=== PATIENT | male | born 1980 | race Two or more races ===

== ENCOUNTER → 2020-10-18 11:00 | Outpatient (BNVA) | payer MEDICAID, SELFPAY | PROVIDERS: PCP Emergency Medicine; Referring Provider Emergency Medicine; Visit Provider Internal Medicine Pulmonary Disease | DX: J44.9 Chronic obstructive pulmonary disease, unspecified (principal); J45.901 Unspecified asthma with (acute) exacerbation | CPT/HCPCS: 99212 ==

== ENCOUNTER → 2020-12-26 13:32 | Outpatient (BNVA) | payer MEDICAID, SELFPAY | PROVIDERS: PCP Emergency Medicine; Visit Provider Nurse Practitioner Gerontology | DX: E11.65 Type 2 diabetes mellitus with hyperglycemia (principal); E78.5 Hyperlipidemia, unspecified; E66.01 Morbid (severe) obesity due to excess calories; Z68.35 Body mass index [BMI] 35.0-35.9, adult | CPT/HCPCS: 82947; 99212 ==

== ENCOUNTER → 2021-01-17 11:32 | Outpatient (BNVA) | payer MEDICAID, SELFPAY | PROVIDERS: Visit Provider Internal Medicine Pulmonary Disease | DX: J44.9 Chronic obstructive pulmonary disease, unspecified (principal) | CPT/HCPCS: 99212 ==

== ENCOUNTER → 2021-02-10 10:28 | Outpatient (BNVA) | payer MEDICAID, SELFPAY | PROVIDERS: PCP Emergency Medicine; Visit Provider Nurse Practitioner Gerontology | DX: E11.65 Type 2 diabetes mellitus with hyperglycemia (principal); E78.5 Hyperlipidemia, unspecified; E66.01 Morbid (severe) obesity due to excess calories; Z68.35 Body mass index [BMI] 35.0-35.9, adult | CPT/HCPCS: 82947; 99212 ==

== ENCOUNTER → 2021-02-22 08:55 | Outpatient (BNVA) | payer MEDICAID, SELFPAY | PROVIDERS: Visit Provider Nurse Practitioner Gerontology ==

== ENCOUNTER → 2021-04-07 09:30 | Outpatient (BNVA) | payer MEDICAID, SELFPAY | PROVIDERS: PCP General Practice; Visit Provider Nurse Practitioner Gerontology | DX: E11.65 Type 2 diabetes mellitus with hyperglycemia (principal); E78.5 Hyperlipidemia, unspecified; E66.01 Morbid (severe) obesity due to excess calories; Z68.35 Body mass index [BMI] 35.0-35.9, adult | CPT/HCPCS: 82947; 99212 ==

== ENCOUNTER 2021-04-14 09:12 | Outpatient (REF) | payer MEDICAID, SELFPAY ==
[2021-04-14 10:35] LABS: Alanine Aminotransferase 28 U/L (0-40); Albumin Level 4.7 g/dL (3.5-5.0); Alkaline Phosphatase 42 U/L (39-117); Anion Gap 14 (12-20); Aspartate Amino Transferase 15 U/L (5-37); Bilirubin Total 0.4 mg/dL (0.0-1.0); Blood Urea Nitrogen 17 mg/dL (9-16); Calcium 9.9 mg/dL (8.4-10.2); Carbon Dioxide 26 mmol/L (22-29); Chloride 105 mmol/L (96-108); Cholesterol 178 mg/dL; Estimated Glomerular Filt Rate > 60; Glucose Fasting 207 mg/dL (60-99); HDL Cholesterol 38 mg/dL; Potassium 4.4 mmol/L (3.3-5.1); Sodium 141 mmol/L (135-145); Total Protein 7.2 g/dL (6.5-8.0); Triglycerides 479 mg/dL
[2021-04-14 10:42] LABS: Microalbum/Creatinine Ratio Ur 41.4 ug/mg cr
[2021-04-15 06:12] LABS: LDL Cholesterol Direct 80 mg/dL (<100)
== END 2021-04-14 09:13 | disposition home or self-care (01) ==
LOC: HO.LAB 09:12
PROVIDERS: PCP General Practice; Visit Provider Nurse Practitioner Gerontology
DX: E11.65 Type 2 diabetes mellitus with hyperglycemia (principal)
CPT/HCPCS: 36415; 80053; 80061; 82043; 83721

== ENCOUNTER → 2021-05-19 09:21 | Outpatient (BNVA) | payer MEDICAID, SELFPAY | PROVIDERS: PCP General Practice; Visit Provider Nurse Practitioner Gerontology | DX: E11.65 Type 2 diabetes mellitus with hyperglycemia (principal); E78.5 Hyperlipidemia, unspecified; E66.01 Morbid (severe) obesity due to excess calories; Z68.35 Body mass index [BMI] 35.0-35.9, adult | CPT/HCPCS: 82947; 99212 ==

== ENCOUNTER → 2021-05-25 11:37 | Outpatient (BNVA) | payer MEDICAID, SELFPAY | PROVIDERS: PCP General Practice; Visit Provider Internal Medicine Pulmonary Disease | DX: J44.9 Chronic obstructive pulmonary disease, unspecified (principal) | CPT/HCPCS: 99212 ==

== ENCOUNTER 2021-06-22 09:50 | Outpatient (REF) | payer MEDICAID, SELFPAY ==
--- NOTE | ~2021-06-22 | XR_ITS ---
EXAMINATION: XR CHEST CLINICAL INFORMATION: SOB COMPARISON: None TECHNIQUE: 2 views of the chest were obtained. FINDINGS: No significant abnormality is noted involving the heart, lungs, mediastinum, bony thorax or soft tissues. XR/XR chest 2V IMPRESSION: Unremarkable chest exam
== END 2021-06-22 09:51 | disposition home or self-care (01) ==
LOC: HO.XRAY 09:50
PROVIDERS: PCP General Practice; Visit Provider General Practice
DX: R06.02 Shortness of breath (principal)
CPT/HCPCS: 71046

== ENCOUNTER → 2021-07-28 07:52 | Outpatient (BNVA) | payer MEDICAID, SELFPAY | PROVIDERS: PCP General Practice; Visit Provider Nurse Practitioner Gerontology | DX: E11.65 Type 2 diabetes mellitus with hyperglycemia (principal); E78.5 Hyperlipidemia, unspecified; E66.01 Morbid (severe) obesity due to excess calories; Z68.35 Body mass index [BMI] 35.0-35.9, adult | CPT/HCPCS: 82947; 83036; 99212 ==

== ENCOUNTER 2021-11-07 09:12 | Outpatient (REF) | payer MEDICAID, SELFPAY ==
--- NOTE | ~2021-11-07 | US_ITS ---
EXAMINATION: US ABDOMEN COMPLETE CLINICAL INFORMATION: Epigastric pain. COMPARISON: CT abdomen and pelvis 02/28/2020. Ultrasound abdomen 02/27/2020. TECHNIQUE: Real-time imaging of the abdominal viscera. FINDINGS: PANCREAS: Pancreas is not optimally visualized. The visualized head and body the pancreas appear hypoechoic. No fluid collection is seen. ABDOMINAL AORTA: Not well visualized due to bowel gas. INFERIOR VENA CAVA: Visualized portions are normal. LIVER: Liver echotexture is increased. The liver is enlarged. No focal hepatic lesion. There is no intrahepatic biliary duct dilatation seen. GALLBLADDER: Normal. The gallbladder is physiologically distended without evidence of stones, sludge, polyps, wall thickening or pericholecystic fluid. COMMON BILE DUCT: Normal in caliber measuring 0.4 cm in diameter. RIGHT KIDNEY: Normal. No hydronephrosis. No renal calculi or focal parenchymal lesions. The kidney measures 11.2 cm in maximum dimension. LEFT KIDNEY: There is a 1.8 x 2.6 x 1.6 cm cyst in the midpole of the left kidney with single thin septation. This is increased in size from 1.5 x 1.4 x 1.2 cm on previous ultrasound February 2020. No hydronephrosis or renal calculi. The kidney measures 11.2 cm in maximum dimension. SPLEEN: Normal. The spleen measures 10.6 cm in maximum dimension. FREE FLUID: None US/US abdomen complete IMPRESSION: Enlarged echogenic liver probably representing fatty infiltration. Limited visualization of the pancreas. Visualized pancreas appears hypoechoic. If there is clinical suspicion of pancreatitis, CT scan should be considered. Left renal cyst. Limited visualization of the pancreas and aorta.
== END 2021-11-07 09:13 | disposition home or self-care (01) ==
LOC: HO.US 09:12
PROVIDERS: PCP General Practice; Visit Provider General Practice
DX: R10.13 Epigastric pain (principal)
CPT/HCPCS: 76700

== ENCOUNTER → 2021-11-21 07:49 | Outpatient (BNVA) | payer MEDICAID, SELFPAY | PROVIDERS: PCP General Practice; Visit Provider Nurse Practitioner Gerontology | DX: E11.65 Type 2 diabetes mellitus with hyperglycemia (principal); E78.5 Hyperlipidemia, unspecified; E66.01 Morbid (severe) obesity due to excess calories; Z68.35 Body mass index [BMI] 35.0-35.9, adult | CPT/HCPCS: 82947; 83036; 99212 ==

== ENCOUNTER → 2021-11-28 11:42 | Outpatient (BNVA) | payer MEDICAID, SELFPAY | PROVIDERS: PCP General Practice; Visit Provider Internal Medicine Pulmonary Disease | DX: J44.9 Chronic obstructive pulmonary disease, unspecified (principal) | CPT/HCPCS: 99212 ==

== ENCOUNTER → 2021-11-29 07:51 | Outpatient (BNVA) | payer MEDICAID, SELFPAY | PROVIDERS: PCP General Practice; Visit Provider Registered Nurse Diabetes Educator | DX: E11.65 Type 2 diabetes mellitus with hyperglycemia (principal) | CPT/HCPCS: 99211 ==

== ENCOUNTER → 2021-12-27 07:49 | Outpatient (BNVA) | payer MEDICAID, SELFPAY | PROVIDERS: PCP General Practice; Visit Provider Registered Nurse Diabetes Educator | DX: E11.65 Type 2 diabetes mellitus with hyperglycemia (principal) | CPT/HCPCS: 99211 ==

== ENCOUNTER → 2022-02-20 07:52 | Outpatient (BNVA) | payer MEDICAID, SELFPAY | PROVIDERS: PCP General Practice; Visit Provider Nurse Practitioner Gerontology | DX: E11.65 Type 2 diabetes mellitus with hyperglycemia (principal); E78.5 Hyperlipidemia, unspecified; E66.01 Morbid (severe) obesity due to excess calories; Z68.34 Body mass index [BMI] 34.0-34.9, adult; Z79.4 Long term (current) use of insulin; Z79.84 Long term (current) use of oral hypoglycemic drugs | CPT/HCPCS: 82947; 83036; 99212 ==

== ENCOUNTER 2022-03-01 07:45 | Outpatient (REF) | payer MEDICAID, SELFPAY ==
[2022-03-01 08:30] LABS: Alanine Aminotransferase 27 U/L (0-40); Albumin Level 4.4 g/dL (3.5-5.0); Alkaline Phosphatase 34 U/L (39-117); Anion Gap 17 (12-20); Aspartate Amino Transferase 15 U/L (5-37); Bilirubin Total 0.3 mg/dL (0.0-1.0); Blood Urea Nitrogen 20 mg/dL (9-16); Calcium 10.3 mg/dL (8.4-10.2); Carbon Dioxide 22 mmol/L (22-29); Chloride 106 mmol/L (96-108); Cholesterol 193 mg/dL; Estimated Glomerular Filt Rate > 60; Glucose Fasting 220 mg/dL (60-99); HDL Cholesterol 38 mg/dL; LDL Cholesterol Calculated 98 mg/dl; Potassium 4.9 mmol/L (3.3-5.1); Sodium 140 mmol/L (135-145); Total Protein 7.1 g/dL (6.5-8.0); Triglycerides 289 mg/dL
[2022-03-01 11:17] LABS: Creatinine Urine 82.97 mg/dL; Microalbum/Creatinine Ratio Ur 13.2 ug/mg cr
[2022-03-03 19:56] LABS: LDL Cholesterol Direct 121 mg/dL (<100)
== END 2022-03-01 07:46 | disposition home or self-care (01) ==
LOC: HO.LAB 07:45
PROVIDERS: PCP General Practice; Visit Provider Nurse Practitioner Gerontology
DX: E11.65 Type 2 diabetes mellitus with hyperglycemia (principal)
CPT/HCPCS: 36415; 80053; 80061; 82043; 83721

== ENCOUNTER → 2022-03-14 12:47 | Outpatient (BNVA) | payer MEDICAID, SELFPAY | PROVIDERS: PCP General Practice; Referring Provider General Practice; Visit Provider Internal Medicine | DX: E11.65 Type 2 diabetes mellitus with hyperglycemia (principal); E78.5 Hyperlipidemia, unspecified; R07.2 Precordial pain | CPT/HCPCS: 93005; 99202 ==

== ENCOUNTER 2022-03-16 07:51 | Outpatient (REF) | payer MEDICAID, SELFPAY ==
--- NOTE | ~2022-03-16 | CT_ITS ---
EXAMINATION: CT ABDOMEN AND PELVIS WITHOUT CONTRAST CLINICAL INFORMATION: Epigastric pain. Necrotizing pancreatitis/sepsis. COMPARISON: 02/28/2020 TECHNIQUE: Multidetector volumetric imaging was performed from the superior aspect of the liver through the pubic symphysis. Sagittal and coronal reformatted images were obtained on the technologist's workstation. This CT examination was performed using dose optimization techniques as appropriate, variously including the following: *Automated exposure control *Adjustment of mA and/or kV according to patient size (this includes techniques or standardized protocols for targeted exams where dose is matched to indication/reason for exam; i.e. extremities or head) *Use of iterative reconstruction technique DLP: 689 mGy-cm FINDINGS: LUNG BASES: The visualized lung bases are unremarkable. LIVER, GALLBLADDER, AND BILIARY TREE: The liver is normal in size, shape, and attenuation. No focal hepatic lesion or biliary ductal dilatation is present. The gallbladder is unremarkable with no evidence of radiopaque gallstones, gallbladder wall thickening, or obvious pericholecystic inflammatory changes. PANCREAS: Pancreatic parenchyma is normal. No ductal dilatation. No inflammatory changes. No fluid collection. SPLEEN: Unremarkable. ADRENAL GLANDS: Unremarkable. KIDNEYS AND URETERS: The kidneys are normal in size, shape, and attenuation. No hydronephrosis, hydroureter, or calculi seen. No perinephric stranding. Simple cyst at the midpole of the left kidney. No follow-up imaging recommended. A few vascular calcifications are present. BLADDER: Unremarkable. GASTROINTESTINAL TRACT: The stomach is unremarkable. Normal caliber small bowel. No obstruction. No colonic wall thickening or inflammatory change. Normal appendix. ABDOMINAL WALL: No significant hernia is appreciated. LYMPH NODES: Normal. VASCULAR: Normal caliber aorta with mild atherosclerotic calcification. PELVIC VISCERA: The prostate and seminal vesicles are unremarkable. OSSEOUS STRUCTURES: No suspicious osseous abnormality. Mild degenerative changes of the spine. CT/CT abdomen pelvis wo con IMPRESSION: No acute finding of the abdomen or pelvis. Normal appearance of the pancreas. No inflammatory changes. Fleischner guidelines were followed.
== END 2022-03-16 07:52 | disposition home or self-care (01) ==
LOC: HO.CT 07:51
PROVIDERS: PCP General Practice; Visit Provider General Practice
DX: R10.13 Epigastric pain (principal); Z87.19 Personal history of other diseases of the digestive system
CPT/HCPCS: 74176

== ENCOUNTER → 2022-03-28 07:48 | Outpatient (BNVA) | payer MEDICAID, SELFPAY | PROVIDERS: PCP General Practice; Visit Provider Registered Nurse Diabetes Educator | DX: E11.65 Type 2 diabetes mellitus with hyperglycemia (principal) | CPT/HCPCS: 99211 ==

== ENCOUNTER → 2022-05-07 07:27 | Outpatient (REF) | payer MEDICAID, SELFPAY ==
--- NOTE | ~2022-05-07 | NM_ITS ---
Myocardial perfusion study Indication: Precordial chest pain to evaluate for myocardial ischemia Technique: The patient was brought in for a Lexiscan perfusion study on 05/07/2022. Patient performed low-level exercise and was injected 0.4 mg of Lexiscan intravenously. Within a minute of injection, 35 mCi of sestamibi was given intravenously. Images were obtained using the SPECT gamma camera interlaced with the gating device. Images were obtained in supine position. Resting perfusion study was performed on 05/08/2022. Patient was administered 35 mCi of sestamibi intravenously at rest. Images were then obtained in supine position. Images obtained with and without CT attenuation. Total DLP 112 mGy-cm. Images were processed with the software and compared side to side in short axis, horizontal long axis and vertical long axis views. Findings: The stress perfusion study showed non attenuated images show mildly to moderately reduced uptake in the basal and mid inferior wall of the LV myocardium. Remainder of the LV myocardium normally perfused. Attenuation corrected images show normal uptake of radiotracer in all segments of LV myocardium. The gated study shows normal LV systolic function with visually estimated LVEF of greater than 60%. LV cavity is normal in size. The gated study shows normal systolic wall thickening and contraction of segments. Resting study shows no change in perfusion pattern compared to stress perfusion study. Gating at rest reveals normal systolic wall motion with ejection fraction at 60%. The findings are consistent with normal myocardial perfusion. NM/NM cardiolite stress test Impression: 1. Myocardial perfusion imaging study shows normal myocardial perfusion 2. Gated LVEF is 60% 3. Transient ischemic dilatation not present EKG is nondiagnostic for ischemia
--- NOTE | 2022-05-07 07:29 | CA_ITS ---
Transthoracic Echocardiogram Patient (Last, First, Middle): Levi Hale R Gender: Male Date of : 1980 Age: 42 Procedure Date: 05/07/2022 Procedure Type: Transthoracic Echocardiogram Location: OP Height: 167.64 cm Weight: 103.87 kg BSA: 2.12 m2 Heart Rate: bpm BP: 130 / 84 mmHg Solar Technician: BRIAN Referring MD: Antonio Moore MD Hand Heel Seat Fitter: Mukesh Pickard MD Symptoms: R07.2 - Precordial pain Study Quality: Adequate ECG Rhythm: Sinus Conclusions: - Essentially normal study Findings Left Ventricle Normal left ventricular size, thickness, and systolic function. The visually estimated ejection fraction is between 55-60%. Diastolic function is normal for age. Right Ventricle Normal right ventricular cavity size and systolic function. Atria Both atria are normal in size. There is lipomatous hypertrophy of the interatrial septum. There is no evidence of interatrial shunt. Aortic Valve The aortic valve structure and function is likely normal. There is no aortic valve stenosis. There is no aortic valve regurgitation. Mitral Valve Normal mitral valve structure and function. There is trace mitral valve regurgitation. There is no mitral valve stenosis. Pulmonic Valve The pulmonic valve was not well visualized. Tricuspid Valve Likely normal tricuspid valve structure and function. There is trace tricuspid valve regurgitation. The right ventricular systolic pressure is normal. The right ventricular systolic pressure is 21 mmHg. Normal right atrial pressure. There is no evidence of pulmonary hypertension. Great Vessels All visible segments of the aorta are normal in size. The pulmonary artery was not well visualized. Venous The inferior vena cava is normal in size and collapses greater than 50% with inspiration. Pericardium/Pleural There is no evidence of pericardial effusion. Prior Study Comparison No prior study available for comparison. Measurements 2D Linear Measurements IVSd: 1.07 0.6-0.9/0.6-1.0 cm LVIDd: 5.06 3.9-5.3/4.2-5.9 cm LVIDd Index: 2.39 2.4-3.2/2.2-3.1 cm/m2 LVIDs: 3.44 2.0-3.6 cm LVPWd: 1.06 0.7-1.1 cm LA Diam: 3.50 2.7-3.8/3.0-4.0 cm LAIDs Index: 1.65 1.5-2.3 cm/m2 LV Mass: 251.83 67-162/88-224 g LV Mass Index: 118.79 43-95/49-115 g/m2 LVOT Diam: 2.30 3.0+(-)1.3 cm 2D Systolic Function EF 4C: 56.90 >55% EF 2C: 57.70 >55% EF BiP: 58.20 >55% Mitral Valve MV Pk E: 0.88 MV PK A: 0.60 MV Decel Time: 215.00 E/A: 1.50 E'Lateral: 14.60 E'Medial: 8.38 E/E' Med: 10.50 E/E' Lat: 6.00 PHT: 63.00 MVA PHT: 3.49 Decel Cascade: 4.11 Aortic Valve AoV Pk Bashir: 1.45 AoV Mn Bashir: 1.07 AoV VTI: 0.31 AoV Pk Grad: 8.00 Aov Mn Grad: 5.00 VENITA Cont.VTI: 2.36 LVOT LVOT Pk Bashir: 0.92 LVOT Mn Bashir: 0.61 LVOT VTI: 0.17 LVOT Pk Grad: 3.00 LVOT Mn Grad: 2.00 LVOT Diam: 2.30 LVOT Area: 4.15 Diastolic Function MV Pk E: 0.88 MV Pk A: 0.60 E/A: 1.50 E'Medial: 8.38 E/E' Med: 10.50 E' Laterial: 14.60 E/E' Lat: 6.00 Right Ventricle TAPSE (mm): 20.80 TVS' Bashir: 11.20 Tricuspid Valve TR Pk Bashir: 2.12 TR Pk Grad: 18.00 RA Press: 3.00 RVSP: 21.00 Great Vessels Aorta Sinus of Valsalva: 3.11 2.0-3.[address] Ridge: 2.71 1.7-3.4 cm Ao Asc: 3.40 2.1-3.4 cm Ao Arch: 3.10 Updated in Other Vendor System with Status of Final Mukesh Pickard MD electronically signed on 05/08/2022 2:36:35 PM with status of Final
--- NOTE | 2022-05-07 07:29 | CA_ITS ---
Acquisition Time: 2022-05-07 08:47:30 Total Exercise Time: 00:06:04 Test Indications: precordial pain Medications: see med sheet Protocol: TAMMIE Max HR: 131 BPM 74% of Pred: 176 BPM Max BP: 164/084 mmHG Max Work Load: 7.0 METS Exercise stress test with exercise 6 min 4 sec of Tammie protocol, achieving 74% MPHR and request to stop due to fatigue, foot pains. Treadmill placed in recovery and slowed to 1 MPH. Testing changed to a pharmacological stress test with Lexiscan injection, without anginal symptoms, without arrythmia, with normotensive response to iniection, with nondiagnostic EKG for ischemia. Nuclear images pending. Test reviewed with Dr Pickard. Referred By: Antonio Moore Overread By: LUIS ZAPATA
== END ==
LOC: HO.CARD 07:27
PROVIDERS: Visit Provider Internal Medicine
DX: R07.2 Precordial pain (principal)
CPT/HCPCS: 78452; 93017; 93306; A9500; J0280; J2785

== ENCOUNTER → 2022-05-16 13:26 | Outpatient (BNVA) | payer MEDICAID, SELFPAY | PROVIDERS: PCP General Practice; Referring Provider General Practice; Visit Provider Internal Medicine | DX: R07.2 Precordial pain (principal); E11.65 Type 2 diabetes mellitus with hyperglycemia; E78.5 Hyperlipidemia, unspecified | CPT/HCPCS: 99212 ==

== ENCOUNTER → 2022-05-18 08:54 | Outpatient (BNVA) | payer MEDICAID, SELFPAY | PROVIDERS: PCP General Practice; Referring Provider General Practice; Visit Provider Nurse Practitioner | DX: R10.13 Epigastric pain (principal); K58.9 Irritable bowel syndrome, unspecified | CPT/HCPCS: 99202 ==

== ENCOUNTER 2022-05-22 07:45 | Outpatient (REF) | payer MEDICAID, SELFPAY ==
[2022-05-22 09:32] LABS: Alanine Aminotransferase 22 U/L (0-40); Albumin Level 4.3 g/dL (3.5-5.0); Alkaline Phosphatase 39 U/L (39-117); Amylase 44 U/L (28-100); Anion Gap 12 (12-20); Aspartate Amino Transferase 18 U/L (5-37); Bilirubin Total 0.4 mg/dL (0.0-1.0); Blood Urea Nitrogen 16 mg/dL (9-16); Calcium 9.1 mg/dL (8.4-10.2); Carbon Dioxide 24 mmol/L (22-29); Chloride 110 mmol/L (96-108); Estimated Glomerular Filt Rate > 60; Glucose Random 165 mg/dL (60-115); Lipase 46 U/L (8-78); Potassium 4.4 mmol/L (3.3-5.1); Sodium 142 mmol/L (135-145); Total Protein 6.6 g/dL (6.5-8.0)
== END 2022-05-22 07:46 | disposition home or self-care (01) ==
LOC: HO.LAB 07:45
PROVIDERS: PCP Internal Medicine; Visit Provider Nurse Practitioner
DX: R10.9 Unspecified abdominal pain (principal)
CPT/HCPCS: 36415; 80053; 82150; 83690

== ENCOUNTER 2022-06-15 13:45 | Emergency (ER) | payer MEDICAID, SELFPAY ==
--- NOTE | ~2022-06-15 | CT_ITS ---
EXAMINATION: CT ABDOMEN AND PELVIS WITHOUT CONTRAST CLINICAL INFORMATION: Abdominal pain COMPARISON: 03/16/2022 TECHNIQUE: Multidetector volumetric imaging was performed from the superior aspect of the liver through the pubic symphysis. Sagittal and coronal reformatted images were obtained on the technologist's workstation. This CT examination was performed using dose optimization techniques as appropriate, variously including the following: *Automated exposure control *Adjustment of mA and/or kV according to patient size (this includes techniques or standardized protocols for targeted exams where dose is matched to indication/reason for exam; i.e. extremities or head) *Use of iterative reconstruction technique DLP: 694 mGy-cm FINDINGS: LUNG BASES: The visualized lung bases are unremarkable. LIVER, GALLBLADDER, AND BILIARY TREE: The liver is normal in size, shape, and attenuation. No focal hepatic lesion or biliary ductal dilatation is present. The gallbladder is unremarkable with no evidence of radiopaque gallstones, gallbladder wall thickening, or obvious pericholecystic inflammatory changes. PANCREAS: Unremarkable. SPLEEN: Unremarkable. ADRENAL GLANDS: Unremarkable. KIDNEYS AND URETERS: The kidneys are normal in size, shape, and attenuation. No hydronephrosis, hydroureter, or calculi seen. No perinephric stranding. Calcifications at the right kidney are likely vascular. Left midpole simple renal cyst. No follow-up imaging recommended. BLADDER: Unremarkable. GASTROINTESTINAL TRACT: The stomach is unremarkable. Normal caliber small bowel. No obstruction. Normal appendix. No colonic wall thickening or inflammation. No free air or free fluid. ABDOMINAL WALL: No significant hernia is appreciated. LYMPH NODES: Normal. VASCULAR: Normal caliber aorta with mild atherosclerotic calcification. PELVIC VISCERA: The prostate and seminal vesicles are unremarkable. OSSEOUS STRUCTURES: No acute or suspicious osseous abnormality. Mild degenerative changes throughout the spine. Vacuum disc phenomenon at the lower lumbar spine. CT/CT abdomen pelvis wo con IMPRESSION: No acute finding of the abdomen or pelvis. No inflammatory changes. Fleischner guidelines were followed.
[2022-06-15 14:09] VITALS: BP 143/80; PULSE 86; RESP 18; TEMP 36.8; O2SAT 97; BMI 37.1
[2022-06-15 14:13] LABS: MANUAL DIFF FLAG NO
[2022-06-15 14:17] LABS: Basophils Absolute Auto 0.1 X10*3/uL (0.0-0.2); Basophils Percent Auto 0.6 % (0-2); Eosinophils Absolute Auto 0.1 X10*3/uL (0.0-0.4); Eosinophils Percent Auto 1.1 % (0-4); Hematocrit 46.7 % (42.0-52.0); Hemoglobin 15.9 g/dl (14.0-18.0); Imm Gran Abs Auto 0.33 X10*3/uL (0.00-0.03); Lymphocytes Absolute Auto 2.2 X10*3/uL (1.2-4.9); Lymphocytes Percent Auto 20.1 % (20-40); Mean Corpuscular Hemoglobin 29.8 pg (27.0-33.0); Mean Corpuscular Volume 87.6 fL (80.0-98.0); Mean Platelet Volume 11.1 fL (9.4-12.4); Monocytes Absolute Auto 0.7 X10*3/uL (0.1-1.2); Monocytes Percent Auto 6.7 % (2-11); Neutrophils Absolute Auto 7.6 x10*3/uL (2.0-8.3); Neutrophils Percent Auto 68.5 % (45-73); Platelet Count 275 X10*3/uL (160-400); Red Blood Count 5.33 X10*6/uL (4.60-5.80); Red Cell Distribution Width 12.2 % (11.0-16.0); White Blood Count 11.1 X10*3/uL (4.8-10.8)
[2022-06-15 14:18] LABS: Appearance Urine CLEAR; Color Urine YELLOW; Glucose Urine UA >=1000 MG/DL (NEG); Leukocyte Esterase Urine NEG (NEG); Nitrite Urine NEG (NEG); Specific Gravity - Urine 1.015 (1.005-1.025); Urine Blood NEG (NEG); Urine Ketones NEG (NEG); Urine Protein NEG (NEG-TRACE)
[2022-06-15 14:28] LABS: RBC Urine 0 /HPF (0); Squamous Epithelial Cell Urine 1+ /LPF; WBC Urine 0-2 /HPF (0-4)
[2022-06-15 14:31] LABS: Alanine Aminotransferase 33 U/L (0-40); Albumin Level 4.8 g/dL (3.5-5.0); Alkaline Phosphatase 38 U/L (39-117); Anion Gap 16 (12-20); Aspartate Amino Transferase 17 U/L (5-37); Bilirubin Total 0.3 mg/dL (0.0-1.0); Blood Urea Nitrogen 14 mg/dL (9-16); Calcium 10.1 mg/dL (8.4-10.2); Carbon Dioxide 28 mmol/L (22-29); Chloride 106 mmol/L (96-108); Creatinine Clr Calc Pharmacy 98.7; Estimated Glomerular Filt Rate > 60; Glucose Random 115 mg/dL (60-115); Lipase 47 U/L (8-78); Potassium 4.6 mmol/L (3.3-5.1); Sodium 145 mmol/L (135-145); Total Protein 7.6 g/dL (6.5-8.0)
[2022-06-15 14:32] LABS: COVID-19 Test Negative (Negative)
--- NOTE | 2022-06-15 19:45 | ED.GENADULT ---
HPI - General Adult General Chief complaint: Abdominal Pain Stated complaint: pancreas pain Time Seen by Provider: 06/15/22 13:55 Source: patient Mode of arrival: ambulatory Limitations: no limitations History of Present Illness HPI narrative: Patient comes to the emergency room complaining of mid bilateral back pain radiating up to the scapulas and around the ribs to the epigastric area. Patient was sent by his primary care physician to be evaluated for pancreatitis which patient has had in the past. Patient states that he has had pain in the left shoulder area at that moves around the upper back on the left side of the neck and radiates downwards and around the ribs. Patient denies chest pain, shortness of breath, mild epigastric abdominal pain. Patient has been having similar complaints for approximately 1 month Related Data Home Medications Medication Instructions Recorded Confirmed ergocalciferol (vitamin D2) 50 mcg 50 mcg PO DAILY 10/18/20 05/16/22 (2,000 unit) capsule fenofibrate nanocrystallized 145 145 mg PO DAILY 10/18/20 05/16/22 mg tablet folic acid 1 mg tablet 1 mg PO DAILY 10/18/20 05/16/22 terbinafine HCl 1 % topical cream 1 appl topical BID 10/18/20 05/16/22 thiamine mononitrate (vit B1) 100 100 mg PO DAILY 10/18/20 05/16/22 mg tablet atorvastatin 40 mg tablet 40 mg PO DAILY 03/06/22 05/16/22 lisinopril 5 mg tablet 5 mg PO DAILY 05/16/22 05/16/22 omega-3 acid ethyl esters 1 gram 1 cap PO BID 05/16/22 05/16/22 capsule metformin 500 mg tablet,extended 1,000 mg PO DAILY 05/18/22 release 24 hr omeprazole 20 mg capsule,delayed 20 mg PO DAILY 05/18/22 release Previous Rx's Medication Instructions Recorded blood sugar diagnostic (OneTouch #150 ea 12/26/20 Ultra Blue Test Strip) blood-glucose meter (FreeStyle #1 ea 01/04/21 [place] Lite kit) alcohol swabs (Alcohol Pads) 1 pad topical QID 30 days #200 ea 01/18/21 lancets 33 gauge (TRUEplus Lancets) #100 ea 02/22/21 flash glucose scanning reader #1 ea 04/07/21 (FreeStyle Bernice 2 Applegate) albuterol sulfate 90 mcg/actuation 1 inh inhalation QID PRN shortness 11/28/21 aerosol inhaler of breath or wheezing 30 days #1 ea fluticasone 250 mcg-salmeterol 50 1 inh inhalation BID 30 days #1 ea 11/28/21 mcg/dose blistr powdr for inhalation (Wixela Inhub) blood sugar diagnostic (FreeStyle #150 ea 01/24/22 Lite Strips) empagliflozin 10 mg tablet 10 mg PO QAM #30 tabs 02/01/22 (Jardiance) insulin lispro 100 unit/mL 20 - 26 unit (0.2 - 0.26 mL) 03/28/22 subcutaneous pen subcut TID #30 mL flash glucose sensor (FreeStyle #2 ea 05/14/22 Bernice 2 Sensor kit) pen needle, diabetic 32 gauge x #150 ea 05/14/22 (BD Ultra-Fine Jennifer Pen Needle) ievofs-ldhyefey-fwoyrmg 1 cap PO .TIDAC 30 days #90 caps 05/18/22 24,000-76,000-120,000 unit capsule,delayed rel (Creon) insulin glargine 100 unit/mL (3 52 unit (0.52 mL) subcut QPM #15 mL 06/14/22 mL) subcutaneous pen (Lantus Solostar U-100 Insulin) baclofen 5 mg tablet 5 mg PO TID PRN pain #10 tabs 06/15/22 Allergies Allergy/AdvReac Type Severity Reaction Status Date / Time No Known Allergies Allergy Verified 05/18/22 09:00 [No Known Allergies*] Review of Systems Review of Systems: Constitutional : No Weight loss, No Fever, No Chills, No Night Sweats, No Fatigue, No Malaise ENT/Mouth : No Hearing loss, No Ear Pain, No Nasal Congestion, No Sinus Pain, No Hoarseness, No sore throat, No Rhinorrhea, No Swallowing Difficulty Eyes: No Eye Pain, No Swelling, No Redness, No Foreign Body, No Discharge, No Vision Changes Cardiovascular : No Chest Pain, No SOB, No Dyspnea on Exertion, No Orthopnea, No Edema, No Palpitations Respiratory : No Cough, No Sputum, No Wheezing, No Smoke Exposure, No Dyspnea Gastrointestinal : No Nausea, No Vomiting, No Diarrhea, No Constipation, complaining of mild epigastric area, mild left flank pain, No Hematochezia, No Melena Genitourinary : no irregular bleeding, No Dysuria, No Urinary Frequency, No Hematuria, No Urinary Incontinence, No Urgency, No Flank Pain, No Urinary Flow Changes, No Hesitancy Musculoskeletal : Complaining of upper and middle back pain, complaining the back pain radiating towards the epigastric area Skin : No Skin Lesions, No rash Neuro : No Weakness, No Numbness, No Paresthesias, No Loss of Consciousness, No Dizziness, No Headache Psych : No Anxiety/Panic, No Depression, No SI/HI/AH/VH, No Social Issues, Heme/Lymph: No Bruising, No Bleeding,No Lymphadenopathy Endocrine : No Polyuria, No Polydipsia, No Temperature Intolerance [facility] Past Medical History Medical History Diabetes mellitus with hyperglycemia Dyslipidemia History of alcohol abuse History of pancreatitis Iron deficiency anemia Necrotizing pancreatitis Obesity due to excess calories Polyarthralgia Surgical History No history of previous surgery Family History Family History Father Diabetes Mother Diabetes Brother Diabetes Social History Social History Household Members: Other Household Members Other:: mother Alcohol intake: current Patient Tobacco Use Status: Current someday Tobacco user Advance Directives: No Advance Directives Information Provided: No Physical Exam ED Vital Signs: Vital Signs - 24 hr 06/15/22 14:09 Temperature 98.2 F Pulse Rate 86 Respiratory Rate 18 Blood Pressure 143/80 H Pulse Oximetry 97 Oxygen Delivery Method Room Air BMI result Body Mass Index 37.1 Const Other: Appearance: Alert. Oriented X3. No acute distress. Well appearing Eyes: Pupils equal, round and reactive to light. ENT: Pharynx normal. Neck: Normal inspection. Neck supple. No lymph nodes noted. No crepitus CVS: Normal heart rate and rhythm. Pulses normal. Normal S1 and S2 Respiratory: No respiratory distress. Breath sounds normal. No Wheezing. No rales Abdomen: Soft and nontender. No rigidity. No distention. Back: Pain to palpation over the suprascapular muscles and upper back, pain to palpation on the left flank Skin: Skin warm and dry. Normal skin color. Normal skin turgor. Extremities: No lower extremity edema. No Lacerations. No Rash Neuro: Oriented X 3. No motor deficit. No sensory deficit. Moving all extremities. No slurred speech. CN 2 through 12 grossly intact Psych: calm, cooperative, normal affect Course Course Course Narrative: I discussed the labs and imaging with the patient, no acute findings. Based on physical exam, looks like the patient has mostly musculoskeletal pain. Also, patient has been evaluated by Gastroenterology and Cardiology for similar complaints. He states he is compliant with his medications for pancreatitis. Takes omeprazole as well CT scan does not show any acute abnormality. Urinalysis clean Patient may eventually be a good candidate for an upper endoscopy if he continues having epigastric pain. Medical Decision Making Lab Data Result diagrams: 06/15/22 14:07 06/15/22 14:07 Labs: Lab Results 06/15/22 06/15/22 06/15/22 Range/Units 14:07 14:07 14:07 WBC 11.1 H (4.8-10.8) X10*3/uL RBC 5.33 (4.60-5.80) X10*6/uL Hgb 15.9 (14.0-18.0) g/dl Hct 46.7 (42.0-52.0) % MCV 87.6 (80.0-98.0) fL MCH 29.8 (27.0-33.0) pg MCHC 34.0 (31.0-36.0) g/dl RDW 12.2 (11.0-16.0) % Plt Count 275 (160-400) X10*3/uL MPV 11.1 (9.4-12.4) fL Immature Gran % (Auto) 3.0 H (0.0-0.4) % Neut % (Auto) 68.5 (45-73) % Lymph % (Auto) 20.1 (20-40) % Blaine % (Auto) 6.7 (2-11) % Eos % (Auto) 1.1 (0-4) % Baso % (Auto) 0.6 (0-2) % Lymph # (Auto) 2.2 (1.2-4.9) X10*3/uL Blaine # (Auto) 0.7 (0.1-1.2) X10*3/uL Eos # (Auto) 0.1 (0.0-0.4) X10*3/uL Baso # (Auto) 0.1 (0.0-0.2) X10*3/uL Abs Immat Gran (auto) 0.33 H (0.00-0.03) X10*3/uL Absolute Neuts (auto) 7.6 (2.0-8.3) x10*3/uL Absolute Nucleated RBC 0.000 (0.0-0.012) X10*3/uL Nucleated RBC % (auto) 0.0 (0.0-0.2) /100WBC Sodium 145 (135-145) mmol/L Potassium 4.6 (3.3-5.1) mmol/L Chloride 106 (96-108) mmol/L Carbon Dioxide 28 (22-29) mmol/L Anion Gap 16 (12-20) BUN 14 (9-16) mg/dL Creatinine 1.08 (0.5-1.4) mg/dL Estim Creat Clear Calc 98.7 Estimated GFR > 60 Random Glucose 115 (60-115) mg/dL Calcium 10.1 D (8.4-10.2) mg/dL Magnesium 2.0 (1.6-2.6) mg/dL Total Bilirubin 0.3 (0.0-1.0) mg/dL AST 17 (5-37) U/L ALT 33 (0-40) U/L Alkaline Phosphatase 38 L (39-117) U/L Total Protein 7.6 (6.5-8.0) g/dL Albumin 4.8 (3.5-5.0) g/dL Lipase 47 (8-78) U/L Urine Color Urine Appearance Urine pH (5.0-8.0) Ur Specific [place] (1.005-1.025) Urine Protein (NEG-TRACE) MG/DL Urine Glucose (UA) (NEG) MG/DL Urine Ketones (NEG) MG/DL Urine Blood (NEG) Urine Nitrite (NEG) Ur Leukocyte Esterase (NEG) Urine RBC (0) /HPF Urine WBC (0-4) /HPF Ur Squamous Epith Cells /LPF Urine Bacteria /LPF COVID-19 (HALEY) Negative (Negative) COVID-19 Clin Com See Note 06/15/22 Range/Units 14:08 WBC (4.8-10.8) X10*3/uL RBC (4.60-5.80) X10*6/uL Hgb (14.0-18.0) g/dl Hct (42.0-52.0) % MCV (80.0-98.0) fL MCH (27.0-33.0) pg MCHC (31.0-36.0) g/dl RDW (11.0-16.0) % Plt Count (160-400) X10*3/uL MPV (9.4-12.4) fL Immature Gran % (Auto) (0.0-0.4) % Neut % (Auto) (45-73) % Lymph % (Auto) (20-40) % [place] % (Auto) (2-11) % Eos % (Auto) (0-4) % Baso % (Auto) (0-2) % Lymph # (Auto) (1.2-4.9) X10*3/uL [place] # (Auto) (0.1-1.2) X10*3/uL Eos # (Auto) (0.0-0.4) X10*3/uL Baso # (Auto) (0.0-0.2) X10*3/uL Abs Immat Gran (auto) (0.00-0.03) X10*3/uL Absolute Neuts (auto) (2.0-8.3) x10*3/uL Absolute Nucleated RBC (0.0-0.012) X10*3/uL Nucleated RBC % (auto) (0.0-0.2) /100WBC Sodium (135-145) mmol/L Potassium (3.3-5.1) mmol/L Chloride (96-108) mmol/L Carbon Dioxide (22-29) mmol/L Anion Gap (12-20) BUN (9-16) mg/dL Creatinine (0.5-1.4) mg/dL Estim Creat Clear Calc Estimated GFR Random Glucose (60-115) mg/dL Calcium (8.4-10.2) mg/dL Magnesium (1.6-2.6) mg/dL Total Bilirubin (0.0-1.0) mg/dL AST (5-37) U/L ALT (0-40) U/L Alkaline Phosphatase (39-117) U/L Total Protein (6.5-8.0) g/dL Albumin (3.5-5.0) g/dL Lipase (8-78) U/L Urine Color YELLOW Urine Appearance CLEAR Urine pH 7.0 (5.0-8.0) Ur Specific [place] 1.015 (1.005-1.025) Urine Protein NEG (NEG-TRACE) MG/DL Urine Glucose (UA) >=1000 H (NEG) MG/DL Urine Ketones NEG (NEG) MG/DL Urine Blood NEG (NEG) Urine Nitrite NEG (NEG) Ur Leukocyte Esterase NEG (NEG) Urine RBC 0 (0) /HPF Urine WBC 0-2 (0-4) /HPF Ur Squamous Epith Cells 1+ /LPF Urine Bacteria NONE /LPF COVID-19 (HALEY) (Negative) COVID-19 Clin Com Imaging Data CT scan - abdomen: Radiologist's impression: INDINGS: LUNG BASES: The visualized lung bases are unremarkable.? LIVER, GALLBLADDER, AND BILIARY TREE: The liver is normal in size, shape, and attenuation. No focal hepatic lesion or biliary ductal dilatation is present. The gallbladder is unremarkable with no evidence of radiopaque gallstones, gallbladder wall thickening, or obvious pericholecystic inflammatory changes.? PANCREAS: Unremarkable.? SPLEEN: Unremarkable.? ADRENAL GLANDS: Unremarkable.? KIDNEYS AND URETERS: The kidneys are normal in size, shape, and attenuation. No hydronephrosis, hydroureter, or calculi seen. No perinephric stranding. Calcifications at the right kidney are likely vascular. Left midpole simple renal cyst. No follow-up imaging recommended.? BLADDER: Unremarkable.? GASTROINTESTINAL TRACT: The stomach is unremarkable. Normal caliber small bowel. No obstruction. Normal appendix. No colonic wall thickening or inflammation. No free air or free fluid.? ABDOMINAL WALL: No significant hernia is appreciated.? LYMPH NODES: Normal. VASCULAR: Normal caliber aorta with mild atherosclerotic calcification. PELVIC VISCERA: The prostate and seminal vesicles are unremarkable.? OSSEOUS STRUCTURES: No acute or suspicious osseous abnormality. Mild degenerative changes throughout the spine. Vacuum disc phenomenon at the lower lumbar spine.? CT/CT abdomen pelvis wo con IMPRESSION: No acute finding of the abdomen or pelvis. No inflammatory changes.? ? Fleischner guidelines were followed. Discharge Plan Discharge Clinical Impression: Abdominal pain, Musculoskeletal pain Patient Disposition: Home, Self-Care Instructions: Abdominal Pain (ED), Musculoskeletal Pain (ED) Additional Instructions: Please follow-up with your primary care physician tomorrow. If you have any worsening or new symptoms, please return to the emergency room or call 911 Prescriptions: New baclofen 5 mg tablet 5 mg PO TID PRN (Reason: pain) Qty: 10 0RF No Action (DME) blood-glucose meter [FreeStyle [place] Lite] Kit See Rx Instructions .ROUTE .MEDSUPPLY Qty: 1 0RF Rx Instructions: As directed 4 times a day alcohol swabs [Alcohol Pads] Pads, Medicated 1 pad topical QID 30 Days Qty: 200 3RF (DME) FreeStyle Lite Strips Strip See Rx Instructions .ROUTE .MEDSUPPLY Qty: 150 11RF Rx Instructions: As directed four times a day Jardiance 10 mg tablet 10 mg PO QAM Qty: 30 4RF atorvastatin 40 mg tablet 40 mg PO DAILY insulin lispro 100 unit/mL insulin pen 20 - 26 unit subcut TID Qty: 30 6RF (DME) FreeStyle Bernice 2 Sensor Kit See Rx Instructions .ROUTE .MEDSUPPLY Qty: 2 11RF Rx Instructions: As directed every 2 weeks (DME) pen needle, diabetic [BD Ultra-Fine Jennifer Pen Needle] 32 gauge x 5/32 needle See Rx Instructions .ROUTE .MEDSUPPLY Qty: 150 6RF Rx Instructions: Five times a day Lantus Solostar U-100 Insulin 100 unit/mL (3 mL) insulin pen 52 unit subcut QPM Qty: 15 4RF terbinafine HCl 1 % cream 1 appl topical BID thiamine mononitrate (vit B1) 100 mg tablet 100 mg PO DAILY ergocalciferol (vitamin D2) 50 mcg (2,000 unit) capsule 50 mcg PO DAILY folic acid 1 mg tablet 1 mg PO DAILY fenofibrate nanocrystallized 145 mg tablet 145 mg PO DAILY (DME) OneTouch Ultra Blue Test Strip Strip See Rx Instructions .ROUTE .MEDSUPPLY Qty: 150 3RF Rx Instructions: As directed 4 times a day (DME) FreeStyle Bernice 2 [place] Misc See Rx Instructions .ROUTE .MEDSUPPLY Qty: 1 0RF Rx Instructions: As directed (DME) lancets [TRUEplus Lancets] 33 gauge misc See Rx Instructions .ROUTE .MEDSUPPLY Qty: 100 11RF Rx Instructions: As directed 4 times a day albuterol sulfate 90 mcg/actuation HFA aerosol inhaler 1 inh inhalation QID PRN (Reason: shortness of breath or wheezing) 30 Days Qty: 1 6RF fluticasone propion-salmeterol [Wixela Inhub] 250-50 mcg/dose blister with device 1 inh inhalation BID 30 Days Qty: 1 6RF omega-3 acid ethyl esters 1 gram capsule 1 cap PO BID lisinopril 5 mg tablet 5 mg PO DAILY metformin 500 mg tablet extended release 24 hr 1,000 mg PO DAILY omeprazole 20 mg capsule,delayed release(DR/EC) 20 mg PO DAILY Creon 24,000-76,000 -120,000 unit capsule,delayed release(DR/EC) 1 cap PO .TIDAC 30 Days Qty: 90 3RF Rx Instructions: administer with meals and/or snacks
[2022-06-15] MEDS: traMADoL HCL 50 MG TABLET PO (20:04)
== END 2022-06-15 20:12 | disposition home or self-care (01) ==
PROVIDERS: Physician Assistant Medical; Emergency Provider Emergency Medicine
DX: R10.13 Epigastric pain (principal); M79.18 Myalgia, other site; Z20.822 Contact with and (suspected) exposure to COVID-19; E11.9 Type 2 diabetes mellitus without complications; E78.5 Hyperlipidemia, unspecified; F10.11 Alcohol abuse, in remission; D50.9 Iron deficiency anemia, unspecified; E66.9 Obesity, unspecified; Z68.37 Body mass index [BMI] 37.0-37.9, adult; F17.200 Nicotine dependence, unspecified, uncomplicated; Z79.4 Long term (current) use of insulin
CPT/HCPCS: 74176; 80053; 81001; 83690; 83735; 85025; 87635; 99283; 99284

== ENCOUNTER → 2022-06-28 07:51 | Outpatient (BNVA) | payer MEDICAID, SELFPAY | PROVIDERS: PCP General Practice; Visit Provider Registered Nurse Diabetes Educator | DX: E11.65 Type 2 diabetes mellitus with hyperglycemia (principal) | CPT/HCPCS: 99211 ==

== ENCOUNTER → 2022-06-29 08:55 | Outpatient (BNVA) | payer MEDICAID, SELFPAY | PROVIDERS: PCP General Practice; Referring Provider General Practice; Visit Provider Nurse Practitioner | DX: K86.1 Other chronic pancreatitis (principal); K58.9 Irritable bowel syndrome, unspecified; K21.9 Gastro-esophageal reflux disease without esophagitis; K70.0 Alcoholic fatty liver; N18.30 Chronic kidney disease, stage 3 unspecified; F19.10 Other psychoactive substance abuse, uncomplicated | CPT/HCPCS: 99212 ==

== ENCOUNTER → 2022-09-28 07:47 | Outpatient (BNVA) | payer MEDICAID, SELFPAY | PROVIDERS: PCP General Practice; Visit Provider Registered Nurse Diabetes Educator | DX: E11.65 Type 2 diabetes mellitus with hyperglycemia (principal) | CPT/HCPCS: 99211 ==

== ENCOUNTER 2022-12-05 08:14 | Outpatient (REF) | payer MEDICAID, SELFPAY ==
[2022-12-05 08:28] LABS: MANUAL DIFF FLAG NO
[2022-12-05 08:56] LABS: Basophils Absolute Auto 0.1 X10*3/uL (0.0-0.2); Basophils Percent Auto 0.9 % (0-2); Eosinophils Absolute Auto 0.1 X10*3/uL (0.0-0.4); Eosinophils Percent Auto 1.6 % (0-4); Hematocrit 45.3 % (42.0-52.0); Hemoglobin 15.7 g/dl (14.0-18.0); Imm Gran Abs Auto 0.21 X10*3/uL (0.00-0.03); Imm Gran Pct Auto 2.6 % (0.0-0.4); Lymphocytes Absolute Auto 1.8 X10*3/uL (1.2-4.9); Lymphocytes Percent Auto 22.1 % (20-40); Mean Corpuscular HGB Conc 34.7 g/dl (31.0-36.0); Mean Corpuscular Hemoglobin 30.8 pg (27.0-33.0); Mean Platelet Volume 11.3 fL (9.4-12.4); Monocytes Absolute Auto 0.5 X10*3/uL (0.1-1.2); Monocytes Percent Auto 6.5 % (2-11); Neutrophils Absolute Auto 5.3 x10*3/uL (2.0-8.3); Neutrophils Percent Auto 66.3 % (45-73); Platelet Count 247 X10*3/uL (160-400); Red Blood Count 5.09 X10*6/uL (4.60-5.80); Red Cell Distribution Width 12.1 % (11.0-16.0)
[2022-12-05 09:03] LABS: Estimated Average Glucose 192 mg/dL; Hemoglobin A1c % 8.3 %
[2022-12-05 09:20] LABS: Appearance Urine Clear; Color Urine Yellow; Glucose Urine UA >=1000 mg/dL (Negative); Leukocyte Esterase Urine Negative (Negative); Nitrite Urine Negative (Negative); Specific Gravity - Urine >= 1.030 (1.005-1.025); UMIC TRIGGER UA YES; Urine Blood Negative (Negative); Urine Ketones Negative (Negative); Urine Protein Negative (Neg-Trace)
[2022-12-05 09:22] LABS: Bacteria Urine None Seen (None Seen); Hyaline Casts Urine 0-2 /LPF (0-2); RBC Urine 0-2 /HPF (0-2); Squamous Epithelial Cell Urine 0-2 /HPF (0-2); WBC Urine 0-5 /HPF (0-5)
[2022-12-05 09:28] LABS: Anion Gap 12 (12-20); Blood Urea Nitrogen 21 mg/dL (9-16); Calcium 9.8 mg/dL (8.4-10.2); Carbon Dioxide 26 mmol/L (22-29); Chloride 103 mmol/L (96-108); Estimated Glomerular Filt Rate > 60; Potassium 4.4 mmol/L (3.3-5.1); Sodium 137 mmol/L (135-145); Uric Acid 6.3 mg/dL (3.4-7.0)
[2022-12-05 09:47] LABS: Vitamin D 25-OH Total 19.1 ng/mL (>30)
[2022-12-05 09:51] LABS: Creatinine Urine 41.62 mg/dL; Total Protein Urine Random < 7 mg/dL (<12)
[2022-12-06 13:48] LABS: Calcium (PTHI) 9.9 mg/dL (8.6-10.3); PTHI 26 pg/mL (16-77)
== END 2022-12-05 08:15 | disposition home or self-care (01) ==
LOC: HO.LAB 08:14
PROVIDERS: PCP General Practice; Visit Provider Physician Assistant
DX: N18.32 Chronic kidney disease, stage 3b (principal); E55.9 Vitamin D deficiency, unspecified
CPT/HCPCS: 36415; 80051; 81001; 82306; 82310; 82565; 83036; 83970; 84156; 84520; 84550; 85025

== ENCOUNTER 2023-07-04 08:06 | Outpatient (REF) | payer MEDICAID, SELFPAY ==
[2023-07-04 11:53] LABS: Appearance Urine Clear; Color Urine Yellow; Glucose Urine UA >=1000 mg/dL (Negative); Leukocyte Esterase Urine Negative (Negative); Nitrite Urine Negative (Negative); PH 5.5 (5.0-9.0); Specific Gravity - Urine >= 1.030 (1.005-1.025); UMIC TRIGGER UACC YES; Urine Blood Negative (Negative); Urine Ketones Negative (Negative); Urine Protein Negative (Neg-Trace)
[2023-07-04 11:58] LABS: Alanine Aminotransferase 34 U/L (0-40); Albumin Level 4.4 g/dL (3.5-5.0); Alkaline Phosphatase 50 U/L (39-117); Anion Gap 14 (12-20); Aspartate Amino Transferase 16 U/L (5-37); Bilirubin Total 0.4 mg/dL (0.0-1.0); Blood Urea Nitrogen 15 mg/dL (9-16); Carbon Dioxide 25 mmol/L (22-29); Chloride 105 mmol/L (96-108); Cholesterol 189 mg/dL; Estimated Glomerular Filt Rate > 60; Glucose Random 196 mg/dL (60-115); HDL Cholesterol 40 mg/dL; Lipase 65 U/L (8-78); Potassium 4.1 mmol/L (3.3-5.1); Sodium 140 mmol/L (135-145); Total Protein 7.4 g/dL (6.5-8.0); Triglycerides 509 mg/dL
[2023-07-04 12:40] LABS: Bacteria Urine None Seen (None Seen); Hyaline Casts Urine 0-2 /LPF (0-2); RBC Urine 0-2 /HPF (0-2); Squamous Epithelial Cell Urine 0-2 /HPF (0-2); WBC Urine 0-5 /HPF (0-5)
[2023-07-04 13:16] LABS: Creatinine Urine 50.69 mg/dL; Microalbum/Creatinine Ratio Ur 13.8 ug/mg cr
== END 2023-07-04 08:07 | disposition home or self-care (01) ==
LOC: HO.HHCL 08:06
PROVIDERS: Visit Provider General Practice
DX: R35.0 Frequency of micturition (principal); E11.65 Type 2 diabetes mellitus with hyperglycemia; Z94.4 Liver transplant status; Z87.19 Personal history of other diseases of the digestive system
CPT/HCPCS: 36415; 80053; 80061; 81001; 82043; 83690

== ENCOUNTER 2023-08-15 08:57 | Outpatient (AMB) | payer MEDICAID, SELFPAY ==
--- NOTE | 2023-08-15 09:02 | A.OFFVIS_ITS ---
Intake Vital Signs 08/15/23 09:03 Height 5 ft 6 in Weight 231 lb 7.766 oz BMI 37.4 BP 127/77 Blood Pressure Location Lt brachial Position Sitting Pulse 98 Pulse Source Doppler Pulse Oximetry (%) 97 Oxygen Delivery Method Room Air Intake Visit Reasons: Asthma Allergies No Known Allergies [No Known Allergies*] Allergy (Verified 08/15/23 09:04) HPI Asthma HPI Details 43-year-old gentleman, recent 20+ pack-y ear smoker, followed for asthma COPD overlap syndrome. He has been using Wixela 250 and albuterol MDI with good control of his underlying symptoms until he has ran out of it. He denies any recent acute exacerbations. [facility] Medical History Diabetes mellitus with hyperglycemia Dyslipidemia History of alcohol abuse History of pancreatitis Iron deficiency anemia Necrotizing pancreatitis Obesity due to excess calories Polyarthralgia Surgical History No history of previous surgery Family History Father Diabetes Mother Diabetes Brother Diabetes Social History Household Members: Other Household Members Other:: mother Alcohol intake: current Patient Tobacco Use Status: Current someday Tobacco user Review of Systems Const Denies daytime sleepiness, Denies excessive sweating, Denies fatigue, Denies fever(s), Denies lethargy, Denies malaise, Denies night sweats, Denies snoring and Denies weight loss Eyes Denies blurry vision and Denies itchy eyes ENT Denies nasal congestion, Denies post nasal drip, Denies sinus pain, Denies sinus pressure and Denies other ( Thrush) Card Denies chest pain, Denies pedal edema, Denies dyspnea, Denies orthopnea and Denies paroxysmal nocturnal dyspnea Resp Denies cough, Denies hemoptysis, Denies excessive phlegm production, Denies dyspnea, Denies snoring and Denies wheezing GI Denies abdominal pain and Denies heartburn Musc Denies myalgias, Denies arthralgias and Denies joint swelling Skin/Breast Denies rash Neuro Denies memory loss and Denies seizure-like activity Psych Denies abnormal sleep pattern, Denies anxiety and Denies memory loss Endo Denies excessive sweating, Denies fatigue and Denies heat intolerance Richar/Lymph Denies easy bruising Aller/Immun Denies itchy eyes, Denies seasonal rhinorrhea and Denies wheezing Physical Exam Vital Signs: Last Vital Signs Pulse 98 08/15/23 09:03 BP 127/77 08/15/23 09:03 Pulse Ox 97 08/15/23 09:03 Oxygen Delivery Method Room Air 08/15/23 09:03 BMI result Body Mass Index 37.4 Const General: no acute distress and alert Nutritional Appearance: not obese Orientation/consciousness: Other orientation findings ( oriented) HEENT Head: Yes atraumatic Eyes General: appearance normal, both eyes and all related structures Sclerae: sclerae normal EOM: EOMs intact bilaterally Neck Neck: Yes supple Lymphatic: no lymphadenopathy noted Resp Effort & Inspection: normal respiratory effort and no use of accessory muscles Auscultation: clear to auscultation bilaterally Cardio Rate: regular rate Rhythm: regular rhythm Heart sounds: no gallops, no murmurs and no rubs Skin General skin exam: other ( warm) Extrem General: No clubbing, No cyanosis and No edema Assessment & Plan Assessment & Plan (1) Asthma-COPD overlap syndrome: Code(s): J44.9 - Chronic obstructive pulmonary disease, unspecified Plan: Not well controlled as patient has ran out of his Wixela. Restart Wixela. Continue albuterol MDI. Medications: Refilled fluticasone propion-salmeterol 250-50 mcg/dose (Wixela Inhub) 1 inh inhalation BID 30 days 1 ea 6RF albuterol sulfate 90 mcg/actuation 1 inh inhalation QID 30 days PRN 1 ea 6RF shortness of breath or wheezing Coding Level of Care Code Est Pt Level 3 (26913) Diagnoses Asthma-COPD overlap syndrome J44.9
[2023-08-15 09:03] VITALS: BP 127/77; PULSE 98; O2SAT 97; BMI 37.4
== END 2023-08-15 09:36 | disposition home or self-care (01) ==
PROVIDERS: PCP General Practice; Visit Provider Internal Medicine Pulmonary Disease
DX: J44.9 Chronic obstructive pulmonary disease, unspecified (principal)
CPT/HCPCS: 99213

== ENCOUNTER → 2023-08-15 08:57 | Outpatient (BNVA) | payer MEDICAID, SELFPAY | PROVIDERS: PCP General Practice; Visit Provider Internal Medicine Pulmonary Disease | DX: J44.9 Chronic obstructive pulmonary disease, unspecified (principal) | CPT/HCPCS: 99212 ==

== ENCOUNTER 2023-12-19 09:30 | Outpatient (REF) | payer MEDICAID, SELFPAY ==
[2023-12-19 10:48] LABS: Estimated Average Glucose 180 mg/dL; Hemoglobin A1c % 7.9 % (<6.0)
[2023-12-19 11:13] LABS: Parathyroid Hormone Intact 33.9 pg/mL (8.7-77.1)
[2023-12-19 11:16] LABS: Anion Gap 14 (12-20); Blood Urea Nitrogen 22 mg/dL (9-16); Calcium 9.4 mg/dL (8.4-10.2); Carbon Dioxide 28 mmol/L (22-29); Chloride 104 mmol/L (96-108); Estimated Glomerular Filt Rate > 60; Potassium 4.6 mmol/L (3.3-5.1); Sodium 141 mmol/L (135-145); Uric Acid 4.6 mg/dL (3.4-7.0)
[2023-12-19 11:33] LABS: Vitamin D 25-OH Total 25.8 ng/mL (>30)
[2023-12-19 12:10] LABS: Appearance Urine Clear; Color Urine Yellow; Glucose Urine UA >=1000 mg/dL (Negative); Leukocyte Esterase Urine Negative (Negative); Nitrite Urine Negative (Negative); PH 7.5 (5.0-9.0); Specific Gravity - Urine >= 1.030 (1.005-1.025); UMIC TRIGGER UA YES; Urine Blood Negative (Negative); Urine Ketones Negative (Negative); Urine Protein Negative (Neg-Trace)
[2023-12-19 12:30] LABS: Bacteria Urine None Seen (None Seen); Hyaline Casts Urine 0-2 /LPF (0-2); RBC Urine 0-2 /HPF (0-2); Squamous Epithelial Cell Urine 0-2 /HPF (0-2); WBC Urine 0-5 /HPF (0-5)
[2023-12-19 12:42] LABS: Creatinine Urine 50.18 mg/dL; Total Protein Urine Random < 7 mg/dL (<12)
== END 2023-12-19 09:31 | disposition home or self-care (01) ==
LOC: HO.LAB 09:30
PROVIDERS: PCP General Practice; Visit Provider Internal Medicine Nephrology
DX: N18.32 Chronic kidney disease, stage 3b (principal); E11.9 Type 2 diabetes mellitus without complications; E55.9 Vitamin D deficiency, unspecified
CPT/HCPCS: 36415; 80051; 81001; 81003; 82306; 82310; 82565; 82570; 83036; 83970; 84156; 84520; 84550

== ENCOUNTER 2024-07-27 08:04 | Outpatient (REF) | payer MEDICAID, SELFPAY ==
[2024-07-27 12:17] LABS: ~HepC Num1 0.14 S/CO (0.00-0.79); ~Hepatitis C Antibody Nonreactive (Nonreactive)
[2024-07-27 12:30] LABS: Cholesterol 250 mg/dL (<200); HDL Cholesterol 38 mg/dL (>40); Triglycerides 595 mg/dL (<150)
== END 2024-07-27 08:05 | disposition home or self-care (01) ==
LOC: HO.HHCL 08:04
PROVIDERS: Visit Provider General Practice
DX: E78.1 Pure hyperglyceridemia (principal); E11.65 Type 2 diabetes mellitus with hyperglycemia; Z79.4 Long term (current) use of insulin
CPT/HCPCS: 36415; 80061; 86803

== ENCOUNTER 2024-09-17 09:42 | Outpatient (REF) | payer MEDICAID, SELFPAY ==
[2024-09-17 11:02] LABS: MANUAL DIFF FLAG NO
[2024-09-17 11:08] LABS: Appearance Urine Clear; Color Urine Yellow; Glucose Urine UA >=1000 mg/dL (Negative); Leukocyte Esterase Urine Negative (Negative); Nitrite Urine Negative (Negative); PH 6.5 (5.0-9.0); Specific Gravity - Urine >= 1.030 (1.005-1.025); UMIC TRIGGER UA YES; Urine Blood Negative (Negative); Urine Ketones Negative (Negative); Urine Protein Negative (Neg-Trace)
[2024-09-17 11:11] LABS: Bacteria Urine None Seen (None Seen); Hyaline Casts Urine 0-2 /LPF (0-2); RBC Urine 0-2 /HPF (0-2); Squamous Epithelial Cell Urine 0-2 /HPF (0-2); WBC Urine 0-5 /HPF (0-5)
[2024-09-17 11:19] LABS: Basophils Absolute Auto 0.1 X10*3/uL (0.0-0.2); Basophils Percent Auto 0.9 % (0-2); Eosinophils Absolute Auto 0.1 X10*3/uL (0.0-0.4); Eosinophils Percent Auto 1.6 % (0-4); Hematocrit 47.1 % (42.0-52.0); Hemoglobin 16.4 g/dl (14.0-18.0); Imm Gran Abs Auto 0.27 X10*3/uL (0.00-0.03); Imm Gran Pct Auto 3.1 % (0.0-0.4); Lymphocytes Absolute Auto 1.8 X10*3/uL (1.2-4.9); Lymphocytes Percent Auto 20.2 % (20-40); Mean Corpuscular HGB Conc 34.8 g/dl (31.0-36.0); Mean Corpuscular Hemoglobin 30.7 pg (27.0-33.0); Mean Corpuscular Volume 88.2 fL (80.0-98.0); Mean Platelet Volume 11.3 fL (9.4-12.4); Monocytes Absolute Auto 0.6 X10*3/uL (0.1-1.2); Monocytes Percent Auto 7.2 % (2-11); Neutrophils Absolute Auto 5.8 x10*3/uL (2.0-8.3); Platelet Count 269 X10*3/uL (160-400); Red Blood Count 5.34 X10*6/uL (4.60-5.80); Red Cell Distribution Width 11.9 % (11.0-16.0); White Blood Count 8.7 X10*3/uL (4.8-10.8)
[2024-09-17 11:24] LABS: Estimated Average Glucose 186 mg/dL; Hemoglobin A1C 265.5244 umol/L; Hemoglobin A1c % 8.1 % (<6.0); Total Hemoglobin (HGBA1C) 4094.5341 umol/L
[2024-09-17 11:37] LABS: Anion Gap 14 (12-20); Blood Urea Nitrogen 16 mg/dL (9-16); Calcium 10.1 mg/dL (8.4-10.2); Carbon Dioxide 23 mmol/L (22-29); Chloride 107 mmol/L (96-108); Cholesterol 250 mg/dL (<200); Estimated Glomerular Filt Rate > 60; HDL Cholesterol 37 mg/dL (>40); Iron 140 mcg/dL (45-160); Magnesium 2.1 mg/dL (1.6-2.6); Percent Iron Saturation 34 % (15-50); Potassium 4.3 mmol/L (3.3-5.1); Sodium 140 mmol/L (135-145); Total Iron Binding Capacity 408 mcg/dL (228-428); Triglycerides 613 mg/dL (<150); Unsaturated Iron Binding 268 ug/dL; Uric Acid 4.3 mg/dL (3.4-7.0)
[2024-09-17 11:58] LABS: Vitamin D 25-OH Total 35.5 ng/mL (>30)
[2024-09-17 11:59] LABS: Creatinine Urine 64.16 mg/dL; Protein/Creatinine Ratio, Ur 0.14 (<0.2); Total Protein Urine Random 9 mg/dL (<12)
[2024-09-17 12:06] LABS: Parathyroid Hormone Intact 30.2 pg/mL (8.7-77.1)
== END 2024-09-17 09:43 | disposition home or self-care (01) ==
LOC: HO.HHCL 09:42
PROVIDERS: Visit Provider Physician Assistant
DX: N18.2 Chronic kidney disease, stage 2 (mild) (principal)
CPT/HCPCS: 36415; 80051; 80061; 81001; 82306; 82310; 82565; 82570; 83036; 83540; 83735; 83970; 84156; 84520; 84550; 85025

== ENCOUNTER 2024-10-22 08:57 | Outpatient (REF) | payer MEDICAID, SELFPAY ==
[2024-10-22 12:03] LABS: Alanine Aminotransferase 36 U/L (0-40); Albumin Level 4.3 g/dL (3.5-5.0); Alkaline Phosphatase 45 U/L (39-117); Anion Gap 14 (12-20); Aspartate Amino Transferase 23 U/L (5-37); Bilirubin Total 0.3 mg/dL (0.0-1.0); Blood Urea Nitrogen 16 mg/dL (9-16); Calcium 9.2 mg/dL (8.4-10.2); Carbon Dioxide 23 mmol/L (22-29); Chloride 105 mmol/L (96-108); Cholesterol 232 mg/dL (<200); Estimated Glomerular Filt Rate > 60; Glucose Random 310 mg/dL (60-115); HDL Cholesterol 36 mg/dL (>40); Potassium 3.6 mmol/L (3.3-5.1); Sodium 138 mmol/L (135-145); Total Protein 7.2 g/dL (6.5-8.0); Triglycerides 626 mg/dL (<150)
[2024-10-22 12:29] LABS: Creatinine Urine 51.44 mg/dL; Microalbum/Creatinine Ratio Ur 29.1 ug/mg cr (<30)
== END 2024-10-22 08:58 | disposition home or self-care (01) ==
LOC: HO.HHCL 08:57
PROVIDERS: Visit Provider General Practice
DX: E11.65 Type 2 diabetes mellitus with hyperglycemia (principal); E78.1 Pure hyperglyceridemia; Z79.4 Long term (current) use of insulin
CPT/HCPCS: 36415; 80053; 80061; 82043; 82570

== ENCOUNTER 2024-11-26 10:51 | Outpatient (AMB) | payer MEDICAID, SELFPAY ==
--- NOTE | 2024-11-26 10:54 | A.OFFVIS_ITS ---
Intake Visit Reasons: nocturia Intake Note: New Patient presents for initial visit for nocturia Urology Medications: none Blood Thinner: none PVR:47ml's Skiver Box Toe Required: Yes Skiver Box Toe Services: Skiver Box Toe Present Skiver Box Toe Name: Faheem [id number] Allergies No Known Allergies [No Known Allergies*] Allergy (Verified 11/26/24 11:16) Medication List - Last Reconciled 11/26/24 by RANJITH Quintana albuterol sulfate 90 mcg/actuation (Ventolin HFA) 1 puff PO QID PRN alcohol swabs (Alcohol Pads) 1 pad topical QID 30 days atorvastatin 40 mg PO DAILY baclofen 5 mg PO TID PRN blood sugar diagnostic (FreeStyle Lite Strips) As directed four times a day blood-glucose meter (FreeStyle [place] Lite kit) As directed 4 times a day empagliflozin (Jardiance) 10 mg PO QAM ergocalciferol (vitamin D2) 50 mcg PO DAILY fenofibrate nanocrystallized 145 mg PO DAILY flash glucose scanning reader (FreeStyle Bernice 2 [place]) As directed flash glucose sensor (FreeStyle Bernice 2 Sensor kit) As directed every 2 weeks fluticasone propion-salmeterol 250-50 mcg/dose (Wixela Inhub) 1 inh inhalation BID 30 days folic acid 1 mg PO DAILY insulin glargine (Lantus Solostar U-100 Insulin) 52 units (0.52 mL) subcut QPM insulin lispro 20 - 26 units (0.2 - 0.26 mL) subcut TID lancets (TRUEplus Lancets) As directed 4 times a day ipagxe-ebolplll-gptvjce 24,000-76,000 -120,000 unit (Creon) 1 cap PO TID lisinopril 5 mg PO DAILY metformin ER 1,000 mg PO DAILY omega-3 acid ethyl esters 1 cap PO BID omeprazole 20 mg PO DAILY pen needle, diabetic (BD Ultra-Fine Jennifer Pen Needle) Five times a day terbinafine HCl 1% 1 appl topical BID HPI Comments Details: Levi is a 44-year-old Greek-speaking male patient of . He has a past medical history of dyslipidemia, iron deficiency anemia, polyarthralgia, alcohol abuse, and diabetes mellitus. He presents to the office today as a new patient for nocturia. He reports having followed up with his insecticide maker Yan Hernandez in discussing his ongoing issues with nocturia at which time recommendations were made for urology referral for further assessment evaluation. He reports episodes of nocturia up to 10 times per night. When asked he does report snoring and fatigue upon wakening. We discussed obtaining sleep study for further assessment evaluation. He otherwise denies any bothersome urinary issues throughout the day. He denies urinary urgency, urinary frequency, incontinence, hematuria, dysuria, foul smelling urine, changes to urinary stream, flank pain, fever, and or chills. We discussed at length potential causes of nocturia. In review of patient's chart it appears A1c 09/10 8.1. We discussed at length importance of managing diabetes for improvement in lower urinary tract symptoms as well as overall health and well- being. We discussed obtaining retroperitoneal ultrasound for further assessment evaluation however patient reports having had renal ultrasound with Nephrology therefore will attempt to obtain these records. Will obtain bladder ultrasound for further assessment evaluation. We discussed possible near future in office cystoscopy and or urodynamics for further assessment evaluation. GAGE offered however deferred. In office urinalysis results reviewed with the patient today. PVR 47 mL. He otherwise offers no other issues or concerns at this time. [facility] Medical History Necrotizing pancreatitis Obesity due to excess calories Dyslipidemia Iron deficiency anemia Polyarthralgia History of pancreatitis History of alcohol abuse Diabetes mellitus with hyperglycemia Surgical History No history of previous surgery Family History Father Diabetes Mother Diabetes Brother Diabetes Social History Household Members: Other Household Members Other:: mother Alcohol intake: current Patient Tobacco Use Status: Current someday Tobacco user Review of Systems Const All systems reviewed & are unremarkable except as noted in HPI and below Physical Exam Const General: cooperative, healthy appearing, comfortable, no acute distress, well developed, alert and awake Nutritional Appearance: overweight Orientation/consciousness: patient oriented x3 Limitations: no limitations HEENT Head: Yes normal to inspection, Yes normocephalic and Yes atraumatic Ears: hearing grossly normal bilaterally Eyes General: appearance normal, both eyes and all related structures Neck Neck: Yes normal visual inspection and Yes trachea midline Chest Chest palpation & inspection: normal inspection of the chest Resp Effort & Inspection: normal respiratory effort and able to speak in complete sentences Cardio Rate: regular rate GI Inspection: Yes normal to inspection General: Yes no CVA tenderness Back/Spine/Pelvis Back: no CVA tenderness Skin General skin exam: no rashes or lesions noted Neuro General: patient oriented x3 Extrem General: Yes normal to inspection Psych Appearance: grossly normal and well kempt Mental Status: mental status grossly normal Speech and movement: Normal speech and movement present and Clear speech present Affect: normal affect Attitude: cooperative Thought process: Normal thought process present Thought content: Normal thought content present Insight: Fair insight present (Psych) Judgement: Fair judgement present (Psych) Office Procedures Post Void Residual Post Residual Void Post Void Residual (PVR): 47 [id number] Void Residual by ultrasound Results AMB Urinalysis, Automated UA Leukoctes 0 Rylee/uL Last Edit by AmauriMedial[employer] Azalia on 11/26/24 11:21 UA Nitrite Last Edit by COINTERRA on 11/26/24 11:21 UA Urobilinogen 0.2 mg/dL Last Edit by [employer]urgical [employer] on 11/26/24 11:21 UA Protein 0 mg/dL Last Edit by COINTERRA on 11/26/24 11:21 UA pH 7.0 Last Edit by COINTERRA on 11/26/24 11:21 UA Blood 0 Zbigniew/uL Last Edit by COINTERRA on 11/26/24 11:21 UA Specific [place] 1.010 Last Edit by neoSurgical Azalia on 11/26/24 11:21 UA Ketone Last Edit by COINTERRA on 11/26/24 11:21 UA Bilirubin 0 mg/dL Last Edit by neoSurgical Azalia on 11/26/24 11:21 UA Glucose 60 mg/dL Last Edit by Skip Vieyra on 11/26/24 11:21 Results Reviewed Results Reviewed: Laboratory Last Values Urine pH (Auto) 7.0 11/26/24 11:20 Specific [place] (Auto) 1.010 11/26/24 11:20 Urine Protein (Auto) 0 mg/dL 11/26/24 11:20 Glucose (UA)(Auto) 60 mg/dL 11/26/24 11:20 Urine Blood (Auto) 0 Zbigniew/uL 11/26/24 11:20 Urine Bilirubin (Auto) 0 mg/dL 11/26/24 11:20 Urine Urobilinogen (Auto) 0.2 mg/dL 11/26/24 11:20 Leukocyte Esterase (Auto) 0 Rylee/uL 11/26/24 11:20 Assessment & Plan Assessment & Plan (1) Nocturia: Code(s): R35.1 - Nocturia Category: Medical Plan In office urinalysis results reviewed with the patient today; as noted above. PVR 47 mL. We discussed at length potential causes of nocturia. Will obtain home sleep study for further assessment evaluation. Will obtain bladder ultrasound for further assessment evaluation. We discussed importance of managing diabetes for improvement lower urinary tract symptoms as well as overall health and well-being. We discussed importance of limiting fluids 2-3 hours prior to bed to decrease ep isodes of nocturia. Discussed possible near future in office cystoscopy and or urodynamics for further assessment evaluation. Follow-up in 1-3 months with imaging or sooner with any issues, concerns, and or questions. Orders: Orders AMB Post Void Residual by ultrasound Today Z13.9 - Encounter for screening, unspecified RT home sleep study Today R06.83 - Snoring, R35.1 - Nocturia US bladder Today R35.1 - Nocturia AMB Urinalysis Automated Today Z13.9 - Encounter for screening, unspecified Patient Instructions: The patient had an opportunity to ask questions regarding the treatment plan. All questions were answered. Physical exam, labs, and imaging were discussed and reviewed in detail. As well as risks, benefits, and discussion of treatment choices. No major barriers to understanding were identified. The patient expressed understanding and agreement with the above treatment plan. The patient was made aware they should contact our office by phone for worsening of their current condition, the appearance of new symptoms, or with any questions or concerns. Compliance is encouraged with any medications and follow up testing that is ordered. It is a privilege to be allowed the opportunity to participate in? your urological care.? Again, if you have any questions or concerns If you have any questions or concerns please do not hesitate to contact me. The office is [phone]. This note is constructed using voice recognition software. While every effort has been made to ensure accuracy family and consumer science professor errors may have been included. Yours sincerely, RANJITH Quintana Coding Level of Care Code New Pt Level 3 (29651) Diagnoses Nocturia R35.1 CPT Codes Post Residual Void - PVR CPT Code: 83896-[id number] Void Residual by ultrasound ([id number])
== END 2024-11-26 11:43 | disposition home or self-care (01) ==
PROVIDERS: PCP General Practice; Visit Provider Nurse Practitioner Family
DX: Z13.9 Encounter for screening, unspecified (principal); R35.1 Nocturia
CPT/HCPCS: 99203

== ENCOUNTER → 2024-11-26 10:51 | Outpatient (BNVA) | payer MEDICAID, SELFPAY | PROVIDERS: PCP General Practice; Visit Provider Nurse Practitioner Family | DX: R35.1 Nocturia (principal) | CPT/HCPCS: 51798; 81003; 99212 ==

== ENCOUNTER 2025-01-18 12:08 | Outpatient (REF) | payer MEDICAID, SELFPAY ==
--- NOTE | ~2025-01-18 | US_ITS ---
CLINICAL HISTORY: R35.1 - Nocturia US Urinary Bladder Comparison: None Findings: The urinary bladder is unremarkable. Prevoid volume: 189 mLPostvoid volume: 6 mL Ureteral jets are visualized bilaterally. Poorly visualized prostate. Volume 15.9 mL although most likely underestimated. IMPRESSION: Normal urinary bladder This document has been electronically signed by: Polo Duckworth MD on 01/19/2025 11:27:44
--- OUTSIDE RECORDS SUMMARY | 2025-01-18 14:15 | XMS_ITS | Encounter Summary ---
Author Organization [employer] Address [address] [facility] [address] [place] [address] Care Team Providers Care Rn Quality Name Role Phone Roxi Forbes MD Primary Care Provider [phone] Reason for Referral * Consultation (Routine) - Closed Specialty Diagnoses / Procedures Referred By Brit t Referred To Contact Cardiology Diagnoses History of pancreatitis Hypertriglyceridemia Roxi Forbes MD [address] [place] [address] Phone: tel: fax: [facility] Referral ID Status Reason Start Date Expiration Date V isits Requested Visits Authorized [id number] Closed Specialty Services Required 09/24/2024 09/24/2025 6 6 Encounter Details Date Type Department Care Team (Late st Contact Info) Description 09/17/2024 Orders Only [facility] [address] [place] [address] Roxi Forbes MD [address] [place] [address] History of pancreatitis (Primary Dx); Hypertriglyceridemia Social History Tobacco Use Types Packs/Day Years Used Date Smoking Tobacco: Some Days Cigarettes Smokeless Tobacco: Never Alcohol Use Standard Drinks/Week Comments Not Currently 0 (1 standard drink = 0.6 oz pur e alcohol) Depression Answer Date Recorded Patient Health Questionnaire-9 Score 0 06/22/2024 Patient Health Questionnaire-9 Score 0 06/22/2024 Last PHQ-9: Questionnaire Data Not on file 0 06/22/2024 Housing Stability Answer Date Recorded What is your housing situation today? I have dorian giron 01/20/[address] you li ve. Do you have problems with any of the following? None of the above 01/20/2024 Food Insecurity Answer Date Recorded Within the past 12 months, y ou worried that your food would run out before you got money to buy more: Never True 01/20/2024 Within the past 12 months,th e food you bought just didn't last and you didn't have enough money to get more: Never True 02/2024 Transportation Answer Date Recorded In the past 12 months, has l ack of transportation kept you from medical appts, meetings, work or from getting things needed for daily living? No 01/20/2024 Utilities Answer Date Recorded In the past 12 months, has t he electric, gas, oil or water company threatened to shut off services in your home? No 01/20/2024 Depression Answer Date Recorded Patient Health Questionnaire-2 Score 0 06/22/2024 Sex and Gender Information Value Date Recorded Sex Assigned at Male 09/17/2022 10:23 AM EDT Legal Sex Male 10:23 AM EDT Gender Identity Male 09/17/2022 10:23 AM EDT Sexual Orientation Straight 09/17/2022 10 :23 AM EDT documented as of this encounter Plan of Treatment Scheduled Referrals Name Type Priority Associated Diagnoses Order Schedule Referral to Cardiology Outpatient Referral Routine History of pancreatitis Hypertriglyceridemi a Expected: 09/17/2024 (Approximate), Expires: 09/17/2025 documented as of this encounter Visit Diagnoses Diagnosis History of pancreatitis- Primary Personal history of other diseases of digestive disease Hypertriglyceridemia Pure hyperglyceridemia documented in this encounter Additional Health Concerns Assessment Noted Time PHQ-9 Depression Total Score: 0 06/22/20 24 2:43 PM EDT documented as of this encounter Care Teams Rn Quality Relationship Specialty Start Date End Date Roxi Forbes MD [address] [place] [address] PCP - General Family Medicine 01/03/21 documented as of this encounter
--- OUTSIDE RECORDS SUMMARY | 2025-01-18 14:15 | XMS_ITS | Encounter Summary ---
Author Organization [facility] Address [address] [place] [address] Phone Care Team Providers Care Shelver Name Role Phone Roxi Forbes MD Primary Care Provider [phone] Encounter Details Date Type Department Care Team (Late st Contact Info) Description 12/23/2023 Documentation Only [facility] [address] [place] [phone] Kalina Borden [address] [place] [phone] Social History Tobacco Use Types Packs/Day Years Used Date Smoking Tobacco: Unknown Sex and Gender Information Value Date Recorded Sex Assigned at Not on file Legal Sex Male 9:16 AM EDT Gender Identity Not on file Sexual Orientation Not on file documented as of this encounter Plan of Treatment Upcoming Encounters Date Type Department Care Team (Late st Contact Info) Description 03/10/2025 3:30 PM EDT Office Visit [facility] [address] [place] [address] Italo Shirley MD [address] [facility] [place] [phone] documented as of this encounter Visit Diagnoses Not on filedocumented in this encounter Care Teams Shelver Relationship Specialty Start Date End Date Roxi Forbes MD [address] [place] [address] PCP - General 12/27/20 documented as of this encounter
--- OUTSIDE RECORDS SUMMARY | 2025-01-18 14:15 | XMS_ITS | Encounter Summary ---
Author Organization [employer] Address [address] [facility] [address] [place] [address] Care Team Providers Care Poultry Offal Worker Name Role Phone Roxi Forbes MD Primary Care Provider [phone] Reason for Visit * Reason Onset Date Comments Nurse Triage 07/09/2023 Encounter Details Date Type Department Care Team (Late st Contact Info) Description 07/09/2023 Telephone [facility] [address] [place] [address] Roxi Forbes MD [address] [place] [address] Nurse Triage Social History Tobacco Use Types Packs/Day Years Used Date Smoking Tobacco: Some Days Cigarettes Smokeless Tobacco: Never Alcohol Use Standard Drinks/Week Comments Not Currently 0 (1 standard drink = 0.6 oz pur e alcohol) Depression Answer Date Recorded Patient Health Questionnaire-2 Score 0 11/14/2022 Sex and Gender Information Value Date Recorded Sex Assigned at Male 09/17/2022 10:23 AM EDT Legal Sex Male 10:23 AM EDT Gender Identity Male 09/17/2022 10:23 AM EDT Sexual Orientation Straight 09/17/2022 10 :23 AM EDT documented as of this encounter Miscellaneous Notes * Telephone Encounter - Sofía Chaves RN - 07/09/2023 3:55 PM EDT Triage call with [place] Racking Technician ID [id number] Pt reports right knee pain for past several days. Pt reports this pain comes and goes and has been happening for several months. Pt reports able to walk but, movement aggravates the pain. Pt denies injury. Pt reports slight swelling on inner aspect of knee and denies redness. Pt is not using pain medication but, has tried arthritis cream which helps a little. Pt is advised to come to [facility] today ortomorrow, Hours given open 830p - 800pm today and tomorrow. Pt is advised to try tylenol or ibuprofen for pain relief, heat or ice and Pt agrees. Protocol Used: Knee Pain (Adult) Protocol-Based Disposition: See in Office or Video Visit within 3 Days Video visit not offered Positive Triage Questions: * Moderate pain (e.g., symptoms interfere with work or school, limping) and present > 3 days * Swollen knee joint (no fever or redness) * All higher-acuity triage questions were negative Care Advice Discussed: * Reassurance and Education - Knee Pain * Pain Medicines * Pain Medicines - Extra Notes and Warnings * Reasons To Call Back - Moderate pain (e.g., limping) lasts more than 3 days - Mild pain lasts more than 7 days - Signs of infection occur (e.g., spreading redness, warmth, fever) - You become worse * Use a Cold Pack for Pain * Use Heat on Area After 48 Hours * Local Heat (Bathtub Option) * Rest * Telephone Encounter - Campos Dash - 07/09/2023 3:34 PM EDT Symptom: Knee Pain - Not From Injury Outcome: Schedule an urgent appointment (within 1 hour) or talk to a nurse or provider soon Reason: Severe pain now The caller accepted this outcome Please contact pt at [phone] documented in this encounter Plan of Treatment Not on file documented as of this encounter Visit Diagnoses Not on filedocumented in this encounter Care Teams Poultry Offal Worker Relationship Specialty Start Date End Date Roxi Forbes MD [address] [place] [address] PCP - General Family Medicine 01/03/21 documented as of this encounter
--- OUTSIDE RECORDS SUMMARY | 2025-01-18 14:15 | XMS_ITS | Encounter Summary ---
Author Organization [facility] Address [address] [place] [address] Phone Care Team Providers Care Sales And Marketing Manager Name Role Phone Roxi Forbes MD Primary Care Provider Encounter Details Date Type Department Care Team (Late st Contact Info) Description 08/07/2022 Documentation Only [facility] [address] [place] [phone] Mary Heredia PA Social History Tobacco Use Types Packs/Day Years Used Date Smoking Tobacco: Never Assessed Sex and Gender Information Value Date Recorded Sex Assigned at Not on file Legal Sex Male 9:16 AM EDT Gender Identity Not on file Sexual Orientation Not on file documented as of this encounter Plan of Treatment Upcoming Encounters Date Type Department Care Team (Late st Contact Info) Description 03/10/2025 3:30 PM EDT Office Visit [facility] [address] [place] [phone] Italo Shirley MD [address] [place] [address] [place] [phone] documented as of this encounter Visit Diagnoses Not on filedocumented in this encounter Care Teams Sales And Marketing Manager Relationship Specialty Start Date End Date Roxi Forbes MD [address] [place] [address] PCP - General 12/27/20 documented as of this encounter
--- OUTSIDE RECORDS SUMMARY | 2025-01-18 14:15 | XMS_ITS | Encounter Summary ---
Author Organization [facility] Address [address] [place] [address] Phone Care Team Providers Care Electrical Mechanic Name Role Phone Roxi Forbes MD Primary Care Provider [phone] Encounter Details Date Type Department Care Team (Late st Contact Info) Description 09/14/2024 Telephone [facility] [place], [address] [place] [address] Aleida Brady [address] [place] [address] Social History Tobacco Use Types Packs/Day Years Used Date Smoking Tobacco: Unknown Sex and Gender Information Value Date Recorded Sex Assigned at Not on file Legal Sex Male 9:16 AM EDT Gender Identity Not on file Sexual Orientation Not on file documented as of this encounter Miscellaneous Notes * Telephone Encounter - Mary Heredia PA - 09/14/2024 11:07 AM EDT Orders placed. Thanks! * Telephone Encounter - Aleida Brady - 09/14/2024 9:36 AM EDT luca Church from [facility] stating he was told at last visit with you that he was to do lab work as soon as possible but there aren't any orders in system and note states labs will be reviewed at next visit- please advise. Thanks! documented in this encounter Plan of Treatment Upcoming Encounters Date Type Department Care Team (Late st Contact Info) Description 03/10/2025 3:30 PM EDT Office Visit [facility] [place], [address] [facility] [place] [phone] Italo Shirley MD [address] [facility] [place] [phone] documented as of this encounter Visit Diagnoses Not on filedocumented in this encounter Care Teams Electrical Mechanic Relationship Specialty Start Date End Date Roxi Forbes MD [address] [place] [address] PCP - General 12/27/20 documented as of this encounter
--- OUTSIDE RECORDS SUMMARY | 2025-01-18 14:15 | XMS_ITS | Encounter Summary ---
Author Organization [facility] [place], Address [address] [place] [address] Phone Care Team Providers Care Gas Pumping Station Supervisor Name Role Phone Roix Forbes MD Primary Care Provider [phone] Reason for Visit * Reason Comments Med Change Request Encounter Details Date Type Department Care Team (Late st Contact Info) Description 01/23/2023 Refill [facility] [address] [place] [phone] Abe Rivera MD [address] [place] [address] [place] [phone] Social History Tobacco Use Types Packs/Day Years [...] Visit [facility] [address] [facility] [place] [phone] Italo Shirley MD [address] [place] [address] [place] [phone] documented as of this encounter Visit Diagnoses Not on filedocumented in this encounter Care Teams Gas Pumping Station Supervisor Relationship Specialty Start Date End Date Roxi Forbes MD [address] [place] [address] PCP - General 12/27/20 documented as of this encounter
--- OUTSIDE RECORDS SUMMARY | 2025-01-18 14:15 | XMS_ITS | Encounter Summary ---
Author Organization [facility] Address [address] [place] [address] Phone Care Team Providers Care Desk Reporter Name Role Phone Roxi Forbes MD Primary Care Provider [phone] Encounter Details Date Type Department Care Team (Late st Contact Info) Description 12/23/2023 Documentation Only [facility] [address] [place] [phone] Kalina Borden [address] [place] [phone] Social History Tobacco Use Types Packs/Day Years [...] Visit [facility] [address] [place] [address] Italo Shirley MD [address] [facility] [place] [phone] documented as of this encounter Visit Diagnoses Not on filedocumented in this encounter Care Teams Desk Reporter Relationship Specialty Start Date End Date Roxi Forbes MD [address] [place] [address] PCP - General 12/27/20 documented as of this encounter
--- OUTSIDE RECORDS SUMMARY | 2025-01-18 14:15 | XMS_ITS | Encounter Summary ---
Author Organization [facility] Address [address] [place] [address] Phone Care Team Providers Care Wood Gluer Name Role Phone Roxi Forbes MD Primary Care Provider [phone] Encounter Details Date Type Department Care Team (Late st Contact Info) Description 10/01/2024 Documentation Only [facility] [address] [place] [phone] Berna Castellano [place] [address] [place] [phone] Social History Tobacco Use Types Packs/Day Years [...] Visit [facility] [address] [place] [phone] Italo Shirley MD [address] [place] [address] [place] [phone] documented as of this encounter Visit Diagnoses Not on filedocumented in this encounter Care Teams Wood Gluer Relationship Specialty Start Date End Date Roxi Forbes MD [address] [place] [address] PCP - General 12/27/20 documented as of this encounter
--- OUTSIDE RECORDS SUMMARY | 2025-01-18 14:15 | XMS_ITS | Encounter Summary ---
Author Organization [facility] Address [address] [place] [address] Phone Care Team Providers Care Bar Steward Name Role Phone Roxi Forbes MD Primary Care Provider Encounter Details Date Type Department Care Team (Late st Contact Info) Description 12/07/2022 Documentation Only [facility] [address] [place] [phone] Mary Heredia PA Social History Tobacco Use [...] Visit [facility] [address] [place] [phone] Italo Shirley MD [address] [place] [address] [place] [phone] documented as of this encounter Visit Diagnoses Not on filedocumented in this encounter Care Teams Bar Steward Relationship Specialty Start Date End Date Roxi Forbes MD [address] [place] [address] PCP - General 12/27/20 documented as of this encounter
--- OUTSIDE RECORDS SUMMARY | 2025-01-18 14:15 | XMS_ITS | Encounter Summary ---
Author Organization [facility] [place], Address [address] [place] [address] Phone Care Team Providers Care Ultrasound Supervisor Name Role Phone Roxi Forbes MD Primary Care Provider [phone] Reason for Visit * Reason Comments Med Refill Encounter Details Date Type Department Care Team (Late st Contact Info) Description 12/10/2024 Refill [facility] [address] [place] [phone] Mary Heredia PA Social History Tobacco Use [...] Office Visit [facility] [address] [place] [phone] Italo Shirley MD [address] [place] [address] [place] [phone] documented as of this encounter Visit Diagnoses Not on filedocumented in this encounter Care Teams Ultrasound Supervisor Relationship Specialty Start Date End Date Roxi Forbes MD [address] [place] [address] PCP - General 12/27/20 documented as of this encounter
--- OUTSIDE RECORDS SUMMARY | 2025-01-18 14:15 | XMS_ITS | Clinical Summary ---
Author Organization [employer] Address [address] [place] [address] Care Team Providers Care Hydramatic Specialist Name Role Phone Roxi Forbes MD Primary Care Provider [phone] Allergies No known active allergies Medications thiamine (Vitamin B-1) 100 MG tablet Take 100 mg by mouth. 0 Active Multiple Vitamin (Daily-Iban) tablet 0 Active hydrocortisone 2.5 % cream apply by topical route 2 times every day to the affected area(s) 1 Active Alcohol Swabs ([facility] Prep) 70 % pads USE SEG N LO INDICADO CUATRO VECES AL D A 2 Active ProAir HFA 108 (90 Base) MCG/ACT inhaler INHALE 1 PUFF POR V A ORAL CUATRO VECES AL D A 30 DAYS NEEDED FOR SHORTNESS OF BREATH OR WHEEZING 2 Active Mapap Arthritis Pain 650 MG ER tablet TOME DOS TABLETAS POR V A ORAL CADA OCHO HORAS CUANDO SEA NECESARIO 2 Active Continuous Blood Gluc Roll Examiner (FreeStyle Bernice 2 Bryce) deviceIndication s:Type 2 diabetes mellitus with hyperglycemia, with long-term current use of insulin ([facility]) USE DAILY TO CHECK BLOOD SUGAR 1 each 3 Active lisinopril 10 MG tablet Take 10 mg by mouth. 4 Active guaiFENesin (Mucinex) 600 MG 12 hr tablet Take 2 tablets (1,200 mg) by mouth 2 times daily. Do not crush, chew, or split. 120 tablet 4 01/27/20 25 Active ergocalciferol (Vitamin D2) 1.25 MG (30400 UT) capsule Take 50,000 Units by mouth 1 (one) time per week. 4 Active Lantus SoloStar 100 UNIT/ML pen Inject 60 Units under the skin at bedtime. 15 mL 11 4 Active insulin lispro (HumaLOG) 100 UNIT/ML injection Inject 12 Units under the skin with breakfast, with lunch, and with evening meal. 15 mL 11 4 Active omeprazole (PriLOSEC) [address] capsule TOME STEPHIE CAPSULA [place] 90 capsule 3 4 Active fenofibrate (Tricor) 145 MG tablet TAKE 1 TABLET BY MOUTH EVERY DAY 90 tablet 3 4 Active Continuous Glucose Sensor (FreeStyle Bernice 2 Sensor) miscIndications: Type 2 diabetes mellitus with hyperglycemia, unspecified whether half-way insulin use (CMS/HCC) USE DIRECTED, CHANGE EVERY 2 WEEKS 2 each 11 4 Active empagliflozin (Jardiance) 25 MG Take 1 tablet (25 mg) by mouth Once per day. 30 tablet 11 4 Active pravastatin (Pravachol) 40 MG tabletIndication s:Hypertriglycer idemia Take 1 tablet (40 mg) by mouth Once per day. 90 tablet 3 4 08/18/20 25 Active FREESTYLE LITE test strip Use to check BS 4 times a day 100 each 11 4 Active folic acid (Folvite) 1 MG tablet TAKE 1 TABLET BY MOUTH EVERY MORNING 90 tablet 3 4 Active glipiZIDE (Glucotrol) 5 MG tabletIndication s:Type 2 diabetes mellitus with hyperglycemia, with long-term current use of insulin (CMS/HCC) Take 1 tablet (5 mg) by mouth before breakfast and before evening meal. Use while working when insulin is not on hand. Do not use medication when taking insulin. 60 tablet 11 4 10/19/20 25 Active insulin pen needle (BD Pen Needle Jennifer 2nd Gen) 32G x 4 mm misc Use 4 times a day as instructed 100 each 11 4 Active metFORMIN XR (Glucophage-XR) 500 MG 24 hr tabletIndication s:Type 2 diabetes mellitus with hyperglycemia, without long-term current use of insulin (CMS/HCC) TAKE 2 TABLETS BY MOUTH EVERY DAY 180 tablet 3 5 Active Active Problems Problem Noted Date Diagnosed Date Hypertriglyceridemia 06/26/2024 Assessment & Plan (10/19/2024 9:57 AM EST): Pt will continue taking pravastatin daily Pt will call [facility] cardiology to schedule appt as referral already authorized Plan to discuss alternative lipid lowering therapies with cardiology Assessment & Plan (08/18/2024 11:38 AM EDT): HLD with significant hypertriglyceridemia: Could not tolerate Atorvastatin due to muscle aches can't take fish oil due to vomiting Could take Zetia due to muscle aches/body aches On fenofibrate, can tolerate it Last TG 595, 07/27/24 will trial Pravastatin 40mg, if he does not tolerate it will refer to corporation officer for assistance with other lipid lowering agents Assessment & Plan (06/26/2024 8:07 AM EDT): TG> 400 Cannot tolerate statins or fish oil, will add Zetia to Fenofibrate and recheck in three months Pancreatic insufficiency 10/02/2023 Assessment & Plan (10/02/2023 10:09 AM EST): Continue Adia Speak about colonoscopy at next GI appoitnemnt Major depressive disorder wi th single episode, in partial remission 02/18/2023 Assessment & Plan (07/05/2023 8:11 AM EDT): Feeling better with travel and work Assessment & Plan (02/18/2023 6:21 AM EDT): Feeling better with travel and work Vitamin D deficiency 12/10/2022 Asthma 11/14/2022 Assessment & Plan (02/18/2023 6:19 AM EDT): Continue Advair and FRANCO prn Cocaine use 11/14/2022 Type 2 diabetes mellitus 11/14/2022 Assessment & Plan (10/19/2024 10:01 AM EST): A1c 8.3 today which is above goal of >7.0 Pt will continue on Metformin XR 500mg BID, Jardiance 25mg, Lantus 60 units at night and Lispro 36 units with meals while at home. Will start Glipizide 5 mg with meals while working d/t inability to have insulin on hand at work Educated patient that they are to not take Lispro and Glipizide at the same time. Pt will continue to check Bgs daily via bernice sensor Pt will f/u with nephrology 10/27 Pt will obtain routine retinopathy screening next year. Assessment & Plan (06/26/2024 8:05 AM EDT): Current A1c: 8.8, needs to roll picker Lantus and Novolog, has not had them for many months. [facility] can [facility]. Continue Metformin and Jardiance BMP: Lab Results Component Value Date K 4.1 07/04/2023 CREATININE 0.99 07/04/2023 CREATININE 1.08 06/15/2022 MICROALBUR 7.0 07/04/2023 Foot Exam: normal 02/2023 Eye Exam: POOJA done Lipid panel: Lab Results Component Value Date LDLCHOL 11/14/2022 Comment: LDL cholesterol not calculated. Triglyceride levels greater than 400 mg/dL invalidate calculated LDL results. Reference range: <100 Desirable range <100 mg/dL for primary prevention; <70 mg/dL for patients with CHD or diabetic patients with > or = 2 CHD risk factors. LDL-C is now calculated using the Sadia calculation, which is a validated novel method providing better accuracy than the Friedewald equation in the estimation of LDL-C. Tevin FAUST et al. ELINA. 2013;310(19): 4499-4043 (http://education.Vestor.com/faq/KSQ913) ASCVD: Calculate pending updated labs Statin: NO, cannot tolerated. On Fenofibrate and starting Zetia today ASA: No MARCO A/ARB: Yes Encouraged regular aerobic exercise for improved glycemic control Encouraged daily foot checks Encouraged lean protein snacks and to avoid foods high in sugar and simple carbohydrates Treatment Goals: A1c goal: <7% FBG goal: <130 2 hour post prandial goal: <180 Assessment & Plan (01/27/2024 3:07 PM EDT): Current A1c: 8.8 INCREASE Novolog to 26-30 with meals based on elevated post prandias BMP: Lab Results Component Value Date K 4.1 07/04/2023 CREATININE 0.99 07/04/2023 CREATININE 1.08 06/15/2022 MICROALBUR 7.0 07/04/2023 Foot Exam: normal 02/2023 Eye Exam: POOJA done Lipid panel: Lab Results Component Value Date LDLCHOL 11/14/2022 Comment: LDL cholesterol not calculated. Triglyceride levels greater than 400 mg/dL invalidate calculated LDL results. Reference range: <100 Desirable range <100 mg/dL for primary prevention; <70 mg/dL for patients with CHD or diabetic patients with > or = 2 CHD risk factors. LDL-C is now calculated using the Sadia calculation, which is a validated novel method providing better accuracy than the Friedewald equation in the estimation of LDL-C. Tevin FAUST et al. ELINA. 2013;310(34): 9604-1126 (http://education.Walmoo/faq/PNC035) ASCVD: Calculate pending updated labs Statin: Yes ASA: No MARCO A/ARB: Yes Encouraged regular aerobic exercise for improved glycemic control Encouraged daily foot checks Encouraged lean protein snacks and to avoid foods high in sugar and simple carbohydrates Treatment Goals: A1c goal: <7% FBG goal: <130 2 hour post prandial goal: <180 Assessment & Plan (10/02/2023 10:11 AM EST): Current A1c: 8.3 INCREASE Novolog to 26-30 with meals based on elevated post prandias BMP: Lab Results Component Value Date K 4.1 07/04/2023 CREATININE 0.99 07/04/2023 CREATININE 1.08 06/15/2022 MICROALBUR 7.0 07/04/2023 Foot Exam: normal 02/2023 Eye Exam: POOJA done Lipid panel: Lab Results Component Value Date LDLCHOL 11/14/2022 Comment: LDL cholesterol not calculated. Triglyceride levels greater than 400 mg/dL invalidate calculated LDL results. Reference range: <100 Desirable range <100 mg/dL for primary prevention; <70 mg/dL for patients with CHD or diabetic patients with > or = 2 CHD risk factors. LDL-C is now calculated using the Sadia calculation, which is a validated novel method providing better accuracy than the Friedewald equation in the estimation of LDL-C. Tevin FAUST et al. ELINA. 2013;310(19): 0891-7917 (http://education.Walmoo/faq/VPR315) ASCVD: Calculate pending updated labs Statin: Yes ASA: No MARCO A/ARB: Yes Encouraged regular aerobic exercise for improved glycemic control Encouraged daily foot checks Encouraged lean protein snacks and to avoid foods high in sugar and simple carbohydrates Treatment Goals: A1c goal: <7% FBG goal: <130 2 hour post prandial goal: <180 Assessment & Plan (07/05/2023 8:12 AM EDT): Current A1c: 8.5 INCREASE Jardiance to 25mg and Lantus to 60 units BMP: today Microalbumin: today Foot Exam: normal 02/2023 Eye Exam: POOJA done Lipid panel: today ASCVD: Calculate pending updated labs Statin: Yes ASA: No MARCO A/ARB: Yes Encouraged regular aerobic exercise for improved glycemic control Encouraged daily foot checks Encouraged lean protein snacks and to avoid foods high in sugar and simple carbohydrates Treatment Goals: A1c goal: <7% FBG goal: <130 2 hour post prandial goal: <180 Assessment & Plan (02/18/2023 6:19 AM EDT): Current A1c: 8.2 BMP: normal Microalbumin: Foot Exam: normal today Eye Exam: POOJA ordered Lipid panel: ASCVD: Calculate pending updated labs Statin: Yes ASA: No MARCO A/ARB: Yes Encouraged regular aerobic exercise for improved glycemic control Encouraged daily foot checks Encouraged lean protein snacks and to avoid foods high in sugar and simple carbohydrates Treatment Goals: A1c goal: <7% FBG goal: <130 2 hour post prandial goal: <180 Assessment & Plan (11/14/2022 4:47 PM EST): Continue insulin per endo Continue Metformin Continue Jardiance Needs increased exercise and weight loss History of alcohol abuse 11/14/2022 History of substance abuse 11/14/2022 Mild intermittent asthma 11/14/2022 Assessment & Plan (01/27/2024 3:07 PM EDT): Prednisone x 5 days, 20mg only Increase Albuterol to 4 puffs as needed Mucinex to help with clearance of mucous Multiple joint pain 11/14/2022 History of pancreatitis 11/14/2022 Assessment & Plan (07/05/2023 8:10 AM EDT): Lipase stable in low 60s for past two years On Creon Assessment & Plan (02/18/2023 6:20 AM EDT): 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 Abdomen soft and NT on exam today Chronic epigastric abd pain is improved since starting Creon Assessment & Plan (11/14/2022 4:48 PM EST): Necrotizing in 02/2020 Abdomen soft and NT on exam today Will recheck lipase and call with results Renal cyst 11/08/2021 Steatosis of liver 11/08/2021 Chronic kidney disease 08/08/2021 Assessment & Plan (01/27/2024 3:08 PM EDT): Following with nephrology in [facility] Has pending renal US, helped to schedule ER precautions Iron deficiency anemia 06/22/2020 Encounters Date Type Department Care Team Description 11/22/2024 Refill [facility] [address] [place] [address] Roxi Forbes MD Type 2 diabetes mellitus with hyperglycemia, without long-term current use of insulin ([facility]) 10/23/2024 Telephone [facility] [address] [place] [phone] Roxi Forbes MD Results; Referral 10/22/2024 Refill [facility] [address] [place] [address] Jennifer Dutton MD 10/22/2024 Refill [facility] [address] [place] [address] Nola Ybarra RN 10/20/2024 Telephone [facility] [address] [place] [address] Yarelis Forrest MA Lab Orders from Last 3 Months Immunizations Name Administration Dates Next Due Influenza injectable quadriv alent IIV4 with preservative 12/07/2019 Moderna Covid-19 Vaccine 12+ 02/10/2021 Pfizer Covid-19 Vaccine 12+ 02/25/2021 Pfizer Covid-19 Vaccine 12+ Bivalent 11/14/2022 Pneumococcal Conjugate PCV 13 03/21/2020 Pneumococcal Conjugate PCV 20 05/10/2023 Social History Tobacco Use Types Packs/Day Years Used Date Smoking Tobacco: Some Days Cigarettes Smokeless Tobacco: Never Tobacco Cessation:Ready to Q uit: Not Asked; Counseling Given: Not Answered Alcohol Use Standard Drinks/Week Comments Not Currently [...] Orientation Straight 09/17/2022 10 :23 AM EDT Last Filed Vital Signs Vital Sign Reading Time Taken Comments Blood Pressure 144/80 10/19/2024 9:11 AM EST Pulse 101 10/19/2024 9:11 AM EST Temperature 36.3 ??C (97.3 ??F) 10/19/2024 9:11 AM ES T Respiratory Rate 18 10/19/2024 9:11 AM EST Oxygen Saturation 97% 10/19/2024 9:11 AM EST Inhaled Oxygen Concentration - - Weight 108 kg (238 lb) 10/19/2024 9:11 AM EST Height 167.6 cm (5' 6 ) 10/19/2024 9:11 AM EST Body Mass Index 38.41 10/19/2024 9:11 AM EST Plan of Treatment Health Maintenance Due Date Last Done Comments CT Colonography 1978 Colonoscopy 1978 FIT DNA/Cologuard 1978 FIT 1978 FOBT 1978 Sigmoidoscopy 1978 Eye Exam 02/04/1988 Alcohol/Substance Use Screening 1990 Family Planning (PISQ) 1993 Hepatitis B Vaccines (1 of 3 - 19+ 3-dose series) 1997 Diabetes: Hemoglobin A1C 01/17/2025 024, 06/22/2024, 01/27/2024, Additional history exists SDOH Screening 01/19/2025 01/20/2024 Influenza Vaccine (#1) 2025 12/07/2019 Postp oned from 07/19/2024 (Patient Refused) Depression Screening 06/22/2025 06/22/2024, 06/22/20 24 Colorectal Cancer Screening 10/19/2025 Postponed from 1978 (Patient Refused) DTaP/Tdap/Td Vaccines (1 - Tdap) 10/19/2025 Postponed from 1997 (Patient Refused) Diabetes: Foot Exam 10/19/2025 10/19/2024, 4 Hepatitis A Vaccines (1 of 2 - Risk 2-dose series) 10/19/2025 Postponed from 1997 (Patient Refused) Tobacco Screening 10/19/2025 10/19/2024 Diabetes: Urine Protein Screening 10/22/2025 10/22/2024, 07/04/2023, 12/05/2022, Additional history exists Lipid Panel 10/22/2025 10/22/2024, 07/2024, 07/04/2023, Additional history exists Zoster Vaccines (1 of 2) 02/04/2028 RSV Patients and Patients Aged 60 years or older (1 - 1-dose 75+ series) 2053 HIV Screening Completed 05/26/2020 Pneumococcal Vaccine: Pediatrics (0 to 5 Years) and At-Risk Patients (6 to 49) Years) Completed 05/10/2023, 03/21/2020 Hepatitis C Screening Completed 07/27/2024 COVID-19 Vaccine Completed 08/08/2024, , 11/21/2021, Additional history exists HIB Vaccines Aged Out No longer eligi ble based on patient's age to complete this topic HPV Vaccines Aged Out No longer eligi ble based on patient's age to complete this topic IPV Vaccines Aged Out No longer eligi ble based on patient's age to complete this topic Meningococcal Vaccine Aged Out No tyrese j luis eligible based on patient's age to complete this topic RSV under 20 months Aged Out No longe r eligible based on patient's age to complete this topic Rotavirus Vaccines Aged Out No longer eligible based on patient's age to complete this topic Procedures Procedure Name Priority Date/Time Associated Diagnosis Comments LIPID PANEL, STANDARD Routine 10/22/2024 9:00 AM EST Hypertriglyceridem ia ALBUMIN, RANDOM URINE W/CREATININE Routine 10/22/2024 9:00 AM EST Type 2 diabetes mellitus with hyperglycemia, with long-term current use of insulin ([facility]) COMPREHENSIVE METABOLIC PANEL Routine 10/22/2024 9:00 AM EST Type 2 diabetes mellitus with hyperglycemia, with long-term current use of insulin ([facility]) POCT GLYCATED HEMOGLOBIN, TOTAL Routine 10/19/2024 9:20 AM EST Type 2 diabetes mellitus with hyperglycemia, with long-term current use of insulin ([facility]) HEPATITIS C AB W/REFL TO HCV RNA, QN, PCR Routine 07/27/2024 8:05 AM EDT Hypertriglyceridem ia HIV 1/2 ANTIGEN/ANTIBODY, FOURTH GENERATION W/RFL Routine 05/26/2020 4:27 PM EDT from Last 3 Months or Most Recently Relevant to Health Maintenance Results * (ABNORMAL) Albumin, Random Urine W/Creatinine (10/22/2024 9:00 AM EST) Creatinine, Urine 51.44 mg/dL [facility] Microalbumin Urine 15.0 mg/L H [facility] Microalbum Creatinine Ratio Ur 29.1(H) <30 ug/mg cr [facility] Comment:Albumin/Creatinine R atio Reference Ranges: Normal: < 30 ug/mg creatinine Microalbuminuria: 30 - 300 ug/mg creatinineClinical Albuminuria: > 300 ug/mg creatinine Urine (Urine, Random) 10/22/2024 9:00 AM EST 10/22/2024 11:13 AM EST us Roxi Forbes MD LAB URINE ORDERABLES Final Res ult [facility] [address] [place] [phone] * (ABNORMAL) Lipid Panel, Standard (10/22/2024 9:00 AM EST) Triglycerides 626(H) <150 mg/dL [facility] Comment:Desirable Triglyceri de: less than 150 mg/dLBorderline High Triglyceride 150-199 mg/dLHigh Triglyceride: 200-499 mg/dLVery High Triglyceride: greater than or equal to 5OO mg/dL Cholesterol 232(H) <200 mg/dL [facility] Comment:Desirable Cholestero l: less than 200 mg/dLBorderline High Cholesterol: 200-239 mg/dLHigh Cholesterol: greater than 239 mg/dL LDL Cholesterol Calculated TNP <100 mg/dL [facility] Comment:Unable to calculate the LDL. The formula of Friedwald,Pelaez, and Karlie is only valid if the triglycerides areless than 400 mg/dl. HDL Cholesterol 36(L) >40 mg/dL [facility] Comment:Desirable HDL: great er than 40 mg/dL Note: This HDL assay may give artificially low results in patients with liver disease. Blood Venous blood specimen / Unknown 10/22/2024 9:00 AM EST 10/22/2024 11:25 AM EST us Roxi Forbes MD LAB BLOOD ORDERABLES Final Res ult [facility] [address], [place] [phone] * (ABNORMAL) Comprehensive Metabolic Panel (10/22/2024 9:00 AM EST) Sodium 138 135 - 145 mmol/L [facility] Potassium 3.6 3.3 - 5.1 mmol/L [facility] Chloride 105 96 - 108 mmol/L [facility] Carbon Dioxide 23 22 - 29 mmol/L [facility] Anion Gap 14 12 - 20 [facility] Urea Nitrogen (BUN) 16 9 - 16 mg/dL [facility] Creatinine, Serum 1.14 0.5 - 1.4 mg/dL [facility] Estimated Glomerular Filt Rate >60 [facility] Comment:Chronic Kidney Disea se: Estimated GFR < 60 mL/min/[id number] Kidney Disease: Estimated GFR < 15 mL/min/1.73m2 Glucose 310(H) 60 - 115 mg/dL [facility] Calcium 9.2 8.4 - 10.2 mg/dL [facility] Bilirubin, Total 0.3 0.0 - 1.0 mg/dL [facility] Aspartate Amino Transferase 23 5 - 37 U/L [facility] Alanine Aminotransferase 36 0 - 40 U/L [facility] Total Protein 7.2 6.5 - 8.0 g/dL [facility] Albumin Level 4.3 3.5 - 5.0 g/dL [facility] Alkaline Phosphatase 45 39 - 117 U/L [facility] Blood Venous blood specimen / Unknown 10/22/2024 9:00 AM EST 10/22/2024 11:25 AM EST Roxi Forbes MD LAB BLOOD ORDERABLES Final Res ult Performing Organization Address [facility] Co de Phone Number [facility] [address] [place] [address] [phone] * (ABNORMAL) POCT HGB A1C (10/19/2024 9:20 AM EST) Hemoglobin A1C 8.3(A) 4.0 - 6.0 % QC Media Lot # [id number] Lot# Expiration Date Blood 10/19/2024 9:20 AM EST Roxi Forbes MD POINT OF CARE TEST ENTER/EDIT ORDERABLES Final Result * Hepatitis C Antibody with Reflex to HCV, RNA, Quantitative, Real-Time PCR (07/27/2024 8:05 AM EDT) Hepatitis C Antibody Nonreactive Nonreactive [facility] Comment:Antibodies to HCV no t detected; does not exclude early acuteHCV infection. Blood Venous blood specimen / Unknown 07/27/2024 8:05 AM EDT 07/27/2024 11:32 AM EDT Roxi Forbes MD LAB BLOOD ORDERABLES Final Res ult Performing Organization Address [facility]/ZIP Co de Phone Number [facility] [address] [place] [address] [phone] * HIV 1/2 ANTIGEN/ANTIBODY,FOURTH GENERATION W/RFL (05/26/2020 4:27 PM EDT) HIV-1/2 ANTIGEN AND ANTIBODIES, 4TH GENERATION W/ REFLEX NON-REACT EVARISTO NON-REACT EVARISTO [facility] Comment: HIV-1 antigen and HIV-1/HIV-2 antibodies were not detected. There is no laboratory evidence of HIV infection. ?? PLEASE NOTE: This information has been disclosed to you from records whose confidentiality may be protected by state law. ??If your state requires such protection, then the state law prohibits you from making any further disclosure of the information without the specific written consent of the person to whom it pertains, or as otherwise permitted by law. A general authorization for the release of medical or other information is NOT sufficient for this purpose. ? For additional information please refer to http://PowerPractical.Clear Image Technology/faq/GAC947 (This link is being provided for informational/ educational purposes only.) ? The performance of this assay has not been clinically validated in patients less than 2 years old. ?? HIV-1/2 ANTIGEN AND ANTIBODIES, 4TH GENERATION W/ REFLEX NON-REACT EVARISTO NON-REACT EVARISTO [facility] Comment: HIV-1 antigen and HIV-1/HIV-2 antibodies were not detected. There is no laboratory evidence of HIV infection. ?? PLEASE NOTE: This information has been disclosed to you from records whose confidentiality may be protected by state law. ??If your state requires such protection, then the state law prohibits you from making any further disclosure of the information without the specific written consent of the person to whom it pertains, or as otherwise permitted by law. A general authorization for the release of medical or other information is NOT sufficient for this purpose. ? For additional information please refer to http://PowerPractical.[employer] Image Technology/faq/UAB195 (This link is being provided for informational/ educational purposes only.) ? The performance of this assay has not been clinically validated in patients less than 2 years old. ?? HIV-1/2 ANTIGEN AND ANTIBODIES, 4TH GENERATION W/ REFLEX NON-REACT EVARISTO NON-REACT EVARISTO [facility] Comment: HIV-1 antigen and HIV-1/HIV-2 antibodies were not detected. There is no laboratory evidence of HIV infection. ?? PLEASE NOTE: This information has been disclosed to you from records whose confidentiality may be protected by state law. ??If your state requires such protection, then the state law prohibits you from making any further disclosure of the information without the specific written consent of the person to whom it pertains, or as otherwise permitted by law. A general authorization for the release of medical or other information is NOT sufficient for this purpose. ? For additional information please refer to http://PowerPractical.[employer]/faq/GZY611 (This link is being provided for informational/ educational purposes only.) ? The performance of this assay has not been clinically validated in patients less than 2 years old. ?? HIV-1/2 ANTIGEN AND ANTIBODIES, 4TH GENERATION W/ REFLEX NON-REACT EVARISTO NON-REACT [facility] Comment: HIV-1 antigen and HIV-1/HIV-2 antibodies were not detected. There is no laboratory evidence of HIV infection. ?? PLEASE NOTE: This information has been disclosed to you from records whose confidentiality may be protected by state law. ??If your state requires such protection, then the state law prohibits you from making any further disclosure of the information without the specific written consent of the person to whom it pertains, or as otherwise permitted by law. A general authorization for the release of medical or other information is NOT sufficient for this purpose. ? For additional information please refer to http://EnCoate/faq/ZJB312 (This link is being provided for informational/ educational purposes only.) ? The performance of this assay has not been clinically validated in patients less than 2 years old. ?? HIV-1/2 ANTIGEN AND ANTIBODIES, 4TH GENERATION W/ REFLEX NON-[facility]ACT [facility] Comment: HIV-1 antigen and HIV-1/HIV-2 antibodies were not detected. There is no laboratory evidence of HIV infection. ?? PLEASE NOTE: This information has been disclosed to you from records whose confidentiality may be protected by state law. ??If your state requires such protection, then the state law prohibits you from making any further disclosure of the information without the specific written consent of the person to whom it pertains, or as otherwise permitted by law. A general authorization for the release of medical or other information is NOT sufficient for this purpose. ? For additional information please refer to http://EnCoate/faq/HES513 (This link is being provided for informational/ educational purposes only.) ? The performance of this assay has not been clinically validated in patients less than 2 years old. ?? HIV-1/2 ANTIGEN AND ANTIBODIES, 4TH GENERATION W/ REFLEX NON-REACT [facility] Comment: HIV-1 antigen and HIV-1/HIV-2 antibodies were not detected. There is no laboratory evidence of HIV infection. ?? PLEASE NOTE: This information has been disclosed to you from records whose confidentiality may be protected by state law. ??If your state requires such protection, then the state law prohibits you from making any further disclosure of the information without the specific written consent of the person to whom it pertains, or as otherwise permitted by law. A general authorization for the release of medical or other information is NOT sufficient for this purpose. ? For additional information please refer to http://PowerPractical.Clear Image Technology/faq/OKG291 (This link is being provided for informational/ educational purposes only.) ? The performance of this assay has not been clinically validated in patients less than 2 years old. ?? HIV-1/2 ANTIGEN AND ANTIBODIES, 4TH GENERATION W/ REFLEX NON-REACT [facility] Comment: HIV-1 antigen and HIV-1/HIV-2 antibodies were not detected. There is no laboratory evidence of HIV infection. ?? PLEASE NOTE: This information has been disclosed to you from records whose confidentiality may be protected by state law. ??If your state requires such protection, then the state law prohibits you from making any further disclosure of the information without the specific written consent of the person to whom it pertains, or as otherwise permitted by law. A general authorization for the release of medical or other information is NOT sufficient for this purpose. ? For additional information please refer to http://PowerPractical.Clear Image Technology/faq/VHD440 (This link is being provided for informational/ educational purposes only.) ? The performance of this assay has not been clinically validated in patients less than 2 years old. ?? HIV-1/2 ANTIGEN AND ANTIBODIES, 4TH GENERATION W/ REFLEX NON-REACT [facility] Comment: HIV-1 antigen and HIV-1/HIV-2 antibodies were not detected. There is no laboratory evidence of HIV infection. ?? PLEASE NOTE: This information has been disclosed to you from records whose confidentiality may be protected by state law. ??If your state requires such protection, then the state law prohibits you from making any further disclosure of the information without the specific written consent of the person to whom it pertains, or as otherwise permitted by law. A general authorization for the release of medical or other information is NOT sufficient for this purpose. ? For additional information please refer to http://EnCoate/faq/OUK604 (This link is being provided for informational/ educational purposes only.) ? The performance of this assay has not been clinically validated in patients less than 2 years old. ?? HIV-1/2 ANTIGEN AND ANTIBODIES, 4TH GENERATION W/ REFLEX NON-REACT [facility] NON-[facility]ACT [facility] Comment: HIV-1 antigen and HIV-1/HIV-2 antibodies were not detected. There is no laboratory evidence of HIV infection. ?? PLEASE NOTE: This information has been disclosed to you from records whose confidentiality may be protected by state law. ??If your state requires such protection, then the state law prohibits you from making any further disclosure of the information without the specific written consent of the person to whom it pertains, or as otherwise permitted by law. A general authorization for the release of medical or other information is NOT sufficient for this purpose. ? For additional information please refer to http://PowerPractical.Clear Image Technology/faq/QBH992 (This link is being provided for informational/ educational purposes only.) ? The performance of this assay has not been clinically validated in patients less than 2 years old. ?? 05/26/2020 4:27 PM EDT us Juliette Hawkins STORAGE RECEIPT POSTER LAB BLOOD ORDERABLES Final Res ult [facility] [address] from Last 3 Months or Most Recently Relevant to Health Maintenance [facility] C[facility] HSN PARTIAL Care Teams Hydramatic Specialist Relationship Specialty Start Date End Date Roxi Forbes MD [address] [place] [address] PCP - General Family Medicine 01/03/21
--- OUTSIDE RECORDS SUMMARY | 2025-01-18 14:15 | XMS_ITS | Clinical Summary ---
Author Organization [facility], Address [address] [place] [address] [place] [address] Phone Care Team Providers Care Retort Loader Name Role Phone Roxi Forbes MD Primary Care Provider Allergies No known active allergies Medications folic acid (FOLVITE) 1 MG tablet Take 1 mg by mouth 1 (one) time each day 0 Active Multiple Vitamin (DAILY-ERNST) tablet 0 Active thiamine (VITAMIN B-1) 100 MG tablet Take 100 mg by mouth 1 (one) time each day 0 Active NovoLOG FLEXPEN 100 UNIT/ML injection Inject 6 Units under the skin 3 (three) times a day before meals 0 Active metFORMIN XR (GLUCOPHAGE-XR) 500 MG 24 hr tablet Take 1,000 mg by mouth daily 0 Active acetaminophen (TYLENOL 8 HOUR) 650 MG 8 hr tablet Take 650 mg by mouth every 8 (eight) hours if needed for mild pain Do not crush, chew, or split. Active fenofibrate (TRICOR) 145 MG tablet Take 145 mg by mouth 1 (one) time each day Active omeprazole (PriLOSEC) [address] capsule Take 20 mg by mouth 1 (one) time each day Do not crush or chew. Active Jardiance 10 MG tablet TOME STEPHIE TABLETA POR V A ORAL CADA TASHA DALEY 2 Active Insulin Lispro, 1 Unit Dial, 100 UNIT/ML solution pen-injector INJECT BY SUBCUTANEOUS ROUTE 20-26 UNITS WITH EACH MEAL 3 Active omega-3 acid ethyl esters (LOVAZA) 1 g capsule TOME STEPHIE C PSULA DOS VECES AL D A 2 Active Creon 18579-97166 units capsule TOME 1 C PSULA POR V A ORAL SOFIA VECES AL D A CUANDO SEA NECESARIO CON ALIMENTO 2 Active atorvastatin (LIPITOR) 80 MG tablet TOME STEPHIE TABLETA (80 MG) POR V A ORAL EN LA MA EDI 3 Active Lantus SoloStar 100 UNIT/ML injection Inject 54 Units under the skin every night 3 mL 3 Active cyclobenzaprine (FLEXERIL) 5 MG tablet Take 1 tablet (5 mg total) by mouth 3 (three) times a day if needed for muscle spasms for up to 10 days 30 tablet 3 Active lisinopril 10 MG tablet Take 1 tablet (10 mg total) by mouth 1 (one) time each day 90 tablet 3 4 Active ergocalciferol 1.25 MG (14820 UT) capsule Take 1 capsule (50,000 Units total) by mouth 1 (one) time per week 12 capsule 3 5 11/23/19 26 Active Active Problems Problem Noted Date Diagnosed Date Genuine stress incontinence 09/08/2024 Chronic kidney disease 12/10/2022 Vitamin D deficiency 12/10/2022 Chronic kidney disease, stage 2 (mild) 1 Stage 3b chronic kidney disease 06/16/2020 Type 2 diabetes mellitus Resolved Problems Problem Noted Date Diagnosed Date Resolved Date Chronic kidney disease, stage 2 (mild) 12/26/2020 08/06/2021 Type 2 diabetes mellitus wit h diabetic chronic kidney disease 12/26/2020 08/06/2021 Acute pancreatitis 06/15/2020 1 Acute tubular necrosis 06/15/202008/06 Acute nontraumatic kidney injury 04/12/2020 08/06/2021 Acute kidney injury due to trauma 04/11/2020 04/12/2020 Iron deficiency anemia 08/06 Encounters Date Type Department Care Team Description 12/10/2024 Refill [facility], [address] [place] [address] Mary Heredia PA 11/22/2024 Refill [facility] [address] [place] [address] Mary Heredia PA 10/27/2024 3:45 PM EST Imaging Encounter [facility] [address] [place] [address] Olaf Cadet MD Stage 3b chronic kidney disease (HCC) (Primary Dx); Type 2 diabetes mellitus with diabetic chronic kidney disease (HCC); Genuine stress incontinence from Last 3 Months Immunizations Name Administration Dates Next Due Pneumococcal Conjugate 13-Valent 03/21/2020 Social History Tobacco Use Types Packs/Day Years Used Date Smoking Tobacco: Unknown Sex and Gender Information Value Date Recorded Sex Assigned at Not on file Legal Sex Male 9:16 AM EDT Gender Identity Not on file Sexual Orientation Not on file Last Filed Vital Signs Vital Sign Reading Time Taken Comments Blood Pressure 124/76 09/09/2024 2:50 PM EDT Pulse 94 03/25/2020 10:01 AM EDT Temperature 37.3 ??C (99.2 ??F) 03/25/2020 10:01 AM E DT Respiratory Rate - - Oxygen Saturation 100% 03/25/2020 10:01 AM EDT Inhaled Oxygen Concentration - - Weight 107 kg (236 lb 3.2 oz) 09/09/2024 2:50 PM EDT Height 167.6 cm (5' 6 ) 09/09/2024 2:50 PM EDT Body Mass Index 38.12 09/09/2024 2:50 PM EDT Plan of Treatment Upcoming Encounters Date Type Department Care Team (Late st Contact Info) Description 03/10/2025 3:30 PM EDT Office Visit [facility] [address] [facility] [address] Italo Shirley MD [address] [place] [address] [place] [phone] Health Maintenance Due Date Last Done Comments Hepatitis B Vaccine (1 of 3 - 19+ 3-dose series) 1997 Diabetes: Ophthalmology Exam 12/26/2020 Diabetes: Pedal Pulse Checked 12/26/2020 Diabetes: Sensory Foot Exam 12/26/2020 Diabetes: Visual Foot Exam 12/26/2020 Influenza Vaccine (#1) 2024 12/07/2019 Diabetes: Hemoglobin A1C 01/17/2025 024, 06/22/2024, 01/27/2024, Additional history exists Pneumococcal Vaccine: Pediat rics (0 to 5 Years) and At-Risk Patients (6 to 64 Years) Completed 05/10/2023, 03/21/2020 Insurance MEDICAID [place] Care Teams Retort Loader Relationship Specialty Start Date End Date Roxi Forbes MD [address] [place] [address] PCP - General 12/27/20
--- OUTSIDE RECORDS SUMMARY | 2025-01-18 14:15 | XMS_ITS | Encounter Summary ---
Author Organization [facility] Address [address] [place] [address] Phone Care Team Providers Care Level Vial Grinder Name Role Phone Roxi Forbes MD Primary Care Provider [phone] Encounter Details Date Type Department Care Team (Late st Contact Info) Description 12/19/2023 Documentation Only [facility] [address] [place] [phone] Kalina Borden [address] [place] [phone] Social History Tobacco Use Types Packs/Day Years [...] Visit [facility] [address] [place] [address] Italo Shirley MD [address] [facility] [place] [phone] documented as of this encounter Visit Diagnoses Not on filedocumented in this encounter Care Teams Level Vial Grinder Relationship Specialty Start Date End Date Roxi Forbes MD [address] [place] [address] PCP - General 12/27/20 documented as of this encounter
--- OUTSIDE RECORDS SUMMARY | 2025-01-18 14:15 | XMS_ITS | Encounter Summary ---
Author Organization [employer] [facility] Address [address] [facility] 7t [place] [address] Care Team Providers Care Laborer Landscape Name Role Phone Roxi Forbes MD Primary Care Provider [phone] Reason for Visit * Reason Comments Med Refill Encounter Details Date Type Department Care Team (Late st Contact Info) Description 03/26/[address] [facility] [address] [place], [place] [phone] Roxi Forbes MD [address] [place] [address] Social History Tobacco Use Types Packs/Day Years [...] as of this encounter Plan of Treatment Not on file documented as of this encounter Visit Diagnoses Not on filedocumented in this encounter Care Teams Laborer Landscape Relationship Specialty Start Date End Date Roxi Forbes MD [address] [place], [place] [phone] PCP - General Family Medicine 01/03/21 documented as of this encounter
--- OUTSIDE RECORDS SUMMARY | 2025-01-18 14:15 | XMS_ITS | Encounter Summary ---
Author Organization [employer] [facility] Address [address] [facility] 7t [place] [address] Care Team Providers Care Bullet Casting Operator Name Role Phone Roxi Forbes MD Primary Care Provider [phone] Reason for Visit * Reason Comments Med Refill Encounter Details Date Type Department Care Team ([facility] st Contact Info) Description 02/25/2023 Refill [facility] [address] [place] [address] Roxi Forbes MD [address] [place] [address] Social History Tobacco Use Types Packs/Day Years [...] Orientation Straight 09/17/2022 10 :23 AM EDT COVID-19 Exposure Response Date Recorded In the last 10 days, have yo u been in contact with someone who was confirmed or suspected to have Coronavirus/COVID-19? No / Unsure 02/15/2023 1:32 PM EDT documented as of this encounter Plan of Treatment Not on file documented as of this encounter Visit Diagnoses Not on filedocumented in this encounter Care Teams Bullet Casting Operator Relationship Specialty Start Date End Date Roxi Forbes MD [address] [place] [address] PCP - General Family Medicine 01/03/21 documented as of this encounter
--- OUTSIDE RECORDS SUMMARY | 2025-01-18 14:15 | XMS_ITS | Encounter Summary ---
Author Organization [employer] Address [address] 7t [place] [address] Care Team Providers Care Asphalt Patcher Name Role Phone Roxi Forbes MD Primary Care Provider [phone] Reason for Visit * Reason Comments Med Refill Encounter Details Date Type Department Care Team ([facility] st Contact Info) Description 09/04/2023 Refill [facility] [address] [place] [address] Dariela Cruz MD [address] [place] [address] Social History Tobacco Use Types Packs/Day Years Used Date Smoking Tobacco: Some Days Cigarettes Smokeless Tobacco: Never Alcohol Use Standard Drinks/Week Comments Not Currently 0 (1 standard drink = 0.6 oz pur e alcohol) Housing Stability Answer Date Recorded What is your housing situation today? I have dorianlawanda giron 09/04/[address] you li ve. Do you have problems with any of the following? None of the above 09/04/2023 Food Insecurity Answer Date Recorded Within the past 12 months, y ou worried that your food would run out before you got money to buy more: Never True 09/04/2023 Within the past 12 months,th e food you bought just didn't last and you didn't have enough money to get more: Never True Transportation Answer Date Recorded In the past 12 months, has l ack of transportation kept you from medical appts, meetings, work or from getting things needed for daily living? Yes, it has kept me from medical appointments or getting medications. 08/27/2023 Utilities Answer Date Recorded In the past 12 months, has t he [employer], [employer], oil or water [employer] threatened to shut off services in your home? No 09/04/2023 Depression Answer Date Recorded Patient Health Questionnaire-2 [...] on filedocumented in this encounter Care Teams Asphalt Patcher Relationship Specialty Start Date End Date Roxi Forbes MD [address] [place] [address] PCP - General Family Medicine 01/03/21 documented as of this encounter
--- OUTSIDE RECORDS SUMMARY | 2025-01-18 14:15 | XMS_ITS | Encounter Summary ---
Author Organization [employer] Address [address] [facility] 7t [place] [address] Care Team Providers Care Culinary Artist Name Role Phone Roxi Forbes MD Primary Care Provider [phone] Reason for Visit * Reason Onset Date Comments Med Refill 08/09/2023 Encounter Details Date Type Department Care Team ([facility] st Contact Info) Description 08/09/2023 Telephone [facility] MED[facility] [address] [place] [address] Roxi Forbes MD [address] [place] [address] Med Refill Social History Tobacco Use Types Packs/Day Years [...] encounter Miscellaneous Notes * Telephone Encounter - Campos Louisrero - 08/09/2023 12:50 PM EDT Tc from pt requesting a new Script for Albuterol inhaler. Pt states that provider who prescribes medication at [address] [place] [address] Linwood Piña, stop medication due to pt missingfollow up appt with provider. Pt is requesting if provider could prescribed, pt states he uses medication every night. No symptoms Please contact pt at [phone] Haitian Speaker documented in this encounter Plan of Treatment Not on file documented as of this encounter Visit Diagnoses Not on filedocumented in this encounter Care Teams Culinary Artist Relationship Specialty Start Date End Date Roxi Forbes MD [address] [place] [address] PCP - General Family Medicine 01/03/21 documented as of this encounter
--- OUTSIDE RECORDS SUMMARY | 2025-01-18 14:15 | XMS_ITS | Encounter Summary ---
Author Organization [employer] Address [address] 7t [place] [address] Care Team Providers Care Figurine Maker Name Role Phone Roxi Forebs MD Primary Care Provider Reason for Visit * Reason Comments Med Refill Encounter Details Date Type Department Care Team ([facility] st Contact Info) Description 09/10/2023 Refill [facility] MEDICINE [address] [place] [address] Roxi Forbes MD [address] [place] [address] Social History Tobacco Use Types Packs/Day Years [...] on filedocumented in this encounter Care Teams Figurine Maker Relationship Specialty Start Date End Date Roxi Forbes MD [address] [place] [address] PCP - General Family Medicine 01/03/21 documented as of this encounter
--- OUTSIDE RECORDS SUMMARY | 2025-01-18 14:15 | XMS_ITS | Encounter Summary ---
Author Organization [facility] Address [address] [place] [address] Phone Care Team Providers Care Laborer Airport Maintenance Name Role Phone Roxi Forbes MD Primary Care Provider [phone] Encounter Details Date Type Department Care Team (Late st Contact Info) Description 09/22/2024 Documentation Only [facility] [address] [place] [phone] Kalina Borden [address] [place] [phone] Social History Tobacco Use Types Packs/Day Years [...] Visit [facility] [address] [place] [address] Italo Shirley MD [address] [facility] [place] [phone] documented as of this encounter Visit Diagnoses Not on filedocumented in this encounter Care Teams Laborer Airport Maintenance Relationship Specialty Start Date End Date Roxi Forbes MD [address] [place] [address] PCP - General 12/27/20 documented as of this encounter
--- OUTSIDE RECORDS SUMMARY | 2025-01-18 14:15 | XMS_ITS | Encounter Summary ---
Author Organization [employer] Address [address] 7[address] [place] [address] Care Team Providers Care Industrial Engineering Technician Name Role Phone Roxi Forbes MD Primary Care Provider [phone] Encounter Details Date Type Department Care Team (Late st Contact Info) Description 07/21/2024 Orders Only [facility] MEDICINE [address] [place], [place] [phone] Roxi Forbes MD [address] [place] [address] Social History Tobacco Use Types Packs/Day Years [...] Diagnoses Not on filedocumented in this encounter Additional Health Concerns Assessment Noted Time PHQ-9 Depression Total Score: 0 06/22/20 24 2:43 PM EDT documented as of this encounter Care Teams Industrial Engineering Technician Relationship Specialty Start Date End Date Roxi Forbes MD [address] [place] [address] PCP - General Family Medicine 01/03/21 documented as of this encounter
--- OUTSIDE RECORDS SUMMARY | 2025-01-18 14:15 | XMS_ITS | Encounter Summary ---
Author Organization [employer] Address [address] [facility] 7t [place] [address] Care Team Providers Care Supervisor Dock Name Role Phone Roxi Forbes MD Primary Care Provider [phone] Reason for Visit * Reason Onset Date Comments Appointment Request 04/19/2023 Encounter Details Date Type Department Care Team ([facility] st Contact Info) Description 04/19/2023 Telephone [facility] MEDICINE [address] [place] [address] Roxi Forbes MD [address] [place] [address] Appointment Request Social History Tobacco Use Types Packs/Day Years [...] Miscellaneous Notes * Telephone Encounter - Campos Dash - 04/19/2023 10:48 AM EDT Tc from pt requesting to r/s appt for 05/03/2023 for DM2 Please contact pt at [phone] Telugu Speaker documented in this encounter Plan of Treatment Not on file documented as of this encounter Visit Diagnoses Not on filedocumented in this encounter Care Teams Supervisor Dock Relationship Specialty Start Date End Date Roxi Forbes MD [address] [place] [address] PCP - General Family Medicine 01/03/21 documented as of this encounter
== END 2025-01-18 12:09 | disposition home or self-care (01) ==
LOC: HO.US 12:08
PROVIDERS: PCP General Practice; Visit Provider Nurse Practitioner Family
DX: R35.1 Nocturia (principal)
CPT/HCPCS: 76857

== ENCOUNTER → 2025-01-18 12:10 | Outpatient (BNV) | payer MEDICAID, SELFPAY | PROVIDERS: PCP General Practice; Visit Provider Radiology Diagnostic Radiology | DX: R35.1 Nocturia (principal) | CPT/HCPCS: 76857 ==

== ENCOUNTER 2025-01-27 11:46 | Outpatient (AMB) | payer MEDICAID, SELFPAY ==
--- NOTE | 2025-01-27 11:49 | A.OFFVIS_ITS ---
Intake Visit Reasons: 2m/US(set) Intake Note: Patient presents to office today for 2 month/US/Nocturia Imagin01/19/25 Urology Medications: none Blood Thinner: none Antibiotic Allergy:none PVR:45ml Car Rental Manager Required: Yes Car Rental Manager Services: Car Rental Manager Present Car Rental Manager Name: Talha [id number] Allergies No Known Allergies [No Known Allergies*] Allergy (Verified 01/27/25 12:24) Medication List - Last Reconciled 01/27/25 by RANJITH Quintana albuterol sulfate 90 mcg/actuation (Ventolin HFA) 1 puff PO QID PRN alcohol swabs (Alcohol Pads) 1 pad topical QID 30 days atorvastatin 40 mg PO DAILY baclofen 5 mg PO TID PRN blood sugar diagnostic (FreeStyle Lite Strips) As directed four times a day blood-glucose meter (FreeStyle Langdon Lite kit) As directed 4 times a day empagliflozin (Jardiance) 10 mg PO QAM ergocalciferol (vitamin D2) 50 mcg PO DAILY fenofibrate nanocrystallized 145 mg PO DAILY flash glucose scanning reader (FreeStyle Bernice 2 Latham) As directed flash glucose sensor (FreeStyle Bernice 2 Sensor kit) As directed every 2 weeks fluticasone propion-salmeterol 250-50 mcg/dose (Wixela Inhub) 1 inh inhalation BID 30 days folic acid 1 mg PO DAILY insulin glargine (Lantus Solostar U-100 Insulin) 52 units (0.52 mL) subcut QPM insulin lispro 20 - 26 units (0.2 - 0.26 mL) subcut TID lancets (TRUEplus Lancets) As directed 4 times a day jrahvn-pkemduvw-pibaibt 24,000-76,000 -120,000 unit (Creon) 1 cap PO TID lisinopril 5 mg PO DAILY metformin ER 1,000 mg PO DAILY omega-3 acid ethyl esters 1 cap PO BID omeprazole 20 mg PO DAILY pen needle, diabetic (BD Ultra-Fine Jennifer Pen Needle) Five times a day tamsulosin 0.4 mg PO BEDTIME 90 days terbinafine HCl 1% 1 appl topical BID HPI Comments Details: Levi is a 44-year-old Thai-speaking male patient of Dr. Forbes. He has a past medical history of dyslipidemia, iron deficiency anemia, polyarthralgia, alcohol abuse, and diabetes mellitus. He presents to the office today for follow-up of his nocturia. Of note, patient was seen approximately 2 months ago as a new patient for nocturia at which time recommendations were made for sleep study and bladder ultrasound for further assessment evaluation. In discussion with the patient today he reports despite limiting fluids 2-3 hours prior to bed he continues with episodes of nocturia up to 5 times per night. He unfortunately missed his sleep study and is looking to reschedule. Recent bladder ultrasound results reviewed with the patient today. 02/09 the urinary bladder is unremarkable. Pre void bladder volume is approximately 200 mL. Postvoid bladder volume is approximately 5 ml. Poorly visualized prostate. Prostate volume of 16 mL, normal urinary bladder we discussed potential causes of nocturia in the importance of obtaining sleep study for further assessment evaluation. He otherwise denies any bothersome urinary issues throughout the day. He denies urinary urgency, urinary frequency, incontinence, hematuria, dysuria, foul smelling urine, changes to urinary stream, flank pain, fever, and or chills. In review of patient's chart it appears A1c 09/10 8.1. We discussed at length importance of managing diabetes for improvement in lower urinary tract symptoms as well as overall health and well-being. We discussed possible near future in office cystoscopy and or urodynamics for further assessment evaluation. GAGE offered however deferred. In office urinalysis results reviewed with the patient today. PVR 45 mL. He discusses upcoming trip to [place] for his birthday. He otherwise offers no other issues or concerns at this time. [facility] Medical History Necrotizing pancreatitis Obesity due to excess calories Dyslipidemia Iron deficiency anemia Polyarthralgia History of pancreatitis History of alcohol abuse Diabetes mellitus with hyperglycemia Surgical History No history of previous surgery Family History Father Diabetes Mother Diabetes Brother Diabetes Social History Household Members: Other Household Members Other:: mother Alcohol intake: current Patient Tobacco Use Status: Current someday Tobacco user Review of Systems Const All systems reviewed & are unremarkable except as noted in HPI and below Physical Exam Const General: cooperative, healthy appearing, comfortable, no acute distress, well developed, alert and awake Nutritional Appearance: overweight Orientation/consciousness: patient oriented x3 Limitations: no limitations HEENT Head: Yes normal to inspection, Yes normocephalic and Yes atraumatic Ears: hearing grossly normal bilaterally Eyes General: appearance normal, both eyes and all related structures Neck Neck: Yes normal visual inspection and Yes trachea midline Chest Chest palpation & inspection: normal inspection of the chest Resp Effort & Inspection: normal respiratory effort and able to speak in complete sentences Cardio Rate: regular rate GI Inspection: Yes normal to inspection General: Yes no CVA tenderness Back/Spine/Pelvis Back: no CVA tenderness Skin General skin exam: no rashes or lesions noted Neuro General: patient oriented x3 Extrem General: Yes normal to inspection Psych Appearance: grossly normal and well kempt Mental Status: mental status grossly normal Speech and movement: Normal speech and movement present and Clear speech present Affect: normal affect Attitude: cooperative Thought process: Normal thought process present Thought content: Normal thought content present Insight: Fair insight present (Psych) Judgement: Fair judgement present (Psych) Results AMB Urinalysis, Automated UA Leukoctes 0 Rylee/uL Last Edit by Alycia Wong on 01/27/25 12:04 UA Nitrite Negative Last Edit by Alycia Wong on 01/27/25 12:04 UA Urobilinogen 3.5 mg/dL Last Edit by Alycia Wong on 01/27/25 12:04 UA Protein 1 mg/dL Last Edit by Alycia Wong on 01/27/25 12:04 UA pH 6.0 Last Edit by Alycia Wong on 01/27/25 12:04 UA Blood 0 Zbigniew/uL Last Edit by Alycia Wong on 01/27/25 12:04 UA Specific [place] 1.010 Last Edit by Alycia Wong on 01/27/25 12:04 UA Ketone Negative Last Edit by Alycia Wong on 01/27/25 12:04 UA Bilirubin 0 mg/dL Last Edit by Alycia Wong on 01/27/25 12:04 UA Glucose 60 mg/dL Last Edit by Alycia Wong on 01/27/25 12:04 Results Reviewed Results Reviewed: Laboratory Last Values Urine pH (Auto) 6.0 01/27/25 11:15 Specific [place] (Auto) 1.010 01/27/25 11:15 Urine Protein (Auto) 1 mg/dL 01/27/25 11:15 Glucose (UA)(Auto) 60 mg/dL 01/27/25 11:15 Urine Ketones (Auto) Negative 01/27/25 11:15 Urine Blood (Auto) 0 Zbigniew/uL 01/27/25 11:15 Urine Nitrite (Auto) Negative 01/27/25 11:15 Urine Bilirubin (Auto) 0 mg/dL 01/27/25 11:15 Urine Urobilinogen (Auto) 3.5 mg/dL 01/27/25 11:15 Leukocyte Esterase (Auto) 0 Rylee/uL 01/27/25 11:15 Date of Service: 01/18/25 US Urinary Bladder Comparison: None Findings: The urinary bladder is unremarkable. Prevoid volume: 189 mLPostvoid volume: 6 mL Ureteral jets are visualized bilaterally. Poorly visualized prostate. Volume 15.9 mL although most likely underestimated. Normal urinary bladder Assessment & Plan Assessment & Plan (1) Nocturia: Code(s): R35.1 - Nocturia Category: Medical Plan In office urinalysis results reviewed with the patient today; as noted above. PVR 45 mL. Continue limiting fluids prior to bed to decrease episodes of nocturia. Discussed importance of obtaining sleep study as planned. Start tamsulosin as discussed and prescribed. Recent bladder ultrasound results reviewed with the patient today; as noted above. We discussed potential causes of nocturia as well as further interventions in risks and benefits of these interventions. Discussed bladder triggers/irritants. We discussed importance of managing diabetes for improvement in her urinary issues as well as overall health and well-being. We discussed importance of weight loss. Follow-up in 1-3 months with sleep study and PVR to be completed prior; or soone r with any issues, concerns, and or questions. Orders: Orders AMB Urinalysis Automated Today Z13.9 - Encounter for screening, unspecified AMB Post Void Residual by ultrasound Today R35.1 - Nocturia Medications: New tamsulosin 0.4 mg PO BEDTIME 90 caps 0RF 90 days N40.1 - Benign prostatic hyperplasia with lower urinary tract symptoms, R35.1 - Nocturia Patient Instructions: The patient had an opportunity to ask questions regarding the treatment plan. All questions were answered. Physical exam, labs, and imaging were discussed and reviewed in detail. As well as risks, benefits, and discussion of treatment choices. No major barriers to understanding were identified. The patient expressed understanding and agreement with the above treatment plan. The patient was made aware they should contact our office by phone for worsening of their current condition, the appearance of new symptoms, or with any questions or concerns. Compliance is encouraged with any medications and follow up testing that is ordered. It is a privilege to be allowed the opportunity to participate in? your urological care.? Again, if you have any questions or concerns If you have any questions or concerns please do not hesitate to contact me. The office is [phone]. This note is constructed using voice recognition software. While every effort has been made to ensure accuracy soft work wrapper layer and examiner errors may have been included. Yours sincerely, RANJITH Quintana Coding Level of Care Code Est Pt Level 4 (05773) Diagnoses Nocturia R35.1
--- OUTSIDE RECORDS SUMMARY | 2025-01-27 13:51 | XMS_ITS | Encounter Summary ---
Author Organization [facility] Address [address] [place] [address] Phone Care Team Providers Care Drapery Sewer Hand Name Role Phone Roxi Forbes MD Primary Care Provider [phone] Encounter Details Date Type Department Care Team (Late st Contact Info) Description 08/07/2022 Documentation Only [facility] [address] [place] [phone] Mary Heredia PA Social History Tobacco Use [...] Visit [facility] [address] [place] [phone] Italo Shirley MD [address] [place] [address] [place] [phone] documented as of this encounter Visit Diagnoses Not on filedocumented in this encounter Care Teams Drapery Sewer Hand Relationship Specialty Start Date End Date Roxi Forbes MD [address] [place] [address] PCP - General 12/27/20 documented as of this encounter
--- OUTSIDE RECORDS SUMMARY | 2025-01-27 13:51 | XMS_ITS | Encounter Summary ---
Author Organization [employer] Address [address] [facility] [address] 7t [place] [address] Care Team Providers Care Beauty Advisor Name Role Phone Roxi Forbes MD Primary Care Provider [phone] Encounter Details Date Type Department Care Team (Late st Contact Info) Description 07/21/2024 Orders Only [facility] [address] [place] [address] Roxi Forbes MD [address] [place] [address] Social History Tobacco Use Types Packs/Day Years [...] documented as of this encounter Care Teams Beauty Advisor Relationship Specialty Start Date End Date Roxi Forbes MD [address] [place] [address] PCP - General Family Medicine 01/03/21 documented as of this encounter
--- OUTSIDE RECORDS SUMMARY | 2025-01-27 13:51 | XMS_ITS | Encounter Summary ---
Author Organization [facility] Address [address] [place] [address] Phone Care Team Providers Care Hearing Officer Name Role Phone Roxi Forbes MD Primary Care Provider Encounter Details Date Type Department Care Team (Late st Contact Info) Description 12/07/2022 Documentation Only [facility] [address] [place] [phone] Mary Heredia PA Social History Tobacco Use [...] Visit [facility] [address] [place] [phone] Italo Shirley MD [address] [place] [address] [place] [phone] documented as of this encounter Visit Diagnoses Not on filedocumented in this encounter Care Teams Hearing Officer Relationship Specialty Start Date End Date Roxi Forbes MD [address] [place] [address] PCP - General 12/27/20 documented as of this encounter
--- OUTSIDE RECORDS SUMMARY | 2025-01-27 13:51 | XMS_ITS | Encounter Summary ---
Author Organization [employer] Address [address] [facility] 7t [place] [address] Care Team Providers Care Undercutter Operator Name Role Phone Roxi Forbes MD Primary Care Provider [phone] Encounter Details Date Type Department Care Team ([facility] st Contact Info) Description 01/18/2025 Orders Only [facility] External Provider, [facility] Social History Tobacco Use Types Packs/Day Years [...] on file documented as of this encounter Procedures Procedure Name Priority Date/Time Associated Diagnosis Comments US BLADDER Routine 01/19/2025 11:27 AM EST documented in this encounter Results * US BLADDER (01/19/2025 11:27 AM EST) Anatomical Region Laterality Modality Abdomen Ultrasound 01/19/2025 11:2 7 AM EST Narrative 01/19/2025 11:29 AM EST ? [facility] ?[address] ?[place] [address] ? Ultrasound Report ? Signed ? Patient: Levi Hale ?MR#: [id number] ?? [id number] ? : 1980 ?Acct:[id number] ? Age/Sex: 44 / M ?ADM Date: 01/18/25 ? Loc: HO.US ? Attending Dr: Purnima KASPER ? Ordering Physician: Purnima Godoy ?? Date of Service: 01/18/25 ?? Procedure(s): US bladder ?? Accession Number(s): [id number] ? cc: Roxi Forbes; Purnima Godoy ? CLINICAL HISTORY: R35.1 - Nocturia ? US Urinary Bladder ? Comparison: None ? Findings: ?? The urinary bladder is unremarkable. ?? Prevoid volume: 189 mLPostvoid volume: 6 mL ? Ureteral jets are visualized bilaterally. ?? Poorly visualized prostate. Volume 15.9 mL although most likely ?? underestimated. ? IMPRESSION: ?? Normal urinary bladder ? This document has been electronically signed by: Polo Duckworth MD on ?? 01/19/2025 11:27:44 ? Dictated By: ?Polo Duckworth MD ? Signed By: ?<Electronically signed by Polo Duckworth MD in OV> ? 01/19/25 1128 ? DD/ 1127 ? TD/TT: 01/19/25 1127 ? Minister Of Religion: ? Procedure Note Donotuseinterpreter, Image - 01/19/[address] [address] Ultrasound Report Signed Patient: Levi Hale RMR#: [id number] : 1980Acct:[id number] Age/Sex: 44 / MADM Date: 01/18/25 Loc: .US Attending Dr: Purnima PRINCE Ordering Physician: Purnima Godoy Date of Service: 01/18/25 Procedure(s): US bladder Accession Number(s): [id number] cc: Roxi Forbes; Purnima Godoy CLINICAL HISTORY: R35.1 - Nocturia US Urinary Bladder Comparison: None Findings: The urinary bladder is unremarkable. Prevoid volume: 189 mLPostvoid volume: 6 mL Ureteral jets are visualized bilaterally. Poorly visualized prostate. Volume 15.9 mL although most likely underestimated. IMPRESSION: Normal urinary bladder This document has been electronically signed by: Polo Duckworth MD on 01/19/2025 11:27:44 Dictated By: Polo Duckworth MD Signed By: <Electronically signed by Polo Duckworth MD in OV> 01/19/25 1128 DD/ 1127 TD/TT: 01/19/25 1127 Minister Of Religion: [facility] External Provider IMG US PROCEDURES Final Result documented in this encounter Visit Diagnoses Not on filedocumented in this encounter Additional Health Concerns Assessment Noted Time PHQ-9 Depression Total Score: 0 06/22/20 24 2:43 PM EDT documented as of this encounter Care Teams Undercutter Operator Relationship Specialty Start Date End Date Roxi Forbes MD [address] [place] [address] PCP - General Family Medicine 01/03/21 documented as of this encounter
--- OUTSIDE RECORDS SUMMARY | 2025-01-27 13:51 | XMS_ITS | Encounter Summary ---
Author Organization [employer] Address [address] [facility] 7t [place] [address] Care Team Providers Care Corporate Counselor Name Role Phone Roxi Forbes MD Primary Care Provider [phone] Reason for Referral * Consultation (Routine) - Closed Specialty Diagnoses / Procedures Referred By Brit t Referred To Contact Cardiology Diagnoses History of pancreatitis Hypertriglyceridemia Roxi Forbes MD [address] [place] [address] Phone: tel: fax: [facility] Referral ID Status Reason Start Date Expiration Date V isits Requested Visits Authorized [id number] Closed Specialty Services Required 09/24/2024 09/24/2025 6 6 Encounter Details Date Type Department Care Team (Late st Contact Info) Description 09/17/2024 Orders Only [facility] [address] [place] [address] Roxi Forbes MD [address] [place] [address] History of pancreatitis (Primary Dx); Hypertriglyceridemia Social [...] documented as of this encounter Care Teams Corporate Counselor Relationship Specialty Start Date End Date Roxi Forbes MD [address] [place] [address] PCP - General Family Medicine 01/03/21 documented as of this encounter
--- OUTSIDE RECORDS SUMMARY | 2025-01-27 13:51 | XMS_ITS | Encounter Summary ---
Author Organization [facility] Address [address] [facility] 7t [place] [address] Care Team Providers Care Hand Marker Name Role Phone Roxi Forbes MD Primary Care Provider [phone] Reason for Visit * Reason Comments Med Refill Encounter Details Date Type Department Care Team ([facility] st Contact Info) Description 02/25/2023 Refill [facility] [address] [place], [place] [phone] Roxi Forbes MD [address] [place] [address] Social History Tobacco Use Types Packs/Day Years [...] on filedocumented in this encounter Care Teams Hand Marker Relationship Specialty Start Date End Date Roxi Forbes MD [address] [place] [address] PCP - General Family Medicine 01/03/21 documented as of this encounter
--- OUTSIDE RECORDS SUMMARY | 2025-01-27 13:51 | XMS_ITS | Clinical Summary ---
Author Organization [facility], Address [address] [place] [address] [place] [address] Phone Care Team Providers Care Transfer Agent Name Role Phone Roxi Forbes MD Primary [...] VECES AL D A 2 Active Creon 98999-84595 units capsule TOME 1 C PSULA POR [...] tablet 3 4 Active ergocalciferol 1.25 MG (68947 UT) capsule Take 1 capsule (50,000 Units [...] Refill [facility], [address] [place] [address] Mary Heredia PA 11/22/2024 Refill [facility] [address] [place] [address] Mary Heredia PA from Last 3 Months Immunizations Name Administration [...] Office Visit [facility] [address] [place] [phone] Italo Shirley MD [address] [place] [address] [place] [phone] Health Maintenance Due Date Last Done Comments [...] 64 Years) Completed 05/10/2023, 03/21/2020 Insurance [place]ICAID [place] Care Teams Transfer Agent Relationship Specialty Start Date End Date Roxi Forbes MD [address] [place] [address] PCP - General 12/27/20
--- OUTSIDE RECORDS SUMMARY | 2025-01-27 13:51 | XMS_ITS | Encounter Summary ---
Author Organization [facility] [facility] Address [address] [facility] 7t [place] [address] Care Team Providers Care Food Service Cashier Name Role Phone Roxi Forbes MD Primary Care Provider [phone] Reason for Visit * Reason Comments Med Refill Encounter Details Date Type Department Care Team ([facility] st Contact Info) Description 03/26/2023 Refill [facility] [address] [place], [place] [phone] Roxi Forbes MD [address] [place] [address] Social History Tobacco Use Types Packs/Day Years [...] on filedocumented in this encounter Care Teams Food Service Cashier Relationship Specialty Start Date End Date Roxi Forbes MD [address] [place], [place] [phone] PCP - General Family Medicine 01/03/21 documented as of this encounter
--- OUTSIDE RECORDS SUMMARY | 2025-01-27 13:51 | XMS_ITS | Encounter Summary ---
Author Organization [facility] [place], Address [address] [place] [address] Phone Care Team Providers Care Summer Associate Name Role Phone Roxi Forbes MD Primary Care Provider [phone] Reason for Visit * Reason Comments Med Change Request Encounter Details Date Type Department Care Team (Late st Contact Info) Description 01/23/2023 Refill [facility] [address] [place] [phone] Abe Rivera MD [address] [place] [address] [place] [phone] Social History Tobacco Use Types Packs/Day Years [...] Visit [facility] [address] [facility] [place] [phone] Italo Shirley MD [address] [place] [address] [place] [phone] documented as of this encounter Visit Diagnoses Not on filedocumented in this encounter Care Teams Summer Associate Relationship Specialty Start Date End Date Roxi Forbes MD [address] [place] [address] PCP - General 12/27/20 documented as of this encounter
--- OUTSIDE RECORDS SUMMARY | 2025-01-27 13:51 | XMS_ITS | Encounter Summary ---
Author Organization [facility] Address [address] [place] [address] Phone Care Team Providers Care Environmental Specialist Name Role Phone Roxi Forbes MD Primary Care Provider [phone] Encounter Details Date Type Department Care Team (Late st Contact Info) Description 12/23/2023 Documentation Only [facility] [address] [place] [phone] Kalina Borden [address] [place] [phone] Social History Tobacco Use Types Packs/Day Years [...] Visit [facility] [address] [place] [address] Italo Shirley MD [address] [facility] [place] [phone] documented as of this encounter Visit Diagnoses Not on filedocumented in this encounter Care Teams Environmental Specialist Relationship Specialty Start Date End Date Roxi Forbes MD [address] [place] [address] PCP - General 12/27/20 documented as of this encounter
--- OUTSIDE RECORDS SUMMARY | 2025-01-27 13:51 | XMS_ITS | Encounter Summary ---
Author Organization [facility] Address [address] [place] [address] Phone Care Team Providers Care Detail Drafter Name Role Phone Roxi Forbes MD Primary Care Provider [phone] Encounter Details Date Type Department Care Team (Late st Contact Info) Description 12/23/2023 Documentation Only [facility] [address] [place] [phone] Kalina Borden [address] [place] [phone] Social History Tobacco Use Types Packs/Day Years [...] Visit [facility] [address] [place] [address] Italo Shirley MD [address] [facility] [place] [phone] documented as of this encounter Visit Diagnoses Not on filedocumented in this encounter Care Teams Detail Drafter Relationship Specialty Start Date End Date Roxi Forbes MD [address] [place] [address] PCP - General 12/27/20 documented as of this encounter
--- OUTSIDE RECORDS SUMMARY | 2025-01-27 13:51 | XMS_ITS | Encounter Summary ---
Author Organization [facility] Address [address] [place] [address] Phone Care Team Providers Care Clinical Social Work Aide Name Role Phone Roxi Forbes MD Primary Care Provider [phone] Encounter Details Date Type Department Care Team (Late st Contact Info) Description 12/19/2023 Documentation Only [facility] [address] [place] [phone] Kalina Borden [address] [place] [phone] Social History Tobacco Use Types Packs/Day Years [...] Visit [facility] [address] [place] [address] Italo Shirley MD [address] [facility] [place] [place] [phone] documented as of this encounter Visit Diagnoses Not on filedocumented in this encounter Care Teams Clinical Social Work Aide Relationship Specialty Start Date End Date Roxi Forbes MD [address] [place] [address] PCP - General 12/27/20 documented as of this encounter
--- OUTSIDE RECORDS SUMMARY | 2025-01-27 13:51 | XMS_ITS | Encounter Summary ---
Author Organization [employer] Address [address] [facility] 7t [place] [address] Care Team Providers Care Wood Web Weaving Machine Operator Name Role Phone Roxi Forbes MD Primary Care Provider [phone] Reason for Visit * Reason Onset Date Comments Med Refill 08/09/2023 Encounter Details Date Type Department Care Team ([facility] st Contact Info) Description 08/09/2023 Telephone [facility] MEDICINE [address] [place] [address] Roxi Forbes MD [address] [place] [address] Med Refill Social History Tobacco Use Types [...] states that provider who prescribes medication at [address] [place] [address] Linwood Piña, stop medication due to pt missingfollow up appt with provider. Pt is requesting if provider could prescribed, pt states he uses medication every night. No symptoms Please contact pt at [phone] Pashto Speaker documented in this encounter Plan of Treatment Not on file documented as of this encounter Visit Diagnoses Not on filedocumented in this encounter Care Teams Wood Web Weaving Machine Operator Relationship Specialty Start Date End Date Roxi Forbes MD [address] [place] [address] PCP - General Family Medicine 01/03/21 documented as of this encounter
--- OUTSIDE RECORDS SUMMARY | 2025-01-27 13:51 | XMS_ITS | Encounter Summary ---
Author Organization [employer] Address [address] [facility] [address] 7t [place] [address] Care Team Providers Care Multiple Knife Edge Trimmer Operator Name Role Phone Roxi Forbes MD Primary Care Provider [phone] Reason for Visit * Reason Comments Med Refill Encounter Details Date Type Department Care Team ([facility] st Contact Info) Description 09/04/2023 Refill [facility] MEDICINE 230 [place] [address] Dariela Cruz MD 230 [place] [address] Social History Tobacco Use Types Packs/Day Years [...] the past 12 months, has t he [employer], [employer], oil or water [employer] threatened to shut off services in your [...] on filedocumented in this encounter Care Teams Multiple Knife Edge Trimmer Operator Relationship Specialty Start Date End Date Roxi Forbes MD [address] [place] [address] PCP - General Family Medicine 01/03/21 documented as of this encounter
--- OUTSIDE RECORDS SUMMARY | 2025-01-27 13:51 | XMS_ITS | Encounter Summary ---
Author Organization [facility] Address [address] [place] [address] Phone Care Team Providers Care Metal Furniture Assembler Name Role Phone Roxi Forbes MD Primary Care Provider [phone] Encounter Details Date Type Department Care Team (Late st Contact Info) Description 10/01/2024 Documentation Only [facility] [address] [place] [phone] Berna Castellano MD [address] [place] [phone] Social History Tobacco Use Types Packs/Day Years [...] Visit [facility] [address] [place] [phone] Italo Shirley MD [address] [place] [address] [place] [phone] documented as of this encounter Visit Diagnoses Not on filedocumented in this encounter Care Teams Metal Furniture Assembler Relationship Specialty Start Date End Date Roxi Forbes MD [address] [place] [address] PCP - General 12/27/20 documented as of this encounter
--- OUTSIDE RECORDS SUMMARY | 2025-01-27 13:51 | XMS_ITS | Encounter Summary ---
Author Organization [employer] Address [address] [facility] 7t [place] [address] Care Team Providers Care Twister Hand Name Role Phone Roxi Forbes MD Primary Care Provider [phone] Reason for Visit * Reason Onset Date Comments Appointment Request 04/19/2023 Encounter Details Date Type Department Care Team ([facility] st Contact Info) Description 04/19/2023 Telephone [facility] MEDICINE 230 [place] [address] Roxi Forbes MD [address] [place] [address] Appointment Request Social History Tobacco Use Types [...] 05/03/2023 for DM2 Please contact pt at [phone] Zimbabwean Speaker documented in this encounter Plan of Treatment Not on file documented as of this encounter Visit Diagnoses Not on filedocumented in this encounter Care Teams Twister Hand Relationship Specialty Start Date End Date Roxi Forbes MD 230 [place] [address] PCP - General Family Medicine 01/03/21 documented as of this encounter
--- OUTSIDE RECORDS SUMMARY | 2025-01-27 13:51 | XMS_ITS | Encounter Summary ---
Author Organization [facility] [place], Address [address] [place] [address] Phone Care Team Providers Care Diesel Engine Mechanic Name Role Phone Roxi Forbes MD Primary Care Provider [phone] Reason for Visit * Reason Comments Med Refill Encounter Details Date Type Department Care Team (Late st Contact Info) Description 12/10/2024 Refill [facility] [address] [phone] Mary Heredia PA Social History Tobacco Use [...] Visit [facility] [address] [place] [phone] Italo Shirley MD [address] [place] [address] [place] [phone] documented as of this encounter Visit Diagnoses Not on filedocumented in this encounter Care Teams Diesel Engine Mechanic Relationship Specialty Start Date End Date Roxi Forbes MD [address] [place] [address] PCP - General 12/27/20 documented as of this encounter
--- OUTSIDE RECORDS SUMMARY | 2025-01-27 13:51 | XMS_ITS | Encounter Summary ---
Author Organization [employer] Address [address] [facility] 7t [place] [address] Care Team Providers Care Electricians Top Helper Name Role Phone Roxi Forbes MD Primary Care Provider [phone] Reason for Visit * Reason Onset Date Comments Nurse Triage 07/09/2023 Encounter Details Date Type Department Care Team ([facility] st Contact Info) Description 07/09/2023 Telephone [facility] MEDICINE 230 [place] [address] Roxi Forbes MD 230 [place] [address] Nurse Triage Social History Tobacco Use Types [...] 07/09/2023 3:55 PM EDT Triage call with [place] Pattern Grader Supervisor ID [id number] Pt reports right knee pain for past [...] little. Pt is advised to come to [facility] today ortomorrow, Hours given open 830p - [...] accepted this outcome Please contact pt at [phone] documented in this encounter Plan of Treatment Not on file documented as of this encounter Visit Diagnoses Not on filedocumented in this encounter Care Teams Electricians Top Helper Relationship Specialty Start Date End Date Roxi Forbes MD [address] [place] [address] PCP - General Family Medicine 01/03/21 documented as of this encounter
--- OUTSIDE RECORDS SUMMARY | 2025-01-27 13:51 | XMS_ITS | Encounter Summary ---
Author Organization [facility] Address [address] [place] [address] Phone Care Team Providers Care Munitions Factory Worker Name Role Phone Roxi Forbes MD Primary Care Provider [phone] Encounter Details Date Type Department Care Team (Late st Contact Info) Description 09/14/2024 Telephone [facility] [place], [address] [place] [address] Aleida Brady [address] [place] [address] Social History Tobacco Use Types [...] Visit [facility] [place], [address] [place] [phone] Italo Shirley MD [address] [facility] [place] [phone] documented as of this encounter Visit Diagnoses Not on filedocumented in this encounter Care Teams Munitions Factory Worker Relationship Specialty Start Date End Date Roxi Forbes MD [address] [place] [address] PCP - General 12/27/20 documented as of this encounter
--- OUTSIDE RECORDS SUMMARY | 2025-01-27 13:51 | XMS_ITS | Encounter Summary ---
Author Organization [facility] Address [address] [place] [address] Phone Care Team Providers Care Wrapper And Preserver Name Role Phone Roxi Forbes MD Primary Care Provider [phone] Encounter Details Date Type Department Care Team (Late st Contact Info) Description 09/22/2024 Documentation Only [facility] [address] [place] [phone] Kalina Borden [address] [place] [phone] Social History Tobacco Use Types Packs/Day Years [...] Visit [facility] [address] [place] [address] Italo Shirley MD [address] [facility] [place] [phone] documented as of this encounter Visit Diagnoses Not on filedocumented in this encounter Care Teams Wrapper And Preserver Relationship Specialty Start Date End Date Roxi Forbes MD [address] [place] [address] PCP - General 12/27/20 documented as of this encounter
--- OUTSIDE RECORDS SUMMARY | 2025-01-27 13:51 | XMS_ITS | Encounter Summary ---
Author Organization [employer] Address [address] [facility] [address] 7[address] [place] [address] Care Team Providers Care Elevator Operator Service Name Role Phone Roxi Forbes MD Primary Care Provider [phone] Reason for Visit * Reason Comments Med Refill Encounter Details Date Type Department Care Team ([facility] st Contact Info) Description 09/10/2023 Refill [facility] MEDICINE [address] [place] [address] Roxi Forbes MD 230 [place] [address] Social History Tobacco Use Types Packs/Day Years [...] on filedocumented in this encounter Care Teams Elevator Operator Service Relationship Specialty Start Date End Date Roxi Forbes MD [address] [place] [address] PCP - General Family Medicine 01/03/21 documented as of this encounter
--- OUTSIDE RECORDS SUMMARY | 2025-01-27 13:52 | XMS_ITS | Clinical Summary ---
Author Organization [employer] Address [address] [facility] 7t [place] [address] Care Team Providers Care Burr Bench Operator Name Role Phone Roxi Forbes MD Primary Care Provider [phone] Allergies No known active allergies Medications thiamine [...] SEA NECESARIO 2 Active Continuous Blood Gluc [employer] Spanish Teacher (FreeStyle Bernice 2 Currie) deviceIndication s:Type 2 diabetes mellitus with hyperglycemia, with long-term current use of insulin ([facility]) USE DAILY TO CHECK BLOOD SUGAR 1 each 3 Active lisinopril 10 MG tablet Take 10 mg by mouth. 4 Active ergocalciferol (Vitamin D2) 1.25 MG (48039 UT) capsule Take 50,000 Units by mouth 1 (one) time per week. 4 Active Lantus SoloStar 100 UNIT/ML pen Inject 60 Units under the skin at bedtime. 15 mL 11 202 4 Active insulin lispro (HumaLOG) 100 UNIT/ML injection Inject 12 Units under the skin with breakfast, with lunch, and with evening meal. 15 mL 4 Active omeprazole (PriLOSEC) [address] capsule TOME STEPHIE CAPSULA [place]OS [place] 90 capsule 3 4 Active fenofibrate (Tricor) 145 MG tablet TAKE 1 TABLET BY MOUTH EVERY DAY 90 tablet 3 4 Active Continuous Glucose Sensor (FreeStyle Bernice 2 Sensor) miscIndications: Type 2 diabetes mellitus with hyperglycemia, unspecified whether continuous churn buttermaker insulin use (CMS/HCC) USE DIRECTED, CHANGE EVERY 2 WEEKS 2 each 4 Active empagliflozin (Jardiance) 25 MG Take [...] EVERY DAY 180 tablet 3 5 Active guaiFENesin (Mucinex) 600 MG 12 hr tablet Take 2 tablets (1,200 mg) by mouth 2 times daily. Do not crush, chew, or split. 120 tablet 4 01/27/20 25 Active Problems Problem Noted Date Diagnosed Date Hypertriglyceridemia 06/26/2024 Assessment & Plan (10/19/2024 9:57 AM EST): Pt will continue taking pravastatin daily Pt will call [facility] cardiology to schedule appt as referral already [...] does not tolerate it will refer to weaving supervisor for assistance with other lipid lowering agents [...] AM EDT): Current A1c: 8.8, needs to sheepskin pickler Lantus and Novolog, has not had them for many months. Called [facility] to ensure he can sheepskin pickler today. Continue Metformin and Jardiance BMP: Lab [...] LDL-C. Tevin FAUST et al. ELINA. 2013;310(19): 1826-6542 (http://education.GenoSpace.com/faq/YJF923) ASCVD: Calculate pending updated labs Statin: NO, [...] of LDL-C. Tevin FAUST et al. ELINA. 2013;31019): 9970-2236 (http://education.GenoSpace.Audio Network/faq/OFP385) ASCVD: Calculate pending updated labs Statin: Yes [...] of LDL-C. Tevin FAUST et al. ELINA. 2013;310(54): 9130-8724 (http://education.Emu Messenger/faq/PZV996) ASCVD: Calculate pending updated labs Statin: Yes [...] 3:08 PM EDT): Following with nephrology in [place] Has pending renal US, helped to schedule ER precautions Iron deficiency anemia 06/22/2020 Encounters Date Type Department Care Team Description 01/18/2025 Orders Only [facility] External Provider, [facility] 11/22/2024 Refill [facility] MEDICINE [address] [place] [address] Roxi Forbes MD Type 2 diabetes mellitus with hyperglycemia, without long-term current use of insulin ([facility]) from Last 3 Months Immunizations Name Administration [...] Additional history exists SDOH Screening 01/19/2025 01/20/2024 Depression Screening 06/22/2025 06/22/2024, 06/22/20 24 Colorectal [...] Additional history exists Lipid Panel 10/22/2025 10/22/2024, 09/0 07/2024, 07/04/2023, Additional history exists Zoster Vaccines (1 of 2) 02/04/2028 RSV Patients and Patients Aged 60 years or older (1 - 1-dose 75+ series) 2053 HIV Screening Completed 05/26/2020 Pneumococcal Vaccine: Pediatrics (0 to 5 Years) and At-Risk Patients (6 to 49) Years) Completed 05/10/2023, 03/21/2020 Hepatitis C Screening Completed 07/27/2024 COVID-19 Vaccine Completed 01/18/2025, , 11/21/2021, Additional history exists Influenza Vaccine Completed 01/18/2025, 12/07/2019 HIB Vaccines Aged Out No longer eligi [...] US BLADDER Routine 01/19/2025 11:27 AM EST ALBUMIN, RANDOM URINE W/CREATININE Routine 10/22/2024 9:00 AM EST Type 2 diabetes mellitus with hyperglycemia, with long-term current use of insulin ([facility]) LIPID PANEL, STANDARD Routine 10/22/2024 9:00 AM EST Hypertriglyceridemi a POCT GLYCATED HEMOGLOBIN, TOTAL Routine 10/19/2024 9:20 AM EST Type 2 diabetes mellitus with hyperglycemia, with long-term current use of insulin ([facility]) HEPATITIS C AB W/REFL TO HCV RNA, QN, PCR Routine 07/27/2024 8:05 AM EDT Hypertriglyceridemi a HIV 1/2 ANTIGEN/ANTIBODY, FOURTH GENERATION W/RFL Routine 05/26/2020 4:27 PM EDT from Last 3 Months or Most Recently Relevant to Health Maintenance Results * US BLADDER (01/19/2025 11:27 AM EST) Anatomical Region Laterality Modality Abdomen Ultrasound 01/19/2025 11:2 7 AM EST Narrative 01/19/2025 11:29 AM EST ? [facility] ?[address] ?[place] [address] ? Ultrasound Report ? Signed ? Patient: Geoffrey,Ashkan ?MR#: [id number] ?? [id number] ? : 1980 ?Acct:[id number] ? Age/Sex: 44 / M ?ADM Date: 01/18/25 ? Loc: HO.US ? Attending Dr: Purnima CABELLO-BC ? Ordering Physician: Purnima Godoy ?? Date of Service: 01/18/25 ?? Procedure(s): US bladder ?? Accession Number(s): [id number] ? cc: Roxi Forbes; Purnima Godoy ? [...] in OV> ? 01/19/25 1128 ? DD/ 26 ? TD/TT: 01/19/251126 ? Solar Pool Heating Installer: ? Procedure Note Raphael Yi - 01/19/2025 [place] [address] Ultrasound Report Signed Patient: Levi Hale R#: [id number] : 1980Acct:[id number] Age/Sex: 44 / MADM Date: 01/18/25 Loc: HO.US Attending Dr: Purnima KASPER Ordering Physician: Purnima Godoy Date of Service: 01/18/25 Procedure(s): US bladder Accession Number(s): [id number] cc: Roxi Forbes; Purnima Godoy CLINICAL HISTORY: [...] Duckworth MD in OV> 01/19/25 1128 DD/ TD/TT: 01/19/251126 Solar Pool Heating Installer: [facility] External Provider IMG US PROCEDURES Final Result * (ABNORMAL) Albumin, Random Urine W/Creatinine (10/22/2024 9:00 AM EST) Creatinine, Urine 51.44 mg/dL [facility] Microalbumin Urine 15.0 mg/L [facility] Microalbum Creatinine Ratio Ur 29.1(H) <30 ug/mg cr [facility] Comment:Albumin/Creatinine R atio Reference Ranges: Normal: < 30 ug/mg creatinine Microalbuminuria: 30 - 300 ug/mg creatinineClinical Albuminuria: > 300 ug/mg creatinine Urine (Urine, Random) 10/22/2024 9:00 AM EST 10/22/2024 11:13 AM EST Result [facility] Roxi Forbes MD LAB URINE ORDERABLES Final Res ult [facility] [address] [place] [address] [phone] * (ABNORMAL) Lipid Panel, Standard (10/22/2024 9:00 AM EST) Triglycerides 626(H) <150 mg/dL [facility] Comment:Desirable Triglyceri de: less than 150 mg/dLBorderline High Triglyceride 150-199 mg/dLHigh Triglyceride: 200-499 mg/dLVery High Triglyceride: greater than or equal to 5OO mg/dL Cholesterol 232(H) <200 mg/dL [facility] Comment:Desirable Cholestero l: less than 200 mg/dLBorderline High Cholesterol: 200-239 mg/dLHigh Cholesterol: greater than 239 mg/dL LDL Cholesterol Calculated TNP <100 mg/dL [facility] Comment:Unable to calculate the LDL. The formula of Friedwald,Pelaez, and Karlie is only valid if the triglycerides areless than 400 mg/dl. HDL Cholesterol 36(L) >40 mg/dL [facility] Comment:Desirable HDL: great er than 40 mg/dL Note: This HDL assay may give artificially low results in patients with liver disease. Blood Venous blood specimen / Unknown 10/22/2024 9:00 AM EST 10/22/2024 11:25 AM EST Roxi Forbes MD LAB BLOOD ORDERABLES Final Res ult Performing Organization Address [facility] Co de Phone Number [facility] [address] [place] [phone] * (ABNORMAL) POCT HGB A1C (10/19/2024 9:20 AM EST) Pathologist [facility] Hemoglobin A1C 8.3(A) 4.0 - 6.0 % QC Media Lot # [id number] Lot# Expiration Date Blood 10/19/2024 9:20 AM EST Result [facility] Roxi Forbes MD POINT OF CARE TEST ENTER/EDIT ORDERABLES Final Result * Hepatitis C Antibody with Reflex to HCV, RNA, Quantitative, Real-Time PCR (07/27/2024 8:05 AM EDT) Pathologist [facility] Hepatitis C Antibody Nonreactive Nonreactive [facility] Comment:Antibodies to HCV no t detected; does not exclude early acuteHCV infection. Blood Venous blood specimen / Unknown 07/27/2024 8:05 AM EDT 07/27/2024 11:32 AM EDT Roxi Forbes MD LAB BLOOD ORDERABLES Final Res ult Performing Organization Address [facility]/ZIP Co de Phone Number [facility] [address] [place] [phone] * HIV 1/2 ANTIGEN/ANTIBODY,FOURTH GENERATION W/RFL (05/26/2020 4:27 PM EDT) [facility] HIV-1/2 ANTIGEN AND ANTIBODIES, 4TH GENERATION W/ [...] ? For additional information please refer to http://LaserGen.GrandCentral/faq/YCM621 (This link is being provided for informational/ [...] ? For additional information please refer to http://LaserGen.GrandCentral/faq/TJI346 (This link is being provided for informational/ [...] ? For additional information please refer to http://LaserGen.GrandCentral/faq/VEQ000 (This link is being provided for informational/ educational purposes only.) ? The performance of this assay has not been clinically validated in patients less than 2 years old. ?? HIV-1/2 ANTIGEN AND ANTIBODIES, 4TH GENERATION W/ REFLEX NON-REACT EVARISTO NON-REACT EVARISTO [facility] Comment: HIV-1 antigen and HIV-1/HIV-2 [...] ? For additional information please refer to http://LaserGen.GrandCentral/faq/EGD802 (This link is being provided for informational/ [...] ? For additional information please refer to http://LaserGen.GrandCentral/faq/RTU497 (This link is being provided for informational/ [...] ? For additional information please refer to http://Web Performance/faq/UEG481 (This link is being provided for informational/ [...] ? For additional information please refer to http://LaserGen.GrandCentral/faq/DHY346 (This link is being provided for informational/ educational purposes only.) ? The performance of this assay has not been clinically validated in patients less than 2 years old. ?? HIV-1/2 ANTIGEN AND ANTIBODIES, 4TH GENERATION W/ REFLEX NON-REACT EVARISTO NON-REACT EVARISTO [facility] Comment: HIV-1 antigen and HIV-1/HIV-2 [...] ? For additional information please refer to http://LaserGen.GrandCentral/faq/TYA363 (This link is being provided for informational/ educational purposes only.) ? The performance of this assay has not been clinically validated in patients less than 2 years old. ?? HIV-1/2 ANTIGEN AND ANTIBODIES, 4TH GENERATION W/ REFLEX NON-REACT EVARISTO NON-REACT EVARISTO [facility] Comment: HIV-1 antigen and HIV-1/HIV-2 [...] ? For additional information please refer to http://LaserGen.GrandCentral/faq/MUO051 (This link is being provided for informational/ educational purposes only.) ? The performance of this assay has not been clinically validated in patients less than 2 years old. ?? 05/26/2020 4:27 PM EDT us Juliette Hawkins [facility] LAB BLOOD ORDERABLES Final Res ult [facility] [address] [phone], from Last 3 Months or Most Recently Relevant to Health Maintenance Insurance [facility] [employer] Care Teams Burr Bench Operator Relationship Specialty Start Date End Date Roxi Forbes MD [address] [place], [place] PCP - General Family Medicine 01/03/21
== END 2025-01-27 12:23 | disposition home or self-care (01) ==
LOC: HO.HUSH 11:47
PROVIDERS: PCP General Practice; Visit Provider Nurse Practitioner Family
DX: R35.1 Nocturia (principal); Z13.9 Encounter for screening, unspecified
CPT/HCPCS: 99214

== ENCOUNTER → 2025-01-27 11:46 | Outpatient (BNVA) | payer MEDICAID, SELFPAY | PROVIDERS: PCP General Practice; Visit Provider Nurse Practitioner Family | DX: R35.1 Nocturia (principal) | CPT/HCPCS: 81003; 99212 ==

== ENCOUNTER 2025-03-05 09:45 | Outpatient (AMB) | payer MEDICAID, SELFPAY ==
--- NOTE | 2025-03-05 09:49 | A.OFFVIS_ITS ---
Vital Signs 03/05/25 09:51 Height 5 ft 6 in Weight 236 lb 5.369 oz BMI 38.1 BP 110/84 Blood Pressure Location Rt brachial Position Sitting Pulse 89 Pulse Source Monitor Intake Visit Reasons: Overdue F/U requested by PCP r/s from 02/24 Intake Note: overdue f/up from 02/24 Unmanned Equipment Operator Required: Yes Unmanned Equipment Operator Language: Show Operations Supervisor Name: [email or web address] Accompanied by: Self / Same As Patient Allergies No Known Allergies [No Known Allergies*] Allergy (Verified 01/27/25 12:24) Medication List - Last Reconciled 03/05/25 by IHSAN Davis albuterol sulfate 90 mcg/actuation (Ventolin HFA) 1 puff PO QID PRN alcohol swabs (Alcohol Pads) 1 pad topical QID 30 days atorvastatin 40 mg PO DAILY baclofen 5 mg PO TID PRN blood sugar diagnostic (FreeStyle Lite Strips) As directed four times a day blood-glucose meter (FreeStyle [place] Lite kit) As directed 4 times a day empagliflozin (Jardiance) 10 mg PO QAM ergocalciferol (vitamin D2) 50 mcg PO DAILY fenofibrate nanocrystallized 145 mg PO DAILY flash glucose scanning reader (Redwood SystemsStyle Bernice 2 [place]) As directed flash glucose sensor (FreeStyle Bernice 2 Sensor kit) As directed every 2 weeks fluticasone propion-salmeterol 250-50 mcg/dose (Wixela Inhub) 1 inh inhalation BID 30 days folic acid 1 mg PO DAILY insulin glargine (Lantus Solostar U-100 Insulin) 52 units (0.52 mL) subcut QPM insulin lispro 20 - 26 units (0.2 - 0.26 mL) subcut TID lancets (TRUEplus Lancets) As directed 4 times a day bgmdwb-naluohyk-mrwxvhz 24,000-76,000 -120,000 unit (Creon) 1 cap PO TID lisinopril 5 mg PO DAILY metformin ER 1,000 mg PO DAILY omega-3 acid ethyl esters 1 cap PO BID omeprazole 20 mg PO DAILY pen needle, diabetic (BD Ultra-Fine Jennifer Pen Needle) Five times a day tamsulosin 0.4 mg PO BEDTIME 90 days terbinafine HCl 1% 1 appl topical BID HPI HPI Overdue F/U requested by PCP r/s from 02/24: Details: The patient is a 45-year-old male presenting with dyslipidemia and cardiovascular risk evaluation. He was previously seen, three years ago, for chest pain but had normal stress test and echocardiogram. Now, he occasionally experiences rapid but brief sharp chest pains that occur without pattern. No chest discomfort that is brought on by physical activity. He denies any concerning shortness of breath, heart palpitations or leg edema. He says his diabetes is not well controlled, with blood sugar levels frequently around 300 mg/dL. He has not been able to lose any signficant weight. He does report leg pain during prolonged activities, potentially compounded by adverse reactions to cholesterol medications. He says this has improved some recently with a change in his statin. 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 [facility] Medical History Necrotizing pancreatitis Obesity due to excess calories Dyslipidemia Iron deficiency anemia Polyarthralgia History of pancreatitis History of alcohol abuse Diabetes mellitus with hyperglycemia Surgical History No history of previous surgery Family History Father Diabetes Mother Diabetes Brother Diabetes Social History Household Members: Other Household Members Other:: mother Alcohol intake: current Patient Tobacco Use Status: Current someday Tobacco user Review of Systems Const All systems reviewed & are unremarkable except as noted in HPI and below Denies chills, Denies fatigue, Denies fever(s), Denies frequent falls, Denies weakness, Denies weight gain and Denies weight loss ENT Denies dizziness Card Denies chest pain, Denies leg edema, Denies lightheadedness, Denies palpitations, Denies dyspnea and Denies dyspnea on exertion Resp Denies cough, Denies dyspnea and Denies dyspnea on exertion GI Denies hematochezia Musc Details: Leg discomfort with activity - muscle aching Denies abnormal gait, Denies muscle weakness, Denies numbness, Denies radiating pain into limb and Denies tingling Neuro Denies abnormal gait, Denies dizziness, Denies frequent falls, Denies numbness, Denies tingling and Denies weakness Endo Denies fatigue and Denies palpitations Physical Exam Vital Signs: Last Vital Signs Pulse 89 03/05/25 09:51 BP 110/84 03/05/25 09:51 BMI result Body Mass Index 38.1 Const Other: obesity General: cooperative, healthy appearing, comfortable and no acute distress Orientation/consciousness: patient oriented x3 HEENT Head: Yes normal to inspection Resp Effort & Inspection: normal respiratory effort Auscultation: clear to auscultation bilaterally, no crackles, no rales, no rhonchi and no wheezes Cardio Rate: regular rate Rhythm: regular rhythm Heart sounds: S1 normal heart sound present, S2 normal heart sound present, no gallops, no murmurs and no rubs Neuro General: patient oriented x3 Extrem General: Yes normal to inspection, No no pedal edema and No calf tenderness Psych Appearance: grossly normal Mental Status: mental status grossly normal Speech and movement: Normal speech and movement present Office Procedures EKG Details: Today, read by me, normal sinus rhythm, T-wave abnormality lead 3 and AVF, flattened T-wave in V6, rate 89, QTC 447 millisecond [id number], Complete Assessment & Plan Assessment & Plan (1) Dyslipidemia: Code(s): E78.5 - Hyperlipidemia, unspecified Category: Medical Plan: [place] LDL goal less than 70. He is on fenofibrate and a statin medication. He is currently unsure of which med as he has had recent changes. We will need to check with his pharmacy regarding this and make adjustments if warranted. (2) Hypertriglyceridemia: Code(s): E78.1 - Pure hyperglyceridemia Category: Medical Plan: [place] triglycerides less than 150. Labs from 10/22/2024 showed triglycerides 626. He is unsure of his exact medication regime. Will check with the pharmacy. Informed him it is imperative that his blood sugars be better controlled as this affects triglyceride levels. (3) Diabetes mellitus with hyperglycemia: Code(s): E11.65 - Type 2 diabetes mellitus with hyperglycemia Category: Medical Qualifiers: Diabetes mellitus type: type 2 Plan: Hemoglobin A1c goal less than 7. Labs done 09/17/2024 showed hemoglobin A1c 8.1%. (4) Obesity due to excess calories: Code(s): E66.09 - Other obesity due to excess calories Category: Medical Qualifiers: Obesity classification: adult class 2 (BMI 35 - 39.9) Serious obesity comorbidity presence: with serious comorbidity Body mass index: BMI 35.0-35.9 Qualified Code(s): E66.01 - Morbid (severe) obesity due to excess calories; Z68.35 - Body mass index [BMI] 35.0-35.9, adult Plan: Benefit of weight loss and exercise reviewed Plan I discussed the implications of dyslipidemia and poor diabetes management on the patient's cardiovascular health. We talked about optimizing diabetes control as a primary intervention for dyslipidemia. I informed the patient about potentially switching his cholesterol medication once current treatment is confirmed with the pharmacy. We reviewed lifestyle changes including diet and exercise as integral parts of his treatment plan. The importance of prompt reporting of any new cardiovascular symptoms was emphasized, especially during physical activity. I advised trying CoQ10 if muscle aches arise from his cholesterol medication. A follow-up visit was scheduled for three months to reassess and adjust his treatment regimen if necessary. Patient Instructions: - Follow a low-sugar diet to help control blood sugar levels. - Engage in weight loss efforts to support diabetes management and overall cardiovascular health. - Monitor for any new or worsening chest pain or shortness of breath and report these symptoms immediately. - Consider using Coenzyme Q10 for any muscle aches associated with cholesterol medication. - We will check with your pharmacy to confirm current cholesterol medication. - Schedule and attend the next follow-up appointment in three months. Coding Level of Care Code Est Pt Level 4 (72688) Complex EM visit Add On G2211 Diagnoses Dyslipidemia E78.5 Hypertriglyceridemia E78.1 Diabetes mellitus with hyperglycemia E11.65 Diabetes mellitus type: type 2 Class 2 severe obesity due to excess calories with serious comorbidity and body mass index (BMI) of 35.0 to 35.9 in adult E66.01; Z68.35 Obesity classification: adult class 2 (BMI 35 - 39.9) Serious obesity comorbidity presence: with serious comorbidity Body mass index: BMI 35.0-35.9 CPT Codes EKG - CPT: [id number]-[id number], Complete ([id number]) Time Spent (min) 28
[2025-03-05 09:51] VITALS: BP 110/84; PULSE 89; BMI 38.1
--- OUTSIDE RECORDS SUMMARY | 2025-03-05 10:25 | XMS_ITS | Encounter Summary ---
Author Organization [employer] Address [address] [place] [address] Care Team Providers Care Construction Project Mgr Name Role Phone Roxi Forbes MD Primary Care Provider [phone] Encounter Details Date Type Department Care Team (Late st Contact Info) Description 07/21/2024 Orders Only [facility] MEDICINE [address] [place] [address] Roxi Forbes MD [address] [place] [address] Social History Tobacco Use Types Packs/Day Years [...] documented as of this encounter Care Teams Construction Project Mgr Relationship Specialty Start Date End Date Roxi Forbes MD [address] [place] [address] PCP - General Family Medicine 01/03/21 documented as of this encounter
--- OUTSIDE RECORDS SUMMARY | 2025-03-05 10:25 | XMS_ITS | Encounter Summary ---
Author Organization [facility] Address [address] [place] [address] Phone Care Team Providers Care Ios Software Engineer Name Role Phone Roxi Forbes MD Primary Care Provider [phone] Encounter Details Date Type Department Care Team (Late st Contact Info) Description 12/19/2023 Documentation Only [facility] [address] [place] [phone] Kalina Borden [address] [place] [phone] Social History Tobacco Use Types Packs/Day Years [...] Visit [facility] [address] [place] [address] Italo Shirley MD [address] [place] [phone] documented as of this encounter Visit Diagnoses Not on filedocumented in this encounter Care Teams Ios Software Engineer Relationship Specialty Start Date End Date Roxi Forbes MD [address] [place] [address] PCP - General 12/27/20 documented as of this encounter
--- OUTSIDE RECORDS SUMMARY | 2025-03-05 10:25 | XMS_ITS | Encounter Summary ---
Author Organization [facility] Address [address] [place] [address] Phone Care Team Providers Care Jordan Worker Name Role Phone Roxi Forbes MD Primary Care Provider [phone] Encounter Details Date Type Department Care Team (Late st Contact Info) Description 09/22/2024 Documentation Only [facility] [address] [place] [phone] Kalina Borden [address] [place] [phone] Social History Tobacco Use Types Packs/Day Years [...] [facility] [address] [place] [address] Italo Shirley MD [address] [facility] [place] [phone] documented as of this encounter Visit Diagnoses Not on filedocumented in this encounter Care Teams Jordan Worker Relationship Specialty Start Date End Date Roxi Forbes MD [address] [place] [address] PCP - General 12/27/20 documented as of this encounter
--- OUTSIDE RECORDS SUMMARY | 2025-03-05 10:25 | XMS_ITS | Encounter Summary ---
Author Organization [employer] Address [address] [facility] [facility] [address] [facility] 7t [place] [address] Care Team Providers Care Casino Supervisor Name Role Phone Roxi Forbes MD Primary Care Provider [phone] Reason for Visit * Reason Onset Date Comments Med Refill 08/09/2023 Encounter Details Date Type Department Care Team ([facility] st Contact Info) Description 08/09/2023 Telephone [facility] MEDICINE [address] [place] [address] Roxi Forbes MD [address] [place] [address] Med Refill Social History Tobacco Use Types [...] states that provider who prescribes medication at [address] [place] [address] Linwood Piña, stop medication due to pt missingfollow up appt with provider. Pt is requesting if provider could prescribed, pt states he uses medication every night. No symptoms Please contact pt at [phone] Hebrew Speaker documented in this encounter Plan of Treatment Not on file documented as of this encounter Visit Diagnoses Not on filedocumented in this encounter Care Teams Casino Supervisor Relationship Specialty Start Date End Date Roxi Forbes MD [address] [place] [address] PCP - General Family Medicine 01/03/21 documented as of this encounter
--- OUTSIDE RECORDS SUMMARY | 2025-03-05 10:25 | XMS_ITS | Encounter Summary ---
Author Organization [employer] Address [address] [facility] 7t [place] [address] Care Team Providers Care Fire Alarm Technician Name Role Phone Roxi Forbes MD Primary Care Provider [phone] Reason for Visit * Reason Onset Date Comments Appointment Request 04/19/2023 Encounter Details Date Type Department Care Team ([facility] st Contact Info) Description 04/19/2023 Telephone [facility] MEDICINE [address] [place] [address] Roxi Forbes MD [address] [place] [address] Appointment Request Social History Tobacco Use Types [...] 05/03/2023 for DM2 Please contact pt at [phone] Moroccan Speaker documented in this encounter Plan of Treatment Not on file documented as of this encounter Visit Diagnoses Not on filedocumented in this encounter Care Teams Fire Alarm Technician Relationship Specialty Start Date End Date Roxi Forbes MD [address] [place] [address] PCP - General Family Medicine 01/03/21 documented as of this encounter
--- OUTSIDE RECORDS SUMMARY | 2025-03-05 10:25 | XMS_ITS | Encounter Summary ---
Author Organization [employer] Address [address] [facility] 7t [place] [address] Care Team Providers Care Administrator Health Care Facility Name Role Phone Roxi Forbes MD Primary Care Provider [phone] Reason for Visit * Reason Onset Date Comments Nurse Triage 07/09/2023 Encounter Details Date Type Department Care Team ([facility] st Contact Info) Description 07/09/2023 Telephone [facility] MEDICINE [address] [place] [address] Roxi Forbes MD [address] [place] [address] Nurse Triage Social History Tobacco Use Types [...] 07/09/2023 3:55 PM EDT Triage call with Erick Brood Hatchery Manager ID [id number] Pt reports right knee pain for past [...] little. Pt is advised to come to [facility] today ortomorrow, Hours given open 830p - [...] accepted this outcome Please contact pt at [phone] documented in this encounter Plan of Treatment Not on file documented as of this encounter Visit Diagnoses Not on filedocumented in this encounter Care Teams Administrator Health Care Facility Relationship Specialty Start Date End Date Roxi Forbes MD [address] [place] [address] PCP - General Family Medicine 01/03/21 documented as of this encounter
--- OUTSIDE RECORDS SUMMARY | 2025-03-05 10:25 | XMS_ITS | Encounter Summary ---
Author Organization [facility] Address [address] [place] [address] Phone Care Team Providers Care Telephone Maintenance Mechanic Name Role Phone Roxi Forbes MD Primary Care Provider [phone] Encounter Details Date Type Department Care Team (Late st Contact Info) Description 12/23/2023 Documentation Only [facility] [address] [place] [phone] Kalina Borden [address] [place] [phone] Social History Tobacco Use Types Packs/Day Years [...] Visit [facility] [address] [place] [address] Italo Shirley MD [address] [facility] [place] [phone] documented as of this encounter Visit Diagnoses Not on filedocumented in this encounter Care Teams Telephone Maintenance Mechanic Relationship Specialty Start Date End Date Roxi Forbes MD [address] [place] [address] PCP - General 12/27/20 documented as of this encounter
--- OUTSIDE RECORDS SUMMARY | 2025-03-05 10:25 | XMS_ITS | Encounter Summary ---
Author Organization [facility] Address [address] [place] [address] Phone Care Team Providers Care Senior Engineering Tech Name Role Phone Roxi Forbes MD Primary Care Provider [phone] Encounter Details Date Type Department Care Team (Late st Contact Info) Description 12/23/2023 Documentation Only [facility] [address] [place] [phone] Kalina Borden [address] [place] [phone] Social History Tobacco Use Types Packs/Day Years [...] Visit [facility] [address] [place] [address] Italo Shirley MD [address] [facility] [place] [phone] documented as of this encounter Visit Diagnoses Not on filedocumented in this encounter Care Teams Senior Engineering Tech Relationship Specialty Start Date End Date Roxi Forbes MD [address] [place] [address] PCP - General 12/27/20 documented as of this encounter
--- OUTSIDE RECORDS SUMMARY | 2025-03-05 10:25 | XMS_ITS | Clinical Summary ---
Author Organization [facility] [place], Address [address] [place] [address] [place] [address] Phone Care Team Providers Care Reactor Operator Name Role Phone Roxi Forbes MD [...] VECES AL D A 2 Active Creon 12184-33184 units capsule TOME 1 C PSULA POR [...] tablet 3 4 Active ergocalciferol 1.25 MG (45938 UT) capsule Take 1 capsule (50,000 Units [...] Refill [facility] [place], [address] [place] [address] Mary Heredia PA from Last 3 Months Immunizations Immunization Administration Dates Next Due Pneumococcal Conjugate 13-Valent [...] Visit [facility] [place], [address] [place] [phone] Italo Shirley MD [address] [facility] [place] [phone] Health Maintenance Due Date Last Done Comments Hepatitis B Vaccine (1 of 3 - 19+ 3-dose series) 1997 Diabetes: Ophthalmology Exam 12/26/2020 Diabetes: Pedal Pulse Checked 12/26/2020 Diabetes: Sensory Foot Exam 12/26/2020 Diabetes: Visual Foot Exam 12/26/2020 Diabetes: Hemoglobin A1C 01/17/2025 024, 06/22/2024, 01/27/2024, Additional history exists Influenza Vaccine (Season Ended) 2025 12/07/19 20 Pneumococcal Vaccine: 50+ Years Discontinued 3, 03/21/2020 Pneumococcal Vaccine: Peds ( 0 to 5 Years) and At-Risk Patients (6 to 49 Years) Completed 05/10/2023, 03/21/2020 Insurance Medicaid [place] Care Teams Reactor Operator Relationship Specialty Start Date End Date Roxi Forbes MD [address] [place] [address] PCP - General 12/27/20
--- OUTSIDE RECORDS SUMMARY | 2025-03-05 10:25 | XMS_ITS | Encounter Summary ---
Author Organization [facility] Address [address] [place] [address] Phone Care Team Providers Care Sweat Box Attendant Name Role Phone Roxi Forbes MD Primary Care Provider Encounter Details Date Type Department Care Team (Late st Contact Info) Description 08/07/2022 Documentation Only [facility] [address] [place] [phone] Mary Heredia PA Social History Tobacco Use [...] Visit [facility] [address] [place] [phone] Italo Shirley MD [address] [place] [address] [place] [phone] documented as of this encounter Visit Diagnoses Not on filedocumented in this encounter Care Teams Sweat Box Attendant Relationship Specialty Start Date End Date Roxi Forbes MD [address] [place] [address] PCP - General 12/27/20 documented as of this encounter
--- OUTSIDE RECORDS SUMMARY | 2025-03-05 10:25 | XMS_ITS | Encounter Summary ---
Author Organization [facility] Address [address] [place] [address] Phone Care Team Providers Care Multimedia Producer Name Role Phone Roxi Forbes MD Primary Care Provider [phone] Encounter Details Date Type Department Care Team (Late st Contact Info) Description 10/01/2024 Documentation Only [facility] [address] [place] [phone] Berna Castellano [place] [address] [place] [phone] Social History Tobacco Use Types Packs/Day Years [...] [facility] [address] [place] [phone] Italo Shirley MD [address] [place] [address] [place] [phone] documented as of this encounter Visit Diagnoses Not on filedocumented in this encounter Care Teams Multimedia Producer Relationship Specialty Start Date End Date Roxi Forbes MD [address] [place] [address] PCP - General 12/27/20 documented as of this encounter
--- OUTSIDE RECORDS SUMMARY | 2025-03-05 10:25 | XMS_ITS | Encounter Summary ---
Author Organization [employer] [facility] Address [address] [facility] 7t [place] [address] Care Team Providers Care Dipper Clock And Watch Hands Name Role Phone Roxi Forbes MD Primary Care Provider [phone] Reason for Visit * Reason Comments Med Refill Encounter Details Date Type Department Care Team ([facility] st Contact Info) Description 02/25/2023 Refill [facility] MEDICINE [address] [place] [address] Roxi Forbes MD [address] [place] [address] Social History Tobacco Use Types Packs/Day Years [...] on filedocumented in this encounter Care Teams Dipper Clock And Watch Hands Relationship Specialty Start Date End Date Roxi Forbes MD [address] [place] [address] PCP - General Family Medicine 01/03/21 documented as of this encounter
--- OUTSIDE RECORDS SUMMARY | 2025-03-05 10:25 | XMS_ITS | Encounter Summary ---
Author Organization [facility] Address [address] [place] [address] Phone Care Team Providers Care Banquet Waiter/Waitress Name Role Phone Roxi Forbes MD Primary Care Provider Encounter Details Date Type Department Care Team (Late st Contact Info) Description 12/07/2022 Documentation Only [facility] [address] [place] [phone] Mary Heredia PA Social History Tobacco Use [...] Visit [facility] [address] [place] [phone] Italo Shirley MD [address] [place] [address] [place] [phone] documented as of this encounter Visit Diagnoses Not on filedocumented in this encounter Care Teams Banquet Waiter/Waitress Relationship Specialty Start Date End Date Roxi Forbes MD [address] [place] [address] PCP - General 12/27/20 documented as of this encounter
--- OUTSIDE RECORDS SUMMARY | 2025-03-05 10:25 | XMS_ITS | Encounter Summary ---
Author Organization [employer] Address [address] [facility] [address] 7t [place] [address] Care Team Providers Care Residential Pest Control Technician Name Role Phone Roxi Forbes MD Primary Care Provider [phone] Reason for Visit * Reason Comments Med Refill Encounter Details Date Type Department Care Team ([facility] st Contact Info) Description 09/10/2023 Refill [facility] [address] [place] [address] Roxi Forbes MD 230 [place] [address] Social History Tobacco Use Types Packs/Day Years [...] on filedocumented in this encounter Care Teams Residential Pest Control Technician Relationship Specialty Start Date End Date Roxi Forbes MD [address] [place] [address] PCP - General Family Medicine 01/03/21 documented as of this encounter
--- OUTSIDE RECORDS SUMMARY | 2025-03-05 10:25 | XMS_ITS | Encounter Summary ---
Author Organization [facility] Address [address] [facility] 7t [place] [address] Care Team Providers Care Database Administrator Name Role Phone Roxi Forbes MD Primary Care Provider [phone] Reason for Visit * Reason Comments Med Refill Encounter Details Date Type Department Care Team ([facility] st Contact Info) Description 03/26/2023 Refill [facility]INE [address] [place], [place] [phone] Roxi Forbes MD [address] [place] [address] Social History Tobacco Use Types Packs/Day Years [...] on filedocumented in this encounter Care Teams Database Administrator Relationship Specialty Start Date End Date Roxi Forbes MD 230 [place], [place] [phone] PCP - General Family Medicine 01/03/21 documented as of this encounter
--- OUTSIDE RECORDS SUMMARY | 2025-03-05 10:25 | XMS_ITS | Encounter Summary ---
Author Organization [facility] [place], Address [address] [place] [address] Phone Care Team Providers Care Dental Director Name Role Phone Roxi Forbes MD Primary Care Provider [phone] Reason for Visit * Reason Comments Med Refill Encounter Details Date Type Department Care Team (Late st Contact Info) Description 12/10/2024 Refill [facility] [address] [facility] [place] [phone] Mary Heredia PA Social History Tobacco Use [...] Office Visit [facility] [address] [place] [phone] Italo Shirley MD [address] [place] [address] [place] [phone] documented as of this encounter Visit Diagnoses Not on filedocumented in this encounter Care Teams Dental Director Relationship Specialty Start Date End Date Roxi Forbes MD [address] [place] [address] PCP - General 12/27/20 documented as of this encounter
--- OUTSIDE RECORDS SUMMARY | 2025-03-05 10:25 | XMS_ITS | Encounter Summary ---
Author Organization [facility] [place], Address [address] [place] [address] Phone Care Team Providers Care Textile Conservator Name Role Phone Roxi Forbes MD Primary Care Provider [phone] Reason for Visit * Reason Comments Med Change Request Encounter Details Date Type Department Care Team (Late st Contact Info) Description 01/23/2023 Refill [facility] [address] [place] [phone] Abe Rivera MD [address] [place] [address] [place] [phone] Social History Tobacco Use Types Packs/Day Years [...] Visit [facility] [address] [facility] [place] [phone] Italo Shirley MD [address] [place] [address] [place] [phone] documented as of this encounter Visit Diagnoses Not on filedocumented in this encounter Care Teams Textile Conservator Relationship Specialty Start Date End Date Roxi Forbes MD [address] [place] [address] PCP - General 12/27/20 documented as of this encounter
--- OUTSIDE RECORDS SUMMARY | 2025-03-05 10:25 | XMS_ITS | Encounter Summary ---
Author Organization [employer] Address [address] [facility] [address] 7t [place] [address] Care Team Providers Care Correction Officer Head Name Role Phone Roxi Forbes MD Primary Care Provider [phone] Reason for Visit * Reason Comments Med Refill Encounter Details Date Type Department Care Team ([facility] st Contact Info) Description 09/04/2023 Refill [facility] 230 [place] [address] Dariela Cruz MD [address] [place] [address] Social History Tobacco Use Types Packs/Day Years [...] the past 12 months, has t he [employer], [employer] it, oil or water e(ye)BRAIN threatened to shut off services in your [...] on filedocumented in this encounter Care Teams Correction Officer Head Relationship Specialty Start Date End Date Roxi Forbes MD [address] [place] [phone] PCP - General Family Medicine 01/03/21 documented as of this encounter
--- OUTSIDE RECORDS SUMMARY | 2025-03-05 10:25 | XMS_ITS | Encounter Summary ---
Author Organization [employer] Address 75 [facility] 7t [place] [address] Care Team Providers Care Coat Joiner Lockstitch Name Role Phone Roxi Forbes MD Primary Care Provider [phone] Reason for Referral * Consultation (Routine) - Closed Specialty Diagnoses / Procedures Referred By Brit t Referred To Contact Cardiology Diagnoses History of pancreatitis Hypertriglyceridemia Roxi Forbes MD 230 [place] [address] Phone: tel: fax: [facility] Referral ID Status Reason Start Date Expiration Date V isits Requested Visits Authorized [id number] Closed Specialty Services Required 09/24/2024 09/24/2025 6 6 Encounter Details Date Type Department Care Team (Late st Contact Info) Description 09/17/2024 Orders Only [facility] [address] [place] [address] Roxi Forbes MD [address] [place] [address] History of pancreatitis (Primary Dx); Hypertriglyceridemia Social [...] documented as of this encounter Care Teams Coat Joiner Lockstitch Relationship Specialty Start Date End Date Roxi Forbes MD [address] [place] [address] PCP - General Family Medicine 01/03/21 documented as of this encounter
--- OUTSIDE RECORDS SUMMARY | 2025-03-05 10:26 | XMS_ITS | Clinical Summary ---
Author Organization [employer] Address 75 [facility] 7t [place] [address] Care Team Providers Care Scale Agent Name Role Phone Roxi Forbes MD Primary Care Provider [phone] Allergies No known active allergies Medications thiamine [...] SEA NECESARIO 2 Active Continuous Blood Gluc Nursing Care Attendant (FreeStyle Bernice 2 Colden) deviceIndication s:Type 2 diabetes mellitus with hyperglycemia, with long-term current use of insulin ([facility]) USE DAILY TO CHECK BLOOD SUGAR 1 each 3 Active lisinopril 10 MG tablet Take 10 mg by mouth. 4 Active ergocalciferol (Vitamin D2) 1.25 MG (16668 UT) capsule Take 50,000 Units by mouth [...] 2 diabetes mellitus with hyperglycemia, unspecified whether local company intermodal truck driver insulin use (CMS/HCC) USE DIRECTED, CHANGE EVERY [...] continue taking pravastatin daily Pt will call [facility] cardiology to schedule appt as referral [...] does not tolerate it will refer to rn clinical documentation for assistance with other lipid lowering agents Assessment & Plan (06/26/2024 8:07 AM EDT): TG> 400 Cannot tolerate statins or fish oil, will add Zetia to Fenofibrate and recheck in three months Pancreatic insufficiency 10/02/2023 Assessment & Plan (10/02/2023 10:09 AM EST): Continue Creon Speak about colonoscopy at next GI appoitnemnt [...] AM EDT): Current A1c: 8.8, needs to pickling solution maker Lantus and Novolog, has not had them for many months. Called [facility] to ensure he can pickling solution maker today. Continue Metformin and Jardiance BMP: Lab [...] LDL-C. Tevin FAUST et al. ELINA. 2013;310(19): 2992-6793 (http://education.NP Photonics.com/faq/OVI016) ASCVD: Calculate pending updated labs Statin: NO, [...] factors. LDL-C is now calculated using the Tevin-Dowell calculation, which is a validated novel method providing better accuracy than the Friedewald equation in the estimation of LDL-C. Tevin FAUST et al. ELINA. 2013;310(16): 9395-9072 (http://education.ROCKI/faq/KJG807) ASCVD: Calculate pending updated labs Statin: Yes [...] factors. LDL-C is now calculated using the Tevin-Dowell calculation, which is a validated novel method providing better accuracy than the Friedewald equation in the estimation of LDL-C. Tevin FAUST et al. ELINA. 2013;310(19): 8699-0726 (http://education.[employer] Phot[employer].com/faq/WKG536) ASCVD: Calculate pending updated labs Statin: Yes [...] 3:08 PM EDT): Following with nephrology in [facility] Has pending renal US, helped to schedule ER precautions Iron deficiency anemia 06/22/2020 Encounters Date Type Department Care Team Description 01/29/2025 Population Health Risk Score [facility] (C[facility]) Department [address] [phone] Provider, Population Health Generic 01/18/2025 Orders Only [facility] External Provider, [facility] from Last 3 Months Immunizations Name Administration [...] (Patient Refused) Diabetes: Foot Exam 10/19/2025 10/19/2024, Hepatitis A Vaccines (1 of 2 - [...] with long-term current use of insulin (CMS/HCC) LIPID PANEL, STANDARD Routine 10/22/2024 9:00 AM EST Hypertriglyceridemi a POCT GLYCATED HEMOGLOBIN, TOTAL Routine 10/19/2024 9:20 AM EST Type 2 diabetes mellitus with hyperglycemia, with long-term current use of insulin (CMS/HCC) HEPATITIS C AB W/REFL TO HCV RNA, QN, PCR Routine 07/27/2024 8:05 AM EDT Hypertriglyceridemi a HIV 1/2 ANTIGEN/ANTIBODY, FOURTH GENERATION W/RFL Routine 05/26/2020 4:27 PM EDT from Last 3 Months or Most Recently Relevant to Health Maintenance Results * US BLADDER (01/19/2025 11:27 AM EST) Anatomical Region Laterality Modality Abdomen Ultrasound 01/19/2025 11:2 7 AM EST Narrative 01/19/2025 11:29 AM EST ? [facility] ?[address] ?[place] [address] ? Ultrasound Report ? Signed ? Patient: Geoffrey,Ashkan ?MR#: [id number] ?? [id number] ? : 1980 ?Acct:[id number] ? Age/Sex: 44 / M ?ADM Date: 03/03/25 ? Loc: HO.US ? Attending Dr: Purnima KASPER ? Ordering Physician: Purnima Godoy ?? Date of Service: 01/18/25 ?? Procedure(s): US bladder ?? Accession Number(s): [id number] ? cc: Roxi Forbes; Purnima Godoy-BC ? CLINICAL HISTORY: R35.1 - Nocturia ? [...] 01/19/25 1128 ? DD/ 1127 ? TD/TT: 01/19/251126 ? Airplane Charter Clerk: ? Procedure Note Kd, Raphael - 01/19/2025 [place] [address] Ultrasound Report Signed Patient: Levi Hale RMR#: [id number] : 1980Acct:[id number] Age/Sex: 44 / MADM Date: 01/18/25 Loc: HO.US Attending Dr: Purnima KASPER Ordering Physician: Purnima Godoy Date of Service: 01/18/25 Procedure(s): US bladder Accession Number(s): [id number] cc: Roxi Forbes; Purnima Godoy CLINICAL HISTORY: [...] 01/19/25 1128 DD/ 1127 TD/TT: 01/19/25 1127 Airplane Charter Clerk: [facility] External Provider IMG US PROCEDURES Final Result * (ABNORMAL) Albumin, Random Urine W/Creatinine (10/22/2024 9:00 AM EST) Creatinine, Urine 51.44 mg/dL [facility] Microalbumin Urine 15.0 mg/L H [facility] Microalbum Creatinine Ratio Ur 29.1(H) <30 ug/mg cr [facility] Comment:Albumin/Creatinine R atio Reference Ranges: Normal: < 30 ug/mg creatinine Microalbuminuria: 30 - 300 ug/mg creatinineClinical Albuminuria: > 300 ug/mg creatinine Urine (Urine, Random) 10/22/2024 9:00 AM EST 10/22/2024 11:13 AM EST Roxi Forbes MD LAB URINE ORDERABLES Final Res ult [facility] [address] [place] [phone] * (ABNORMAL) Lipid Panel, Standard (10/22/2024 9:00 AM EST) Triglycerides 626(H) <150 mg/dL [facility] Comment:Desirable Triglyceri de: less than 150 mg/dLBorderline High Triglyceride 150-199 mg/dLHigh Triglyceride: 200-499 mg/dLVery High Triglyceride: greater than or equal to 5OO mg/dL Cholesterol 232(H) <200 mg/dL [facility] Comment:Desirable Cholestero l: less than 200 mg/dLBorderline High Cholesterol: 200-239 mg/dLHigh Cholesterol: greater than 239 mg/dL LDL Cholesterol Calculated TNP <100 mg/dL [facility] Comment:Unable to calculate the LDL. The formula of Friedwald,Pelaez, and Karlie is only valid if the triglycerides areless than 400 mg/dl. HDL Cholesterol 36(L) >40 mg/dL [facility] Comment:Desirable HDL: great er than 40 mg/dL Note: This HDL assay may give artificially low results in patients with liver disease. Blood Venous blood specimen / Unknown 10/22/2024 9:00 AM EST 10/22/2024 11:25 AM EST Roxi Forbes MD LAB BLOOD ORDERABLES Final Res ult Performing Organization Address [facility]/ZIP Co de Phone Number [facility] [address] [place] [phone] * (ABNORMAL) POCT HGB A1C (10/19/2024 9:20 AM EST) Pathologist [facility] Hemoglobin A1C 8.3(A) 4.0 - 6.0 % QC Media Lot # [id number] Lot# Expiration Date Blood 10/19/2024 9:20 AM EST Roxi Forbes MD POINT OF CARE TEST ENTER/EDIT ORDERABLES Final Result * Hepatitis C Antibody with Reflex to HCV, RNA, Quantitative, Real-Time PCR (07/27/2024 8:05 AM EDT) Pathologist [facility] Hepatitis C Antibody Nonreactive Nonreactive [facility] Comment:Antibodies to HCV no t detected; does not exclude early acuteHCV infection. Blood Venous blood specimen / Unknown 07/27/2024 8:05 AM EDT 07/27/2024 11:32 AM EDT Roxi Forbes MD LAB BLOOD ORDERABLES Final Res ult Performing Organization Address [facility]/ZIP Co de Phone Number [facility] [address] [place] [phone] * HIV 1/2 ANTIGEN/ANTIBODY,FOURTH GENERATION W/RFL (05/26/2020 4:27 PM EDT) HIV-1/2 ANTIGEN AND ANTIBODIES, 4TH GENERATION W/ REFLEX NON-REACT EVARISTO NON-REACT EVARISTO [facility] Comment: HIV-1 antigen and HIV-1/HIV-2 [...] ? For additional information please refer to http://[employer]/faq/RXI067 (This link is being provided for informational/ educational purposes only.) ? The performance of this assay has not been clinically validated in patients less than 2 years old. ?? HIV-1/2 ANTIGEN AND ANTIBODIES, 4TH GENERATION W/ REFLEX NON-REACT EVARISTO NON-REACT EVARISTO [facility] Comment: HIV-1 antigen and HIV-1/HIV-2 [...] ? For additional information please refer to http://[employer]/faq/PMD846 (This link is being provided for informational/ [...] ? For additional information please refer to http://[employer]/faq/NLN786 (This link is being provided for informational/ [...] ? For additional information please refer to http://[employer]/faq/MPR809 (This link is being provided for informational/ [...] ? For additional information please refer to http://[employer]/faq/RKC586 (This link is being provided for informational/ [...] ? For additional information please refer to http://[employer]/faq/ABN381 (This link is being provided for informational/ [...] ? For additional information please refer to http://[employer]/faq/RCX261 (This link is being provided for informational/ [...] ? For additional information please refer to http://[employer]/faq/CNE796 (This link is being provided for informational/ educational purposes only.) ? The performance of this assay has not been clinically validated in patients less than 2 years old. ?? HIV-1/2 ANTIGEN AND ANTIBODIES, 4TH GENERATION W/ REFLEX NON-REACT EVARISTO NON-REACT EVARISTO [facility] Comment: HIV-1 antigen and HIV-1/HIV-2 [...] ? For additional information please refer to http://[employer]/faq/UDY300 (This link is being provided for informational/ educational purposes only.) ? The performance of this assay has not been clinically validated in patients less than 2 years old. ?? 05/26/2020 4:27 PM EDT us Juliette Hawkins [facility] LAB BLOOD ORDERABLES Final Res ult [facility] [address] from Last 3 Months or Most Recently Relevant to Health Maintenance Insurance [place] [employer] Care Teams Scale Agent Relationship Specialty Start Date End Date Roxi Forbes MD [address] [place] [phone] PCP - General Family Medicine 01/03/21
== END 2025-03-05 10:28 | disposition home or self-care (01) ==
LOC: HO.HCS 09:46
PROVIDERS: PCP General Practice; Visit Provider Nurse Practitioner Family
DX: E78.5 Hyperlipidemia, unspecified (principal); E78.1 Pure hyperglyceridemia; E11.65 Type 2 diabetes mellitus with hyperglycemia; E66.01 Morbid (severe) obesity due to excess calories; Z68.35 Body mass index [BMI] 35.0-35.9, adult
CPT/HCPCS: 93010; 99214

== ENCOUNTER → 2025-03-05 09:45 | Outpatient (BNVA) | payer MEDICAID, SELFPAY | PROVIDERS: PCP General Practice; Visit Provider Nurse Practitioner Family | DX: E78.5 Hyperlipidemia, unspecified (principal); E78.1 Pure hyperglyceridemia; E11.65 Type 2 diabetes mellitus with hyperglycemia; E66.01 Morbid (severe) obesity due to excess calories; Z68.38 Body mass index [BMI] 38.0-38.9, adult; Z79.4 Long term (current) use of insulin; Z79.899 Other long term (current) drug therapy; Z79.84 Long term (current) use of oral hypoglycemic drugs | CPT/HCPCS: 93005; 99212 ==

== ENCOUNTER 2025-03-17 08:01 | Outpatient (REF) | payer MEDICAID, SELFPAY ==
--- OUTSIDE RECORDS SUMMARY | 2025-03-17 08:06 | XMS_ITS | Encounter Summary ---
Author Organization [facility] Address [address] [place] [address] Phone Care Team Providers Care Conference Services Manager Name Role Phone Roxi Forbes MD Primary Care Provider [phone] Encounter Details Date Type Department Care Team (Late st Contact Info) Description 12/19/2023 Documentation Only [facility] [address] [place] [phone] Kalina Borden [address] [place] [phone] Social History Tobacco Use Types Packs/Day Years Used Date Smoking Tobacco: Unknown Sex and Gender Information Value Date Recorded Sex Assigned at Not on file Legal Sex Male 9:16 AM EDT Gender Identity Not on file Sexual Orientation Not on file documented as of this encounter Plan of Treatment Upcoming Encounters Date Type Department Care Team (Late st Contact Info) Description 04/14/2025 1:00 PM EDT Office Visit [facility] [address] [place] [phone] Italo Shirley MD [address] [facility] [address] [place] [phone] documented as of this encounter Visit Diagnoses Not on filedocumented in this encounter Care Teams Conference Services Manager Relationship Specialty Start Date End Date Roxi Forbes MD [address] [place] [address] PCP - General 12/27/20 documented as of this encounter
--- OUTSIDE RECORDS SUMMARY | 2025-03-17 08:06 | XMS_ITS | Encounter Summary ---
Author Organization [facility] Address [address] [place] [address] Phone Care Team Providers Care Cooking Instructor Name Role Phone Roxi Forbes MD Primary Care Provider [phone] Encounter Details Date Type Department Care Team (Late st Contact Info) Description 12/23/2023 Documentation Only [facility] Of [address] [place] [phone] Kalina Borden [address] [place] [phone] Social History Tobacco Use Types Packs/Day Years [...] Visit [facility] Of [address] [place] [phone] Italo Shirley MD [address] [facility] [place] [phone] documented as of this encounter Visit Diagnoses Not on filedocumented in this encounter Care Teams Cooking Instructor Relationship Specialty Start Date End Date Roxi Forbes MD [address] [place] [address] PCP - General 12/27/20 documented as of this encounter
--- OUTSIDE RECORDS SUMMARY | 2025-03-17 08:06 | XMS_ITS | Encounter Summary ---
Author Organization [facility] Address [address] [place] [address] Phone Care Team Providers Care Supervisor Endless Track Vehicle Name Role Phone Roxi Forbes MD Primary Care Provider [phone] Encounter Details Date Type Department Care Team (Late st Contact Info) Description 03/12/2025 Documentation Only [facility] Of [address] [place] [address] Polina Dias MD [address] [place] [phone] Social History Tobacco Use Types Packs/Day Years [...] Visit [facility] [address] [place] [address] Italo Shirley MD [address] [facility] [place] [phone] documented as of this encounter Visit Diagnoses Not on filedocumented in this encounter Care Teams Supervisor Endless Track Vehicle Relationship Specialty Start Date End Date Roxi Forbes MD [address] [place] [address] PCP - General 12/27/20 documented as of this encounter
--- OUTSIDE RECORDS SUMMARY | 2025-03-17 08:06 | XMS_ITS | Encounter Summary ---
Author Organization [facility] Address [address] [place] [address] Phone Care Team Providers Care Perl Developer Name Role Phone Roxi Forbes MD Primary Care Provider [phone] Encounter Details Date Type Department Care Team (Late st Contact Info) Description 10/01/2024 Documentation Only [facility] [address] [place] [phone] Berna Castellano MS [address] [place] [phone] Social History Tobacco Use Types Packs/Day Years [...] [facility] [address] [place] [phone] Italo Shirley MD [address] [place] [address] [place] [phone] documented as of this encounter Visit Diagnoses Not on filedocumented in this encounter Care Teams Perl Developer Relationship Specialty Start Date End Date Roxi Forbes MD [address] [place] [address] PCP - General 12/27/20 documented as of this encounter
--- OUTSIDE RECORDS SUMMARY | 2025-03-17 08:06 | XMS_ITS | Encounter Summary ---
Author Organization [facility] [place], Address [address] [place] [address] Phone Care Team Providers Care Air Tester Name Role Phone Roxi Forbes MD Primary Care Provider [phone] Reason for Visit * Reason Comments Med Refill Encounter Details Date Type Department Care Team (Late st Contact Info) Description 12/10/2024 Refill [facility] [address] [facility] [place] [phone] Mary Heredia PA Social History Tobacco Use [...] Office Visit [facility] [address] [place] [phone] Italo Shirley MD [address] [place] [address] [place] [phone] documented as of this encounter Visit Diagnoses Not on filedocumented in this encounter Care Teams Air Tester Relationship Specialty Start Date End Date Roxi Forbes MD [address] [place] [address] PCP - General 12/27/20 documented as of this encounter
--- OUTSIDE RECORDS SUMMARY | 2025-03-17 08:06 | XMS_ITS | Encounter Summary ---
Author Organization [facility] Address [address] [place] [address] Phone Care Team Providers Care Currency Exchange Specialist Name Role Phone Roxi Forbes MD Primary Care Provider [phone] Encounter Details Date Type Department Care Team (Late st Contact Info) Description 08/07/2022 Documentation Only [facility] Of [address] [place] [phone] Mary Heredia PA Social History Tobacco Use [...] Visit [facility] Of [address] [place] [phone] Italo Shirley MD [address] [place] [address] [place] [phone] documented as of this encounter Visit Diagnoses Not on filedocumented in this encounter Care Teams Currency Exchange Specialist Relationship Specialty Start Date End Date Roxi Forbes MD [address] [place] [address] PCP - General 12/27/20 documented as of this encounter
--- OUTSIDE RECORDS SUMMARY | 2025-03-17 08:06 | XMS_ITS | Encounter Summary ---
Author Organization [facility] [place], Address [address] [place] [address] Phone Care Team Providers Care Director Auto Name Role Phone Roxi Forbes MD Primary Care Provider [phone] Reason for Visit * Reason Comments Med Change Request Encounter Details Date Type Department Care Team (Late Contact Info) Description 01/23/2023 Refill [facility] [address] [place] [phone] Abe Rivera MD [address] [place] [address] [place] [phone] Social History Tobacco Use Types Packs/Day Years [...] Visit [facility] [address] [place] [phone] Italo Shirley MD [address] [place] [address] [place] [phone] documented as of this encounter Visit Diagnoses Not on filedocumented in this encounter Care Teams Director Auto Relationship Specialty Start Date End Date Roxi Forbes MD [address] [place] [address] PCP - General 12/27/20 documented as of this encounter
--- OUTSIDE RECORDS SUMMARY | 2025-03-17 08:06 | XMS_ITS | Encounter Summary ---
Author Organization [facility] Address [address] [place] [address] Phone Care Team Providers Care Maintenance Representative Name Role Phone Roxi Forbes MD Primary Care Provider [phone] Encounter Details Date Type Department Care Team (Late st Contact Info) Description 09/22/2024 Documentation Only [facility] [address] [place] [phone] Kalina Borden [address] [place] [phone] Social History Tobacco Use Types Packs/Day Years [...] Visit [facility] [address] [place] [phone] Italo Shirley MD [address] [facility] [place] [phone] documented as of this encounter Visit Diagnoses Not on filedocumented in this encounter Care Teams Maintenance Representative Relationship Specialty Start Date End Date Roxi Forbes MD [address] [place] [address] PCP - General 12/27/20 documented as of this encounter
--- OUTSIDE RECORDS SUMMARY | 2025-03-17 08:06 | XMS_ITS | Clinical Summary ---
Author Organization [facility] [place], Address [address] [place] [address] [place] [address] Phone Care Team Providers Care Mass Communications Instructor Name Role Phone Roxi Forbes MD [...] VECES AL D A 2 Active Creon 44256-19474 units capsule TOME 1 C PSULA POR [...] tablet 3 4 Active ergocalciferol 1.25 MG (59607 UT) capsule Take 1 capsule (50,000 Units total) by mouth 1 (one) time per week 12 capsule 3 5 11/23/19 26 Active Semaglutide,0.2 5 or 0.5MG/DOS, (Ozempic, 0.25 or 0.5 MG/DOSE,) 2 MG/1.5ML solution pen-injector Inject 0.25 mg under the skin 1 (one) time per week for 4 doses Starting Dose for 4 Weeks 1.5 mL 5 04/01/20 25 Active Active Problems Problem Noted Date Diagnosed [...] Encounters Date Type Department Care Team Description 03/12/2025 Documentation Only [facility] [place], [address] [address] Polina Dias [place] 03/10/2025 3:30 PM EDT Office Visit [facility] [address] [address] Italo Shirley MD Stage 3b chronic kidney disease (HCC) (Primary Dx) from Last 3 Months Immunizations Immunization Administration [...] Visit [facility] [place], [address] [place] [address] Italo Shirley MD [address] [facility] [place] [phone] Health Maintenance Due Date Last Done Comments Hepatitis B Vaccine (1 of 3 - 19+ 3-dose series) 1997 Diabetes: Ophthalmology Exam 12/26/2020 Diabetes: Pedal Pulse Checked 12/26/2020 Diabetes: Sensory Foot Exam 12/26/2020 Diabetes: Visual Foot Exam 12/26/2020 Diabetes: Hemoglobin A1C 01/17/2025 024, 06/22/2024, 01/27/2024, Additional history exists Influenza Vaccine (Season Ended) 2025 12/07/19 20 Pneumococcal Vaccine: 50+ Years Discontinued , 03/21/2020 Pneumococcal Vaccine: Peds ( 0 to 5 Years) and At-Risk Patients (6 to 49 Years) Completed 05/10/2023, 03/21/2020 Insurance Medicaid [place] Care Teams Mass Communications Instructor Relationship Specialty Start Date End Date Roxi Forbes MD [address] [place] [address] PCP - General 12/27/20
--- OUTSIDE RECORDS SUMMARY | 2025-03-17 08:06 | XMS_ITS | Encounter Summary ---
Author Organization [facility] Address [address] [place] [address] Phone Care Team Providers Care Agent Contract Clerk Name Role Phone Roxi Forbes MD Primary Care Provider [phone] Encounter Details Date Type Department Care Team (Late st Contact Info) Description 12/23/2023 Documentation Only [facility] [address] [place] [phone] Kalina Borden [address] [place] [phone] Social History Tobacco Use Types Packs/Day Years [...] Visit [facility] [address] [place] [phone] Italo Shirley MD [address] [facility] [place] [phone] documented as of this encounter Visit Diagnoses Not on filedocumented in this encounter Care Teams Agent Contract Clerk Relationship Specialty Start Date End Date Roxi Forbes MD [address] [place] [address] PCP - General 12/27/20 documented as of this encounter
--- OUTSIDE RECORDS SUMMARY | 2025-03-17 08:06 | XMS_ITS | Encounter Summary ---
Author Organization [facility] Address [address] [place] [address] Phone Care Team Providers Care Administrative Office Manager Name Role Phone Roxi Forbes MD Primary Care Provider [phone] Encounter Details Date Type Department Care Team (Late st Contact Info) Description 12/07/2022 Documentation Only [facility] [address] [place] [phone] Mary Heredia PA Social History Tobacco Use [...] Visit [facility] [address] [place] [phone] Italo Shirley MD [address] [place] [address] [place] [phone] documented as of this encounter Visit Diagnoses Not on filedocumented in this encounter Care Teams Administrative Office Manager Relationship Specialty Start Date End Date Roxi Forbes MD [address] [place] [address] PCP - General 12/27/20 documented as of this encounter
[2025-03-17 09:26] LABS: Cholesterol 240 mg/dL (<200); HDL Cholesterol 39 mg/dL (>40); Triglycerides 434 mg/dL (<150)
== END 2025-03-17 08:02 | disposition home or self-care (01) ==
LOC: HO.LAB 08:01
PROVIDERS: PCP General Practice; Visit Provider Nurse Practitioner Family
DX: R07.2 Precordial pain (principal)
CPT/HCPCS: 36415; 80061

== ENCOUNTER 2025-03-23 09:30 | Outpatient (AMB) | payer MEDICAID, SELFPAY ==
--- NOTE | 2025-03-23 09:36 | A.OFFVIS_ITS ---
Intake Visit Reasons: 2m follow up Intake Note: Patient presents today for follow up on: Nocturia Urology Medications: Tamsulosin Blood Thinner: none Antibiotic Allergy:none PVR: 9ml's Liver Trimmer Required: No Accompanied by: Self / Same As Patient Allergies No Known Allergies [No Known Allergies*] Allergy (Verified 03/23/25 10:04) Medication List - Last Reconciled 03/23/25 by RANJITH Quintana albuterol sulfate 90 mcg/actuation (Ventolin HFA) 1 puff PO QID PRN alcohol swabs (Alcohol Pads) 1 pad topical QID 30 days baclofen 5 mg PO TID PRN blood sugar diagnostic (FreeStyle Lite Strips) As directed four times a day blood-glucose meter (FreeStyle [place] Lite kit) As directed 4 times a day empagliflozin (Jardiance) 10 mg PO QAM ergocalciferol (vitamin D2) 50 mcg PO DAILY fenofibrate nanocrystallized 145 mg PO DAILY flash glucose scanning reader (FreeStyle Bernice 2 [place]) As directed flash glucose sensor (FreeStyle Bernice 2 Sensor kit) As directed every 2 weeks fluticasone propion-salmeterol 250-50 mcg/dose (Wixela Inhub) 1 inh inhalation BID 30 days folic acid 1 mg PO DAILY insulin glargine (Lantus Solostar U-100 Insulin) 52 units (0.52 mL) subcut QPM insulin lispro 20 - 26 units (0.2 - 0.26 mL) subcut TID lancets (TRUEplus Lancets) As directed 4 times a day jqghtr-grwcleif-sbltofw 24,000-76,000 -120,000 unit (Creon) 1 cap PO TID lisinopril 5 mg PO DAILY metformin ER 1,000 mg PO DAILY omega-3 acid ethyl esters 1 cap PO BID omeprazole 20 mg PO DAILY pen needle, diabetic (BD Ultra-Fine Jennifer Pen Needle) Five times a day pravastatin 40 mg PO BEDTIME terazosin 5 mg PO BEDTIME 30 days terbinafine HCl 1% 1 appl topical BID HPI Comments Details: Levi is a 45-year-old Dutch-speaking male patient of Dr. Forbes. He has a past medical history of dyslipidemia, iron deficiency anemia, polyarthralgia, alcohol abuse, and diabetes mellitus. He presents to the office today for follow-up of his nocturia. In discussion with the patient today he reports feeling Flomax was somewhat helpful in episodes of nocturia. He had been experiencing nocturia up to 5 times per night and feels Flomax has helped reducing it by 1. He reports he is still up 4 times per night urinating. Previous workup has included bladder ultrasound results reviewed with the patient today. 02/09 the urinary bladder is unremarkable. Pre void bladder volume is approximately 200 mL. Postvoid bladder volume is approximately 5 ml. Poorly visualized prostate. Prostate volume of 16 mL, normal urinary bladder we discussed potential causes of nocturia and the importance of obtaining sleep study for further assessment evaluation. In review of patient's chart it appears patient was scheduled for sleep study however no showed. We discussed importance of completing this for further assessment evaluation. In office urinalysis results reviewed with the patient today. PVR 9 mL. He otherwise denies any bothersome urinary issues throughout the day. He denies urinary urgency, urinary frequency, incontinence, hematuria, dysuria, foul smelling urine, changes to urinary stream, flank pain, fever, and or chills. In review of patient's chart it appears A1c 09/10 8.1. We discussed at length importance of managing diabetes for improvement in lower urinary tract symptoms as well as overall health and well-being. We discussed possible near future in office cystoscopy and or urodynamics for further assessment evaluation. GAGE offered however deferred. In office urinalysis results reviewed with the patient today. PVR 9 mL. He otherwise offers no other issues or concerns at this time. [facility] Medical History Necrotizing pancreatitis Obesity due to excess calories Dyslipidemia Iron deficiency anemia Polyarthralgia History of pancreatitis History of alcohol abuse Diabetes mellitus with hyperglycemia Surgical History No history of previous surgery Family History Father Diabetes Mother Diabetes Brother Diabetes Social History Household Members: Other Household Members Other:: mother Alcohol intake: current Patient Tobacco Use Status: Current someday Tobacco user Review of Systems Const All systems reviewed & are unremarkable except as noted in HPI and below Physical Exam Const General: cooperative, healthy appearing, comfortable, no acute distress, well developed, alert and awake Nutritional Appearance: overweight Orientation/consciousness: patient oriented x3 Limitations: no limitations HEENT Head: Yes normal to inspection, Yes normocephalic and Yes atraumatic Ears: hearing grossly normal bilaterally Eyes General: appearance normal, both eyes and all related structures Neck Neck: Yes normal visual inspection and Yes trachea midline Chest Chest palpation & inspection: normal inspection of the chest Resp Effort & Inspection: normal respiratory effort and able to speak in complete sentences Cardio Rate: regular rate GI Inspection: Yes normal to inspection General: Yes no CVA tenderness Back/Spine/Pelvis Back: no CVA tenderness Skin General skin exam: no rashes or lesions noted Neuro General: patient oriented x3 Extrem General: Yes normal to inspection Psych Appearance: grossly normal and well kempt Mental Status: mental status grossly normal Speech and movement: Normal speech and movement present and Clear speech present Affect: normal affect Attitude: cooperative Thought process: Normal thought process present Thought content: Normal thought content present Insight: Fair insight present (Psych) Judgement: Fair judgement present (Psych) Office Procedures Post Void Residual Post Residual Void Post Void Residual (PVR): 9 [id number] Void Residual by ultrasound Results AMB Urinalysis, Automated UA Leukoctes 0 Rylee/uL Last Edit by Skip Vieyra on 03/23/25 09:51 UA Nitrite Last Edit by Skip Vieyra on 03/23/25 09:51 UA Urobilinogen 0.2 mg/dL Last Edit by Skip Vieyra on 03/23/25 09:51 UA Protein 0 mg/dL Last Edit by Skip Vieyra on 03/23/25 09:51 UA pH 6.0 Last Edit by Skip Vieyra on 03/23/25 09:51 UA Blood 0 Zbigniew/uL Last Edit by Skip Vieyra on 03/23/25 09:51 UA Specific [place] 1.015 Last Edit by Skip Vieyra on 03/23/25 09:51 UA Ketone Last Edit by Skip Vieyra on 03/23/25 09:51 UA Bilirubin 0 mg/dL Last Edit by Skip Vieyra on 03/23/25 09:51 UA Glucose 1000 mg/dL Last Edit by Skip Saraviaanam on 03/23/25 09:51 Results Reviewed Results Reviewed: Laboratory Last Values Urine pH (Auto) 6.0 03/23/25 09:43 Specific [place] (Auto) 1.015 03/23/25 09:43 Urine Protein (Auto) 0 mg/dL 03/23/25 09:43 Glucose (UA)(Auto) 1000 mg/dL 03/23/25 09:43 Urine Blood (Auto) 0 Zbigniew/uL 03/23/25 09:43 Urine Bilirubin (Auto) 0 mg/dL 03/23/25 09:43 Urine Urobilinogen (Auto) 0.2 mg/dL 03/23/25 09:43 Leukocyte Esterase (Auto) 0 Rylee/uL 03/23/25 09:43 Date of Service: 01/18/25 Procedure(s): US bladder US Urinary Bladder Comparison: None Findings: The urinary bladder is unremarkable. Prevoid volume: 189 mLPostvoid volume: 6 mL Ureteral jets are visualized bilaterally. Poorly visualized prostate. Volume 15.9 mL although most likely underestimated. IMPRESSION: Normal urinary bladder Assessment & Plan Assessment & Plan (1) Nocturia: Code(s): R35.1 - Nocturia Category: Medical Plan In office urinalysis results with the patient today; as noted above. PVR 9 mL. Stop Flomax. Start terazosin. We discussed importance of rescheduling sleep study for further assessment evaluation. Will obtain PSA and A1c for further assessment evaluation. We discussed potential near future in office urodynamics and or cystoscopy for further assessment evaluation. Continue limiting fluids 2-3 hours prior to bed to decrease episodes of nocturia. We discussed importance of management and diabetes for improvement in urological issue as well as overall health and well-being. Follow-up in 1-3 months with labs and PVR; or sooner with any issues, concerns, and or questions. Orders: Orders AMB Urinalysis Automated Today Z13.9 - Encounter for screening, unspecified AMB Post Void Residual by ultrasound Today R35.1 - Nocturia Hemoglobin A1c Today E11.9 - Type 2 diabetes mellitus without complications Prostate Specific Antigen Today R35.1 - Nocturia Medications: New terazosin 5 mg PO BEDTIME 30 caps 3RF 30 days N40.1 - Benign prostatic hyperplasia with lower urinary tract symptoms, R35.0 - Frequency of micturition Discontinued tamsulosin Discontinued Reason: Doctor's Order 0.4 mg PO BEDTIME 90 days 90 caps 0RF N40.1 - Benign prostatic hyperplasia with lower urinary tract symptoms, R35.1 - Nocturia Patient Instructions: The patient had an opportunity to ask questions regarding the treatment plan. All questions were answered. Physical exam, labs, and imaging were discussed and reviewed in detail. As well as risks, benefits, and discussion of treatment choices. No major barriers to understanding were identified. The patient expressed understanding and agreement with the above treatment plan. The patient was made aware they should contact our office by phone for worsening of their current condition, the appearance of new symptoms, or with any questio ns or concerns. Compliance is encouraged with any medications and follow up testing that is ordered. It is a privilege to be allowed the opportunity to participate in? your urological care.? Again, if you have any questions or concerns If you have any questions or concerns please do not hesitate to contact me. The office is [phone]. This note is constructed using voice recognition software. While every effort has been made to ensure accuracy nut grader errors may have been included. Yours sincerely, RANJITH Quintana Coding Level of Care Code Est Pt Level 4 (37402) Diagnoses Nocturia R35.1 CPT Codes Post Residual Void - PVR CPT Code: 60995-Wbpp Void Residual by ultrasound ([id number])
--- OUTSIDE RECORDS SUMMARY | 2025-03-23 10:28 | XMS_ITS | Encounter Summary ---
Author Organization [facility], Address [address] [place] [address] Phone Care Team Providers Care Exercise Physiologist Name Role Phone Roxi Forbes MD Primary Care Provider [phone] Reason for Visit * Reason Comments Med Refill Encounter Details Date Type Department Care Team (Late st Contact Info) Description 12/10/2024 Refill [facility] [address] [facility] [place] [phone] Mary Heredia PA Social History Tobacco Use [...] Office Visit [facility] [address] [place] [phone] Italo Shirley MD [address] [place] [address] [place] [phone] documented as of this encounter Visit Diagnoses Not on filedocumented in this encounter Care Teams Exercise Physiologist Relationship Specialty Start Date End Date Roxi Forbes MD [address] [place] [address] PCP - General 12/27/20 documented as of this encounter
--- OUTSIDE RECORDS SUMMARY | 2025-03-23 10:28 | XMS_ITS | Encounter Summary ---
Author Organization [employer] Address [address] [facility] [address] [place] [address] Care Team Providers Care Wire Rope Sling Maker Name Role Phone Roxi Forbes MD Primary Care Provider [phone] Reason for Visit * Reason Comments Med Refill Encounter Details Date Type Department Care Team ([facility] st Contact Info) Description 02/25/2023 Refill [facility] [address] [place], [place] [phone] Roxi Forbes MD [address] [place], [place] [phone] Social History Tobacco Use Types Packs/Day Years [...] on filedocumented in this encounter Care Teams Wire Rope Sling Maker Relationship Specialty Start Date End Date Roxi Forbes MD [address] [place] [address] PCP - General Family Medicine 01/03/21 documented as of this encounter
--- OUTSIDE RECORDS SUMMARY | 2025-03-23 10:28 | XMS_ITS | Encounter Summary ---
Author Organization [facility] Address [address] [place] [address] Phone Care Team Providers Care Um Nurse Name Role Phone Roxi Forbes MD Primary Care Provider [phone] Encounter Details Date Type Department Care Team (Late st Contact Info) Description 03/19/2025 Telephone [facility] [address] [place] [address] Aleida Brady [address] [place] [phone] Social History Tobacco Use Types Packs/Day Years Used Date Smoking Tobacco: Unknown Sex and Gender Information Value Date Recorded Sex Assigned at Not on file Legal Sex Male 9:16 AM EDT Gender Identity Not on file Sexual Orientation Not on file documented as of this encounter Miscellaneous Notes * Telephone Encounter - Aleida Brady - 03/19/2025 2:21 PM EDT Keith Thompson pt called to report he's receiving messages from the pharmacy stating he needs a prior auth for Ozempic Rx sent 03/10. He's Mongolian-speaking- I can give him a call with info. Thanks! documented in this encounter Plan of Treatment Upcoming Encounters Date Type Department Care Team (Late st Contact Info) Description 04/14/2025 1:00 PM EDT Office Visit [facility] [address] [place] [address] Italo Shirley MD [address] [facility] [place] [address] documented as of this encounter Visit Diagnoses Not on filedocumented in this encounter Care Teams Um Nurse Relationship Specialty Start Date End Date Roxi Forbes MD [address] [place] [address] PCP - General 12/27/20 documented as of this encounter
--- OUTSIDE RECORDS SUMMARY | 2025-03-23 10:28 | XMS_ITS | Encounter Summary ---
Author Organization [employer] Address [address] [facility] [address] [place] [address] Care Team Providers Care Alcohol Law Enforcement Agent Name Role Phone Roxi Forbes MD Primary Care Provider [phone] Reason for Visit * Reason Onset Date Comments Appointment Request 04/19/2023 Encounter Details Date Type Department Care Team ([facility] st Contact Info) Description 04/19/2023 Telephone [facility] [address] [place] [address] Roxi Forbes MD [address] [place] [address] Appointment Request Social History Tobacco Use Types [...] 05/03/2023 for DM2 Please contact pt at [phone] Slovak Speaker documented in this encounter Plan of Treatment Not on file documented as of this encounter Visit Diagnoses Not on filedocumented in this encounter Care Teams Alcohol Law Enforcement Agent Relationship Specialty Start Date End Date Roxi Forbes MD [address] [place] [address] PCP - General Family Medicine 01/03/21 documented as of this encounter
--- OUTSIDE RECORDS SUMMARY | 2025-03-23 10:28 | XMS_ITS | Encounter Summary ---
Author Organization [employer] [facility] Address [address] [place] [address] [address] [place] [address] Care Team Providers Care Airport Representative Name Role Phone Roxi Forbes MD Primary Care Provider [phone] Reason for Visit * Reason Comments Med Refill Encounter Details Date Type Department Care Team (Late st Contact Info) Description 03/26/2023 Refill [facility] [address] [place], [place] [phone] Roxi Forbes MD [address] [place] [address] Social History Tobacco Use Types Packs/Day Years [...] on filedocumented in this encounter Care Teams Airport Representative Relationship Specialty Start Date End Date Roxi Forbes MD [address] [place], [place] [phone] PCP - General Family Medicine 01/03/21 documented as of this encounter
--- OUTSIDE RECORDS SUMMARY | 2025-03-23 10:29 | XMS_ITS | Encounter Summary ---
Author Organization [employer] Address [address] [facility] 7t [place] [address] Care Team Providers Care Gas Utility Worker Name Role Phone Roxi Forbes MD Primary Care Provider [phone] Reason for Visit * Reason Onset Date Comments Nurse Triage 07/09/2023 Encounter Details Date Type Department Care Team (Late st Contact Info) Description 07/09/2023 Telephone [facility] [address] [place] [address] Roxi Forbes MD [address] [place] [address] Nurse Triage Social History Tobacco Use Types [...] 07/09/2023 3:55 PM EDT [place]riage [place] [id number] Pt reports right knee pain for past [...] little. Pt is advised to come to [facility] today ortomorrow, Hours given open 830p [...] accepted this outcome Please contact pt at [phone] documented in this encounter Plan of Treatment Not on file documented as of this encounter Visit Diagnoses Not on filedocumented in this encounter Care Teams Gas Utility Worker Relationship Specialty Start Date End Date Roxi Forbes MD [address] [place] [address] PCP - General Family Medicine 01/03/21 documented as of this encounter
--- OUTSIDE RECORDS SUMMARY | 2025-03-23 10:29 | XMS_ITS | Encounter Summary ---
Author Organization [employer] Address [address] [facility] [address] [place] [address] Care Team Providers Care Development Mechanic Name Role Phone Roxi Forbes MD Primary Care Provider [phone] Reason for Visit * Reason Onset Date Comments Med Refill 08/09/2023 Encounter Details Date Type Department Care Team (Late st Contact Info) Description 08/09/2023 Telephone [facility]INE [address] [place] [address] Roxi Forbes MD [address] [place] [address] Med Refill Social History Tobacco Use Types [...] * Telephone Encounter - Campos Dash - 08/09/2023 12:50 PM EDT Tc from pt requesting a new Script for Albuterol inhaler. Pt states that provider who prescribes medication at [address] [place] [address] Linwood Piña, stop medication due to pt missingfollow up appt with provider. Pt is requesting if provider could prescribed, pt states he uses medication every night. No symptoms Please contact pt at [phone] Syrian Speaker documented in this encounter Plan of Treatment Not on file documented as of this encounter Visit Diagnoses Not on filedocumented in this encounter Care Teams Development Mechanic Relationship Specialty Start Date End Date Roxi Forbes MD [address] [place] [address] PCP - General Family Medicine 01/03/21 documented as of this encounter
--- OUTSIDE RECORDS SUMMARY | 2025-03-23 10:29 | XMS_ITS | Encounter Summary ---
Author Organization [facility] Address [address] [place] [address] Phone Care Team Providers Care Casing Tester Name Role Phone Roxi Forbes MD Primary Care Provider [phone] Encounter Details Date Type Department Care Team (Late st Contact Info) Description 12/07/2022 Documentation Only [facility] [address] [place] [address] Mary Heredia PA Social History Tobacco Use [...] Visit [facility] [address] [place] [address] Italo Shirley MD [address] [place] [address] [place] [phone] documented as of this encounter Visit Diagnoses Not on filedocumented in this encounter Care Teams Casing Tester Relationship Specialty Start Date End Date Roxi Forbes MD [address] [place] [address] PCP - General 12/27/20 documented as of this encounter
--- OUTSIDE RECORDS SUMMARY | 2025-03-23 10:29 | XMS_ITS | Encounter Summary ---
Author Organization [facility] Address [address] [place] [address] Phone Care Team Providers Care Fashion Marketer Name Role Phone Roxi Forbes MD Primary Care Provider [phone] Encounter Details Date Type Department Care Team (Late st Contact Info) Description 08/07/2022 Documentation Only [facility] [address] [place] [phone] Mary Heredia PA Social History Tobacco Use [...] Visit [facility] [address] [place] [phone] Italo Shirley MD [address] [place] [address] [place] [phone] documented as of this encounter Visit Diagnoses Not on filedocumented in this encounter Care Teams Fashion Marketer Relationship Specialty Start Date End Date Roxi Forbes MD [address] [place] [address] PCP - General 12/27/20 documented as of this encounter
--- OUTSIDE RECORDS SUMMARY | 2025-03-23 10:29 | XMS_ITS | Encounter Summary ---
Author Organization [facility] Address [address] [place] [address] Phone Care Team Providers Care Instructor Adjunct Pharmacy Technician Name Role Phone Roxi Forbes MD Primary Care Provider [phone] Encounter Details Date Type Department Care Team (Late st Contact Info) Description 03/12/2025 Documentation Only [facility] [address] [place] [address] Polina Dias OR [address] [place] [phone] Social History Tobacco Use Types Packs/Day Years [...] Visit [facility] [address] [place] [address] Italo Shirley MD [address] [facility] [place] [address] documented as of this encounter Visit Diagnoses Not on filedocumented in this encounter Care Teams Instructor Adjunct Pharmacy Technician Relationship Specialty Start Date End Date Roxi Forbes MD [address] [place] [address] PCP - General 12/27/20 documented as of this encounter
--- OUTSIDE RECORDS SUMMARY | 2025-03-23 10:29 | XMS_ITS | Clinical Summary ---
Author Organization [facility] [place], Address [address] [place] [address] [place] [address] Phone Care Team Providers Care Laser Cutter Name Role Phone Roxi Forbes MD Primary [...] VECES AL D A 2 Active Creon 85758-21652 units capsule TOME 1 C PSULA POR [...] tablet 3 4 Active ergocalciferol 1.25 MG (70278 UT) capsule Take 1 capsule (50,000 Units [...] Encounters Date Type Department Care Team Description 03/19/2025 Telephone [facility] [address] [place] [address] Aleida Brady 03/12/2025 Documentation Only [facility] [address] [place] [address] Polina Dias [place] 03/10/2025 3:30 PM EDT Office Visit [facility] [address] [place] [address] Italo Shirley MD Stage 3b chronic [...] Visit [facility] [address] [place] [address] Italo Shirley MD [address] [facility] [place] [address] Health Maintenance Due Date Last Done Comments Hepatitis B Vaccine (1 of 3 - 19+ 3-dose series) 1997 Diabetes: Ophthalmology Exam 12/26/2020 Diabetes: Pedal Pulse Checked 12/26/2020 Diabetes: Sensory Foot Exam 12/26/2020 Diabetes: Visual Foot Exam 12/26/2020 Diabetes: Hemoglobin A1C 01/17/2025 024, 06/22/2024, 01/27/2024, Additional history exists Influenza Vaccine (Season Ended) 2025 12/07/19 Pneumococcal Vaccine: 50+ Years Discontinued , 03/21/2020 Pneumococcal Vaccine: Peds ( 0 to 5 Years) and At-Risk Patients (6 to 49 Years) Completed 05/10/2023, 03/21/2020 Insurance Medicaid [place] Care Teams Laser Cutter Relationship Specialty Start Date End Date Roxi Forbes MD [address] [place] [address] PCP - General 12/27/20
--- OUTSIDE RECORDS SUMMARY | 2025-03-23 10:29 | XMS_ITS | Encounter Summary ---
Author Organization [facility] Address [address] [place] [address] Phone Care Team Providers Care Leasing Agent Name Role Phone Roxi Forbes MD Primary Care Provider [phone] Encounter Details Date Type Department Care Team (Late st Contact Info) Description 10/01/2024 Documentation Only [facility] [address] [place] [phone] Berna Castellano [place] [address] [place] [phone] Social History Tobacco Use Types Packs/Day Years [...] Visit [facility] [address] [place] [address] Italo Shirley MD [address] [place] [address] [place] [phone] documented as of this encounter Visit Diagnoses Not on filedocumented in this encounter Care Teams Leasing Agent Relationship Specialty Start Date End Date Roxi Forbes MD [address] [place] [address] PCP - General 12/27/20 documented as of this encounter
--- OUTSIDE RECORDS SUMMARY | 2025-03-23 10:29 | XMS_ITS | Clinical Summary ---
Author Organization [employer] Address [address] [facility] 7t [place] [address] Care Team Providers Care Payer Specialist Name Role Phone Roxi Forbes MD Primary Care Provider [phone] Allergies No known active allergies Medications thiamine [...] SEA NECESARIO 2 Active Continuous Blood Gluc Blender Conveyor Operator (FreeStyle Bernice 2 [place]) deviceIndication s:Type 2 diabetes mellitus with hyperglycemia, with long-term current use of insulin ([facility]) USE DAILY TO CHECK BLOOD SUGAR 1 each 3 Active lisinopril 10 MG tablet Take 10 mg by mouth. 4 Active ergocalciferol (Vitamin D2) 1.25 MG (01834 UT) capsule Take 50,000 Units by mouth [...] omeprazole (PriLOSEC) [address] capsule TOME STEHPIE [place] 90 capsule 3 4 Active fenofibrate (Tricor) 145 MG tablet TAKE 1 TABLET BY MOUTH EVERY DAY 90 tablet 3 4 Active Continuous Glucose Sensor (FreeStyle Bernice 2 Sensor) miscIndications: Type 2 diabetes mellitus with hyperglycemia, unspecified whether long-term insulin use (CMS/HCC) USE DIRECTED, CHANGE EVERY [...] continue taking pravastatin daily Pt will call [facility] cardiology to schedule appt as referral already [...] does not tolerate it will refer to wildlife enforcement major for assistance with other lipid lowering agents [...] AM EDT): Current A1c: 8.8, needs to potato picker Lantus and Novolog, has not had them for many months. Called [facility] to ensure he can potato picker today. Continue Metformin and Jardiance BMP: [...] LDL-C. Tevin FAUST et al. ELINA. 2013;310(19): 2514-0835 (http://education.Sumoing.com/faq/YRL770) ASCVD: Calculate pending updated labs Statin: NO, [...] of LDL-C. Tevin FAUST et al. ELINA. 2013;310(64): 2614-0623 (http://education.Zentric/faq/PDV019) ASCVD: Calculate pending updated labs Statin: Yes [...] LDL-C. Tevin FAUST et al. ELINA. 2013;310(19): 9841-1583 (http://education.Sumoing.Meiyou/faq/QFI833) ASCVD: Calculate pending updated labs Statin: Yes [...] 3:08 PM EDT): Following with nephrology in [facility] Has pending renal US, helped to schedule ER precautions Iron deficiency anemia 06/22/2020 Encounters Date Type Department Care Team Description 03/17/2025 Orders Only GENERIC EXTERNAL DATA DEPARTMENT Provider, Generic External Data 01/29/2025 Population Health Risk Score [facility] Department [address] [phone] Provider, Population Health Generic 01/18/2025 Orders Only [facility] External Provider, [facility] from Last 3 Months Immunizations [...] 07/04/2023, 12/05/2022, Additional history exists Lipid Panel 03/17/2026 03/17/2025, 03/2024, 07/27/2024, Additional history exists Zoster Vaccines (1 of [...] Associated Diagnosis Comments LIPID PANEL, STANDARD Routine 03/17/2025 8:27 AM EDT US BLADDER Routine 01/19/2025 11:27 AM EST ALBUMIN, RANDOM URINE W/CREATININE Routine 10/22/2024 9:00 AM EST Type 2 diabetes mellitus with hyperglycemia, with long-term current use of insulin (CMS/HCC) POCT GLYCATED HEMOGLOBIN, TOTAL Routine 10/19/2024 9:20 AM EST Type 2 diabetes mellitus with hyperglycemia, with long-term current use of insulin (CMS/HCC) HEPATITIS C AB W/REFL TO HCV RNA, QN, PCR Routine 07/27/2024 8:05 AM EDT Hypertriglyceridemi a HIV 1/2 ANTIGEN/ANTIBODY, FOURTH GENERATION W/RFL Routine 05/26/2020 4:27 PM EDT from Last 3 Months or Most Recently Relevant to Health Maintenance Results * (ABNORMAL) Lipid Panel, Standard (03/17/2025 8:27 AM EDT) Triglycerides 434(H) <150 mg/dL [facility] Comment:Desirable Triglyceri de: less than 150 mg/dLBorderline High Triglyceride 150-199 mg/dLHigh Triglyceride: 200-499 mg/dLVery High Triglyceride: greater than or equal to 5OO mg/dL Cholesterol 240(H) <200 mg/dL [facility] Comment:Desirable Cholestero l: less than 200 mg/dLBorderline High Cholesterol: 200-239 mg/dLHigh Cholesterol: greater than 239 mg/dL LDL Cholesterol Calculated TNP <100 mg/dL [facility] Comment:Unable to calculate the LDL. The formula of Friedwald,Pelaez, and Karlie is only valid if the triglycerides areless than 400 mg/dl. HDL Cholesterol 39(L) >40 mg/dL [facility] Comment:Desirable HDL: great er than 40 mg/dL Note: This HDL assay may give artificially low results in patients with liver disease. 03/17/2025 8:27 AM EDT 03/17/2025 8:27 AM EDT us Generic External Data Provider LAB BLOOD ORDERAB LES Final Result [facility] [address] [place] [address] [phone] * US BLADDER (01/19/2025 11:27 AM EST) Anatomical Region Laterality Modality Abdomen Ultrasound 01/19/2025 11:2 7 AM EST Narrative 01/19/2025 11:29 AM EST ? [facility] ?[address] ?[place] [address] ? Ultrasound Report ? Signed ? Patient: Levi Hale ?MR#: [id number] ?? [id number] ? : 1980 ?Acct:[id number] ? Age/Sex: 44 / M ?ADM Date: 01/18/25 ? Loc: HO.US ? Attending Dr: Purnima CABELLO-BC ? Ordering Physician: Purnima Godoy-BC ?? Date of Service: 01/18/25 ?? Procedure(s): US bladder ?? Accession Number(s): [id number] ? cc: Roxi Forbes; Godoy,Purnima ROTARY ROCK DRILLING MACHINE OPERATOR-BC ? CLINICAL HISTORY: R35.1 - Nocturia ? [...] DD/ 1127 ? TD/TT: 01/19/25 1127 ? Sheep And Wheat Farmer: ? Procedure Note Donediliater, Image - 01/19/[address] [address] Ultrasound Report Signed Patient: Levi Hale RMR#: [id number] : 1980Acct:[id number] Age/Sex: 44 / MADM Date: 01/18/25 Loc: .US Attending Dr: Purnima KASPER Ordering Physician: Purnima Godoy Date of Service: 01/18/25 Procedure(s): US bladder Accession Number(s): [id number] cc: Roxi Forbes; Purnima Godoy CLINICAL HISTORY: [...] 01/19/25 1128 DD/ 1127 TD/TT: 01/19/25 1127 Sheep And Wheat Farmer: us [facility] External Provider IMG US PROCEDURES Final Result * (ABNORMAL) Albumin, Random Urine W/Creatinine (10/22/2024 9:00 AM EST) Creatinine, Urine 51.44 mg/dL [facility] Microalbumin Urine 15.0 mg/L H [facility] Microalbum Creatinine Ratio Ur 29.1(H) <30 ug/mg cr [facility] Comment:Albumin/Creatinine R atio Reference Ranges: Normal: < 30 ug/mg creatinine Microalbuminuria: 30 - 300 ug/mg creatinineClinical Albuminuria: > 300 ug/mg creatinine Urine (Urine, Random) 10/22/2024 9:00 AM EST 10/22/2024 11:13 AM EST Roxi Forbes MD LAB URINE ORDERABLES Final Res ult Performing Organization Address City/[facility]/ZIP Co de Phone Number [facility] [address] [place] [phone] * (ABNORMAL) POCT HGB A1C (10/19/2024 9:20 AM EST) Hemoglobin A1C 8.3(A) 4.0 - 6.0 % QC Media Lot # [id number] Lot# Expiration Date Blood 10/19/2024 9:20 AM EST Roxi Forbes MD POINT OF CARE TEST ENTER/EDIT ORDERABLES Final Result * Hepatitis C Antibody with Reflex to HCV, RNA, Quantitative, Real-Time PCR (07/27/2024 8:05 AM EDT) Hepatitis C Antibody Nonreactive Nonreactive [facility] Comment:Antibodies to HCV no t detected; does not exclude early acuteHCV infection. Blood Venous blood specimen / Unknown 07/27/2024 8:05 AM EDT 07/27/2024 11:32 AM EDT Roxi Forbes MD LAB BLOOD ORDERABLES Final Res ult Performing Organization Address [facility]/ZIP Co de Phone Number [facility] [address] [place] [phone] * HIV 1/2 ANTIGEN/ANTIBODY,FOURTH GENERATION W/RFL [...] ? For additional information please refer to http://[employer] Technology.Sitesimon/faq/OUN386 (This link is being provided for informational/ [...] ? For additional information please refer to http://[employer] Technology.Sitesimon/faq/XEQ756 (This link is being provided for informational/ [...] ? For additional information please refer to http://[employer].Sitesimon/faq/EVZ015 (This link is being provided for informational/ [...] ? For additional information please refer to http://Viximo/faq/STE093 (This link is being provided for informational/ educational purposes only.) ? The performance of this assay has not been clinically validated in patients less than 2 years old. ?? HIV-1/2 ANTIGEN AND ANTIBODIES, 4TH GENERATION W/ REFLEX NON-REACT EVARISTO NON-REACT EVARISTO [facility] Comment: HIV-1 antigen and HIV-1/HIV-2 [...] ? For additional information please refer to http://Viximo/faq/ZQW190 (This link is being provided for informational/ [...] ? For additional information please refer to http://Viximo/faq/XGZ989 (This link is being provided for informational/ [...] ? For additional information please refer to http://[employer].Sitesimon/faq/WVQ812 (This link is being provided for informational/ [...] ? For additional information please refer to http://[employer].Sitesimon/faq/KFH003 (This link is being provided for informational/ educational purposes only.) ? The performance of this assay has not been clinically validated in patients less than 2 years old. ?? HIV-1/2 ANTIGEN AND ANTIBODIES, 4TH GENERATION W/ REFLEX NON-REACT EVARISTO NON-REACT EVARISTO [facility] Comment: HIV-1 antigen and HIV-1/HIV-2 [...] ? For additional information please refer to http://Viximo/faq/KLI869 (This link is being provided for informational/ educational purposes only.) ? The performance of this assay has not been clinically validated in patients less than 2 years old. ?? 05/26/2020 4:27 PM EDT Juliette Hawkins [facility] LAB BLOOD ORDERABLES Final Res ult [facility] [address] from Last 3 Months or Most Recently Relevant to Health Maintenance Insurance [place], [place] C[employer] HSN PARTIAL Care Teams Payer Specialist Relationship Specialty Start Date End Date Roxi Forbes MD [address] [place] [address] PCP - General Family Medicine 01/03/21
--- OUTSIDE RECORDS SUMMARY | 2025-03-23 10:29 | XMS_ITS | Encounter Summary ---
Author Organization [facility] Address [address] [place] [address] Phone Care Team Providers Care Privacy Manager Name Role Phone Roxi Forbes MD Primary Care Provider [phone] Encounter Details Date Type Department Care Team (Late st Contact Info) Description 09/22/2024 Documentation Only [facility] [address] [place] [address] Kalina Borden [address] [place] [phone] Social History Tobacco Use Types Packs/Day Years [...] Visit [facility] [address] [place] [address] Italo Shirley MD [address] [facility] [place] [phone] documented as of this encounter Visit Diagnoses Not on filedocumented in this encounter Care Teams Privacy Manager Relationship Specialty Start Date End Date Roxi Forbes MD [address] [place] [address] PCP - General 12/27/20 documented as of this encounter
--- OUTSIDE RECORDS SUMMARY | 2025-03-23 10:29 | XMS_ITS | Encounter Summary ---
Author Organization [employer] Address [address] [facility] 7t [place] [address] Care Team Providers Care Patient Care Name Role Phone Roxi Forbes MD Primary Care Provider Reason for Referral * Consultation (Routine) - Closed Specialty Diagnoses / Procedures Referred By Contestelle t Referred To Contact Cardiology Diagnoses History of pancreatitis Hypertriglyceridemia Roxi Forbes MD [address] [place] [address] Phone: tel: fax: [facility] Referral ID Status Reason Start Date Expiration Date V isits Requested Visits Authorized [id number] Closed Specialty Services Required 09/24/2024 09/24/2025 6 6 Encounter Details Date Type Department Care Team (Late st Contact Info) Description 09/17/2024 Orders Only [facility] MEDICINE [address] [place] [address] Roxi Forbes MD [address] [place] [address] History of pancreatitis (Primary Dx); Hypertriglyceridemia Social [...] documented as of this encounter Care Teams Patient Care Relationship Specialty Start Date End Date Roxi Forbes MD [address] [place] [address] PCP - General Family Medicine 01/03/21 documented as of this encounter
--- OUTSIDE RECORDS SUMMARY | 2025-03-23 10:29 | XMS_ITS | Encounter Summary ---
Author Organization [facility] [place], Address [address] [place] [address] Phone Care Team Providers Care Oncology Transplant Network Manager Name Role Phone Roxi Forbes MD Primary Care Provider [phone] Reason for Visit * Reason Comments Med Change Request Encounter Details Date Type Department Care Team (Late Contact Info) Description 01/23/2023 Refill [facility] [address] [place] [address] Abe Rivera MD [address] [place] [address] [place] [phone] Social History Tobacco Use Types Packs/Day Years [...] Visit [facility] [address] [facility] [place] [address] Italo Shirley MD [address] [place] [address] [place] [phone] documented as of this encounter Visit Diagnoses Not on filedocumented in this encounter Care Teams Oncology Transplant Network Manager Relationship Specialty Start Date End Date Roxi Forbes MD [address] [place] [address] PCP - General 12/27/20 documented as of this encounter
--- OUTSIDE RECORDS SUMMARY | 2025-03-23 10:29 | XMS_ITS | Encounter Summary ---
Author Organization [employer] Address [address] [facility] 7t [place] [address] Care Team Providers Care Cushion Worker Name Role Phone Roxi Forbes MD Primary Care Provider [phone] Reason for Visit * Reason Comments Med Refill Encounter Details Date Type Department Care Team ([facility] st Contact Info) Description 09/04/2023 Refill [facility] [address] [place] [address] Dariela Cruz MD [address] [place] [address] Social History Tobacco Use Types Packs/Day Years [...] on filedocumented in this encounter Care Teams Cushion Worker Relationship Specialty Start Date End Date Roxi Forbes MD [address] [place] [address] PCP - General Family Medicine 01/03/21 documented as of this encounter
--- OUTSIDE RECORDS SUMMARY | 2025-03-23 10:29 | XMS_ITS | Encounter Summary ---
Author Organization [facility] Address [address] [place] [address] Phone Care Team Providers Care Electronics Instructor Name Role Phone Roxi Forbes MD Primary Care Provider [phone] Encounter Details Date Type Department Care Team (Late st Contact Info) Description 12/19/2023 Documentation Only [facility] [address] [place] [address] Kalina Borden [address] [place] [phone] Social History Tobacco Use Types Packs/Day Years [...] Visit [facility] [address] [place] [phone] Italo Shirley MD [address] [facility] [place] [phone] documented as of this encounter Visit Diagnoses Not on filedocumented in this encounter Care Teams Electronics Instructor Relationship Specialty Start Date End Date Roxi Forbes MD [address] [place] [address] PCP - General 12/27/20 documented as of this encounter
--- OUTSIDE RECORDS SUMMARY | 2025-03-23 10:29 | XMS_ITS | Encounter Summary ---
Author Organization [employer] Address [address] [facility] 7t [place] [address] Care Team Providers Care Glass Rolling Machine Operator Name Role Phone Roxi Forbes MD Primary Care Provider [phone] Reason for Visit * Reason Comments Med Refill Encounter Details Date Type Department Care Team ([facility] st Contact Info) Description 09/10/2023 Refill [facility] [address] [place], [place] [phone] Roxi Forbes MD [address] [place], [place] [phone] Social History Tobacco Use Types Packs/Day Years [...] on filedocumented in this encounter Care Teams Glass Rolling Machine Operator Relationship Specialty Start Date End Date Roxi Forbes MD [address] [place] [address] PCP - General Family Medicine 01/03/21 documented as of this encounter
--- OUTSIDE RECORDS SUMMARY | 2025-03-23 10:29 | XMS_ITS | Encounter Summary ---
Author Organization [employer] Address [address] [facility] [address] [place] [address] Care Team Providers Care Quality Management Nurse Name Role Phone Roxi Forbes MD Primary Care Provider [phone] Encounter Details Date Type Department Care Team (Late st Contact Info) Description 07/21/2024 Orders Only [facility] MEDICINE [address] [place] [address] Roxi Forbes MD [address] [place], [place] [phone] Social History Tobacco Use Types Packs/Day Years [...] documented as of this encounter Care Teams Quality Management Nurse Relationship Specialty Start Date End Date Roxi Forbes MD [address] [place] [address] PCP - General Family Medicine 01/03/21 documented as of this encounter
--- OUTSIDE RECORDS SUMMARY | 2025-03-23 10:29 | XMS_ITS | Encounter Summary ---
Author Organization [facility] Address [address] [place] [address] Phone Care Team Providers Care Sales Administration Manager Name Role Phone Roxi Forbes MD Primary Care Provider [phone] Encounter Details Date Type Department Care Team (Late st Contact Info) Description 12/23/2023 Documentation Only [facility] [address] [place] [phone] Kalina Borden [address] [place] [phone] Social History Tobacco Use Types Packs/Day Years [...] Visit [facility] [address] [place] [phone] Italo Shirley MD [address] [facility] [place] [phone] documented as of this encounter Visit Diagnoses Not on filedocumented in this encounter Care Teams Sales Administration Manager Relationship Specialty Start Date End Date Roxi Forbes MD [address] [place] [address] PCP - General 12/27/20 documented as of this encounter
--- OUTSIDE RECORDS SUMMARY | 2025-03-23 10:29 | XMS_ITS | Encounter Summary ---
Author Organization [facility] Address [address] [place] [address] Phone Care Team Providers Care Human Service Technician Name Role Phone Roxi Forbes MD Primary Care Provider [phone] Encounter Details Date Type Department Care Team (Late st Contact Info) Description 12/23/2023 Documentation Only [facility] [address] [place] [phone] Kalina Borden [address] [place] [phone] Social History Tobacco Use Types Packs/Day Years [...] Visit [facility] [address] [place] [phone] Italo Shirley MD [address] [facility] [place] [phone] documented as of this encounter Visit Diagnoses Not on filedocumented in this encounter Care Teams Human Service Technician Relationship Specialty Start Date End Date Roxi Forbes MD [address] [place] [address] PCP - General 12/27/20 documented as of this encounter
== END 2025-03-23 10:00 | disposition home or self-care (01) ==
LOC: HO.HUSH 09:31
PROVIDERS: PCP General Practice; Visit Provider Nurse Practitioner Family
DX: Z13.9 Encounter for screening, unspecified (principal); R35.1 Nocturia
CPT/HCPCS: 99214

== ENCOUNTER → 2025-03-23 09:30 | Outpatient (BNVA) | payer MEDICAID, SELFPAY | PROVIDERS: PCP General Practice; Visit Provider Nurse Practitioner Family | DX: R35.1 Nocturia (principal) | CPT/HCPCS: 51798; 81003; 99212 ==

== ENCOUNTER 2025-06-09 08:05 | Outpatient (REF) | payer MEDICAID, SELFPAY ==
--- OUTSIDE RECORDS SUMMARY | 2025-06-09 08:10 | XMS_ITS | Encounter Summary ---
Author Organization [facility] Address [address] [place] [address] Phone Care Team Providers Care Transport Medic Name Role Phone Roxi Forbes MD Primary Care Provider Encounter Details Date Type Department Care Team (Late st Contact Info) Description 03/19/2025 Telephone [facility] [address] [place] [address] Aleida Brady Social History Tobacco Use Types Packs/Day Years [...] auth for Ozempic Rx sent 03/10. He's [place]ralt[place]-speaking- I can give him a call with info. Thanks! documented in this encounter Plan of Treatment Upcoming Encounters Date Type Department Care Team (Late st Contact Info) Description 07/14/2025 9:10 AM EDT Office Visit [facility] [address] [place] [address] Italo Shirley MD [address] [facility] [place] [address] documented as of this encounter Visit Diagnoses Not on filedocumented in this encounter Care Teams Transport Medic Relationship Specialty Start Date End Date Roxi Forbes MD [address] [place] [address] PCP - General 12/27/20 documented as of this encounter
--- OUTSIDE RECORDS SUMMARY | 2025-06-09 08:10 | XMS_ITS | Encounter Summary ---
Author Organization [employer] Address [address] [place] [address] [address] [place] [address] Care Team Providers Care Hemodialysis Rn Name Role Phone Roxi Forbes MD Primary Care Provider [phone] Reason for Visit * Reason Comments Med Refill Encounter Details Date Type Department Care Team (Late st Contact Info) Description 03/26/2023 Refill [facility] MEDICINE [address] [place] [address] Roxi Forbes MD [address] [place] [address] Social History Tobacco Use Types Packs/Day Years [...] on filedocumented in this encounter Care Teams Hemodialysis Rn Relationship Specialty Start Date End Date Roxi Forbes MD [address] [place], [place] [phone] PCP - General Family Medicine 01/03/21 documented as of this encounter
[2025-06-09 11:40] LABS: Hemoglobin A1C 258.3318 umol/L; Total Hemoglobin (HGBA1C) 4113.2986 umol/L
[2025-06-09 11:51] LABS: Alanine Aminotransferase 28 U/L (0-40); Albumin Level 4.8 g/dL (3.5-5.0); Alkaline Phosphatase 45 U/L (39-117); Aspartate Amino Transferase 35 U/L (5-37); Cholesterol 248 mg/dL (<200); HDL Cholesterol 42 mg/dL (>40); Total Protein 7.7 g/dL (6.5-8.0); Triglycerides 722 mg/dL (<150)
[2025-06-09 12:10] LABS: Prostate Specific Antigen 0.33 ng/mL (<0.05-4.0)
== END 2025-06-09 08:06 | disposition home or self-care (01) ==
LOC: HO.HHCL 08:05
PROVIDERS: Nurse Practitioner Family; PCP General Practice; Visit Provider Nurse Practitioner Family
DX: E11.9 Type 2 diabetes mellitus without complications (principal); E78.1 Pure hyperglyceridemia; R35.1 Nocturia
CPT/HCPCS: 36415; 80061; 80076; 83036; 84153

== ENCOUNTER 2025-06-11 09:54 | Outpatient (AMB) | payer MEDICAID, SELFPAY ==
--- OUTSIDE RECORDS SUMMARY | 2025-06-11 10:09 | XMS_ITS | Encounter Summary ---
Author Organization [facility] Address [address] [place] [address] Phone Care Team Providers Care Delivery Room Supervisor Name Role Phone Roxi Forbes MD Primary Care Provider Encounter Details Date Type Department Care Team (Late st Contact Info) Description 03/19/2025 Telephone [facility] [address] [place] [address] Aleida Brady Social History Tobacco [...] auth for Ozempic Rx sent 03/10. He's [place]cu[place]-speaking- I can give him a call with info. Thanks! documented in this encounter Plan of Treatment Upcoming Encounters Date Type Department Care Team (Late st Contact Info) Description 07/14/2025 9:10 AM EDT Office Visit [facility] [address] [place] [address] Italo Shirley MD [address] [facility] [place] [address] documented as of this encounter Visit Diagnoses Not on filedocumented in this encounter Care Teams Delivery Room Supervisor Relationship Specialty Start Date End Date Roxi Forbes MD [address] [place] [address] PCP - General 12/27/20 documented as of this encounter
--- OUTSIDE RECORDS SUMMARY | 2025-06-11 10:09 | XMS_ITS | Encounter Summary ---
Author Organization [employer] Address [address] [place] [address] [address] [place] [address] Care Team Providers Care Showroom Executive Director Name Role Phone Roxi Forbes MD Primary Care Provider [phone] Reason for Visit * Reason Comments Med Refill Encounter Details Date Type Department Care Team (Late st Contact Info) Description 03/26/2023 Refill [facility] MEDICINE [address] [place] [address] Roxi Forbes MD [address] [place] [address] Social History Tobacco Use Types Packs/Day Years [...] on filedocumented in this encounter Care Teams Showroom Executive Director Relationship Specialty Start Date End Date Roxi Forbes MD [address] [place], [place] [phone] PCP - General Family Medicine 01/03/21 documented as of this encounter
[2025-06-11 10:12] VITALS: BP 124/72; PULSE 95; BMI 37.6
--- NOTE | 2025-06-11 10:12 | MHC.OFFVIS ---
Vital Signs 06/11/25 10:12 Height 5 ft 6 in Weight 232 lb 12.93 oz BMI 37.6 BP 124/72 Blood Pressure Location Rt brachial Position Sitting Pulse 95 Pulse Source Monitor Intake Visit Reasons: 3m follow up Extrusion Die Coordinator Required: No Allergies No Known Allergies (No Known Allergies*) Allergy (Verified 06/11/25 10:17) Medication List - Last Reconciled 06/11/25 by IHSAN Davis albuterol sulfate 90 mcg/actuation (Ventolin HFA) 1 puff PO QID PRN alcohol swabs (Alcohol Pads) 1 pad topical QID 30 days baclofen 5 mg PO TID PRN blood sugar diagnostic (FreeStyle Lite Strips) As directed four times a day blood-glucose meter (FreeStyle Bandy Lite kit) As directed 4 times a day empagliflozin (Jardiance) 10 mg PO QAM ergocalciferol (vitamin D2) 50 mcg PO DAILY ergocalciferol (vitamin D2) 1,250 mcg PO QWEEK flash glucose scanning reader ([employer] Voice CorporationStyle Bernice 2 [place]) As directed flash glucose sensor (FreeStyle Bernice 2 Sensor kit) As directed every 2 weeks fluticasone propion-salmeterol 250-50 mcg/dose (Wixela Inhub) 1 inh inhalation BID 30 days folic acid 1 mg PO DAILY icosapent ethyl (Vascepa) 2 grams (2 x 1 gram) PO BID 30 days insulin glargine (Lantus Solostar U-100 Insulin) 52 units (0.52 mL) subcut QPM insulin lispro 20 - 26 units (0.2 - 0.26 mL) subcut TID lancets (TRUEplus Lancets) As directed 4 times a day vitryf-wdwulibf-nmincub 24,000-76,000 -120,000 unit (Creon) 1 cap PO TID lisinopril 5 mg PO DAILY metformin ER 1,000 mg PO DAILY omeprazole 20 mg PO DAILY pen needle, diabetic (BD Ultra-Fine Jennifer Pen Needle) Five times a day pravastatin 40 mg PO BEDTIME terazosin 5 mg PO BEDTIME 30 days terbinafine HCl 1% 1 appl topical BID HPI HPI 3m follow up: Details: Levi is a 45-year-old male with past medical history of obesity, hyperlipidemia, diabetes, chronic kidney disease, substance abuse, asthma who presents for follow-up. Today he reports he has been having episodes of pressure in his mid chest with rapid heartbeat lasting 2-3 minutes. This is gone on for the last month and occurs every 2-3 days. He notices some shortness of breath when he feels the palpitations and chest pressure. He does not get chest discomfort at other times. His prior report of sharp pains has resolved. No PND, orthopnea or edema. No lightheadedness, presyncope, syncope, falls. He states he did not ever get Vascepa that was ordered on last visit. He says he is not taking fenofibrate any longer. He has been taking pravastatin but does get muscle aches in his legs. [facility] Medical History Necrotizing pancreatitis Obesity due to excess calories Dyslipidemia Iron deficiency anemia Polyarthralgia History of pancreatitis History of alcohol abuse Diabetes mellitus with hyperglycemia Surgical History No history of previous surgery Family History Father Diabetes Mother Diabetes Brother Diabetes Social History Household Members: Other Household Members Other:: mother Alcohol intake: current Patient Tobacco Use Status: Current someday Tobacco user Review of Systems Const All systems reviewed & are unremarkable except as noted in HPI and below ENT Denies dizziness Card Reports chest pain, Reports chest pain at rest, Reports chest pain with activity, Reports rapid heart rate, Denies pedal edema, Denies edema, Denies leg edema, Denies lightheadedness, Reports palpitations, Denies dyspnea, Denies dyspnea on exertion and Denies orthopnea Resp Denies cough, Denies dyspnea and Denies dyspnea on exertion GI Denies hematochezia and Denies change in stool character Musc Denies abnormal gait, Denies limited range of motion, Denies muscle cramps, Denies muscle weakness, Denies numbness, Denies radiating pain into limb, Denies stiffness and Denies tingling Neuro Denies abnormal gait, Denies dizziness, Denies numbness and Denies tingling Endo Reports palpitations Physical Exam Vital Signs: Last Vital Signs Pulse 95 06/11/25 10:12 BP 124/72 06/11/25 10:12 BMI result Body Mass Index 37.6 Const Other: obesity General: cooperative, healthy appearing, comfortable and no acute distress Orientation/consciousness: patient oriented x3 HEENT Head: Yes normal to inspection Resp Effort & Inspection: normal respiratory effort Auscultation: clear to auscultation bilaterally, no crackles, no rales, no rhonchi and no wheezes Cardio Rate: regular rate Rhythm: regular rhythm Heart sounds: S1 normal heart sound present, S2 normal heart sound present, no gallops, no murmurs and no rubs Neuro General: patient oriented x3 Extrem General: Yes normal to inspection, No no pedal edema and No calf tenderness Psych Appearance: grossly normal Mental Status: mental status grossly normal Speech and movement: Normal speech and movement present Office Procedures EKG Details: Today, read by me, normal sinus rhythm no acute ST or T-wave abnormalities, rate 95, QTC 442 millisecond [id number], Complete Assessment & Plan Assessment & Plan (1) Precordial chest pain: Code(s): R07.2 - Precordial pain Category: Medical Plan: Newer mid chest pressure with rapid heart palpitations as described above. EKG done today showing sinus rhythm, rate 95. His episodes sound like possible NSVT or PAF. Will check 5 day Holter monitor to assess for arrhythmia and echocardiogram to assess EF, atrial sizes. Will check exercise nuclear stress test to evaluate for ischemia. Prior nuclear stress test 05/07/2022 was normal however he does have uncontrolled diabetes and cholesterol levels. Emergency care if ever needed for sustained rapid heart palpitations or chest discomfort not relieved by rest. (2) Heart palpitations: Code(s): R00.2 - Palpitations Category: Medical Plan: As above (3) Dyslipidemia: Code(s): E78.5 - Hyperlipidemia, unspecified Category: Medical Plan: [place] LDL goal less than 70. He says he is off fenofibrate and still taking pravastatin. Vascepa ordered last visit and he says he never got it from the pharmacy. Most recent lipid profile uncontrolled, triglycerides 722, LDL not performed. Will resend Vascepa and he was instructed to take. Continue pravastatin. Informed him he can try coenzyme Q10 to help with myalgias. The importance of good cholesterol control and blood sugar control reviewed with him. (4) Hypertriglyceridemia: Code(s): E78.1 - Pure hyperglyceridemia Category: Medical Plan: [place] triglycerides less than 150. Labs from 06/09/2025 shows triglycerides 722. Meds as above. (5) Diabetes mellitus with hyperglycemia: Code(s): E11.65 - Type 2 diabetes mellitus with hyperglycemia Category: Medical Qualifiers: Diabetes mellitus type: type 2 Plan: Hemoglobin A1c goal less than 7. Labs done 09/17/2024 showed hemoglobin A1c 8.1%. (6) Obesity due to excess calories: Code(s): E66.09 - Other obesity due to excess calories Category: Medical Qualifiers: Body mass index: BMI 35.0-35.9 Obesity classification: adult class 2 (BMI 35 - 39.9) Serious obesity comorbidity presence: with serious comorbidity Qualified Code(s): E66.01 - Morbid (severe) obesity due to excess calories; Z68.35 - Body mass index [BMI] 35.0-35.9, adult Plan: Benefit of weight loss and exercise reviewed Plan Time spent on chart review, documentation, interviewed assessment Orders: Orders CA stress test Today R00.2 - Palpitations, R07.2 - Precordial pain ECG 5 day holter monitor Today R00.2 - Palpitations, R07.2 - Precordial pain NM cardiolite stress test Today R00.2 - Palpitations, R07.2 - Precordial pain CA echo transthoracic complete Today R00.2 - Palpitations, R07.2 - Precordial pain Medications: Refilled icosapent ethyl (Vascepa) 2 grams (2 x 1 gram) PO BID 120 caps 5RF 30 days Coding Level of Care Code Est Pt Level 4 (35008) Complex EM visit Add On G2211 Diagnoses Precordial chest pain R07.2 Heart palpitations R00.2 Dyslipidemia E78.5 Hypertriglyceridemia E78.1 Diabetes mellitus with hyperglycemia E11.65 Diabetes mellitus type: type 2 Class 2 severe obesity due to excess calories with serious comorbidity and body mass index (BMI) of 35.0 to 35.9 in adult E66.01; Z68.35 Body mass index: BMI 35.0-35.9 Obesity classification: adult class 2 (BMI 35 - 39.9) Serious obesity comorbidity presence: with serious comorbidity CPT Codes EKG - CPT: [id number], Complete ([id number]) Time Spent (min) 28
== END 2025-06-11 10:49 | disposition home or self-care (01) ==
LOC: HO.HCS 09:54
PROVIDERS: PCP General Practice; Visit Provider Nurse Practitioner Family
DX: R07.2 Precordial pain (principal); R00.2 Palpitations; E78.5 Hyperlipidemia, unspecified; E78.1 Pure hyperglyceridemia; E11.65 Type 2 diabetes mellitus with hyperglycemia; E66.01 Morbid (severe) obesity due to excess calories; Z68.35 Body mass index [BMI] 35.0-35.9, adult
CPT/HCPCS: 93010; 99214

== ENCOUNTER → 2025-06-11 09:54 | Outpatient (BNVA) | payer MEDICAID, SELFPAY | PROVIDERS: PCP General Practice; Visit Provider Nurse Practitioner Family | DX: R07.2 Precordial pain (principal); R00.2 Palpitations; E78.5 Hyperlipidemia, unspecified; E78.1 Pure hyperglyceridemia; E11.65 Type 2 diabetes mellitus with hyperglycemia; E66.01 Morbid (severe) obesity due to excess calories; Z68.37 Body mass index [BMI] 37.0-37.9, adult | CPT/HCPCS: 93005; 99212 ==

== ENCOUNTER 2025-06-22 08:29 | Outpatient (AMB) | payer MEDICAID, SELFPAY ==
--- NOTE | 2025-06-22 08:37 | MHC.OFFVIS ---
Intake Visit Reasons: 3m follow up/ pVR Intake Note: Patient is present for 3M/PVR Urology Medication:TERAZOSIN Antibiotic Allergy:NONE Blood Thinner:NONE Last PVR:9ML'S Todays PVR:43ML'S Palm Gatherer Required: No Allergies No Known Allergies (No Known Allergies*) Allergy (Verified 06/22/25 09:26) Medication List - Last Reconciled 06/22/25 by RANJITH Quintana albuterol sulfate 90 mcg/actuation (Ventolin HFA) 1 puff PO QID PRN alcohol swabs (Alcohol Pads) 1 pad topical QID 30 days baclofen 5 mg PO TID PRN blood sugar diagnostic (FreeStyle Lite Strips) As directed four times a day blood-glucose meter (FreeStyle Kelso Lite kit) As directed 4 times a day empagliflozin (Jardiance) 10 mg PO QAM ergocalciferol (vitamin D2) 50 mcg PO DAILY ergocalciferol (vitamin D2) 1,250 mcg PO QWEEK flash glucose scanning reader (EnvervStyle Bernice 2 [place]) As directed flash glucose sensor (FreeStyle Bernice 2 Sensor kit) As directed every 2 weeks fluticasone propion-salmeterol 250-50 mcg/dose (Wixela Inhub) 1 inh inhalation BID 30 days folic acid 1 mg PO DAILY icosapent ethyl (Vascepa) 2 grams (2 x 1 gram) PO BID 30 days insulin glargine (Lantus Solostar U-100 Insulin) 52 units (0.52 mL) subcut QPM insulin lispro 20 - 26 units (0.2 - 0.26 mL) subcut TID lancets (TRUEplus Lancets) As directed 4 times a day buzlni-plmgaatu-ryxgrgk 24,000-76,000 -120,000 unit (Creon) 1 cap PO TID lisinopril 5 mg PO DAILY metformin ER 1,000 mg PO DAILY omeprazole 20 mg PO DAILY pen needle, diabetic (BD Ultra-Fine Jennifer Pen Needle) Five times a day pravastatin 40 mg PO BEDTIME terazosin 5 mg PO BEDTIME 30 days terbinafine HCl 1% 1 appl topical BID HPI Comments Details: Levi is a 45-year-old Malay-speaking male patient of Dr. Forbes. He has a past medical history of dyslipidemia, iron deficiency anemia, polyarthralgia, alcohol abuse, and diabetes mellitus. He presents to the office today for follow-up of his nocturia. In discussion with the patient today he reports having discontinued terazosin as he felt this was causing him heart palpitations. He reports he is now following up with cardiology. Previously patient had been experiencing episodes of nocturia up to 5 times per night however feels since he has been limiting his fluids 2-3 hours prior to bed episodes of nocturia have decrease to 2 times per night. He would like to continue with surveillance monitoring at this time. Previous workup has included bladder ultrasound results reviewed with the patient today. 02/09 the urinary bladder is unremarkable. Pre void bladder volume is approximately 200 mL. Postvoid bladder volume is approximately 5 ml. Poorly visualized prostate. Prostate volume of 16 mL. We discussed importance of obtaining sleep study as ordered. Recent PSA results were reviewed with the patient today; PSA 06/11 0.3 In office urinalysis results reviewed with the patient today. PVR 43 mL. He otherwise denies any bothersome urinary issues throughout the day. He denies urinary urgency, urinary frequency, incontinence, hematuria, dysuria, foul smelling urine, changes to urinary stream, flank pain, fever, and or chills. In review of patient's chart it appears A1c 09/10 8.1, 06/11 7.9. We discussed at length importance of managing diabetes for improvement in lower urinary tract symptoms as well as overall health and well-being. We discussed possible near future in office cystoscopy and or urodynamics for further assessment evaluation. He otherwise offers no other issues or concerns at this time. [facility] Medical History Necrotizing pancreatitis Obesity due to excess calories Dyslipidemia Iron deficiency anemia Polyarthralgia History of pancreatitis History of alcohol abuse Diabetes mellitus with hyperglycemia Surgical History No history of previous surgery Family History Father Diabetes Mother Diabetes Brother Diabetes Social History Household Members: Other Household Members Other:: mother Alcohol intake: current Patient Tobacco Use Status: Current someday Tobacco user Review of Systems Const All systems reviewed & are unremarkable except as noted in HPI and below Physical Exam Const General: cooperative, healthy appearing, comfortable, no acute distress, well developed, alert and awake Nutritional Appearance: overweight Orientation/consciousness: patient oriented x3 Limitations: no limitations HEENT Head: Yes normal to inspection, Yes normocephalic and Yes atraumatic Ears: hearing grossly normal bilaterally Eyes General: appearance normal, both eyes and all related structures Neck Neck: Yes normal visual inspection and Yes trachea midline Chest Chest palpation & inspection: normal inspection of the chest Resp Effort & Inspection: normal respiratory effort and able to speak in complete sentences Cardio Rate: regular rate GI Inspection: Yes normal to inspection General: Yes no CVA tenderness Back/Spine/Pelvis Back: no CVA tenderness Skin General skin exam: no rashes or lesions noted Neuro General: patient oriented x3 Extrem General: Yes normal to inspection Psych Appearance: grossly normal and well kempt Mental Status: mental status grossly normal Speech and movement: Normal speech and movement present and Clear speech present Affect: normal affect Attitude: cooperative Thought process: Normal thought process present Thought content: Normal thought content present Insight: Fair insight present (Psych) Judgement: Fair judgement present (Psych) Office Procedures Post Void Residual Post Residual Void Post Void Residual (PVR): 43 [id number] Void Residual by ultrasound Results AMB Urinalysis, Automated UA Leukoctes 0 Rylee/uL Last Edit by DEON Beth on 06/22/25 08:49 UA Nitrite Negative Last Edit by DEON Beth on 06/22/25 08:49 UA Urobilinogen 0.2 mg/dL Last Edit by DEON Beth on 06/22/25 08:49 UA Protein 0 mg/dL Last Edit by DEON Beth on 06/22/25 08:49 UA pH 6.0 Last Edit by DEON Beth on 06/22/25 08:49 UA Blood 0 Zbigniew/uL Last Edit by DEON Beth on 06/22/25 08:49 UA Specific [place] 1.015 Last Edit by DEON Beth on 06/22/25 08:49 UA Ketone Negative Last Edit by DEON Beth on 06/22/25 08:49 UA Bilirubin 0 mg/dL Last Edit by DEON Beth on 06/22/25 08:49 UA Glucose 0 mg/dL Last Edit by DEON Beth on 06/22/25 08:49 Results Reviewed Results Reviewed: Laboratory Last Values Urine pH (Auto) 6.0 06/22/25 08:48 Specific [place] (Auto) 1.015 06/22/25 08:48 Urine Protein (Auto) 0 mg/dL 06/22/25 08:48 Glucose (UA)(Auto) 0 mg/dL 06/22/25 08:48 Urine Ketones (Auto) Negative 06/22/25 08:48 Urine Blood (Auto) 0 Zbigniew/uL 06/22/25 08:48 Urine Nitrite (Auto) Negative 06/22/25 08:48 Urine Bilirubin (Auto) 0 mg/dL 06/22/25 08:48 Urine Urobilinogen (Auto) 0.2 mg/dL 06/22/25 08:48 Leukocyte Esterase (Auto) 0 Rylee/uL 06/22/25 08:48 Assessment & Plan Assessment & Plan (1) Nocturia: Code(s): R35.1 - Nocturia Category: Medical Plan In office urinalysis results reviewed with the patient today; as noted above. PVR 43 mL. Stop terazosin. Recent PSA results reviewed with the patient today; as noted above. Continue to follow-up with cardiology as planned. We discussed importance of obtaining sleep study for further assessment evaluation. Will continue with surveillance monitoring. We discussed importance and management of diabetes for improvement in urological health as well as overall health and well-being. All questions were answered. Continue to limit fluids 2-3 hours prior to bed Follow-up in 3 months with sleep study to be completed prior; or sooner with any issues, concerns, and or questions. Orders: Orders AMB Urinalysis Automated Today Z13.9 - Encounter for screening, unspecified Patient Instructions: The patient had an opportunity to ask questions regarding the treatment plan. All questions were answered. Physical exam, labs, and imaging were discussed and reviewed in detail. As well as risks, benefits, and discussion of treatment choices. No major barriers to understanding were identified. The patient expressed understanding and agreement with the above treatment plan. The patient was made aware they should contact our office by phone for worsening of their current condition, the appearance of new symptoms, or with any questions or concerns. Compliance is encouraged with any medications and follow up testing that is ordered. It is a privilege to be allowed the opportunity to participate in? your urological care.? Again, if you have any questions or concerns If you have any questions or concerns please do not hesitate to contact me. The office is [phone]. This note is constructed using voice recognition software. While every effort has been made to ensure accuracy manager investment errors may have been included. Yours sincerely, IRINEO Quintana-JOSIE Coding Level of Care Code Est Pt Level 3 (33372) Diagnoses Nocturia R35.1 CPT Codes Post Residual Void - PVR CPT Code: 93902-[id number] Void Residual by ultrasound ([id number])
--- OUTSIDE RECORDS SUMMARY | 2025-06-22 08:40 | XMS_ITS | Encounter Summary ---
Author Organization [facility] Address [address] [place] [address] Phone Care Team Providers Care Child And Family Therapist Name Role Phone Roxi Forbes MD Primary Care Provider Encounter Details Date Type Department Care Team (Late st Contact Info) Description 03/19/2025 Telephone [facility] [address] [place] [address] Aleida Brady Social History Tobacco [...] auth for Ozempic Rx sent 03/10. He's Belarusian-speaking- I can give him a call with info. Thanks! documented in this encounter Plan of Treatment Upcoming Encounters Date Type Department Care Team (Late st Contact Info) Description 07/14/2025 9:10 AM EDT Office Visit [facility] [address] [place] [address] Italo Shirley MD [address] [facility] [place] [address] documented as of this encounter Visit Diagnoses Not on filedocumented in this encounter Care Teams Child And Family Therapist Relationship Specialty Start Date End Date Roxi Forbes MD [address] [place] [address] PCP - General 12/27/20 documented as of this encounter
--- OUTSIDE RECORDS SUMMARY | 2025-06-22 08:40 | XMS_ITS | Encounter Summary ---
Author Organization [employer] Address [address] [place] [address] [address] [place] [address] Care Team Providers Care Showroom Manager Name Role Phone Roxi Forbes MD Primary Care Provider [phone] Reason for Visit * Reason Comments Med Refill Encounter Details Date Type Department Care Team (Late st Contact Info) Description 03/26/2023 Refill [facility] [address] [place] [address] Roxi Forbes MD [address] [place] [address] Social History Tobacco Use Types Packs/Day Years [...] filedocumented in this encounter Care Teams Showroom Manager Relationship Specialty Start Date End Date Roxi Forbes MD [address] [place], [place] [phone] PCP - General Family Medicine 01/03/21 documented as of this encounter
== END 2025-06-22 09:01 | disposition home or self-care (01) ==
LOC: HO.HUSH 08:30
PROVIDERS: PCP General Practice; Visit Provider Nurse Practitioner Family
DX: Z13.9 Encounter for screening, unspecified (principal); R35.1 Nocturia
CPT/HCPCS: 99213

== ENCOUNTER → 2025-06-22 08:29 | Outpatient (BNVA) | payer MEDICAID, SELFPAY | PROVIDERS: PCP General Practice; Visit Provider Nurse Practitioner Family | DX: R35.1 Nocturia (principal) | CPT/HCPCS: 51798; 81003; 99212 ==

== ENCOUNTER 2025-07-15 08:09 | Outpatient (REF) | payer MEDICAID, SELFPAY ==
--- OUTSIDE RECORDS SUMMARY | 2025-07-14 09:10 | XMS_ITS | Encounter Summary ---
Author Organization [facility] Address [address] [place] [address] Phone Care Team Providers Care Coil Repair Technician Name Role Phone Roxi Forbes MD Primary Care Provider [phone] Encounter Details Date Type Department Care Team (Late st Contact Info) Description 07/14/2025 9:10 AM EDT Office Visit [facility] [address] [place] [address] Italo Shirley MD [address] [facility] [place] [address] Type 2 diabetes mellitus, not otherwise specified (HCC) (Primary Dx); Flank pain Social History Tobacco Use Types Packs/Day Years Used Date Smoking Tobacco: Unknown Sex and Gender Information Value Date Recorded Sex Assigned at Not on file Legal Sex Male 9:16 AM EDT Gender Identity Not on file Sexual Orientation Not on file documented as of this encounter Plan of Treatment Upcoming Encounters Date Type Department Care Team (Late st Contact Info) Description 07/20/2025 8:50 AM EDT Office Visit [facility] [address] [place] [address] Italo Shirley MD [address] [facility] [place] [address] Scheduled Orders Name Type Priority Associated Diagnoses Orde r Schedule Urinalysis, Complete w/reflex to Culture Lab Routine Flank pain Expected: 07/14/2025, Expires: 08/14/2026 Urine Albumin / Creatinine Ratio Lab Routine Flank pain Expected: 07/14/2025, Expires: 08/14/2026 Hemoglobin A1c Lab Routine Type 2 diabetes mellitus, not otherwise specified (HCC) Expected: 07/14/2025, Expires: 08/14/2026 documented as of this encounter Visit Diagnoses Diagnosis Type 2 diabetes mellitus, not otherwise specified (HCC)- Primary Flank pain documented in this encounter Care Teams Coil Repair Technician Relationship Specialty Start Date End Date Roxi Forbes MD [address] [place] [address] PCP - General 12/27/20 documented as of this encounter
--- OUTSIDE RECORDS SUMMARY | 2025-07-15 08:33 | XMS_ITS | Encounter Summary ---
Author Organization [employer] Address [address] [place] [address] [address] [place] [address] Care Team Providers Care Bellows Assembler Name Role Phone Roxi Forbes MD Primary Care Provider [phone] Reason for Visit * Reason Comments Med Refill Encounter Details Date Type Department Care Team (Late st Contact Info) Description 03/26/2023 Refill [facility] [address] [place] [address] Roxi Forbes MD [address] [place] [address] Social History Tobacco Use Types Packs/Day Years [...] on filedocumented in this encounter Care Teams Bellows Assembler Relationship Specialty Start Date End Date Roxi Forbes MD [address] [place], [place] [phone] PCP - General Family Medicine 01/03/21 documented as of this encounter
--- OUTSIDE RECORDS SUMMARY | 2025-07-15 08:33 | XMS_ITS | Encounter Summary ---
Author Organization [facility] Address [address] [place] [address] Phone Care Team Providers Care Canal Driver Name Role Phone Roxi Forbes MD Primary Care Provider Encounter Details Date Type Department Care Team (Late st Contact Info) Description 03/19/2025 Telephone [facility] [address] [place] [address] Aleida Brady Social History Tobacco [...] auth for Ozempic Rx sent 03/10. He's Romansh-speaking- I can give him a call with info. Thanks! documented in this encounter Plan of Treatment Upcoming Encounters Date Type Department Care Team (Late st Contact Info) Description 07/20/2025 8:50 AM EDT Office Visit [facility] [address] [place] [address] Italo Shirley MD [address] [facility] [place] [address] documented as of this encounter Visit Diagnoses Not on filedocumented in this encounter Care Teams Canal Driver Relationship Specialty Start Date End Date Roxi Forbes MD [address] [place] [address] PCP - General 12/27/20 documented as of this encounter
--- OUTSIDE RECORDS SUMMARY | 2025-07-15 08:33 | XMS_ITS | Encounter Summary ---
Author Organization [employer] Address [address] [place] [address] [address] [place] [address] Care Team Providers Care Dry Boss Name Role Phone Roxi Forbes MD Primary Care Provider [phone] Reason for Visit * Reason Comments Med Refill Encounter Details Date Type Department Care Team ([facility] st Contact Info) Description 02/25/2023 Refill [facility] [address] [place] [address] Roxi Forbes MD [address] [place] [address] Social History Tobacco Use Types Packs/Day Years [...] on filedocumented in this encounter Care Teams Dry Boss Relationship Specialty Start Date End Date Roxi Forbes MD [address] [place] [address] PCP - General Family Medicine 01/03/21 documented as of this encounter
--- OUTSIDE RECORDS SUMMARY | 2025-07-15 08:33 | XMS_ITS | Encounter Summary ---
Author Organization [facility] Address [address] [place] [address] Phone Care Team Providers Care Manager Summer Name Role Phone Roxi Forbes MD Primary Care Provider [phone] Encounter Details Date Type Department Care Team (Late Contact Info) Description 03/31/2025 Documentation Only [facility] [address] [place] [phone] Italo Shirley MD [address] [place] [address] [place] [phone] Social History Tobacco Use Types Packs/Day Years Used Date Smoking Tobacco: Unknown Sex and Gender Information Value Date Recorded Sex Assigned at Not on file Legal Sex Male 9:16 AM EDT Gender Identity Not on file Sexual Orientation Not on file documented as of this encounter Plan of Treatment Upcoming Encounters Date Type Department Care Team (Late Contact Info) Description 07/20/2025 8:50 AM EDT Office Visit [facility] [address] [place] [phone] Italo Shirley MD [address] [place] [address] [place] [address] documented as of this encounter Visit Diagnoses Not on filedocumented in this encounter Care Teams Manager Summer Relationship Specialty Start Date End Date Roix Forbes MD [address] [place] [address] PCP - General 12/27/20 documented as of this encounter
--- OUTSIDE RECORDS SUMMARY | 2025-07-15 08:33 | XMS_ITS | Encounter Summary ---
Author Organization [employer] Address [address] [place] [address] [address] [place] [address] Care Team Providers Care Stock Fitter Name Role Phone Roxi Forbes MD Primary Care Provider [phone] Reason for Visit * Reason Onset Date Comments Appointment Request 04/19/2023 Encounter Details Date Type Department Care Team ([facility] st Contact Info) Description 04/19/2023 Telephone [facility] [address] [place] [address] Roxi Forbes MD [address] [place] [address] Appointment Request Social History Tobacco Use Types [...] 05/03/2023 for DM2 Please contact pt at [phone] Slovak Speaker documented in this encounter Plan of Treatment Not on file documented as of this encounter Visit Diagnoses Not on filedocumented in this encounter Care Teams Stock Fitter Relationship Specialty Start Date End Date Roxi Forbes MD [address] [place] [address] PCP - General Family Medicine 01/03/21 documented as of this encounter
--- OUTSIDE RECORDS SUMMARY | 2025-07-15 08:33 | XMS_ITS | Encounter Summary ---
Author Organization [facility] Address [address] [place] [address] Phone Care Team Providers Care Decal Transferrer Name Role Phone Roxi Forbes MD Primary Care Provider [phone] Reason for Visit * Reason Comments Med Refill Encounter Details Date Type Department Care Team (Late Contact Info) Description 12/10/2024 Refill [facility] [address] [place] [place] [address] Mary Heredia PA [address] [place] [address] [place] [phone] Social History Tobacco Use Types Packs/Day Years [...] Visit [facility] [address] [place] [address] Italo Shirley MD [address] [facility] [place] [address] documented as of this encounter Visit Diagnoses Not on filedocumented in this encounter Care Teams Decal Transferrer Relationship Specialty Start Date End Date Roxi Forbes MD [address] [place] [address] PCP - General 12/27/20 documented as of this encounter
--- OUTSIDE RECORDS SUMMARY | 2025-07-15 08:34 | XMS_ITS | Encounter Summary ---
Author Organization [facility] Address [address] [place] [address] Phone Care Team Providers Care Trucking Supervisor Name Role Phone Roxi Forbes MD Primary Care Provider [phone] Encounter Details Date Type Department Care Team (Late Contact Info) Description 12/07/2022 Documentation Only [facility] [address] [place] [address] Mary Heredia PA [address] [place] [address] [place] [address] Social History Tobacco Use Types Packs/Day Years [...] Visit [facility] [address] [place] [address] Italo Shirley MD [address] [place] [address] [place] [phone] documented as of this encounter Visit Diagnoses Not on filedocumented in this encounter Care Teams Trucking Supervisor Relationship Specialty Start Date End Date Roxi Forbes MD [address] [place] [address] PCP - General 12/27/20 documented as of this encounter
--- OUTSIDE RECORDS SUMMARY | 2025-07-15 08:34 | XMS_ITS | Encounter Summary ---
Author Organization [employer] Address [address] [facility] [address] [place] [address] Care Team Providers Care Switchboard Manager Name Role Phone Roxi Forbes MD Primary Care Provider [phone] Reason for Visit * Reason Comments Med Refill Encounter Details Date Type Department Care Team ([facility] st Contact Info) Description 09/10/2023 Refill [facility] [address] [place] [address] Roxi Forbes MD [address] [place] [address] Social History Tobacco Use Types Packs/Day Years [...] the past 12 months, has t he [employer], gas, oil or water [employer] threatened to shut off services in your [...] on filedocumented in this encounter Care Teams Switchboard Manager Relationship Specialty Start Date End Date Roxi Forbes MD [address] [place] [address] PCP - General Family Medicine 01/03/21 documented as of this encounter
--- OUTSIDE RECORDS SUMMARY | 2025-07-15 08:34 | XMS_ITS | Encounter Summary ---
Author Organization [facility] Address [address] [place] [address] Phone Care Team Providers Care Rv Detailer Name Role Phone Roxi Forbes MD Primary Care Provider [phone] Encounter Details Date Type Department Care Team (Late st Contact Info) Description 12/19/2023 Documentation Only [facility] [address] [place] [address] Kalina Borden [address] [place] [phone] Social History Tobacco Use Types Packs/Day Years [...] Visit [facility] [address] [place] [address] Italo Shirley MD [address] [facility] [place] [phone] documented as of this encounter Visit Diagnoses Not on filedocumented in this encounter Care Teams Rv Detailer Relationship Specialty Start Date End Date Roxi Forbes MD [address] [place] [address] PCP - General 12/27/20 documented as of this encounter
--- OUTSIDE RECORDS SUMMARY | 2025-07-15 08:34 | XMS_ITS | Encounter Summary ---
Author Organization [facility] Address [address] [place] [address] Phone Care Team Providers Care Meter Maintenance Person Name Role Phone Roxi Forbes MD Primary Care Provider [phone] Encounter Details Date Type Department Care Team (Late Contact Info) Description 08/07/2022 Documentation Only [facility] [address] [place] [phone] Mary Heredia PA [address] [place] [address] [place] [address] Social History Tobacco Use Types Packs/Day Years [...] [facility] [address] [place] [address] Italo Shirley MD [address] [place] [address] [place] [phone] documented as of this encounter Visit Diagnoses Not on filedocumented in this encounter Care Teams Meter Maintenance Person Relationship Specialty Start Date End Date Roxi Forbes MD [address] [place] [address] PCP - General 12/27/20 documented as of this encounter
--- OUTSIDE RECORDS SUMMARY | 2025-07-15 08:34 | XMS_ITS | Encounter Summary ---
Author Organization [employer] Address [address] [facility] 7t [place] [address] Care Team Providers Care Angiography Nurse Name Role Phone Roxi Forbes MD Primary Care Provider [phone] Encounter Details Date Type Department Care Team (Late st Contact Info) Description 07/21/2024 Orders Only [facility] MED[facility]INE [address] [place] [address] Roxi Forbes MD [address] [place] [address] Social History Tobacco Use Types Packs/Day Years [...] documented as of this encounter Care Teams Angiography Nurse Relationship Specialty Start Date End Date Roxi Forbes MD [address] [place] [address] PCP - General Family Medicine 01/03/21 documented as of this encounter
--- OUTSIDE RECORDS SUMMARY | 2025-07-15 08:34 | XMS_ITS | Clinical Summary ---
Author Organization [facility], Address [address] [place] [address] [place] [address] Phone Care Team Providers Care Automobile Damage Appraiser Name Role Phone Roxi Forbes MD Primary [...] VECES AL D A 2 Active Creon 40771-11109 units capsule TOME 1 C PSULA POR [...] to 10 days 30 tablet 3 Active ergocalciferol 1.25 MG (90736 UT) capsule Take 1 capsule (50,000 Units total) by mouth 1 (one) time per week 12 capsule 3 5 11/23/19 26 Active lisinopril 10 MG tablet Take 1 tablet (10 mg total) by mouth 1 (one) time each day 90 tablet 3 5 04/22/20 26 Active predniSONE (DELTASONE) 20 MG tablet Take 2 tablets (40 mg total) by mouth 1 (one) time each day 8 tablet 5 Active Active Problems Problem Noted Date [...] Encounters Date Type Department Care Team Description 07/14/2025 9:10 AM EDT Office Visit [facility] [address] [place] [address] Italo Shirley MD Type 2 diabetes mellitus, not otherwise specified (HCC) (Primary Dx); Flank pain 04/27/2025 Refill [facility] [address] [place] [address] Polina Dias MA 04/14/2025 1:00 PM EDT Office [facility] [address] [place] [address] Italo Shirley MD Chronic kidney disease, stage 2 (mild) (Primary Dx); Type 2 diabetes mellitus, not otherwise specified (HCC) from Last 3 Months Immunizations Immunization Administration [...] 94 03/25/2020 10:01 AM EDT Temperature 37.3 C (99.2 F) 03/25/2020 10:01 AM EDT Respiratory Rate - - Oxygen Saturation 100% [...] Office Visit [facility] [address] [place] [phone] Italo Shirley MD [address] [place] [address] [place] [address] Health Maintenance Due Date Last Done Comments Hepatitis B Vaccine (1 of 3 - 19+ 3-dose series) 1997 Diabetes: Ophthalmology Exam 12/26/2020 Diabetes: Pedal Pulse Checked 12/26/2020 Diabetes: Sensory Foot Exam 12/26/2020 Diabetes: Visual Foot Exam 12/26/2020 Influenza Vaccine (#1) 2025 01/18/2025, 2019 Diabetes: Hemoglobin A1C 09/09/2025 025, 06/07/2025, 10/19/2024, Additional history exists Pneumococcal Vaccine: 50+ Years Discontinued 3, 03/21/2020 Pneumococcal Vaccine: Peds ( 0 to 5 Years) and At-Risk Patients (6 to 49 Years) Completed 05/10/2023, 03/21/2020 Insurance Medicaid [place] Care Teams Automobile Damage Appraiser Relationship Specialty Start Date End Date Roxi Forbes MD [address] [place] [address] PCP - General 12/27/20
--- OUTSIDE RECORDS SUMMARY | 2025-07-15 08:34 | XMS_ITS | Encounter Summary ---
Author Organization [facility] Address [address] [place] [address] Phone Care Team Providers Care R D Internship Name Role Phone Roxi Forbes MD Primary Care Provider [phone] Encounter Details Date Type Department Care Team (Late st Contact Info) Description 10/01/2024 Documentation Only [facility] [address] [place] [address] Berna Castellano [place] [address] [place] [phone] Social History Tobacco Use Types Packs/Day Years [...] Visit [facility] [address] [place] [phone] Italo Shirley MD [address] [place] [address] [place] [phone] documented as of this encounter Visit Diagnoses Not on filedocumented in this encounter Care Teams R D Internship Relationship Specialty Start Date End Date Roxi Forbes MD [address] [place] [address] PCP - General 12/27/20 documented as of this encounter
--- OUTSIDE RECORDS SUMMARY | 2025-07-15 08:34 | XMS_ITS | Encounter Summary ---
Author Organization [employer] Address [address] [facility] [address] [place] [address] Care Team Providers Care Health Information Tech Name Role Phone Roxi Forbes MD Primary Care Provider [phone] Reason for Visit * Reason Onset Date Comments Med Refill 08/09/2023 Encounter Details Date Type Department Care Team ([facility] st Contact Info) Description 08/09/2023 Telephone [facility] MEDICINE [address] [place] [address] Roix Forbes MD [address] [place] [address] Med Refill Social History Tobacco Use Types [...] states that provider who prescribes medication at [address] [place] [address] Linwood Piña, stop medication due to pt missingfollow up appt with provider. Pt is requesting if provider could prescribed, pt states he uses medication every night. No symptoms Please contact pt at [phone] Malian Speaker documented in this encounter Plan of Treatment Not on file documented as of this encounter Visit Diagnoses Not on filedocumented in this encounter Care Teams Health Information Tech Relationship Specialty Start Date End Date Roxi Forbes MD [address] [place] [address] PCP - General Family Medicine 01/03/21 documented as of this encounter
--- OUTSIDE RECORDS SUMMARY | 2025-07-15 08:34 | XMS_ITS | Encounter Summary ---
Author Organization [employer] Address [address] [facility] 7[address] [place] [address] Care Team Providers Care Pipe Bender Name Role Phone Roxi Forbes MD Primary Care Provider [phone] Reason for Referral * Consultation (Routine) - Closed Specialty Diagnoses / Procedures Referred By Contestelle t Referred To Contact Cardiology Diagnoses History of pancreatitis Hypertriglyceridemia Roxi Forbes MD [address] [place] [address] Phone: tel: fax: [facility] Referral ID Status Reason Start Date Expiration Date V isits Requested Visits Authorized [id number] Closed Specialty Services Required 09/24/2024 09/24/2025 6 6 Encounter Details Date Type Department Care Team (Late st Contact Info) Description 09/17/2024 Orders Only [facility] MEDICINE [address] [place] [address] Roxi Forbes MD [address] [place] [address] History of pancreatitis (Primary Dx); Hypertriglyceridemia Social [...] your housing situation today? I have dorian sing 01/20/[address] you li [...] documented as of this encounter Care Teams Pipe Bender Relationship Specialty Start Date End Date Roxi Forbes MD [address] [place] [address] PCP - General Family Medicine 01/03/21 documented as of this encounter
--- OUTSIDE RECORDS SUMMARY | 2025-07-15 08:34 | XMS_ITS | Encounter Summary ---
Author Organization [employer] Address [address] [facility] 7t [place] [address] Care Team Providers Care Junior Accountant Bookkeeper Name Role Phone Roxi Forbes MD Primary Care Provider [phone] Reason for Visit * Reason Comments Med Refill Encounter Details Date Type Department Care Team ([facility] st Contact Info) Description 09/04/2023 Refill [facility] MED[facility]INE [address] [place] [address] Dariela Cruz MD [address] [place] [address] Social History Tobacco Use Types Packs/Day Years Used Date Smoking Tobacco: Some Days Cigarettes Smokeless Tobacco: Never Alcohol Use Standard Drinks/Week Comments Not Currently 0 (1 standard drink = 0.6 oz pur e alcohol) Housing Stability Answer Date Recorded What is your housing situation today? I have dorian bree 09/04/[address] you li [...] the past 12 months, has t he [employer], oil or water company threatened to shut [...] on filedocumented in this encounter Care Teams Junior Accountant Bookkeeper Relationship Specialty Start Date End Date Roxi Forbes MD [address] [place] [address] PCP - General Family Medicine 01/03/21 documented as of this encounter
--- OUTSIDE RECORDS SUMMARY | 2025-07-15 08:34 | XMS_ITS | Encounter Summary ---
Author Organization [facility] Address [address] [place] [address] Phone Care Team Providers Care Assistant Property Manager Name Role Phone Roxi Forbes MD Primary Care Provider [phone] Encounter Details Date Type Department Care Team (Late st Contact Info) Description 12/23/2023 Documentation Only [facility] [address] [place] [address] Kalina Borden [address] [place] [phone] Social History Tobacco Use Types Packs/Day Years [...] [facility] [address] [place] [address] Italo Shirley MD [address] [facility] [place] [phone] documented as of this encounter Visit Diagnoses Not on filedocumented in this encounter Care Teams Assistant Property Manager Relationship Specialty Start Date End Date Roxi Forbes MD [address] [place] [address] PCP - General 12/27/20 documented as of this encounter
--- OUTSIDE RECORDS SUMMARY | 2025-07-15 08:34 | XMS_ITS | Encounter Summary ---
Author Organization [employer] Address [address] [facility] 7t [place] [address] Care Team Providers Care Cashier Manager Name Role Phone Roxi Forbes MD Primary Care Provider [phone] Encounter Details Date Type Department Care Team (Late st Contact Info) Description 05/13/2025 Orders Only [facility] MEDICINE [address] [place] [address] Roxi Forbes MD [address] [place] [address] Screening for colon cancer (Primary Dx) Social History Tobacco Use Types Packs/Day Years [...] Procedure Name Priority Date/Time Associated Diagnosis Comments LAB COLOGUARD COLON CANCER SCREEN Routine 05/31/2025 8:00 AM EDT Screening for colon cancer documented in this encounter Results * Cologuard?? colon cancer screening (05/31/2025 8:00 AM EDT) Cologuard Result Negative Negative 06/06/20 2:04 PM EDT [facility] (CLIA #:[id number]) Comment: The Cologuard (TM) test was performed on this specimen. NEGATIVE TEST RESULT. A negative Cologuard result indicates a low likelihood that a colorectal cancer (CRC) or advanced adenoma (adenomatous polyps with more advanced pre-malignant features) is present. The chance that a person with a negative Cologuard test has a colorectal cancer is less than 1 in 1500 (negative predictive value >99.9%) or has an advanced adenoma is less than 5.3% (negative predictive value 94.7%). These data are based on a prospective cross-sectional study of 10,000 individuals at average risk for colorectal cancer who were screened with both Cologuard and colonoscopy. (Doug Barron al, N Engl J Med 2014;370(14):1286- 1297) The normal value (reference range) for this assay is negative. COLOGUARD RE-SCREENING RECOMMENDATION: Periodic colorectal cancer screening is an important part of preventive healthcare for asymptomatic individuals at average risk for colorectal cancer. Following a negative Cologuard result, the [place] [employer] Society and U.S. Multi-Society Task Force screening guidelines recommend a Cologuard re-screening interval of 3 years. References: [place] [employer] Guideline for Colorectal Cancer Screening: https://www.cancer.org/cancer/prwms-zifjcy-sluqti/fbofloibf-saileluxw-cwqjaru/ac s-rec ommendations.html.; Arturo DK, Juliocesar CR, Kane MillsK, Colorectal Cancer Screening: Recommendations for Physicians and Patients from the U.S. Multi-Society Task Force on Colorectal Cancer Screening , Am J Gastroenterology 2017; 112:5793-1240. TEST DESCRIPTION: Composite algorithmic analysis of stool DNA-biomarkers with hemoglobin immunoassay. Quantitative values of individual biomarkers are not reportable and are not associated with individual biomarker result reference ranges. Cologuard is intended for colorectal cancer screening of adults of either sex, 45 years or older, who are at average-risk for colorectal cancer (CRC). Cologuard has been approved for use by the U.S. FDA. The performance of Cologuard was established in a cross sectional study of average-risk adults aged 50-84. Cologuard performance in patients ages 45 to 49 years was estimated by sub-group analysis of near-age groups. Colonoscopies performed for a positive result may find as the most clinically significant lesion: colorectal cancer [4.0%], advanced adenoma (including sessile serrated polyps greater than or equal to 1cm diameter) [20%] or non- advanced adenoma [31%]; or no colorectal neoplasia [45%]. These estimates are derived from a prospective cross-sectional screening study of 10,000 individuals at average risk for colorectal cancer who were screened with both Cologuard and colonoscopy. (Doug Barron al, N Engl J Med 2014;370(14):7960-9981.) Cologuard may produce a false negative or false positive result (no colorectal cancer or precancerous polyp present at colonoscopy follow up). A negative Cologuard test result does not guarantee the absence of CRC or advanced adenoma (pre-cancer). The current Cologuard screening interval is every 3 years. ([place] [employer] Society and U.S. Multi-Society Task Force). Cologuard performance data in a 10,000 patient pivotal study using colonoscopy as the reference method can be accessed at the following location: www.[employer]/results. Additional description of the Cologuard test process, warnings and precautions can be found at www.InTownrd.com. Stool specimen (specimen) 05/31/2025 8:00 AM EDT 06/01/2025 10:20 AM EDT Roxi Forbes MD LAB MOLECULAR DIAGNOSTICS NATIVIDAD THAPA Final Result [facility] [employer] [facility] (CLIA #:[id number]) [address] [place] [address], documented in this encounter Visit Diagnoses Diagnosis Screening for colon cancer- Primary Special screening for malignant neoplasms, colon documented in this encounter Additional Health Concerns Assessment Noted Time PHQ-9 Depression Total Score: 0 06/22/20 24 2:43 PM EDT documented as of this encounter Care Teams Cashier Manager Relationship Specialty Start Date End Date Roxi Forbes MD [address] [place] [address] PCP - General Family Medicine 01/03/21 documented as of this encounter
--- OUTSIDE RECORDS SUMMARY | 2025-07-15 08:34 | XMS_ITS | Encounter Summary ---
Author Organization [employer] Address [address] [facility] 7t [place] [address] Care Team Providers Care Endless Bed Drum Sander Name Role Phone Roxi Forbes MD Primary Care Provider [phone] Reason for Visit * Reason Onset Date Comments Nurse Triage 07/09/2023 Encounter Details Date Type Department Care Team ([facility] st Contact Info) Description 07/09/2023 Telephone [facility] MEDICINE [address] [place] [address] Roxi Forbes MD [address] [place] [address] Nurse Triage Social History Tobacco Use Types [...] 07/09/2023 3:55 PM EDT Triage call with [employer] [place] [employer] [id number] Pt reports right knee pain for past [...] little. Pt is advised to come to [facility] today ortomorrow, Hours given open 830p [...] accepted this outcome Please contact pt at [phone] documented in this encounter Plan of Treatment Not on file documented as of this encounter Visit Diagnoses Not on filedocumented in this encounter Care Teams Endless Bed Drum Sander Relationship Specialty Start Date End Date Roxi Forbes MD [address] [place] [address] PCP - General Family Medicine 01/03/21 documented as of this encounter
--- OUTSIDE RECORDS SUMMARY | 2025-07-15 08:34 | XMS_ITS | Clinical Summary ---
Author Organization [employer] Address [address] [facility] [address] [place] [address] Care Team Providers Care Polymer Engineer Name Role Phone Roxi Forbes MD Primary Care Provider [phone] Allergies No known active allergies Medications thiamine (Vitamin B-1) 100 MG tablet Take 100 mg by mouth. 03/15/20 20 Active Multiple Vitamin (Daily-Iban) tablet 03/15/20 20 Active hydrocortisone 2.5 % cream apply by topical route 2 times every day to the affected area(s) 06/21/20 21 Active Alcohol Swabs ([facility] Prep) 70 % pads USE SEG N LO INDICADO CUATRO VECES AL D A 01/11/20 22 Active ProAir HFA 108 (90 Base) MCG/ACT inhaler INHALE 1 PUFF POR V A ORAL CUATRO VECES AL D A 30 DAYS NEEDED FOR SHORTNESS OF BREATH OR WHEEZING 12/26/19 22 Active Mapap Arthritis Pain 650 MG ER tablet TOME DOS TABLETAS POR V A ORAL CADA OCHO HORAS CUANDO SEA NECESARIO 01/23/20 22 Active Continuous Blood Gluc Pega Developer (FreeStyle Bernice 2 Purdys) deviceIndications :Type 2 diabetes mellitus with hyperglycemia, with long-term current use of insulin ([facility]) USE DAILY TO CHECK BLOOD SUGAR 1 each 01/11/20 23 Active lisinopril 10 MG tablet Take 10 mg by mouth. 12/24/19 24 Active ergocalciferol (Vitamin D2) 1.25 MG (51794 UT) capsule Take 50,000 Units by mouth 1 (one) time per week. 02/19/20 24 Active insulin lispro (HumaLOG) 100 UNIT/ML injection Inject 12 Units under the skin with breakfast, with lunch, and with evening meal. 15 mL 11 06/22/20 24 Active omeprazole (PriLOSEC) [address] capsule TOME STEPHIE CAPSULA TODOS [place] G[place]A 90 capsule 3 06/22/20 24 Active Continuous Glucose Sensor (FreeStyle Bernice 2 Sensor) miscIndications:T ype 2 diabetes mellitus with hyperglycemia, unspecified whether mcc insulin use (CMS/HCC) USE DIRECTED, CHANGE EVERY 2 WEEKS 2 each 07/03/20 24 Active empagliflozin (Jardiance) 25 MG Take 1 tablet (25 mg) by mouth Once per day. 30 tablet 11 07/21/20 24 Active pravastatin (Pravachol) 40 MG tabletIndications :Hypertriglycerid emia Take 1 tablet (40 mg) by mouth Once per day. 90 tablet 3 08/18/20 24 2024 Active FREESTYLE LITE test strip Use to check BS 4 times a day 100 each 11 09/17/20 24 Active folic acid (Folvite) 1 MG tablet TAKE 1 TABLET BY MOUTH EVERY MORNING 90 tablet 3 10/19/20 24 Active glipiZIDE (Glucotrol) 5 MG tabletIndications :Type 2 diabetes mellitus with hyperglycemia, with long-term current use of insulin (CMS/HCC) Take 1 tablet (5 mg) by mouth before breakfast and before evening meal. Use while working when insulin is not on hand. Do not use medication when taking insulin. 60 tablet 11 10/19/20 24 2024 Active insulin pen needle (BD Pen Needle Jennifer 2nd Gen) 32G x 4 mm misc Use 4 times a day as instructed 100 each 10/23/20 24 Active metFORMIN XR (Glucophage-XR) 500 MG 24 hr tabletIndications :Type 2 diabetes mellitus with hyperglycemia, without long-term current use of insulin (CMS/HCC) TAKE 2 TABLETS BY MOUTH EVERY DAY 180 tablet 3 11/23/19 25 Active Lantus SoloStar 100 UNIT/ML pen INJECT 60 UNITS UNDER THE SKIN AT BEDTIME. 15 mL 04/14/20 25 Active Icosapent Ethyl (Vascepa) 1 g capsuleIndication s:Hypertriglyceri demia TOME 2 C PSULAS POR V A ORAL DOS VECES AL D A 03/26/20 25 Active tamsulosin (Flomax) 0.4 MG 24 hr capsuleIndication s:Class 2 severe obesity with serious comorbidity and body mass index (BMI) of 38.0 to 38.9 in adult, unspecified obesity type (CMS/HCC) TOME 1 C PSULA POR V A ORAL TODOS LOS D AL ACOSTARSE 01/28/20 25 Active terazosin (Hytrin) 5 MG capsuleIndication s:Class 2 severe obesity with serious comorbidity and body mass index (BMI) of 38.0 to 38.9 in adult, unspecified obesity type (CMS/HCC) TOME 1 C PSULA POR V A ORAL TODOS LOS D AL ACOSTARSE 03/23/20 25 Active evolocumab (Repatha SureClick) 140 MG/ML injectionIndicati ons:Hypertriglyce ridemia,Mixed hyperlipidemia Inject 1 mL (140 mg) under the skin every 14 (fourteen) days. 2.1 mL 3 06/08/20 25 Active fenofibrate (Tricor) 145 MG tablet TAKE 1 TABLET BY MOUTH EVERY DAY 90 tablet 3 06/28/20 25 Active fenofibrate (Tricor) 145 MG tablet TAKE 1 TABLET BY MOUTH EVERY DAY 90 tablet 3 07/03/20 24 2024 Discontinued Active Problems Problem Noted Date Diagnosed Date Mixed hyperlipidemia 06/08/2025 Class 2 severe obesity with serious comorbidity and body mass index (BMI) of 38.0 to 38.9 in adult 06/08/2025 Stress incontinence of urine 09/08/2024 Hypertriglyceridemia 06/26/2024 Assessment & Plan (10/19/2024 9:57 AM EST): Pt will continue taking pravastatin daily Pt will call [facility] cardiology to schedule appt as referral [...] does not tolerate it will refer to charge preparation technician for assistance with other lipid lowering agents Assessment & Plan (06/26/2024 8:07 AM EDT): TG> 400 Cannot tolerate statins or fish oil, will add Zetia to Fenofibrate and recheck in three months Pancreatic insufficiency 10/02/2023 Assessment & Plan (10/02/2023 10:09 AM EST): Continue Crelilliana Speak about colonoscopy at next GI appoitnemnt [...] 2 diabetes mellitus 11/14/2022 Assessment & Plan (06/08/2025 2:40 PM EDT): Current A1c: 8.3 Continue Lantus, Novlog, Metformin and Jardiance Submit PA for CGM today, this will allow us to titrate patient's insulin more specifically BMP: Lab Results Component Value Date K 3.6 10/22/2024 CREATININE 1.14 10/22/2024 CREATININE 1.08 06/15/2022 MICROALBUR 15.0 10/22/2024 Foot Exam: normal 06/2024 Eye Exam: no NPDR 06/2024 Lipid panel: Lab Results Component Value Date TRIG 434 (H) 03/17/2025 TRIG 626 (H) 10/22/2024 CHOL 240 (H) 03/17/2025 CHOL 232 (H) 10/22/2024 LDLCHOLCAL TNP 03/17/2025 LDLCHOLCAL TNP 10/22/2024 HDL 39 (L) 03/17/2025 HDL 36 (L) 10/22/2024 ASCVD: The ASCVD Risk score (Rangel OLGUIN, et al., 2019) failed to calculate for the following reasons: Unable to determine if patient is Non- Statin: NO, cannot tolerate. On Fenofibrate and starting Zetia today Submit PA for Repatha today ASA: Yes MARCO A/ARB: Yes Encouraged regular aerobic exercise for improved glycemic control Encouraged daily foot checks Encouraged lean protein snacks and to avoid foods high in sugar and simple carbohydrates Treatment Goals: A1c goal: <7% FBG goal: <130 2 hour post prandial goal: <180 Assessment & Plan (10/19/2024 10:01 AM EST): [...] AM EDT): Current A1c: 8.8, needs to pick and shovel man Lantus and Novolog, has not had them for many months. [facility] can [facility] man today. Continue Metformin and Jardiance BMP: Lab [...] estimation of LDL-C. Tevin FAUST et al. EILNA. 2013;310(19): 6443-9887 (http://education.SmartRx.com/faq/BUO270) ASCVD: Calculate pending updated labs Statin: NO, [...] LDL-C. Tevin FAUST et al. ELINA. 2013;310(19): 0308-3071 (http://education.SmartRx.com/faq/VAU543) ASCVD: Calculate pending updated labs Statin: Yes [...] LDL-C. Tevin FAUST et al. ELINA. 2013;310(19): 5601-4061 (http://education.SmartRx.Bluespec/faq/OXE185) ASCVD: Calculate pending updated labs Statin: Yes [...] 3:08 PM EDT): Following with nephrology in [facility] Has pending renal US, helped to schedule ER precautions Iron deficiency anemia 06/22/2020 Encounters Date Type Department Care Team Description 07/06/2025 Telephone [facility] [address] [place] [phone] Roxi Forbes MD 07/05/2025 Results Follow-Up [facility] [address] [place] [address] Roxi Forbes MD Hemoglobin A1c, Hepatic Function Panel, Lipid Panel, Standard, PSA,Total 06/28/2025 Refill [facility] [place] [address] Roxi Forbes MD 06/09/2025 Orders Only GENERIC EXTERNAL DATA DEPARTMENT Provider, Generic External Data 06/07/2025 2:45 PM EDT Office Visit [facility] [place] [address] Roxi Forbes MD Type 2 diabetes mellitus with hyperglycemia, with long-term current use of insulin ([facility]) (Primary Dx); Mild intermittent asthma with acute exacerbation; Dietary counseling; Exercise counseling; Class 2 severe obesity with serious comorbidity and body mass index (BMI) of 38.0 to 38.9 in adult, unspecified obesity type (CMS/HCC); Hypertriglyceridemia ; Mixed hyperlipidemia; Major depressive disorder with single episode, in partial remission ([facility]); Stress incontinence of urine; History of pancreatitis; Tachycardia 06/07/2025 Travel 06/04/2025 Telephone [facility] [address] [place] [phone] Roxi Forbes MD Chart prep 05/14/2025 Telephone [facility] [address] [place] [phone] Roxi Forbes MD [facility] medical necessity 05/13/2025 Orders Only [facility] [address] [place] [phone] Roxi Forbes MD Screening for colon cancer (Primary Dx) 05/12/2025 Telephone [facility] [address] [place] [phone] Roxi Forbes MD Lab Orders 04/14/2025 Refill [facility] [address] [place] [phone] Roxi Forbes MD 04/14/2025 Refill [facility] [address] [place] [phone] Roxi Forbes MD from Last 3 Months Immunizations Immunization Administration Dates Next Due Influenza injectable quadriv alent IIV4 with preservative 12/07/2019 Influenza, seasonal, injectable, preservative fr ee 01/18/2025 Moderna Covid-19 Vaccine 12+ 02/10/2021 Pfizer Covid-19 Vaccine 12+ 02/25/2021 Pfizer Covid-19 Vaccine 12+ Bivalent 11/14/2022 Pneumococcal Conjugate PCV 13 03/21/2020 Pneumococcal Conjugate PCV 20 05/10/2023 Social History Tobacco Use Types Packs/Day Years Used Date Smoking Tobacco: Some Days Cigarettes Passive Smoke Exposure: Current Smokeless Tobacco: Never Tobacco Cessation:Ready to Q uit: Not Asked; Counseling Given: Not Answered Alcohol Use Standard Drinks/Week Comments Not Currently 0 (1 standard drink = 0.6 oz pur e alcohol) Depression Answer Date Recorded Patient Health Questionnaire-9 Score 6 06/07/2025 Patient Health Questionnaire-9 Score 6 06/07/2025 Last PHQ-9: Questionnaire Data Not on file 0 06/07/2025 Housing Stability Answer Date Recorded What is your housing situation today? I do not have housing (Staying with others, in a hotel, in a senior care, living outside on the street, on a beach, in a car, or in a park 06/07/[address] you li ve. Do you have problems with any of the following? None of the above 06/07/2025 Food Insecurity Answer Date Recorded Within the past 12 months, y ou worried that your food would run out before you got money to buy more: Never True 06/07/2025 Within the past 12 months,th e food you bought just didn't last and you didn't have enough money to get more: Never True Transportation Answer Date Recorded In the past 12 months, has l ack of transportation kept you from medical appts, meetings, work or from getting things needed for daily living? No 06/07/2025 Utilities Answer Date Recorded In the past 12 months, has t he electric, gas, oil or water company threatened to shut off services in your home? No 06/07/2025 Depression Answer Date Recorded Patient Health Questionnaire-2 Score 1 06/07/2025 Internet Access Answer Date Recorded Internet Access Q1 Yes 06/07/2025 Internet Access Q2 Not on file 06/07/2025 Sex and Gender Information Value Date Recorded Sex Assigned at Male 09/17/2022 10:23 AM EDT Legal Sex Male 10:23 AM EDT Gender Identity Male 09/17/2022 10:23 AM EDT Sexual Orientation Straight 09/17/2022 10 :23 AM EDT Last Filed Vital Signs Vital Sign Reading Time Taken Comments Blood Pressure 132/80 06/07/2025 2:26 PM EDT Pulse 70 06/07/2025 2:26 PM EDT Temperature 36.2 C (97.1 F) 06/07/2025 2:26 PM EDT Respiratory Rate 18 06/07/2025 2:26 PM EDT Oxygen Saturation 97% 10/19/2024 9:11 AM EST Inhaled Oxygen Concentration - - Weight 108 kg (238 lb) 06/07/2025 2:26 PM EDT Height 167.6 cm (5' 6 ) 06/07/2025 2:26 PM EDT Body Mass Index 38.41 06/07/2025 2:26 PM EDT Plan of Treatment Health Maintenance Due Date Last Done Comments CT Colonography 1978 Colonoscopy 1978 FIT 1978 FOBT 1978 Sigmoidoscopy 1978 Alcohol/Substance Use Screening 1990 Family Planning (PISQ) 1993 Hepatitis B Vaccines (1 of 3 - 19+ 3-dose series) 1997 Influenza Vaccine (#1) 2025 01/18/2025, 2019 Diabetes: Hemoglobin A1C 09/09/2025 025, 06/07/2025, 10/19/2024, Additional history exists DTaP/Tdap/Td Vaccines (1 - Tdap) 10/19/2025 Postponed from 1997 (Patient Refused) Diabetes: Foot Exam 10/19/2025 10/19/2024, 4 Hepatitis A Vaccines (1 of 2 - Risk 2-dose series) 10/19/2025 Postponed from 1997 (Patient Refused) Diabetes: Urine Protein Screening 10/22/2025 10/22/2024, 07/04/2023, 12/05/2022, Additional history exists Depression Screening 06/07/2026 06/07/2025, 06/07/20 25 Disability Screening 06/07/2026 06/07/2025 SDOH Screening 06/07/2026 06/07/2025 Tobacco Screening 06/08/2026 06/08/2025 Lipid Panel 06/09/2026 06/09/2025, 04/3 , 10/22/2024, Additional history exists Eye Exam 07/01/2026 07/01/2024 Zoster Vaccines (1 of 2) 02/04/2028 Colorectal Cancer Screening 05/31/2028 FIT DNA/Cologuard 05/31/2028 05/31/2025 RSV Patients and Patients Aged 60 years or older (1 - 1-dose 75+ series) 2053 HIV Screening Completed 05/26/2020 Pneumococcal Vaccine: Pediatrics (0 to 5 Years) and At-Risk Patients (6 to 49) Years Completed 05/10/2023, 03/21/2020 Hepatitis C Screening Completed 07/27/2024 COVID-19 Vaccine Completed 01/18/2025, , 11/14/2022, Additional history exists HIB Vaccines Aged Out No longer eligi ble based on patient's age to complete this topic HPV Vaccines Aged Out No longer eligi ble based on patient's age to complete this topic IPV Vaccines Aged Out No longer eligi ble based on patient's age to complete this topic Meningococcal B Vaccine Aged Out No l onger eligible based on patient's age to complete [...] Procedure Name Priority Date/Time Associated Diagnosis Comments PSA, TOTAL Routine 06/09/2025 8:09 AM EDT LIPID PANEL, STANDARD Routine 06/09/2025 8:09 AM EDT HEPATIC FUNCTION PANEL Routine 06/09/2025 8:09 AM EDT HEMOGLOBIN A1C Routine 06/09/2025 8:09 AM EDT ECG 12-LEAD Routine 06/08/2025 2:42 PM EDT Tachycardia POCT GLUCOSE Routine 06/07/2025 2:35 PM EDT Type 2 diabetes mellitus with hyperglycemia, with long-term current use of insulin (CMS/HCC) POCT GLYCATED HEMOGLOBIN, TOTAL Routine 06/07/2025 2:34 PM EDT Type 2 diabetes mellitus with hyperglycemia, with long-term current use of insulin (CMS/HCC) LAB COLOGUARD COLON CANCER SCREEN Routine 05/31/2025 8:00 AM EDT Screening for colon cancer ALBUMIN, RANDOM URINE W/CREATININE Routine 10/22/2024 9:00 AM EST Type 2 diabetes mellitus with hyperglycemia, with long-term current use of insulin (CMS/HCC) HEPATITIS C AB W/REFL TO HCV RNA, QN, PCR Routine 07/27/2024 8:05 AM EDT Hypertriglyceridemi a HIV 1/2 ANTIGEN/ANTIBODY, FOURTH GENERATION W/RFL Routine 05/26/2020 4:27 PM EDT from Last 3 Months or Most Recently Relevant to Health Maintenance Results * PSA,Total (06/09/2025 8:09 AM EDT) Prostate Specific Antigen 0.33 <0.05 - 4.0 ng/mL [facility] Comment:PSA methodology: Lenny Morejon i ChemiluminescentMicroparticle Immunoassay (CMIA) 06/09/2025 8:09 AM EDT 06/09/2025 11:24 AM EDT us Generic External Data Provider LAB BLOOD ORDERAB LES Final Result [facility] [address] [place] [phone] * (ABNORMAL) Hemoglobin A1c (06/09/2025 8:09 AM EDT) Hemoglobin A1c 7.9(H) <6.0 % [facility] Comment:Hemoglobin A1C Refer ence Range Adults: 4.8 - 6.0 % Non diabetic: < 6.0 % Goal: < 7.0 %Additional Action Suggested: > 8.0 %Note: Hemoglobin A1c results are invalid for patients with abnormal amounts of HbF. Blood transfusions may impact the HbA1c concentration in the patient sample. Estimated Average Glucose 180 mg/dL [facility] Comment:eAG = Estimated ave rage glucose which is %A1C expressed asaverage glucose, using the formula of the D2J-ZrfdgmdHyyfdni Glucose study (ADAG), Diabetes Care, Vol.31,#8,2007 06/09/2025 8:09 AM EDT 06/09/2025 11:24 AM EDT us Generic External Data Provider LAB BLOOD ORDERAB LES Final Result Performing Organization Address [facility]/ZIP Co de Phone Number [facility] [address] [place] [phone] * Hepatic Function Panel (06/09/2025 8:09 AM EDT) Bilirubin, Total 0.4 0.0 - 1.0 mg/dL [facility] Bilirubin, Direct 0.1 0.0 - 0.5 mg/dL [facility] Aspartate Amino Transferase 35 5 - 37 U/L [facility] Alanine Aminotransferase 28 0 - 40 U/L [facility] Total Protein 7.7 6.5 - 8.0 g/dL [facility] Albumin Level 4.8 3.5 - 5.0 g/dL [facility] Alkaline Phosphatase 45 39 - 117 U/L [facility] 06/09/2025 8:09 AM EDT 06/09/2025 11:24 AM EDT us Generic External Data Provider LAB BLOOD ORDERAB LES Final Result Performing Organization Address [facility]/ZIP Co de Phone Number [facility] [address] [place] [address] [phone] * (ABNORMAL) Lipid Panel, Standard (06/09/2025 8:09 AM EDT) Triglycerides 722(H) <150 mg/dL [facility] Comment:Slight Lipemia.Pepe able Triglyceride: less than 150 mg/dLBorderline High Triglyceride 150-199 mg/dLHigh Triglyceride: 200-499 mg/dLVery High Triglyceride: greater than or equal to 5OO mg/dL Cholesterol 248(H) <200 mg/dL [facility] Comment:Desirable Cholestero l: less than 200 mg/dLBorderline High Cholesterol: 200-239 mg/dLHigh Cholesterol: greater than 239 mg/dL LDL Cholesterol Calculated TNP <100 mg/dL [facility] Comment:Unable to calculate the LDL. The formula of Friedwald,Pelaez, and Karlie is only valid if the triglycerides areless than 400 mg/dl. HDL Cholesterol 42 >40 mg/dL [facility] Comment:Desirable HDL: great er than 40 mg/dL Note: This HDL assay may give artificially low results in patients with liver disease. 06/09/2025 8:09 AM EDT 06/09/2025 11:24 AM EDT us Generic External Data Provider LAB BLOOD ORDERAB LES Final Result [facility] [address] [place] [phone] * ECG 12 lead (06/08/2025 2:42 PM EDT) Roxi Lea MD - 06/08/2025 2:42 PM EDT NSR, no ST-T segment changes, VR 90 us Roxi Forbes MD ECG ORDERABLES Final Result * (ABNORMAL) POCT Glucose (06/07/2025 2:35 PM EDT) Glucose Blood, POC 210(A) 60 - 200 mg/dL Comment:random QC Media Lot # [id number] Lot# Expiration Date 044,046 Blood Capillary blood specimen / Unknown 06/07/2025 2:35 PM EDT Roxi Forbes MD POINT OF CARE TEST ENTER/EDIT ORDERABLES Final Result * (ABNORMAL) POCT HGB A1C (06/07/2025 2:34 PM EDT) Hemoglobin A1C 8.3(A) 4.0 - 5.7 % QC Media Lot # [id number] Lot# Expiration Date ,905 Blood 06/07/2025 2:34 PM EDT Roxi Forbes MD POINT OF CARE TEST ENTER/EDIT ORDERABLES Final Result * Cologuard?? colon cancer screening (05/31/2025 8:00 AM EDT) Cologuard Result Negative Negative 06/06/20 2:04 PM EDT [facility] (CLIA #:[id number]) Comment: The Cologuard (TM) test was performed [...] screened with both Cologuard and colonoscopy. (Doug Pineda et al, N Engl J Med 2014;370(14):1286- 1297) The normal value (reference range) for this assay is negative. COLOGUARD RE-SCREENING RECOMMENDATION: Periodic colorectal cancer screening is an important part of preventive healthcare for asymptomatic individuals at average risk for colorectal cancer. Following a negative Cologuard result, the [place] [employer] and U.S. Multi-Society Task Force screening guidelines recommend a Cologuard re-screening interval of 3 years. References: [place] [employer] Guideline for Colorectal Cancer Screening: https://www.cancer.org/cancer/zjlfd-lqtftm-otualu/zmyycscqr-saozcjhrs-mwxhrfq/ac s-rec ommendations.html.; Arturo OLGUIN, Juliocesar GIANG, Kane GRIJALVA, Colorectal Cancer Screening: Recommendations for Physicians and Patients from the U.S. Multi-Society Task Force on Colorectal Cancer Screening , Am J Gastroenterology 2017; 112:2269-3137. TEST DESCRIPTION: Composite algorithmic analysis of stool [...] screened with both Cologuard and colonoscopy. (Doug Pulido. et al, N Engl J Med 2014;370(14):7943-0241.) Cologuard may produce a false negative or false positive result (no colorectal cancer or precancerous polyp present at colonoscopy follow up). A negative Cologuard test result does not guarantee the absence of CRC or advanced adenoma (pre-cancer). The current Cologuard screening interval is every 3 years. ([place] [employer] and U.S. Multi-Society Task Force). Cologuard performance data in a 10,000 patient pivotal study using colonoscopy as the reference method can be accessed at the following location: www.[employer]/results. Additional description of the Cologuard test process, warnings and precautions can be found at www.cologuard.com. Stool specimen (specimen) 05/31/2025 8:00 AM EDT 06/01/2025 10:20 AM EDT Roxi Forbes MD LAB MOLECULAR DIAGNOSTICS ORDE RABMANAN Final Result [facility] (CLIA #:[id number]) [address] [place] [address], * (ABNORMAL) Albumin, Random Urine W/Creatinine (10/22/2024 9:00 AM EST) Creatinine, Urine 51.44 mg/dL [facility] Microalbumin Urine 15.0 mg/L H [facility] Microalbum Creatinine Ratio Ur 29.1(H) <30 ug/mg cr [facility] Comment:Albumin/Creatinine R atio Reference Ranges: Normal: < 30 ug/mg creatinine Microalbuminuria: 30 - 300 ug/mg creatinineClinical Albuminuria: > 300 ug/mg creatinine Urine (Urine, Random) 10/22/2024 9:00 AM EST 10/22/2024 11:13 AM EST Roxi Forbes MD LAB URINE ORDERABLES Final Res ult Performing Organization Address City/[facility]/ZIP Co de Phone Number [facility] [address] [place] [phone] * Hepatitis C Antibody with Reflex to HCV, RNA, Quantitative, Real-Time PCR (07/27/2024 8:05 AM EDT) Hepatitis C Antibody Nonreactive Nonreactive [facility] Comment:Antibodies to HCV no t detected; does not exclude early acuteHCV infection. Blood Venous blood specimen / Unknown 07/27/2024 8:05 AM EDT 07/27/2024 11:32 AM EDT Roxi Forbes MD LAB BLOOD ORDERABLES Final Res ult [facility] [address] [place] [phone] * HIV 1/2 ANTIGEN/ANTIBODY,FOURTH GENERATION W/RFL (05/26/2020 4:27 PM EDT) HIV-1/2 ANTIGEN AND ANTIBODIES, 4TH GENERATION W/ REFLEX NON-REACT [facility] NON-REACT [facility] Comment: HIV-1 antigen and HIV-1/HIV-2 antibodies were not detected. There is no laboratory evidence of HIV infection. PLEASE NOTE: This information has been disclosed to you from records whose confidentiality may be protected by state law. If your state requires such protection, then the state law prohibits you from making any further disclosure of the information without the specific written consent of the person to whom it pertains, or as otherwise permitted by law. A general authorization for the release of medical or other information is NOT sufficient for this purpose. For additional information please refer to http://Where's Up.Exotel/faq/UJP928 (This link is being provided for informational/ educational purposes only.) The performance of this assay has not been clinically validated in patients less than 2 years old. HIV-1/2 ANTIGEN AND ANTIBODIES, 4TH GENERATION W/ REFLEX NON-REACT [facility] NON-REACT [facility] Comment: HIV-1 antigen and HIV-1/HIV-2 antibodies were not detected. There is no laboratory evidence of HIV infection. PLEASE NOTE: This information has been disclosed to you from records whose confidentiality may be protected by state law. If your state requires such protection, then the state law prohibits you from making any further disclosure of the information without the specific written consent of the person to whom it pertains, or as otherwise permitted by law. A general authorization for the release of medical or other information is NOT sufficient for this purpose. For additional information please refer to http://Where's Up.Exotel/faq/IJE091 (This link is being provided for informational/ educational purposes only.) The performance of this assay has not been clinically validated in patients less than 2 years old. HIV-1/2 ANTIGEN AND ANTIBODIES, 4TH GENERATION W/ REFLEX NON-[facility]ACT [facility] Comment: HIV-1 antigen and HIV-1/HIV-2 antibodies were not detected. There is no laboratory evidence of HIV infection. PLEASE NOTE: This information has been disclosed to you from records whose confidentiality may be protected by state law. If your state requires such protection, then the state law prohibits you from making any further disclosure of the information without the specific written consent of the person to whom it pertains, or as otherwise permitted by law. A general authorization for the release of medical or other information is NOT sufficient for this purpose. For additional information please refer to http://Where's Up.Athigo.Bluespec/faq/OPP878 (This link is being provided for informational/ educational purposes only.) The performance of this assay has not been clinically validated in patients less than 2 years old. HIV-1/2 ANTIGEN AND ANTIBODIES, 4TH GENERATION W/ REFLEX NON-REACT [facility] Comment: HIV-1 antigen and HIV-1/HIV-2 antibodies were not detected. There is no laboratory evidence of HIV infection. PLEASE NOTE: This information has been disclosed to you from records whose confidentiality may be protected by state law. If your state requires such protection, then the state law prohibits you from making any further disclosure of the information without the specific written consent of the person to whom it pertains, or as otherwise permitted by law. A general authorization for the release of medical or other information is NOT sufficient for this purpose. For additional information please refer to http://Where's Up.Athigo.Bluespec/faq/FFS049 (This link is being provided for informational/ educational purposes only.) The performance of this assay has not been clinically validated in patients less than 2 years old. HIV-1/2 ANTIGEN AND ANTIBODIES, 4TH GENERATION W/ REFLEX NON-REACT [facility] Comment: HIV-1 antigen and HIV-1/HIV-2 antibodies were not detected. There is no laboratory evidence of HIV infection. PLEASE NOTE: This information has been disclosed to you from records whose confidentiality may be protected by state law. If your state requires such protection, then the state law prohibits you from making any further disclosure of the information without the specific written consent of the person to whom it pertains, or as otherwise permitted by law. A general authorization for the release of medical or other information is NOT sufficient for this purpose. For additional information please refer to http://Where's Up.Exotel/faq/DER626 (This link is being provided for informational/ educational purposes only.) The performance of this assay has not been clinically validated in patients less than 2 years old. HIV-1/2 ANTIGEN AND ANTIBODIES, 4TH GENERATION W/ REFLEX NON-REACT [facility] Comment: HIV-1 antigen and HIV-1/HIV-2 antibodies were not detected. There is no laboratory evidence of HIV infection. PLEASE NOTE: This information has been disclosed to you from records whose confidentiality may be protected by state law. If your state requires such protection, then the state law prohibits you from making any further disclosure of the information without the specific written consent of the person to whom it pertains, or as otherwise permitted by law. A general authorization for the release of medical or other information is NOT sufficient for this purpose. For additional information please refer to http://GoWorkaBit/faq/UFM750 (This link is being provided for informational/ educational purposes only.) The performance of this assay has not been clinically validated in patients less than 2 years old. HIV-1/2 ANTIGEN AND ANTIBODIES, 4TH GENERATION W/ REFLEX NON-REACT [facility] Comment: HIV-1 antigen and HIV-1/HIV-2 antibodies were not detected. There is no laboratory evidence of HIV infection. PLEASE NOTE: This information has been disclosed to you from records whose confidentiality may be protected by state law. If your state requires such protection, then the state law prohibits you from making any further disclosure of the information without the specific written consent of the person to whom it pertains, or as otherwise permitted by law. A general authorization for the release of medical or other information is NOT sufficient for this purpose. For additional information please refer to http://Where's Up.Athigo.Bluespec/faq/MFL857 (This link is being provided for informational/ educational purposes only.) The performance of this assay has not been clinically validated in patients less than 2 years old. HIV-1/2 ANTIGEN AND ANTIBODIES, 4TH GENERATION W/ REFLEX NON-REACT [facility] Comment: HIV-1 antigen and HIV-1/HIV-2 antibodies were not detected. There is no laboratory evidence of HIV infection. PLEASE NOTE: This information has been disclosed to you from records whose confidentiality may be protected by state law. If your state requires such protection, then the state law prohibits you from making any further disclosure of the information without the specific written consent of the person to whom it pertains, or as otherwise permitted by law. A general authorization for the release of medical or other information is NOT sufficient for this purpose. For additional information please refer to http://Where's Up.Exotel/faq/RWK113 (This link is being provided for informational/ educational purposes only.) The performance of this assay has not been clinically validated in patients less than 2 years old. HIV-1/2 ANTIGEN AND ANTIBODIES, 4TH GENERATION W/ REFLEX NON-REACT [facility] NON-REACT [facility] Comment: HIV-1 antigen and HIV-1/HIV-2 antibodies were not detected. There is no laboratory evidence of HIV infection. PLEASE NOTE: This information has been disclosed to you from records whose confidentiality may be protected by state law. If your state requires such protection, then the state law prohibits you from making any further disclosure of the information without the specific written consent of the person to whom it pertains, or as otherwise permitted by law. A general authorization for the release of medical or other information is NOT sufficient for this purpose. For additional information please refer to http://Where's Up.Exotel/faq/EBI129 (This link is being provided for informational/ educational purposes only.) The performance of this assay has not been clinically validated in patients less than 2 years old. 05/26/2020 4:27 PM EDT us Juliette Hawkins [facility] LAB BLOOD ORDERABLES Final Res ult [facility] [address] from Last 3 Months or Most Recently Relevant to Health Maintenance Insurance [facility] C3 HSN PARTIAL Care Teams Polymer Engineer Relationship Specialty Start Date End Date Roxi Forbes MD [address] [place] [id number] PCP - General Family Medicine 01/03/21
--- OUTSIDE RECORDS SUMMARY | 2025-07-15 08:34 | XMS_ITS | Encounter Summary ---
Author Organization [facility], Address [address] [place] [address] Phone Care Team Providers Care Juvenile Correctional Officer Name Role Phone Roxi Forbes MD Primary Care Provider [phone] Reason for Visit * Reason Comments Med Change Request Encounter Details Date Type Department Care Team (Late st Contact Info) Description 01/23/2023 Refill [facility] [address] [place] [phone] Abe Rivera MD [address] [place] [address] [place] [phone] Social History Tobacco Use Types Packs/Day Years [...] Visit [facility] [address] [place] [phone] Italo Shirley MD [address] [place] [address] [place] [phone] documented as of this encounter Visit Diagnoses Not on filedocumented in this encounter Care Teams Juvenile Correctional Officer Relationship Specialty Start Date End Date Roxi Forbes MD [address] [place] [address] PCP - General 12/27/20 documented as of this encounter
--- OUTSIDE RECORDS SUMMARY | 2025-07-15 08:34 | XMS_ITS | Encounter Summary ---
Author Organization [facility] Address [address] [place] [address] Phone Care Team Providers Care Roper Operator Name Role Phone Roxi Forbes MD Primary Care Provider [phone] Encounter Details Date Type Department Care Team (Late st Contact Info) Description 12/23/2023 Documentation Only [facility] [address] [place] [address] Kalina Borden [address] [place] [phone] Social History Tobacco Use Types Packs/Day Years [...] Visit [facility] [address] [place] [address] Italo Shirley MD [address] [facility] [place] [phone] documented as of this encounter Visit Diagnoses Not on filedocumented in this encounter Care Teams Roper Operator Relationship Specialty Start Date End Date Roxi Forbes MD [address] [place] [address] PCP - General 12/27/20 documented as of this encounter
--- OUTSIDE RECORDS SUMMARY | 2025-07-15 08:34 | XMS_ITS | Encounter Summary ---
Author Organization [facility] Address [address] [place] [address] Phone Care Team Providers Care Tire Duster Name Role Phone Roxi Forbes MD Primary Care Provider [phone] Encounter Details Date Type Department Care Team (Late st Contact Info) Description 09/22/2024 Documentation Only [facility] [address] [place] [address] Kalina Borden [address] [place] [phone] Social History Tobacco Use Types Packs/Day Years [...] Visit [facility] [address] [place] [address] Italo Shirley MD [address] [facility] [place] [phone] documented as of this encounter Visit Diagnoses Not on filedocumented in this encounter Care Teams Tire Duster Relationship Specialty Start Date End Date Roxi Forbes MD [address] [place] [address] PCP - General 12/27/20 documented as of this encounter
--- OUTSIDE RECORDS SUMMARY | 2025-07-15 08:34 | XMS_ITS | Encounter Summary ---
Author Organization [facility] Address [address] [place] [address] Phone Care Team Providers Care Logistics Account Manager Name Role Phone Roxi Forbes MD Primary Care Provider [phone] Encounter Details Date Type Department Care Team (Late st Contact Info) Description 03/12/2025 Documentation Only [facility] [address] [place] [address] Polina Dias [place] [address] [place] [phone] Social History Tobacco Use Types Packs/Day Years [...] [facility] [address] [place] [address] Italo Shirley MD [address] [facility] [place] [address] documented as of this encounter Visit Diagnoses Not on filedocumented in this encounter Care Teams Logistics Account Manager Relationship Specialty Start Date End Date Roxi Forbes MD [address] [place] [address] PCP - General 12/27/20 documented as of this encounter
[2025-07-15 11:23] LABS: Appearance Urine Clear; Glucose Urine UA >=1000 mg/dL (Negative); PH 6.0 (5.0-9.0); Specific Gravity - Urine >= 1.030 (1.005-1.025); UMIC TRIGGER UACC YES
[2025-07-15 12:29] LABS: Hemoglobin A1C 382.0339 umol/L; Total Hemoglobin (HGBA1C) 5511.4579 umol/L
== END 2025-07-15 08:10 | disposition home or self-care (01) ==
LOC: HO.HHCL 08:09
PROVIDERS: PCP General Practice; Visit Provider Internal Medicine Nephrology
DX: E11.9 Type 2 diabetes mellitus without complications (principal); R10.9 Unspecified abdominal pain
CPT/HCPCS: 36415; 81001; 82570; 83036

== ENCOUNTER → 2025-07-22 08:59 | Outpatient (REF) | payer MEDICAID, SELFPAY ==
--- OUTSIDE RECORDS SUMMARY | 2025-07-20 08:50 | XMS_ITS | Encounter Summary ---
Author Organization [facility] Address [address] [place] [address] Phone Care Team Providers Care Floor Cashier Name Role Phone Roxi Forbes MD Primary Care Provider Encounter Details Date Type Department Care Team (Late Contact Info) Description 07/20/2025 8:50 AM EDT Office [facility] [address] [place] [phone] Italo Shirley MD [address] [facility] [place] [phone] Chronic kidney disease, stage 2 (mild) (Primary Dx) Social History Tobacco Use Types Packs/Day Years Used Date Smoking Tobacco: Unknown Sex and Gender Information Value Date Recorded Sex Assigned at Not on file Legal Sex Male 9:16 AM EDT Gender Identity Not on file Sexual Orientation Not on file documented as of this encounter Plan of Treatment Upcoming Encounters Date Type Department Care Team (Late Contact Info) Description 08/24/2025 3:30 PM EDT Office Visit [facility] [address] [place] [phone] Italo Shirley MD [address] [facility] [place] [phone] documented as of this encounter Visit Diagnoses Diagnosis Chronic kidney disease, stage 2 (mild)- Primary documented in this encounter Care Teams Floor Cashier Relationship Specialty Start Date End Date Roxi Forbes MD [address] [place] [address] PCP - General 12/27/20 documented as of this encounter
--- NOTE | 2025-07-22 09:03 | HM_ITS ---
* Total monitoring time 2 days. * Underlying rhythm is sinus with an average rate of 101/Min. * About 52% of the time, rate > 100/Min. * Rare supraventricular ectopy. * Rare ventricular ectopy. * No significant pauses or high-grade AV blocks. * No patient markers or diary events. MTDD
--- NOTE | 2025-07-22 09:03 | CA_ITS ---
Transthoracic Echocardiogram Patient (Last, First, Middle): Levi Hale R Gender: M Date of : 1980 Age: 45 Procedure Date: 07/22/2025 Procedure Type: Transthoracic Echocardiogram Location: OP Height: 167.64 cm Weight: 105.24 kg BSA: 2.13 m2 Heart Rate: bpm BP: 124 / 72 mmHg Medical Interpreter: BRIAN/MERCY Referring MD: Bety Duncan NP-[facility] Pediatric Orthodontist: Mukesh Pickard MD Symptoms: R07.2 - Precordial pain Study Quality: Fair, contrast ECG Rhythm: Sinus Conclusions: - 1. Normal LV ejection fraction of 55-60% with grade 1 diastolic dysfunction 2. Normal cardiac valvular Dopplers 3. Normal RV systolic pressure 4. No gross pericardial effusion Findings Left Ventricle Normal left ventricular size, thickness, and systolic function. The visually estimated ejection fraction is between 55-60%. Spectral Doppler is indicative of an impaired relaxation filling pattern. E/E prime ratio is <8, consistent with normal filling pressures. Evidence suggests grade I (mild) diastolic dysfunction. Right Ventricle Normal right ventricular cavity size and systolic function. Atria Both atria are normal in size. There is lipomatous hypertrophy of the interatrial septum. There is no evidence of interatrial shunt. Aortic Valve The aortic valve structure and function is likely normal. There is no aortic valve stenosis. There is no aortic valve regurgitation. Mitral Valve Normal mitral valve structure and function. There is trace mitral valve regurgitation. There is no mitral valve stenosis. Pulmonic Valve The pulmonic valve was not well visualized. Tricuspid Valve Likely normal tricuspid valve structure and function. There is trace tricuspid valve regurgitation. The right ventricular systolic pressure is normal. The right ventricular systolic pressure is 18 mmHg. Normal right atrial pressure. There is no evidence of pulmonary hypertension. Great Vessels All visible segments of the aorta are normal in size. The pulmonary artery was not well visualized. There is no dilatation of the ascending aorta measuring 2.90 cm. Venous The inferior vena cava is normal in size and collapses greater than 50% with inspiration. Pericardium/Pleural There is no evidence of pericardial effusion. Prior Study Comparison No significant change compared to prior study dated: 05/07/2022. Measurements 2D Linear Measurements IVSd: 1.05 0.6-0.9/0.6-1.0 cm LVIDd: 4.90 3.9-5.3/4.2-5.9 cm LVIDd Index: 2.30 2.4-3.2/2.2-3.1 cm/m2 LVIDs: 3.04 2.0-3.6 cm LVPWd: 0.90 0.7-1.1 cm LA Diam: 3.40 2.7-3.8/3.0-4.0 cm LAIDs Index: 1.60 1.5-2.3 cm/m2 LV Mass: 211.19 67-162/88-224 g LV Mass Index: 99.15 43-95/49-115 g/m2 LVOT Diam: 2.20 3.0+(-)1.3 cm 2D Systolic Function EF 4C: 61.60 >55% EF 2C: 52.00 >55% EF BiP: 56.70 >55% Mitral Valve MV Pk E: 0.69 MV PK A: 0.73 MV Decel Time: 175.00 E/A: 0.90 E'Lateral: 15.00 E'Medial: 9.90 E/E' Med: 6.90 E/E' Lat: 4.60 PHT: 51.00 MVA PHT: 4.31 Decel Dimmit: 3.92 Aortic Valve AoV Pk Bashir: 1.28 AoV Mn Bashir: 0.97 AoV VTI: 0.20 AoV Pk Grad: 7.00 Aov Mn Grad: 4.00 VENITA Cont.VTI: 3.97 LVOT LVOT Pk Bashir: 1.27 LVOT Mn Bashir: 0.81 LVOT VTI: 0.21 LVOT Pk Grad: 6.00 LVOT Mn Grad: 3.00 LVOT Diam: 2.20 LVOT Area: 3.80 Diastolic Function MV Pk E: 0.69 MV Pk A: 0.73 E/A: 0.90 E'Medial: 9.90 E/E' Med: 6.90 E' Laterial: 15.00 E/E' Lat: 4.60 Right Ventricle TAPSE (mm): 23.30 TVS' Bashir: 12.90 Tricuspid Valve TR Pk Bashir: 1.92 TR Pk Grad: 15.00 RA Press: 3.00 RVSP: 18.00 Great Vessels Aorta Sinus of Valsalva: 3.30 2.0-3.5 cm Ao Asc: 2.90 2.1-3.4 cm Pulmonary Veins Pulm Vein S/D 1.20 Pulmonary Valve PV Pk Bashir: 1.09 Peak PV Grad: 5.00 Updated in Other Vendor System with Status of Final Mukesh Pickard MD electronically signed on 07/22/2025 2:21:17 PM with status of Final
--- OUTSIDE RECORDS SUMMARY | 2025-07-22 09:29 | XMS_ITS | Encounter Summary ---
Author Organization [employer] Address [address] [place] [address] [address] [place] [address] Care Team Providers Care Director Global Intelligence Name Role Phone Roxi Forbes MD Primary Care Provider [phone] Reason for Visit * Reason Comments Med Refill Encounter Details Date Type Department Care Team ([facility] st Contact Info) Description 02/25/2023 Refill [facility] [address] [place] [address] Roxi Forbes MD [address] [place] [address] Social History Tobacco Use Types Packs/Day Years [...] filedocumented in this encounter Care Teams Director Global Intelligence Relationship Specialty Start Date End Date Roxi oFrbes MD [address] [place] [address] PCP - General Family Medicine 01/03/21 documented as of this encounter
--- OUTSIDE RECORDS SUMMARY | 2025-07-22 09:29 | XMS_ITS | Encounter Summary ---
Author Organization [facility] Address [address] [place] [address] Phone Care Team Providers Care Full Stack Developer Name Role Phone Roxi Forbes MD Primary Care Provider [phone] Encounter Details Date Type Department Care Team (Late st Contact Info) Description 03/19/2025 Telephone [facility] [address] [place] [address] Aleida Brady Social History Tobacco [...] auth for Ozempic Rx sent 03/10. He's Amharic-speaking- I can give him a call with info. Thanks! documented in this encounter Plan of Treatment Upcoming Encounters Date Type Department Care Team (Late st Contact Info) Description 08/24/2025 3:30 PM EDT Office Visit [facility] [address] [place] [address] Italo Shirley MD [address] [facility] [place] [address] documented as of this encounter Visit Diagnoses Not on filedocumented in this encounter Care Teams Full Stack Developer Relationship Specialty Start Date End Date Roxi Forbes MD [address] [place] [address] PCP - General 12/27/20 documented as of this encounter
--- OUTSIDE RECORDS SUMMARY | 2025-07-22 09:29 | XMS_ITS | Encounter Summary ---
Author Organization [email or web address] Address [address] [place] [address] [address] [address] Care Team Providers Care Steaming Machine Operator Name Role Phone Roxi Forbes MD Primary Care Provider [phone] Reason for Visit * Reason Comments Med Refill Encounter Details Date Type Department Care Team (Late st Contact Info) Description 03/26/2023 Refill [facility] [address] [place] [address] Roxi Forbes MD [address] [place] [address] Social History Tobacco Use Types Packs/Day Years [...] on filedocumented in this encounter Care Teams Steaming Machine Operator Relationship Specialty Start Date End Date Roxi Forbes MD [address] [place], [place] [phone] PCP - General Family Medicine 01/03/21 documented as of this encounter
--- OUTSIDE RECORDS SUMMARY | 2025-07-22 09:30 | XMS_ITS | Encounter Summary ---
Author Organization [employer] Address [address] [facility] [address] [place] [address] Care Team Providers Care Ware Server Name Role Phone Roxi Forbes MD Primary Care Provider [phone] Reason for Visit * Reason Comments Med Refill Encounter Details Date Type Department Care Team ([facility] st Contact Info) Description 09/04/2023 Refill [facility] [address] [place] [address] Dariela Cruz MD [address] [place] [address] Social History Tobacco Use Types Packs/Day Years [...] the past 12 months, has t he [employer], [employer], oil or water company threatened to shut [...] on filedocumented in this encounter Care Teams Ware Server Relationship Specialty Start Date End Date Roxi Forbes MD [address] [place] [address] PCP - General Family Medicine 01/03/21 documented as of this encounter
--- OUTSIDE RECORDS SUMMARY | 2025-07-22 09:30 | XMS_ITS | Encounter Summary ---
Author Organization [facility] Address [address] [place] [address] Phone Care Team Providers Care Street Light Servicer Supervisor Name Role Phone Roxi Forbes MD Primary Care Provider [phone] Encounter Details Date Type Department Care Team (Late st Contact Info) Description 07/21/2025 Documentation Only [facility] [address] [place] [address] Polina Dias [place] [address] [place] [phone] Social History Tobacco Use Types Packs/Day Years [...] [facility] [address] [place] [address] Italo Shirley MD [address] [facility] [place] [address] documented as of this encounter Visit Diagnoses Not on filedocumented in this encounter Care Teams Street Light Servicer Supervisor Relationship Specialty Start Date End Date Roxi Forbes MD [address] [place] [address] PCP - General 12/27/20 documented as of this encounter
--- OUTSIDE RECORDS SUMMARY | 2025-07-22 09:30 | XMS_ITS | Encounter Summary ---
Author Organization [facility] Address [address] [place] [address] Phone Care Team Providers Care Bunk House Worker Name Role Phone Roxi Forbes MD Primary Care Provider [phone] Encounter Details Date Type Department Care Team (Late st Contact Info) Description 03/12/2025 Documentation Only [facility] [address] [place] [address] Polina Dias [place] [address] [place] [phone] Social History Tobacco Use Types Packs/Day Years [...] [facility] [address] [place] [address] Italo Shirley MD [address] [facility] [place] [address] documented as of this encounter Visit Diagnoses Not on filedocumented in this encounter Care Teams Bunk House Worker Relationship Specialty Start Date End Date Roxi Forbes MD [address] [place] [address] PCP - General 12/27/20 documented as of this encounter
--- OUTSIDE RECORDS SUMMARY | 2025-07-22 09:30 | XMS_ITS | Encounter Summary ---
Author Organization [facility] Address [address] [place] [address] Phone Care Team Providers Care Student Driving Instructor Name Role Phone Roxi Forbes MD Primary Care Provider [phone] Reason for Visit * Reason Comments Med Refill Encounter Details Date Type Department Care Team (Late Contact Info) Description 12/10/2024 Refill [facility] [address] [place] [address] Mary Heredia PA [address] [place] [address] [place] [phone] Social History Tobacco Use Types Packs/Day Years [...] Visit [facility] [address] [place] [address] Italo Shirley MD [address] [facility] [place] [address] documented as of this encounter Visit Diagnoses Not on filedocumented in this encounter Care Teams Student Driving Instructor Relationship Specialty Start Date End Date Roxi Forbes MD [address] [place] [address] PCP - General 12/27/20 documented as of this encounter
--- OUTSIDE RECORDS SUMMARY | 2025-07-22 09:30 | XMS_ITS | Encounter Summary ---
Author Organization [facility] Address [address] [place] [address] Phone Care Team Providers Care Self Pay Specialist Name Role Phone Roxi Forbes MD Primary Care Provider [phone] Encounter Details Date Type Department Care Team (Late Contact Info) Description 12/07/2022 Documentation Only [facility] [address] [place] [phone] Mary Heredia PA [address] [place] [address] [place] [address] Social History Tobacco Use Types Packs/Day Years [...] [facility] [address] [place] [address] Italo Shirley MD [address] [place] [address] [place] [phone] documented as of this encounter Visit Diagnoses Not on filedocumented in this encounter Care Teams Self Pay Specialist Relationship Specialty Start Date End Date Roxi Forbes MD [address] [place] [address] PCP - General 12/27/20 documented as of this encounter
--- OUTSIDE RECORDS SUMMARY | 2025-07-22 09:30 | XMS_ITS | Encounter Summary ---
Author Organization [facility] Address [address] [place] [address] Phone Care Team Providers Care Rice Milling Supervisor Name Role Phone Roxi Forbes MD Primary Care Provider [phone] Encounter Details Date Type Department Care Team (Late st Contact Info) Description 10/01/2024 Documentation Only [facility] [address] [place] [address] Berna Castellano [place] [address] [place] [phone] Social History Tobacco Use Types Packs/Day Years [...] Visit [facility] [address] [place] [phone] Italo Shirley MD [address] [place] [address] [place] [phone] documented as of this encounter Visit Diagnoses Not on filedocumented in this encounter Care Teams Rice Milling Supervisor Relationship Specialty Start Date End Date Roxi Forbes MD [address] [place] [address] PCP - General 12/27/20 documented as of this encounter
--- OUTSIDE RECORDS SUMMARY | 2025-07-22 09:30 | XMS_ITS | Encounter Summary ---
Author Organization [facility] [place], Address [address] [place] [address] Phone Care Team Providers Care Director Construction Services Name Role Phone Roxi Forbes MD Primary Care Provider [phone] Reason for Visit * Reason Comments Med Change Request Encounter Details Date Type Department Care Team (Late st Contact Info) Description 01/23/2023 Refill [facility] [address] [place] [phone] Abe Rivera MD [address] [place] [address] [place] [phone] Social History Tobacco Use Types Packs/Day Years [...] Visit [facility] [address] [facility] [place] [phone] Italo Shirley MD [address] [place] [address] [place] [phone] documented as of this encounter Visit Diagnoses Not on filedocumented in this encounter Care Teams Director Construction Services Relationship Specialty Start Date End Date Roxi Forbes MD [address] [place] [address] PCP - General 12/27/20 documented as of this encounter
--- OUTSIDE RECORDS SUMMARY | 2025-07-22 09:30 | XMS_ITS | Clinical Summary ---
Author Organization [facility] [place], Address [address] [place] [address] [place] [address] Phone Care Team Providers Care Supervisor Tank Cleaning Name Role Phone Roxi Forbes MD Primary [...] chew. Active Jardiance 10 MG tablet TOME TSEPHIE TABLETA POR V A ORAL CADA TASHA DALEY 2 Active Insulin Lispro, 1 Unit Dial, 100 UNIT/ML solution pen-injector INJECT BY SUBCUTANEOUS ROUTE 20-26 UNITS WITH EACH MEAL 3 Active omega-3 acid ethyl esters (LOVAZA) 1 g capsule TOME STEPHIE C PSULA DOS VECES AL D A 2 Active Creon 76871-95601 units capsule TOME 1 C PSULA POR [...] 30 tablet 3 Active ergocalciferol 1.25 MG (39819 UT) capsule Take 1 capsule (50,000 Units [...] time each day 8 tablet 5 Active traMADol (Ultram) 50 MG tablet Take 1 tablet (50 mg total) by mouth every 6 (six) hours if needed for moderate pain 28 tablet 5 Active Active Problems Problem Noted [...] Encounters Date Type Department Care Team Description 07/21/2025 Documentation Only [facility] [address] [place] [address] Polina Dias [place] 07/20/2025 8:50 AM EDT Office Visit [facility] [address] [place] [address] Italo Shirley MD Chronic kidney disease, stage 2 (mild) (Primary Dx) 07/14/2025 9:10 AM EDT Office Visit [facility] [address] [place] [address] Italo Shirley MD Type 2 diabetes mellitus, not otherwise specified (HCC) (Primary Dx); Flank pain 04/27/2025 Refill [facility] [address] [place] [address] Polina Dias [place] from Last 3 Months Immunizations Immunization Administration [...] Visit [facility] [place], [address] [facility] [place] [phone] Italo Shirley MD [address] [facility] [place] [phone] Health Maintenance Due Date Last Done Comments [...] 05/10/2023, 03/21/2020 Insurance Medicaid [place] Care Teams Supervisor Tank Cleaning Relationship Specialty Start Date End Date Roxi Forbes MD [address] [place] [address] PCP - General 12/27/20
--- OUTSIDE RECORDS SUMMARY | 2025-07-22 09:30 | XMS_ITS | Clinical Summary ---
Author Organization [facility] Address [address] [facility] [address] [place] [address] Care Team Providers Care Varnisher Plasticoater Name Role Phone oRxi Forbes MD Primary Care Provider [phone] Allergies No known active allergies Medications thiamine [...] NECESARIO 01/23/20 22 Active Continuous Blood Gluc Boom Stick Worker (FreeStyle Bernice 2 [place]) deviceIndications :Type 2 diabetes mellitus with hyperglycemia, with long-term current use of insulin ([facility]) USE DAILY TO CHECK BLOOD SUGAR 1 each 01/11/20 23 Active lisinopril 10 MG tablet Take 10 mg by mouth. 12/24/19 24 Active ergocalciferol (Vitamin D2) 1.25 MG (78539 UT) capsule Take 50,000 Units by mouth [...] 2 diabetes mellitus with hyperglycemia, unspecified whether group home insulin use (CMS/[facility]) USE DIRECTED, CHANGE EVERY 2 WEEKS 2 each 07/03/20 24 Active pravastatin (Pravachol) 40 MG tabletIndications :Hypertriglycerid emia Take 1 tablet (40 mg) by mouth Once per day. 90 tablet 3 08/18/20 24 2024 Active FREESTYLE LITE test strip Use to check BS 4 times a day 100 each 09/17/20 24 Active folic acid (Folvite) 1 MG tablet TAKE 1 TABLET BY MOUTH EVERY MORNING 90 tablet 3 10/19/20 24 Active glipiZIDE (Glucotrol) 5 MG tabletIndications :Type 2 diabetes mellitus with hyperglycemia, with long-term current use of insulin ([facility]) Take 1 tablet (5 mg) by mouth [...] hyperglycemia, without long-term current use of insulin ([facility]) TAKE 2 TABLETS BY MOUTH EVERY DAY [...] DAY 90 tablet 3 06/28/20 25 Active empagliflozin (Jardiance) 25 MG TAKE 1 TABLET BY MOUTH EVERY DAY 30 tablet 1 07/20/20 25 Active fenofibrate (Tricor) 145 MG tablet TAKE 1 TABLET BY MOUTH EVERY DAY 90 tablet 3 07/03/20 24 2024 Discontinued empagliflozin (Jardiance) 25 MG Take 1 tablet (25 mg) by mouth Once per day. 30 tablet 11 07/21/20 24 2024 Discontinued Active Problems Problem Noted Date Diagnosed Date Mixed hyperlipidemia 06/08/2025 Class 2 severe obesity with serious comorbidity and body mass index (BMI) of 38.0 to 38.9 in adult 06/08/2025 Stress incontinence of urine 09/08/2024 Hypertriglyceridemia 06/26/2024 Assessment & Plan (10/19/2024 9:57 AM EST): Pt will continue taking pravastatin daily Pt will call [facility] cardiology to schedule appt as referral [...] does not tolerate it will refer to spanish medical interpreter for assistance with other lipid lowering agents [...] AM EDT): Current A1c: 8.8, needs to merchandise pickup/receiving associate Lantus and Novolog, has not had them for many months. Called [facility] to ensure he can merchandise pickup/receiving associate today. Continue Metformin and Jardiance BMP: Lab [...] LDL-C. Tevin FAUST et al. ELINA. 2013;310(19): 6519-5849 (http://education.HipFlat.[employer]/faq/MNX333) ASCVD: Calculate pending updated labs Statin: NO, [...] LDL-C. Tevin FAUST et al. ELINA. 2013;310(19): 4950-4988 (http://education.HipFlat.com/faq/UKC646) ASCVD: Calculate pending updated labs Statin: Yes [...] of LDL-C. Tevin FAUST et al. ELINA. 2013;310(07): 9601-1222 (http://education.HipFlat.[employer]/faq/BSC689) ASCVD: Calculate pending updated labs Statin: Yes [...] 3:08 PM EDT): Following with nephrology in [facility] Has pending renal US, helped to schedule ER precautions Iron deficiency anemia 06/22/2020 Encounters Date Type Department Care Team Description 07/19/2025 Refill [facility] [address] [place] [address] Roxi Forbes MD 07/06/[address] [address] Roxi Forbes MD 07/05/2025 Results Follow-Up [address] [address] Roxi Forbes MD Hemoglobin A1c, Hepatic Function Panel, Lipid Panel, Standard, PSA,Total 06/28/[address] [address] Roxi Forbes MD 06/09/2025 Orders Only GENERIC EXTERNAL DATA DEPARTMENT Provider, Generic External Data 06/07/2025 2:45 PM EDT Office Visit [address] [address] Roxi Forbes MD Type 2 diabetes mellitus with hyperglycemia, with long-term current use of insulin (CMS/HCC) (Primary Dx); Mild intermittent asthma with acute exacerbation; Dietary counseling; Exercise counseling; Class 2 severe obesity with serious comorbidity and body mass index (BMI) of 38.0 to 38.9 in adult, unspecified obesity type (CMS/HCC); Hypertriglyceridemia ; Mixed hyperlipidemia; Major depressive disorder with single episode, in partial remission (CMS/HCC); Stress incontinence of urine; History of pancreatitis; Tachycardia 06/07/2025 Travel 06/04/[address] [address] Roxi Forbes MD Chart prep 05/14/[address] [address] Roxi Forbes MD CGM medical necessity 05/13/2025 Orders Only [address] [address] Roxi Forbes MD Screening for colon cancer (Primary Dx) 05/12/[address] [address] Roxi Forbes MD Lab Orders from Last 3 Months Immunizations Immunization Administration [...] with others, in a hotel, in a detention, living outside on the street, on a [...] CT Colonography 1978 Colonoscopy 1978 FIT 1978 Sigmoidoscopy 1978 Alcohol/Substance Use Screening 1990 Family Planning (PISQ) 1993 Hepatitis B Vaccines (1 of 3 - 19+ 3-dose series) 1997 07/20/2025 Influenza Vaccine (#1) 2025 , 01/18/2025, 12/07/2019 Diabetes: Hemoglobin A1C 09/09/2025 025, 06/07/2025, 10/19/2024, Additional history exists DTaP/Tdap/Td Vaccines (1 - Tdap) 10/19/2025 07/20/2025 Postponed from 1997 (Patient Refused) Diabetes: Foot Exam 10/19/2025 10/19/2024, 4 Hepatitis A Vaccines (1 of 2 - Risk 2-dose series) 10/19/2025 Postponed from 1997 (Patient Refused) Diabetes: Urine Protein Screening 10/22/2025 10/22/2024, 07/04/2023, 12/05/2022, Additional history exists FOBT 05/31/2026 05/31/2025 Depression Screening 06/07/2026 06/07/2025, 06/07/20 25 Disability Screening 06/07/2026 06/07/2025 SDOH Screening 06/07/2026 06/07/2025 Tobacco Screening 06/08/2026 06/08/2025 Lipid Panel 06/09/2026 06/09/2025, 04/, 10/22/2024, Additional history exists Eye Exam 07/01/2026 [...] C Screening Completed 07/27/2024 COVID-19 Vaccine Completed 11/14/2022, 02/2022, 02/25/2021, Additional history exists HIB Vaccines Aged Out [...] Specific Antigen 0.33 <0.05 - 4.0 ng/mL [facility] Comment:PSA methodology: Lenny Morejon i ChemiluminescentMicroparticle Immunoassay (CMIA) 06/09/2025 8:09 AM EDT 06/09/2025 11:24 AM EDT us Generic External Data Provider LAB BLOOD ORDERAB LES Final Result [facility] [address] [place] [phone] * (ABNORMAL) Hemoglobin A1c (06/09/2025 8:09 AM EDT) Hemoglobin A1c 7.9(H) <6.0 % [facility] Comment:Hemoglobin A1C Refer ence Range Adults: 4.8 - 6.0 % Non diabetic: < 6.0 % Goal: < 7.0 %Additional Action Suggested: > 8.0 %Note: Hemoglobin A1c results are invalid for patients with abnormal amounts of HbF. Blood transfusions may impact the HbA1c concentration in the patient sample. Estimated Average Glucose 180 mg/dL [facility] Comment:eAG = Estimated ave rage glucose which is %A1C expressed asaverage glucose, using the formula of the D2L-TwyrzerCyclvcz Glucose study (ADAG), Diabetes Care, Vol.31,#8,2007 06/09/2025 8:09 AM EDT 06/09/2025 11:24 AM EDT us Generic External Data Provider LAB BLOOD ORDERAB LES Final Result Performing Organization Address [facility] Co de Phone Number [facility] [address] [place] [phone] * Hepatic Function Panel (06/09/2025 8:09 AM EDT) Bilirubin, Total 0.4 0.0 - 1.0 mg/dL [facility] Bilirubin, Direct 0.1 0.0 - 0.5 mg/dL [facility] Aspartate Amino Transferase 35 5 - 37 U/L [facility] Alanine Aminotransferase 28 0 - 40 U/L [facility] Total Protein 7.7 6.5 - 8.0 g/dL [facility] Albumin Level 4.8 3.5 - 5.0 g/dL [facility] Alkaline Phosphatase 45 39 - 117 U/L [facility] 06/09/2025 8:09 AM EDT 06/09/2025 11:24 AM EDT us Generic External Data Provider LAB BLOOD ORDERAB LES Final Result Performing Organization Address City/[facility]/ZIP Co de Phone Number [facility] [address] [place] [phone] [phone] * (ABNORMAL) Lipid Panel, Standard (06/09/2025 8:09 AM EDT) Triglycerides 722(H) <150 mg/dL [facility] Comment:Slight Lipemia.Pepe able Triglyceride: less than 150 mg/dLBorderline High Triglyceride 150-199 mg/dLHigh Triglyceride: 200-499 mg/dLVery High Triglyceride: greater than or equal to 5OO mg/dL Cholesterol 248(H) <200 mg/dL [facility] Comment:Desirable Cholestero l: less than 200 mg/dLBorderline High Cholesterol: 200-239 mg/dLHigh Cholesterol: greater than 239 mg/dL LDL Cholesterol Calculated TNP <100 mg/dL [facility] Comment:Unable to calculate the LDL. The formula of Friedwald,Pelaez, and Karlie is only valid if the triglycerides areless than 400 mg/dl. HDL Cholesterol 42 >40 mg/dL [facility] Comment:Desirable HDL: great er than 40 mg/dL Note: This HDL assay may give artificially low results in patients with liver disease. 06/09/2025 8:09 AM EDT 06/09/2025 11:24 AM EDT us Generic External Data Provider LAB BLOOD ORDERAB LES Final Result [facility] [address] [place] [address] [phone] * ECG 12 lead (06/08/2025 2:42 PM EDT) Narrative Roxi Forbes MD - 06/08/2025 2:42 PM EDT NSR, no ST-T segment changes, VR 90 us Roxi Forbes MD ECG ORDERABLES Final Result * (ABNORMAL) POCT Glucose (06/07/2025 2:35 PM EDT) Glucose Blood, POC 210(A) 60 - 200 mg/dL Comment:random QC Media Lot # [id number] Lot# Expiration Date 2820,[id number] Blood Capillary blood specimen / Unknown 06/07/2025 2:35 PM EDT Roxi Forbes MD POINT OF CARE TEST ENTER/EDIT ORDERABLES Final Result * (ABNORMAL) POCT HGB A1C (06/07/2025 2:34 PM EDT) Hemoglobin A1C 8.3(A) 4.0 - 5.7 % QC Media Lot # [id number] Lot# Expiration Date [id number] Blood 06/07/2025 2:34 PM EDT Roxi Forbes MD POINT OF CARE TEST ENTER/EDIT ORDERABLES Final Result * Cologuard?? colon cancer screening (05/31/2025 8:00 AM EDT) Cologuard Result Negative Negative 06/06/20 2:04 PM EDT Desk (CLIA #:[id number]) Comment: The Cologuard (TM) test was performed [...] cancer. Following a negative Cologuard result, the [employer] Society and U.S. Multi-Society Task Force screening guidelines recommend a Cologuard re-screening interval of 3 years. References: [employer] Guideline for Colorectal Cancer Screening: https://www.cancer.org/cancer/yyyzf-dmlpcm-bwehlm/dzmksvpho-hvscfxynn-staanrl/ac s-rec ommendations.html.; Arturo DK, Juliocesar CR, [place] MillsK, Colorectal Cancer Screening: Recommendations for Physicians and Patients from the U.S. Multi-Society Task Force on Colorectal Cancer Screening , Am J Gastroenterology 2017; 112:7125-9947. TEST DESCRIPTION: Composite algorithmic analysis of stool [...] (Doug Barron al, N Engl J Med 2014;370(14):3744-4450.) Cologuard may produce a false negative or false positive result (no colorectal cancer or precancerous polyp present at colonoscopy follow up). A negative Cologuard test result does not guarantee the absence of CRC or advanced adenoma (pre-cancer). The current Cologuard screening interval is every 3 years. ([employer] Society and U.S. Multi-Society Task Force). Cologuard performance data in a 10,000 patient pivotal study using colonoscopy as the reference method can be accessed at the following location: www.Freebeepay.[employer]/results. Additional description of the Cologuard test process, warnings and precautions can be found at www.Blinkiverse.[employer]. Stool specimen (specimen) 05/31/2025 8:00 AM EDT 06/01/2025 10:20 AM EDT Roxi Forbes MD LAB MOLECULAR DIAGNOSTICS ORDE RABLES Final Result Desk (CLIA #:[id number]) [address] [place] [address], * (ABNORMAL) Albumin, Random Urine W/Creatinine (10/22/2024 9:00 AM EST) Creatinine, Urine 51.44 mg/dL [facility] Microalbumin Urine 15.0 mg/L H [facility] Microalbum Creatinine Ratio Ur 29.1(H) <30 ug/mg cr [facility] Comment:Albumin/Creatinine R atio Reference Ranges: Normal: < 30 ug/mg creatinine Microalbuminuria: 30 - 300 ug/mg creatinineClinical Albuminuria: > 300 ug/mg creatinine Urine (Urine, Random) 10/22/2024 9:00 AM EST 10/22/2024 11:13 AM EST Roxi Forbes MD LAB URINE ORDERABLES Final Res ult Performing Organization Address City/[facility]/ZIP Co de Phone Number [facility] [address] [place] [phone] * Hepatitis C Antibody with Reflex to HCV, RNA, Quantitative, Real-Time PCR (07/27/2024 8:05 AM EDT) Hepatitis C Antibody Nonreactive Nonreactive [facility] Comment:Antibodies to HCV no t detected; does not exclude early acuteHCV infection. Blood Venous blood specimen / Unknown 07/27/2024 8:05 AM EDT 07/27/2024 11:32 AM EDT us Roxi Forbes MD LAB BLOOD ORDERABLES Final Res ult [facility] [address] [place] [address] [phone] * HIV 1/2 ANTIGEN/ANTIBODY,FOURTH GENERATION W/RFL [...] purpose. For additional information please refer to http://Publer.Super Clean Jobsite/faq/NLU059 (This link is being provided for informational/ [...] purpose. For additional information please refer to http://Publer.[employer] Sac.[employer]/faq/PIJ766 (This link is being provided for informational/ [...] purpose. For additional information please refer to http://Publer.[employer]/faq/MVU461 (This link is being provided for informational/ [...] purpose. For additional information please refer to http://Publer.[employer]/faq/DTO412 (This link is being provided for informational/ [...] purpose. For additional information please refer to http://Publer.[employer]/faq/MDW910 (This link is being provided for informational/ educational purposes only.) The performance of this assay has not been clinically validated in patients less than 2 years old. HIV-1/2 ANTIGEN AND ANTIBODIES, 4TH GENERATION W/ REFLEX NON-REACT EVARISTO NON-REACT EVARISTO [facility] Comment: HIV-1 antigen and HIV-1/HIV-2 [...] purpose. For additional information please refer to http://[employer]/faq/LNU419 (This link is being provided for informational/ educational purposes only.) The performance of this assay has not been clinically validated in patients less than 2 years old. HIV-1/2 ANTIGEN AND ANTIBODIES, 4TH GENERATION W/ REFLEX NON-REACT EVARISTO NON-REACT EVARISTO [facility] Comment: HIV-1 antigen and HIV-1/HIV-2 [...] purpose. For additional information please refer to http://Publer.[employer]ite/faq/WXL382 (This link is being provided for informational/ [...] purpose. For additional information please refer to http://Publer.[employer]/faq/NAA867 (This link is being provided for informational/ [...] purpose. For additional information please refer to http://Publer.[employer]/faq/WCS128 (This link is being provided for informational/ educational purposes only.) The performance of this assay has not been clinically validated in patients less than 2 years old. 05/26/2020 4:27 PM EDT us Juliette Hawkins [facility] LAB BLOOD ORDERABLES Final Res ult [facility] [address] from Last 3 Months or Most Recently Relevant to Health Maintenance Insurance [facility] C3 HSN PARTIAL Care Teams Varnisher Plasticoater Relationship Specialty Start Date End Date Roxi Forbes MD [address] [place] [address] PCP - General Family Medicine 01/03/21
--- OUTSIDE RECORDS SUMMARY | 2025-07-22 09:30 | XMS_ITS | Encounter Summary ---
Author Organization [employer] Address 75 [facility] 7 [place] [address] Care Team Providers Care Linux Network Administrator Name Role Phone Roxi Forbes MD Primary Care Provider [phone] Reason for Visit * Reason Onset Date Comments Med Refill 08/09/2023 Encounter Details Date Type Department Care Team ([facility] st Contact Info) Description 08/09/2023 Telephone [facility] MEDICINE 230 [place] [address] Roxi Forbes MD 230 [place] [address] Med Refill Social History Tobacco Use Types [...] states that provider who prescribes medication at [address] [place] [address] Linwood Piña, stop medication due to pt missingfollow up appt with provider. Pt is requesting if provider could prescribed, pt states he uses medication every night. No symptoms Please contact pt at [phone] Maltese Speaker documented in this encounter Plan of Treatment Not on file documented as of this encounter Visit Diagnoses Not on filedocumented in this encounter Care Teams Linux Network Administrator Relationship Specialty Start Date End Date Roxi Forbes MD [address] [place] [address] PCP - General Family Medicine 01/03/21 documented as of this encounter
--- OUTSIDE RECORDS SUMMARY | 2025-07-22 09:30 | XMS_ITS | Encounter Summary ---
Author Organization [employer] Address 75 [facility] 7t [place] [address] Care Team Providers Care Director Of Sustainability Name Role Phone Roxi Forbes MD Primary Care Provider [phone] Reason for Visit * Reason Comments Med Refill Encounter Details Date Type Department Care Team ([facility] st Contact Info) Description 09/10/2023 Refill [facility] MEDICINE 230 [place] [address] Roxi Forbes MD 230 [place] [address] Social History Tobacco Use Types Packs/Day Years [...] the past 12 months, has t he [employer], gas, oil or water [employer] threatened to shut off services in your [...] filedocumented in this encounter Care Teams Director Of Sustainability Relationship Specialty Start Date End Date Roxi Forbes MD [address] [place] [address] PCP - General Family Medicine 01/03/21 documented as of this encounter
--- OUTSIDE RECORDS SUMMARY | 2025-07-22 09:30 | XMS_ITS | Encounter Summary ---
Author Organization [employer] Address 75 [facility] 7t [place] [address] Care Team Providers Care Hand Finisher Name Role Phone Roxi Forbes MD Primary Care Provider [phone] Encounter Details Date Type Department Care Team (Late st Contact Info) Description 05/13/2025 Orders Only [facility] MEDICINE 230 [place] [address] Roxi Forbes MD 230 [place] [address] Screening for colon cancer (Primary Dx) Social [...] Result Negative Negative 06/06/20 2:04 PM EDT [employer] (CLIA #:[id number]) Comment: The Cologuard (TM) test was performed [...] cancer. Following a negative Cologuard result, the [place] Cancer Society and U.S. Multi-Society Task Force screening guidelines recommend a Cologuard re-screening interval of 3 years. References: [place] [employer] Society Guideline for Colorectal Cancer Screening: https://www.cancer.org/cancer/rbwip-gibryb-bssgli/alsjhykey-tkewunaqz-fxufujc/ac s-rec ommendations.html.; Arturo DK, Juliocesar CR, Kane MillsK, Colorectal Cancer Screening: Recommendations for Physicians and Patients from the U.S. Multi-Society Task Force on Colorectal Cancer Screening , Am J Gastroenterology 2017; 112:7927-6659. TEST DESCRIPTION: Composite algorithmic analysis of stool [...] (Doug Barron al, N Engl J Med 2014;370(14):0473-4418.) Cologuard may produce a false negative or false positive result (no colorectal cancer or precancerous polyp present at colonoscopy follow up). A negative Cologuard test result does not guarantee the absence of CRC or advanced adenoma (pre-cancer). The current Cologuard screening interval is every 3 years. ([place] Cancer Society and U.S. Multi-Society Task Force). Cologuard performance data in a 10,000 patient pivotal study using colonoscopy as the reference method can be accessed at the following location: www.[employer]/results. Additional description of the Cologuard test process, warnings and precautions can be found at www.[employer]rovaGenerd.com. Stool specimen (specimen) 05/31/2025 8:00 AM EDT 06/01/2025 10:20 AM EDT Roxi Forbes MD LAB MOLECULAR DIAGNOSTICS [facility] Final Result [employer] (CLIA #:[id number]) [address] [place] [address], documented in this encounter Visit Diagnoses Diagnosis Screening for colon cancer- Primary Special screening for malignant neoplasms, colon documented in this encounter Additional Health Concerns Assessment Noted Time PHQ-9 Depression Total Score: 0 06/22/20 24 2:43 PM EDT documented as of this encounter Care Teams Hand Finisher Relationship Specialty Start Date End Date Roxi Forbes MD [address] [place] [address] PCP - General Family Medicine 01/03/21 documented as of this encounter
--- OUTSIDE RECORDS SUMMARY | 2025-07-22 09:30 | XMS_ITS | Encounter Summary ---
Author Organization [employer] Address 75 [facility] 7t [place] [address] Care Team Providers Care Molder Pipe Covering Name Role Phone Roxi Forbes MD Primary Care Provider [phone] Reason for Visit * Reason Onset Date Comments Nurse Triage 07/09/2023 Encounter Details Date Type Department Care Team ([facility] st Contact Info) Description 07/09/2023 Telephone [facility] MEDICINE 230 [place] [address] Roxi Forbes MD 230 [place] [address] Nurse Triage Social History Tobacco Use Types [...] 07/09/2023 3:55 PM EDT Triage call with [employer] Network Engineer [place] [id number] Pt reports right knee pain for past [...] accepted this outcome Please contact pt at [phone] documented in this encounter Plan of Treatment Not on file documented as of this encounter Visit Diagnoses Not on filedocumented in this encounter Care Teams Molder Pipe Covering Relationship Specialty Start Date End Date Roxi Forbes MD [address] [place] [address] PCP - General Family Medicine 01/03/21 documented as of this encounter
--- OUTSIDE RECORDS SUMMARY | 2025-07-22 09:30 | XMS_ITS | Encounter Summary ---
Author Organization [facility] Address [address] [place] [address] Phone Care Team Providers Care Hat And Cap Opener Name Role Phone Roxi Forbes MD Primary Care Provider [phone] Encounter Details Date Type Department Care Team (Late st Contact Info) Description 12/23/2023 Documentation Only [facility] [address] [place] [phone] Kalina Borden [address] [place] [phone] Social History Tobacco Use Types Packs/Day Years [...] [facility] [address] [place] [address] Italo Shirley MD [address] [facility] [address] documented as of this encounter Visit Diagnoses Not on filedocumented in this encounter Care Teams Hat And Cap Opener Relationship Specialty Start Date End Date Roxi Forbes MD [address] [place] [address] PCP - General 12/27/20 documented as of this encounter
--- OUTSIDE RECORDS SUMMARY | 2025-07-22 09:30 | XMS_ITS | Encounter Summary ---
Author Organization [employer] Address 75 [facility] 7t [place] [address] Care Team Providers Care Fire Control Mechanic Name Role Phone Roxi Forbes MD Primary Care Provider [phone] Reason for Visit * Reason Comments Med Refill Encounter Details Date Type Department Care Team ([facility] st Contact Info) Description 07/19/2025 Refill [facility] MEDICINE 230 [place] [address] Roxi Forbes MD 230 [place] [address] Social History Tobacco Use Types Packs/Day Years Used Date Smoking Tobacco: Some Days Cigarettes Passive Smoke Exposure: Current Smokeless Tobacco: Never Alcohol Use Standard Drinks/Week [...] with others, in a hotel, in a skilled nursing, living outside on the street, on a [...] Assessment Noted Time PHQ-9 Depression Total Score: 6 06/07/20 25 2:30 PM EDT documented as of this encounter Care Teams Fire Control Mechanic Relationship Specialty Start Date End Date Roxi Forbes MD 230 [place] [address] PCP - General Family Medicine 01/03/21 documented as of this encounter
--- OUTSIDE RECORDS SUMMARY | 2025-07-22 09:30 | XMS_ITS | Encounter Summary ---
Author Organization [employer] Address 75 [facility] 7t [place] [address] Care Team Providers Care Firebrick Layer Helper Name Role Phone Roxi Forbes MD Primary Care Provider [phone] Encounter Details Date Type Department Care Team (Late st Contact Info) Description 07/21/2024 Orders Only [facility] MEDICINE 230 [place] [address] Roxi Forbes MD [address] [place] [address] Social History Tobacco Use Types Packs/Day Years [...] documented as of this encounter Care Teams Firebrick Layer Helper Relationship Specialty Start Date End Date Roxi Forbes MD 230 [place] [address] PCP - General Family Medicine 01/03/21 documented as of this encounter
--- OUTSIDE RECORDS SUMMARY | 2025-07-22 09:30 | XMS_ITS | Encounter Summary ---
Author Organization [facility] Address [address] [place] [address] Phone Care Team Providers Care Purse Seining Hand Name Role Phone Roxi Forbes MD Primary Care Provider [phone] Encounter Details Date Type Department Care Team (Late st Contact Info) Description 12/19/2023 Documentation Only [facility] [address] [place] [address] Kalina Borden [address] [place] [phone] Social History Tobacco Use Types Packs/Day Years [...] Visit [facility] [address] [place] [address] Italo Shirley MD [address] [facility] [place] [address] documented as of this encounter Visit Diagnoses Not on filedocumented in this encounter Care Teams Purse Seining Hand Relationship Specialty Start Date End Date Roxi Forbes MD [address] [place] [address] PCP - General 12/27/20 documented as of this encounter
--- OUTSIDE RECORDS SUMMARY | 2025-07-22 09:30 | XMS_ITS | Encounter Summary ---
Author Organization [facility] Address [address] [place] [address] Phone Care Team Providers Care Laborer Vineyard Name Role Phone Roxi Forbes MD Primary Care Provider [phone] Encounter Details Date Type Department Care Team (Late Contact Info) Description 08/07/2022 Documentation Only [facility] [address] [place] [address] Mary Heredia PA [address] [place] [address] [place] [address] Social History Tobacco Use Types Packs/Day Years [...] [facility] [address] [place] [address] Italo Shirley MD [address] [place] [address] [place] [address] documented as of this encounter Visit Diagnoses Not on filedocumented in this encounter Care Teams Laborer Vineyard Relationship Specialty Start Date End Date Roxi Forbes MD [address] [place] [address] PCP - General 12/27/20 documented as of this encounter
--- OUTSIDE RECORDS SUMMARY | 2025-07-22 09:30 | XMS_ITS | Encounter Summary ---
Author Organization [employer] Address [address] [place] [address] 7 [place] [address] Care Team Providers Care Protective Signal Operations Supervisor Name Role Phone Roxi Forbes MD Primary Care Provider [phone] Reason for Visit * Reason Onset Date Comments Appointment Request 04/19/2023 Encounter Details Date Type Department Care Team ([facility] st Contact Info) Description 04/19/2023 Telephone [facility] MEDICINE 230 [place] [address] Roxi Forbes MD 230 [place] [address] Appointment Request Social History Tobacco Use Types [...] 05/03/2023 for DM2 Please contact pt at [phone] English Speaker documented in this encounter Plan of Treatment Not on file documented as of this encounter Visit Diagnoses Not on filedocumented in this encounter Care Teams Protective Signal Operations Supervisor Relationship Specialty Start Date End Date Roxi Forbes MD [address] [place] [address] PCP - General Family Medicine 01/03/21 documented as of this encounter
--- OUTSIDE RECORDS SUMMARY | 2025-07-22 09:30 | XMS_ITS | Encounter Summary ---
Author Organization [facility] Address [address] [place] [address] Phone Care Team Providers Care Freight Caller Name Role Phone Roxi Forbes MD Primary Care Provider [phone] Encounter Details Date Type Department Care Team (Late st Contact Info) Description 09/22/2024 Documentation Only [facility] [address] [place] [address] Kalina Borden [address] [place] [phone] Social History Tobacco Use Types Packs/Day Years [...] Visit [facility] [address] [place] [address] Italo Shirley MD [address] [facility] [place] [address] documented as of this encounter Visit Diagnoses Not on filedocumented in this encounter Care Teams Freight Caller Relationship Specialty Start Date End Date Roxi Forbes MD [address] [place] [address] PCP - General 12/27/20 documented as of this encounter
--- OUTSIDE RECORDS SUMMARY | 2025-07-22 09:30 | XMS_ITS | Encounter Summary ---
Author Organization [facility] Address [address] [place] [address] Phone Care Team Providers Care Occupational Therapist'S Assistant Name Role Phone Roxi Forbes MD Primary Care Provider [phone] Encounter Details Date Type Department Care Team (Late st Contact Info) Description 12/23/2023 Documentation Only [facility] [address] [place] [address] Kalina Borden [address] [place] [phone] Social History Tobacco Use Types Packs/Day Years [...] Visit [facility] [address] [place] [address] Italo Shirley MD [address] [facility] [place] [phone] documented as of this encounter Visit Diagnoses Not on filedocumented in this encounter Care Teams Occupational Therapist'S Assistant Relationship Specialty Start Date End Date Roxi Forbes MD [address] [place] [address] PCP - General 12/27/20 documented as of this encounter
--- OUTSIDE RECORDS SUMMARY | 2025-07-22 09:30 | XMS_ITS | Encounter Summary ---
Author Organization [facility] Address [address] [place] [address] Phone Care Team Providers Care Cytotechnologist Supervisor Name Role Phone Roxi Forbes MD Primary Care Provider [phone] Encounter Details Date Type Department Care Team (Late Contact Info) Description 03/31/2025 Documentation Only [facility] [address] [place] [address] Italo Shirley MD [address] [place] [address] [place] [phone] Social History Tobacco Use Types Packs/Day Years [...] [facility] [address] [place] [address] Italo Shirley MD [address] [place] [address] [place] [address] documented as of this encounter Visit Diagnoses Not on filedocumented in this encounter Care Teams Cytotechnologist Supervisor Relationship Specialty Start Date End Date Roxi Forbes MD [address] [place] [address] PCP - General 12/27/20 documented as of this encounter
--- OUTSIDE RECORDS SUMMARY | 2025-07-22 09:30 | XMS_ITS | Encounter Summary ---
Author Organization [employer] Address 75 [facility] 7t [place] [address] Care Team Providers Care Sales Estimator Name Role Phone Roxi Forbes MD Primary Care Provider [phone] Reason for Referral * Consultation (Routine) - Closed Specialty Diagnoses / Procedures Referred By Contestelle t Referred To Contact Cardiology Diagnoses History of pancreatitis Hypertriglyceridemia Roxi Forbes MD [address] [place] [address] Phone: tel: fax: [facility] Referral ID Status Reason Start Date Expiration Date V isits Requested Visits Authorized [id number] Closed Specialty Services Required 09/24/2024 09/24/2025 6 6 Encounter Details Date Type Department Care Team (Late st Contact Info) Description 09/17/2024 Orders Only [facility] MEDICINE 230 [place] [address] Roxi Forbes MD [address] [place] [address] History of pancreatitis (Primary Dx); Hypertriglyceridemia Social [...] documented as of this encounter Care Teams Sales Estimator Relationship Specialty Start Date End Date Roxi Forbes MD [address] [place] [address] PCP - General Family Medicine 01/03/21 documented as of this encounter
== END ==
LOC: HO.CARD 08:59
PROVIDERS: PCP General Practice; Visit Provider Nurse Practitioner Family
DX: R07.2 Precordial pain (principal); R00.2 Palpitations
CPT/HCPCS: 93225; 93306; Q9957

== ENCOUNTER → 2025-07-22 09:03 | Outpatient (BNV) | payer MEDICAID, SELFPAY | PROVIDERS: PCP General Practice; Visit Provider Internal Medicine Cardiovascular Disease | DX: R07.2 Precordial pain (principal) | CPT/HCPCS: 93306 ==

== ENCOUNTER → 2025-08-03 07:49 | Outpatient (REF) | payer MEDICAID, SELFPAY ==
--- NOTE | ~2025-08-03 | NM_ITS ---
Lexiscan Myocardial perfusion study Indication: Chest pain Technique: The patient was brought in for a Lexiscan perfusion study on 08/03/2025 and was injected 0.4 mg of Lexiscan intravenously. Within a minute of this injection 35 mCi of sestamibi was given intravenously. Images were obtained using the SPECT gamma camera interlaced with the gating device. Images were obtained in supine position. Resting perfusion study was performed on 08/04/2025. Patient was administered 35 mCi of sestamibi intravenously at rest. Images were then obtained in supine position. Total DLP 112 mGy-cm. Images were processed with the software and compared side to side in short axis, horizontal long axis and vertical long axis views. Findings: Raw aquisition reviewed. The stress perfusion study showed diminished tracer uptake along the inferior wall from the basal to mid portions. There is improvement with CT attenuation correction suggestive of diaphragmatic attenuation artifact. The gated study shows normal LV systolic function with calculated LVEF of 56%. LV cavity is normal in size. The gated study shows reduced contractility in the basal to mid portion of inferior wall. Resting study shows diminished tracer uptake along the inferior wall in the basal to mid portions. There is improvement with CT attenuation correction suggestive of diaphragmatic attenuation artifact. Gating at rest reveals normal wall motion with ejection fraction at 68%. The findings are consistent with mostly fixed defect in the basal to mid inferior wall, with some reversibility. NM/AZ cardiolite stress test Impression: 1. Myocardial perfusion imaging study shows mostly fixed inferior defect with reversibility, probably from diaphragmatic attenuation artifact. Less likely prior nontransmural infarct. 2. Gated LVEF is 56% during stress and 68% during rest. 3. Transient ischemic dilatation not present. EKG component of the test reported separately. Electronically signed by: Antonio Moore MD 08/05/2025 03:55 PM EDT
--- NOTE | 2025-08-03 07:52 | CA_ITS ---
Acquisition Time: 2025-08-03 08:18:25 Total Exercise Time: 00:07:34 Test Indications: CP,Palpitations Medications: SEE H&P Protocol: TAMMIE Max HR: 139 BPM 80% of Pred: 173 BPM Max BP: 142/82 mmHG Max Work Load: 7.4 METS Exercise stress test with exercise 7 mins 34 secs of Tammie Protocol, at reduced speed of 2.5mph, achieving 75% MPHR, requested to stop due to feet discomfort, with no anginal symptoms. No EKG changes at achieved workload. Suboptimal HR and test switched to Lexiscan. Pharmacological stress test with Lexiscan, with reports of SOB and palpitations, without any EKGs, with normotenisve response to injection. Nondiagnostic for ischemia. In recovery, pt treated with IVP Aminophylline 75 mg to reverse Lexiscan after which pt slowly feeling back to baseline. HR gradually returned to baseline. Nuclear images pending. Test reviewed with Dr. Moore. Referred By: Bety Duncan Electronically Signed By: Reyes Gan
--- OUTSIDE RECORDS SUMMARY | 2025-08-03 07:53 | XMS_ITS | Encounter Summary ---
Author Organization [employer] Address [address] [place] [address] [address] [place] [address] Care Team Providers Care Travelift Operator Name Role Phone Roxi Forbes MD Primary Care Provider [phone] Reason for Visit * Reason Comments Med Refill Encounter Details Date Type Department Care Team (Late st Contact Info) Description 03/26/2023 Refill [facility] MEDICINE [address] [place] [address] Roxi Forbes MD [address] [place] [address] Social History Tobacco Use Types Packs/Day Years [...] on filedocumented in this encounter Care Teams Travelift Operator Relationship Specialty Start Date End Date Roxi Forbes MD [address] [place], [place] [id number] PCP - General Family Medicine 01/03/21 documented as of this encounter
--- OUTSIDE RECORDS SUMMARY | 2025-08-03 07:53 | XMS_ITS | Encounter Summary ---
Author Organization [facility] Address [address] [place] [address] Phone Care Team Providers Care Screen Printing Cloth Spreader Name Role Phone Roxi Forbes MD Primary Care Provider Encounter Details Date Type Department Care Team (Late st Contact Info) Description 03/19/2025 Telephone [facility] [address] [place] [address] Aleida Brady Social History Tobacco [...] Office Visit [facility] [address] [place] [address] Italo Shirley MD [address] [facility] [place] [address] documented as of this encounter Visit Diagnoses Not on filedocumented in this encounter Care Teams Screen Printing Cloth Spreader Relationship Specialty Start Date End Date Roxi Forbes MD [address] [place] [address] PCP - General 12/27/20 documented as of this encounter
--- OUTSIDE RECORDS SUMMARY | 2025-08-03 07:53 | XMS_ITS | Encounter Summary ---
Author Organization [employer] Address [address] [place] [address] [address] [place] [address] Care Team Providers Care Pasting Machine Offbearer Name Role Phone Roxi Forbes MD Primary Care Provider [phone] Reason for Visit * Reason Comments Med Refill Encounter Details Date Type Department Care Team ([facility] st Contact Info) Description 02/25/2023 Refill [facility] MEDICINE [address] [place] [address] Roxi Forbes MD [address] [place] [address] Social History Tobacco Use Types Packs/Day Years [...] on filedocumented in this encounter Care Teams Pasting Machine Offbearer Relationship Specialty Start Date End Date Roxi Forbes MD [address] [place] [address] PCP - General Family Medicine 01/03/21 documented as of this encounter
--- OUTSIDE RECORDS SUMMARY | 2025-08-03 07:54 | XMS_ITS | Encounter Summary ---
Author Organization [facility] Address [address] [place] [address] Phone Care Team Providers Care Almond Cutting Machine Tender Name Role Phone Roxi Forbes MD Primary Care Provider [phone] Encounter Details Date Type Department Care Team (Late Contact Info) Description 08/07/2022 Documentation Only [facility] [address] [place] [address] Mary Heredia PA [address] [place] [address] [place] [address] Social History Tobacco Use Types Packs/Day Years [...] [facility] [address] [place] [address] Italo Shirley MD [address] [place] [address] [place] [address] documented as of this encounter Visit Diagnoses Not on filedocumented in this encounter Care Teams Almond Cutting Machine Tender Relationship Specialty Start Date End Date Roxi Forbes MD [address] [place] [address] PCP - General 12/27/20 documented as of this encounter
--- OUTSIDE RECORDS SUMMARY | 2025-08-03 07:54 | XMS_ITS | Encounter Summary ---
Author Organization [facility] Address [address] [place] [address] Phone Care Team Providers Care Rotary Drill Operator Helper Name Role Phone Roxi Forbes MD Primary Care Provider [phone] Reason for Visit * Reason Comments Med Refill Encounter Details Date Type Department Care Team (Late Contact Info) Description 12/10/2024 Refill [facility] [address] [place] [address] Mary Heredia PA [address] [place] [address] [place] [phone] Social History Tobacco Use Types Packs/Day Years [...] [facility] [address] [place] [address] Italo Shirley MD [address] [facility] [place] [address] documented as of this encounter Visit Diagnoses Not on filedocumented in this encounter Care Teams Rotary Drill Operator Helper Relationship Specialty Start Date End Date Roxi Forbes MD [address] [place] [address] PCP - General 12/27/20 documented as of this encounter
--- OUTSIDE RECORDS SUMMARY | 2025-08-03 07:54 | XMS_ITS | Encounter Summary ---
Author Organization [employer] Address [address] [facility] 7t [place] [address] Care Team Providers Care Flag Decorator Name Role Phone Roxi Forbes MD Primary Care Provider [phone] Reason for Visit * Reason Comments Med Refill Encounter Details Date Type Department Care Team ([facility] st Contact Info) Description 09/04/2023 Refill [facility] MEDICINE [address] [place] [address] Dariela Cruz MD [address] [place] [address] Social History Tobacco Use Types Packs/Day Years [...] the past 12 months, has t he [employer], [employer], oil or water company threatened to shut [...] on filedocumented in this encounter Care Teams Flag Decorator Relationship Specialty Start Date End Date Roxi Forbes MD [address] [place] [address] PCP - General Family Medicine 01/03/21 documented as of this encounter
--- OUTSIDE RECORDS SUMMARY | 2025-08-03 07:54 | XMS_ITS | Encounter Summary ---
Author Organization [facility] Address [address] [place] [address] Phone Care Team Providers Care Plan Coordinator Name Role Phone Roxi Forbes MD Primary Care Provider [phone] Encounter Details Date Type Department Care Team (Late st Contact Info) Description 03/12/2025 Documentation Only [facility] [address] [place] [address] Polina Dias OR [address] [place] [phone] Social History Tobacco Use Types Packs/Day Years [...] Visit [facility] [address] [place] [address] Italo Shirley MD [address] [facility] [place] [phone] documented as of this encounter Visit Diagnoses Not on filedocumented in this encounter Care Teams Plan Coordinator Relationship Specialty Start Date End Date Roxi Forbes MD [address] [place] [address] PCP - General 12/27/20 documented as of this encounter
--- OUTSIDE RECORDS SUMMARY | 2025-08-03 07:54 | XMS_ITS | Encounter Summary ---
Author Organization [facility] Address [address] [place] [address] Phone Care Team Providers Care Cloth Tearer Name Role Phone Roxi Forbes MD Primary Care Provider [phone] Encounter Details Date Type Department Care Team (Late st Contact Info) Description 12/19/2023 Documentation Only [facility] [address] [place] [phone] Kalina Borden [address] [place] [phone] Social History Tobacco Use Types Packs/Day Years [...] [facility] [address] [place] [address] Italo Shirley MD [address] [facility] [place] [phone] documented as of this encounter Visit Diagnoses Not on filedocumented in this encounter Care Teams Cloth Tearer Relationship Specialty Start Date End Date Roxi Forbes MD [address] [place] [address] PCP - General 12/27/20 documented as of this encounter
--- OUTSIDE RECORDS SUMMARY | 2025-08-03 07:54 | XMS_ITS | Clinical Summary ---
Author Organization [employer] Address [address] [facility] 7t [place] [address] Care Team Providers Care Lens Marker Name Role Phone Roxi Forbes MD Primary Care Provider [phone] Allergies No known active allergies Medications thiamine [...] NECESARIO 01/23/20 22 Active Continuous Blood Gluc Milanese Knitting Machine Operator (FreeStyle Bernice 2 Zebulon) deviceIndications :Type 2 diabetes mellitus with hyperglycemia, with long-term current use of insulin ([facility]) USE DAILY TO CHECK BLOOD SUGAR 1 each 01/11/20 23 Active lisinopril 10 MG tablet Take 10 mg by mouth. 12/24/19 24 Active ergocalciferol (Vitamin D2) 1.25 MG (58525 UT) capsule Take 50,000 Units by mouth [...] 2 diabetes mellitus with hyperglycemia, unspecified whether residential insulin use ([facility]) USE DIRECTED, CHANGE EVERY 2 [...] hyperglycemia, with long-term current use of insulin ([facility]) Take 1 tablet (5 mg) [...] hyperglycemia, without long-term current use of insulin ([facility]) TAKE 2 TABLETS BY MOUTH [...] DAY 30 tablet 1 07/20/20 25 Active empagliflozin (Jardiance) 25 MG Take 1 [...] continue taking pravastatin daily Pt will call [facility] cardiology to schedule appt as referral [...] does not tolerate it will refer to medical driver for assistance with other lipid lowering agents [...] AM EDT): Current A1c: 8.8, needs to last picker Lantus and Novolog, has not had them for many months. Called [facility] to ensure he can last picker today. Continue Metformin and Jardiance BMP: [...] LDL-C. Tevin FAUST et al. ELINA. 2013;310(19): 9422-0433 (http://education.OptiScan Biomedical.com/faq/JIB463) ASCVD: Calculate pending updated labs Statin: NO, [...] LDL-C. Tevin FAUST et al. ELINA. 2013;310(19): 4299-1932 (http://education.OptiScan Biomedical.com/faq/HYG256) ASCVD: Calculate pending updated labs Statin: Yes [...] LDL-C. Tevin FAUST et al. ELINA. 2013;310(19): 8152-8309 (http://education.OptiScan Biomedical.Earmark/faq/TAP650) ASCVD: Calculate pending updated labs Statin: Yes [...] 3:08 PM EDT): Following with nephrology in [facility] Has pending renal US, helped to schedule ER precautions Iron deficiency anemia 06/22/2020 Encounters Date Type Department Care Team Description 07/19/2025 Refill [facility] MEDICINE [address] [place] [address] Roxi Forbes MD 07/06/2025 Telephone [facility] MEDICINE [address] [place] [address] Roxi Forbes MD 07/05/2025 Results Follow-Up [address] [place] [address] Roxi Forbes MD Hemoglobin A1c, Hepatic Function Panel, Lipid Panel, Standard, PSA,Total 06/28/[address] [address] Roxi Forbes MD 06/09/2025 Orders Only GENERIC EXTERNAL DATA DEPARTMENT Provider, Generic External Data 06/07/2025 2:45 PM EDT Office Visit [address] [address] Roxi Forbes MD Type 2 diabetes mellitus [...] of pancreatitis; Tachycardia 06/07/2025 Travel 06/04/[address] [address] Roxi Forbes MD Chart prep 05/14/[address] [address] Roxi Forbes MD CGM medical necessity 05/13/2025 Orders Only [address] [address] Roxi Forbes MD Screening for colon cancer (Primary Dx) 05/12/[address] [address] Roxi Forbes MD Lab Orders from Last 3 Months Immunizations Immunization Administration Dates Next Due HepB-CpG 07/20/2025 Influenza injectable quadriv alent IIV4 with preservative 12/07/2019 Influenza, Injectable, MDCK, preservative free 0 07/20/2025 Influenza, seasonal, injectable, preservative fr ee 01/18/2025 Moderna Covid-19 Vaccine 12+ 02/10/2021 Pfizer Covid-19 Vaccine 12+ 02/25/2021 Pfizer Covid-19 Vaccine 12+ Bivalent 11/14/2022 Pneumococcal Conjugate PCV 13 03/21/2020 Pneumococcal Conjugate PCV 20 05/10/2023 Tdap 07/20/2025 Social History Tobacco Use Types Packs/Day Years [...] with others, in a hotel, in a care home, living outside on the street, on a [...] Use Screening 1990 Family Planning (PISQ) 1993 COVID-19 Vaccine ( season) 2025 11/14/2022, 11/21/2021, 02/25/2021, Additional history exists Hepatitis B Vaccines (2 of 2 - CpG 2-dose series) 08/17/2025 07/20/2025 Diabetes: Hemoglobin A1C 09/09/2025 025, 06/07/2025, 10/19/2024, Additional history exists Diabetes: Foot Exam 10/19/2025 10/19/2024, Hepatitis A [...] Cancer Screening 05/31/2028 FIT DNA/Cologuard 05/31/2028 05/31/2025 DTaP/Tdap/Td Vaccines (2 - Td or Tdap) 07/20/2035 07/20/2025 RSV Patients and Patients Aged 60 years or older (1 - 1-dose 75+ series) 2053 HIV Screening Completed 05/26/2020 Pneumococcal Vaccine: Pediatrics (0 to 5 Years) and At-Risk Patients (6 to 49) Years Completed 05/10/2023, 03/21/2020 Hepatitis C Screening Completed 07/27/2024 Influenza Vaccine Completed 07/20/2025, , 12/07/2019 HIB Vaccines Aged Out No longer [...] Specific Antigen 0.33 <0.05 - 4.0 ng/mL [facility] Comment:PSA methodology: Lenny Morejon i ChemiluminescentMicroparticle Immunoassay (CMIA) 06/09/2025 8:09 AM EDT 06/09/2025 11:24 AM EDT us Generic External Data Provider LAB BLOOD ORDERAB LES Final Result [facility] [address] [place] [phone] * (ABNORMAL) Hemoglobin A1c (06/09/2025 8:09 AM EDT) Hemoglobin A1c 7.9(H) <6.0 % [facility] Comment:Hemoglobin A1C Refer ence Range Adults: 4.8 - 6.0 % Non diabetic: < 6.0 % Goal: < 7.0 %Additional Action Suggested: > 8.0 %Note: Hemoglobin A1c results are invalid for patients with abnormal amounts of HbF. Blood transfusions may impact the HbA1c concentration in the patient sample. Estimated Average Glucose 180 mg/dL [facility] Comment:eAG = Estimated ave rage glucose which is %A1C expressed asaverage glucose, using the formula of the E7A-QsvbfprYocdcly Glucose study (ADAG), Diabetes Care, Vol.31,#8,Jun. 2007 06/09/2025 8:09 AM EDT 06/09/2025 11:24 AM EDT us Generic External Data Provider LAB BLOOD ORDERAB LES Final Result Performing Organization Address [facility] de Phone Number [facility] [address] [place] [phone] * Hepatic Function Panel (06/09/2025 8:09 AM EDT) Bilirubin, Total 0.4 0.0 - 1.0 mg/dL [facility] Bilirubin, Direct 0.1 0.0 - 0.5 mg/dL [facility] Aspartate Amino Transferase 35 5 - 37 U/L [facility] Alanine Aminotransferase 28 0 - 40 U/L [facility] Total Protein 7.7 6.5 - 8.0 g/dL [facility] Albumin Level 4.8 3.5 - 5.0 g/dL [facility] Alkaline Phosphatase 45 39 - 117 U/L [facility] 06/09/2025 8:09 AM EDT 06/09/2025 11:24 AM EDT us Generic External Data Provider LAB BLOOD ORDERAB LES Final Result Performing Organization Address [facility] Co de Phone Number [facility] [address] [place] [address] [phone] * (ABNORMAL) Lipid Panel, Standard (06/09/2025 8:09 AM EDT) Triglycerides 722(H) <150 mg/dL [facility] Comment:Slight Lipemia.Pepe able Triglyceride: less than 150 mg/dLBorderline High Triglyceride 150-199 mg/dLHigh Triglyceride: 200-499 mg/dLVery High Triglyceride: greater than or equal to 5OO mg/dL Cholesterol 248(H) <200 mg/dL [facility] Comment:Desirable Cholestero l: less than 200 mg/dLBorderline High Cholesterol: 200-239 mg/dLHigh Cholesterol: greater than 239 mg/dL LDL Cholesterol Calculated TNP <100 mg/dL [facility] Comment:Unable to calculate the LDL. The formula of Friedwald,Pelaez, and Karlie is only valid if the triglycerides areless than 400 mg/dl. HDL Cholesterol 42 >40 mg/dL [facility] Comment:Desirable HDL: great er than 40 mg/dL Note: This HDL assay may give artificially low results in patients with liver disease. 06/09/2025 8:09 AM EDT 06/09/2025 11:24 AM EDT us Generic External Data Provider LAB BLOOD ORDERAB LES Final Result [facility] [address] [place] [address] [phone] * ECG 12 lead (06/08/2025 2:42 PM EDT) Narrative Roxi Forbes MD - 06/08/2025 2:42 PM EDT NSR, no ST-T segment changes, VR 90 us Roxi Forbes MD ECG ORDERABLES Final Result * (ABNORMAL) POCT Glucose (06/07/2025 2:35 PM EDT) Glucose Blood, POC 210(A) 60 - 200 mg/dL Comment:random QC Media Lot # [id number] Lot# Expiration Date [id number] Blood Capillary blood specimen / Unknown 06/07/2025 2:35 PM EDT Roxi Forbes MD POINT OF CARE TEST ENTER/EDIT ORDERABLES Final Result * (ABNORMAL) POCT HGB A1C (06/07/2025 2:34 PM EDT) Hemoglobin A1C 8.3(A) 4.0 - 5.7 % QC Media Lot # [id number] Lot# Expiration Date [id number] Blood 06/07/2025 2:34 PM EDT Roxi Forbes MD POINT OF CARE TEST ENTER/EDIT ORDERABLES Final Result * Cologuard?? colon cancer screening (05/31/2025 8:00 AM EDT) Cologuard Result Negative Negative 06/06/20 2:04 PM EDT [facility] (CLIA #:[id number]) Comment: The Cologuard (TM) test was performed [...] cancer. Following a negative Cologuard result, the [place] Cancer Society and U.S. [place] [facility]-Society Task Force screening guidelines recommend a Cologuard re-screening interval of 3 years. References: [place] [employer] Guideline for Colorectal Cancer Screening: https://www.cancer.org/cancer/bwtva-ngxmak-csabeh/rpheefdtf-gysfvdfgx-tbhjyrg/ac s-rec ommendations.html.; Arturo DK, Juliocesar CR, [place]K, Colorectal Cancer Screening: Recommendations for Physicians and Patients from the U.S. Multi-Society Task Force on Colorectal Cancer Screening , Am J Gastroenterology 2017; 112:5901-7006. TEST DESCRIPTION: Composite algorithmic analysis of stool [...] (Doug Barron al, N Engl J Med 2014;370(14):3275-3420.) Cologuard may produce a false negative or false positive result (no colorectal cancer or precancerous polyp present at colonoscopy follow up). A negative Cologuard test result does not guarantee the absence of CRC or advanced adenoma (pre-cancer). The current Cologuard screening interval is every 3 years. ([place] Cancer Society and U.S. Multi-Society Task Force). Cologuard performance data in a 10,000 patient pivotal study using colonoscopy as the reference method can be accessed at the following location: www.Devkinetic [employer]s.Earmark/results. Additional description of the Cologuard test process, warnings and precautions can be found at www.colTraversa Therapeuticsrd.com. Stool specimen (specimen) 05/31/2025 8:00 AM EDT 06/01/2025 10:20 AM EDT Roxi Forbes MD LAB MOLECULAR DIAGNOSTICS ORDE RABLES Final Result [facility] (CLIA #:[id number]) [address] [place] [address], * (ABNORMAL) Albumin, Random Urine W/Creatinine (10/22/2024 9:00 AM EST) Creatinine, Urine 51.44 mg/dL [facility] Microalbumin Urine 15.0 mg/L [facility] Microalbum Creatinine Ratio Ur 29.1(H) <30 ug/mg cr [facility] Comment:Albumin/Creatinine R atio Reference Ranges: Normal: < 30 ug/mg creatinine Microalbuminuria: 30 - 300 ug/mg creatinineClinical Albuminuria: > 300 ug/mg creatinine Urine (Urine, Random) 10/22/2024 9:00 AM EST 10/22/2024 11:13 AM EST Roxi Forbes MD LAB URINE ORDERABLES Final Res ult Performing Organization Address [facility] Co de Phone Number [facility] [address] [place] [phone] * Hepatitis C Antibody with Reflex to HCV, RNA, Quantitative, Real-Time PCR (07/27/2024 8:05 AM EDT) Hepatitis C Antibody Nonreactive Nonreactive [facility] Comment:Antibodies to HCV no t detected; does not exclude early acuteHCV infection. Blood Venous blood specimen / Unknown 07/27/2024 8:05 AM EDT 07/27/2024 11:32 AM EDT us Roxi Forbes MD LAB BLOOD ORDERABLES Final Res ult [facility] [address] [place] [address] [phone] * HIV 1/2 ANTIGEN/ANTIBODY,FOURTH GENERATION W/RFL [...] purpose. For additional information please refer to http://Aquicore.Youth Noise.Earmark/faq/EMV547 (This link is being provided for informational/ [...] purpose. For additional information please refer to http://Aquicore.Youth Noise.Earmark/faq/OLI704 (This link is being provided for informational/ [...] purpose. For additional information please refer to http://Aquicore.Wikinvest/faq/RHP091 (This link is being provided for informational/ [...] purpose. For additional information please refer to http://Aquicore.Wikinvest/faq/YYB869 (This link is being provided for informational/ [...] purpose. For additional information please refer to http://Aquicore.Wikinvest/faq/EFL076 (This link is being provided for informational/ [...] purpose. For additional information please refer to http://ACell/faq/QSW951 (This link is being provided for informational/ [...] purpose. For additional information please refer to http://Aquicore.Wikinvest/faq/BMW807 (This link is being provided for informational/ [...] purpose. For additional information please refer to http://Aquicore.Youth Noise.Earmark/faq/XZT170 (This link is being provided for informational/ educational purposes only.) The performance of this assay has not been clinically validated in patients less than 2 years old. HIV-1/2 ANTIGEN AND ANTIBODIES, 4TH GENERATION W/ REFLEX NON-REACT EVARISTO NON-REACT EVARISTO [facility] Comment: HIV-1 antigen and HIV-1/HIV-2 [...] purpose. For additional information please refer to http://Aquicore.Youth Noise.Earmark/faq/TFK321 (This link is being provided for informational/ educational purposes only.) The performance of this assay has not been clinically validated in patients less than 2 years old. 05/26/2020 4:27 PM EDT us Juliette Hawkins [facility] LAB BLOOD ORDERABLES Final Res ult [facility] [address] from Last 3 Months or Most Recently Relevant to Health Maintenance Insurance [place] C[employer] Care Teams Lens Marker Relationship Specialty Start Date End Date Roxi Forbes MD [address] [place] [phone] PCP - General Family Medicine 01/03/21
--- OUTSIDE RECORDS SUMMARY | 2025-08-03 07:54 | XMS_ITS | Clinical Summary ---
Author Organization [facility] [place], Address [address] [place] [address] [place] [address] Phone Care Team Providers Care Shoe Sticks Repairer Name Role Phone Roxi Forbes MD Primary [...] VECES AL D A 2 Active Creon 97552-10170 units capsule TOME 1 C PSULA POR [...] 30 tablet 3 Active ergocalciferol 1.25 MG (54098 UT) capsule Take 1 capsule (50,000 Units [...] Only [facility] [address] [place] [address] Polina Dias MA 07/20/2025 8:50 AM EDT Office Visit [facility] [address] [place] [address] Italo Shirley MD Chronic kidney disease, stage 2 (mild) (Primary Dx) 07/14/2025 9:10 AM EDT Office Visit [facility] [address] [place] [address] Italo Shirley MD Type 2 diabetes mellitus, not otherwise specified (HCC) (Primary Dx); Flank pain from Last 3 Months Immunizations Immunization Administration [...] Visit [facility] [address] [place] [address] Italo Shirley MD [address] [place] [address] [place] [address] Health Maintenance Due Date Last Done Comments [...] 05/10/2023, 03/21/2020 Insurance Medicaid [place] Care Teams Shoe Sticks Repairer Relationship Specialty Start Date End Date Rxoi Forbes MD [address] [place] [address] PCP - General 12/27/20
--- OUTSIDE RECORDS SUMMARY | 2025-08-03 07:54 | XMS_ITS | Encounter Summary ---
Author Organization [facility] Address [address] [place] [address] Phone Care Team Providers Care Special Librarian Name Role Phone Roxi Forbes MD Primary Care Provider [phone] Encounter Details Date Type Department Care Team (Late st Contact Info) Description 07/21/2025 Documentation Only [facility] [address] [place] [address] Polina Dias [place] [address] [place] [phone] Social History Tobacco Use Types Packs/Day Years [...] [facility] [address] [place] [address] Italo Shirley MD [address] [facility] [place] [address] documented as of this encounter Visit Diagnoses Not on filedocumented in this encounter Care Teams Special Librarian Relationship Specialty Start Date End Date Roxi Forbes MD [address] [place] [address] PCP - General 12/27/20 documented as of this encounter
--- OUTSIDE RECORDS SUMMARY | 2025-08-03 07:54 | XMS_ITS | Encounter Summary ---
Author Organization [employer] Address [address] [facility] 7t [place] [address] Care Team Providers Care Packaging Machine Supplies Distributor Name Role Phone Roxi Forbes MD Primary Care Provider [phone] Encounter Details Date Type Department Care Team (Late st Contact Info) Description 05/13/2025 Orders Only [facility] [address] [place] [address] Roxi Forbes MD [address] [place] [address] Screening for colon cancer (Primary Dx) Social [...] Result Negative Negative 06/06/20 2:04 PM EDT [facility] (CLIA #:[id number]) Comment: The Cologuard (TM) test was performed [...] cancer. Following a negative Cologuard result, the [place] Cancer Society and U.S. Multi-Society Task Force screening guidelines recommend a Cologuard re-screening interval of 3 years. References: [place] [employer] Guideline for Colorectal Cancer Screening: https://www.cancer.org/cancer/mqboo-aacbzz-hmkjac/vvjdkgnmg-noflpvmex-wsdzqop/ac s-rec ommendations.html.; Arturo DK, Juliocesar CR, [place], Colorectal Cancer Screening: Recommendations for Physicians and Patients from the U.S. Multi-Society Task Force on Colorectal Cancer Screening , Am J Gastroenterology 2017; 112:2068-3315. TEST DESCRIPTION: Composite algorithmic analysis of stool [...] (Doug Barron al, N Engl J Med 2014;370(14):3563-7907.) Cologuard may produce a false negative or false positive result (no colorectal cancer or precancerous polyp present at colonoscopy follow up). A negative Cologuard test result does not guarantee the absence of CRC or advanced adenoma (pre-cancer). The current Cologuard screening interval is every 3 years. ([place] Cancer Society and U.S. Multi-Society Task Force). Cologuard performance data in a 10,000 patient pivotal study using colonoscopy as the reference method can be accessed at the following location: www.Etherstack/results. Additional description of the Cologuard test process, warnings and precautions can be found at www.Interneerrd.com. Stool specimen (specimen) 05/31/2025 8:00 AM EDT 06/01/2025 10:20 AM EDT Roxi Forbes MD LAB MOLECULAR DIAGNOSTICS NATIVIDAD THAPA Final Result [facility] (CLIA #:[id number]) [address] [place] [address], documented in this encounter Visit Diagnoses Diagnosis Screening for colon cancer- Primary Special screening for malignant neoplasms, colon documented in this encounter Additional Health Concerns Assessment Noted Time PHQ-9 Depression Total Score: 0 06/22/20 24 2:43 PM EDT documented as of this encounter Care Teams Packaging Machine Supplies Distributor Relationship Specialty Start Date End Date Roxi Forbes MD [address] [place] [phone] PCP - General Family Medicine 01/03/21 documented as of this encounter
--- OUTSIDE RECORDS SUMMARY | 2025-08-03 07:54 | XMS_ITS | Encounter Summary ---
Author Organization [employer] Address [address] [facility] 7t [place] [address] Care Team Providers Care Transit Coach Operator Name Role Phone Roxi Forbes MD Primary Care Provider [phone] Reason for Visit * Reason Comments Med Refill Encounter Details Date Type Department Care Team ([facility] st Contact Info) Description 09/10/2023 Refill [facility] [address] [place] [address] Roxi Forbes MD [address] [place] [address] Social History Tobacco Use Types Packs/Day Years [...] the past 12 months, has t he [employer], gas, oil or water [employer] threatened to shut off services in your [...] on filedocumented in this encounter Care Teams Transit Coach Operator Relationship Specialty Start Date End Date Roxi oFrbes MD [address] [place] [address] PCP - General Family Medicine 01/03/21 documented as of this encounter
--- OUTSIDE RECORDS SUMMARY | 2025-08-03 07:54 | XMS_ITS | Encounter Summary ---
Author Organization [employer] Address [address] [facility] 7t [place] [address] Care Team Providers Care Manager Video Games Name Role Phone Roxi Forbes MD Primary Care Provider [phone] Encounter Details Date Type Department Care Team (Late st Contact Info) Description 07/21/2024 Orders Only [facility] MED[facility]INE [address] [place] [address] Roxi Forbes MD [address] [place] [address] Social History Tobacco Use Types Packs/Day Years [...] documented as of this encounter Care Teams Manager Video Games Relationship Specialty Start Date End Date Roxi Forbes MD [address] [place] [address] PCP - General Family Medicine 01/03/21 documented as of this encounter
--- OUTSIDE RECORDS SUMMARY | 2025-08-03 07:54 | XMS_ITS | Encounter Summary ---
Author Organization [facility] [place], Address [address] [place] [address] Phone Care Team Providers Care Gravel Wheeler Name Role Phone Roxi Forbes MD Primary Care Provider [phone] Reason for Visit * Reason Comments Med Change Request Encounter Details Date Type Department Care Team (Late st Contact Info) Description 01/23/2023 Refill [facility] [address] [place] [phone] Abe Rivera MD [address] [place] [address] [place] [phone] Social History Tobacco Use Types Packs/Day Years [...] Visit [facility] [address] [place] [phone] Italo Shirley MD [address] [place] [address] [place] [phone] documented as of this encounter Visit Diagnoses Not on filedocumented in this encounter Care Teams Gravel Wheeler Relationship Specialty Start Date End Date Roxi Forbes MD [address] [place] [address] PCP - General 12/27/20 documented as of this encounter
--- OUTSIDE RECORDS SUMMARY | 2025-08-03 07:54 | XMS_ITS | Encounter Summary ---
Author Organization [facility] Address [address] [place] [address] Phone Care Team Providers Care Felled Seam Operator Name Role Phone Roxi Forbes MD Primary Care Provider [phone] Encounter Details Date Type Department Care Team (Late st Contact Info) Description 09/22/2024 Documentation Only [facility] [address] [place] [place] [phone] Kalina Borden [address] [place] [phone] Social History Tobacco Use Types Packs/Day Years [...] Visit [facility] [address] [place] [place] [address] Italo Shirley MD [address] [facility] [place] [phone] documented as of this encounter Visit Diagnoses Not on filedocumented in this encounter Care Teams Felled Seam Operator Relationship Specialty Start Date End Date Roxi Forbes MD [address] [place] [address] PCP - General 12/27/20 documented as of this encounter
--- OUTSIDE RECORDS SUMMARY | 2025-08-03 07:54 | XMS_ITS | Encounter Summary ---
Author Organization [employer] Address 75 [facility] 7 [place] [address] Care Team Providers Care Christian Ministries Professor Name Role Phone Roxi Forbes MD Primary Care Provider [phone] Reason for Visit * Reason Onset Date Comments Med Refill 08/09/2023 Encounter Details Date Type Department Care Team ([facility] st Contact Info) Description 08/09/2023 Telephone [facility] MEDICINE [address] [place] [address] Roxi Forbes MD [address] [place] [address] Med Refill Social History Tobacco Use Types [...] states that provider who prescribes medication at [address] [place] [address] Linwood Piña, stop medication due to pt missingfollow up appt with provider. Pt is requesting if provider could prescribed, pt states he uses medication every night. No symptoms Please contact pt at [phone] Armenian Speaker documented in this encounter Plan of Treatment Not on file documented as of this encounter Visit Diagnoses Not on filedocumented in this encounter Care Teams Christian Ministries Professor Relationship Specialty Start Date End Date Roxi Forbes MD [address] [place] [address] PCP - General Family Medicine 01/03/21 documented as of this encounter
--- OUTSIDE RECORDS SUMMARY | 2025-08-03 07:54 | XMS_ITS | Encounter Summary ---
Author Organization [facility] Address [address] [place] [address] Phone Care Team Providers Care Province Archivist Name Role Phone Roxi Forbes MD Primary Care Provider [phone] Encounter Details Date Type Department Care Team (Late st Contact Info) Description 12/23/2023 Documentation Only [facility] [address] [place] [phone] Kalina Borden [address] [place] [phone] Social History Tobacco Use Types Packs/Day Years [...] [facility] [address] [place] [address] Italo Shirley MD [address] [facility] [place] [phone] documented as of this encounter Visit Diagnoses Not on filedocumented in this encounter Care Teams Province Archivist Relationship Specialty Start Date End Date Roxi Forbes MD [address] [place] [address] PCP - General 12/27/20 documented as of this encounter
--- OUTSIDE RECORDS SUMMARY | 2025-08-03 07:54 | XMS_ITS | Encounter Summary ---
Author Organization [facility] Address [address] [place] [address] Phone Care Team Providers Care Paper Production Engineer Name Role Phone Roxi Forbes MD Primary Care Provider [phone] Encounter Details Date Type Department Care Team (Late st Contact Info) Description 10/01/2024 Documentation Only [facility] [address] [place] [phone] Berna Castellano AR [address] [place] [phone] Social History Tobacco Use Types Packs/Day Years [...] Visit [facility] [address] [place] [phone] Italo Shirley MD [address] [place] [address] [place] [phone] documented as of this encounter Visit Diagnoses Not on filedocumented in this encounter Care Teams Paper Production Engineer Relationship Specialty Start Date End Date Roxi Forbes MD [address] [place] [address] PCP - General 12/27/20 documented as of this encounter
--- OUTSIDE RECORDS SUMMARY | 2025-08-03 07:54 | XMS_ITS | Encounter Summary ---
Author Organization [facility] Address [address] [place] [address] Phone Care Team Providers Care Iuss Master Analyst Name Role Phone Roxi Forbes MD Primary Care Provider [phone] Encounter Details Date Type Department Care Team (Late Contact Info) Description 12/07/2022 Documentation Only [facility] [address] [place] [address] Mary Heredia PA [address] [place] [address] [place] [address] Social History Tobacco Use Types Packs/Day Years [...] [facility] [address] [place] [address] Italo Shirley MD [address] [place] [address] [place] [phone] documented as of this encounter Visit Diagnoses Not on filedocumented in this encounter Care Teams Iuss Master Analyst Relationship Specialty Start Date End Date Roxi Forbes MD [address] [place] [address] PCP - General 12/27/20 documented as of this encounter
--- OUTSIDE RECORDS SUMMARY | 2025-08-03 07:54 | XMS_ITS | Encounter Summary ---
Author Organization [employer] Address 75 [facility] 7t [place] [address] Care Team Providers Care Pure Pak Machine Operator Name Role Phone Roxi Forbes MD Primary Care Provider [phone] Reason for Referral * Consultation (Routine) - Closed Specialty Diagnoses / Procedures Referred By Contestelle t Referred To Contact Cardiology Diagnoses History of pancreatitis Hypertriglyceridemia Roxi Forbes MD [address] [place] [address] Phone: tel: fax: [facility] Referral ID Status Reason Start Date Expiration Date V isits Requested Visits Authorized [id number] Closed Specialty Services Required 09/24/2024 09/24/2025 6 6 Encounter Details Date Type Department Care Team (Late st Contact Info) Description 09/17/2024 Orders Only [facility] MEDICINE [address] [place] [address] Roxi Forbes MD [address] [place] [address] History of pancreatitis (Primary Dx); Hypertriglyceridemia Social [...] documented as of this encounter Care Teams Pure Pak Machine Operator Relationship Specialty Start Date End Date Roxi Forbes MD [address] [place] [address] PCP - General Family Medicine 01/03/21 documented as of this encounter
--- OUTSIDE RECORDS SUMMARY | 2025-08-03 07:54 | XMS_ITS | Encounter Summary ---
Author Organization [facility] Address [address] [place] [address] Phone Care Team Providers Care L Tacker Name Role Phone Roxi Forbes MD Primary Care Provider [phone] Encounter Details Date Type Department Care Team (Late Contact Info) Description 03/31/2025 Documentation Only [facility] [address] [place] [phone] Italo Shirley MD [address] [place] [address] [place] [phone] Social History Tobacco Use Types Packs/Day Years [...] [facility] [address] [place] [phone] Italo Shirley MD [address] [place] [address] [place] [address] documented as of this encounter Visit Diagnoses Not on filedocumented in this encounter Care Teams L Tacker Relationship Specialty Start Date End Date Roxi Forbes MD [address] [place] [address] PCP - General 12/27/20 documented as of this encounter
--- OUTSIDE RECORDS SUMMARY | 2025-08-03 07:54 | XMS_ITS | Encounter Summary ---
Author Organization [employer] Address [address] [facility] 7t [place] [address] Care Team Providers Care Vacation Guide Name Role Phone Roxi Forbes MD Primary Care Provider [phone] Reason for Visit * Reason Onset Date Comments Nurse Triage 07/09/2023 Encounter Details Date Type Department Care Team ([facility] st Contact Info) Description 07/09/2023 Telephone [facility] MEDICINE [address] [place] [address] Roxi Forbes MD [address] [place] [address] Nurse Triage Social History Tobacco Use Types [...] 07/09/2023 3:55 PM EDT Triage call with [place] [employer] [id number] Pt reports right knee pain for past [...] little. Pt is advised to come to [facility] today ortomorrow, Hours given open 830p [...] accepted this outcome Please contact pt at [phone] documented in this encounter Plan of Treatment Not on file documented as of this encounter Visit Diagnoses Not on filedocumented in this encounter Care Teams Vacation Guide Relationship Specialty Start Date End Date Roxi Forbes MD [address] [place] [address] PCP - General Family Medicine 01/03/21 documented as of this encounter
--- OUTSIDE RECORDS SUMMARY | 2025-08-03 07:54 | XMS_ITS | Encounter Summary ---
Author Organization [facility] Address [address] [place] [address] Phone Care Team Providers Care Crown Wheel Assembler Name Role Phone Roxi Forbes MD Primary Care Provider [phone] Encounter Details Date Type Department Care Team (Late st Contact Info) Description 12/23/2023 Documentation Only [facility] [address] [place] [phone] Kalina Borden [address] [place] [phone] Social History Tobacco Use Types Packs/Day Years [...] [facility] [address] [place] [address] Italo Shirley MD [address] [facility] [place] [phone] documented as of this encounter Visit Diagnoses Not on filedocumented in this encounter Care Teams Crown Wheel Assembler Relationship Specialty Start Date End Date Roxi Forbes MD [address] [place] [address] PCP - General 12/27/20 documented as of this encounter
--- OUTSIDE RECORDS SUMMARY | 2025-08-03 07:54 | XMS_ITS | Encounter Summary ---
Author Organization [employer] Address [address] [place] [address] [address] [place] [address] Care Team Providers Care Certified Medical Dosimetrist Name Role Phone Roxi Forbes MD Primary Care Provider [phone] Reason for Visit * Reason Onset Date Comments Appointment Request 04/19/2023 Encounter Details Date Type Department Care Team ([facility] st Contact Info) Description 04/19/[address] [facility] MEDICINE [address] [place] [address] Roxi Forbes MD [address] [place] [address] Appointment Request Social History Tobacco Use Types [...] 05/03/2023 for DM2 Please contact pt at [phone] Kiswahili Speaker documented in this encounter Plan of Treatment Not on file documented as of this encounter Visit Diagnoses Not on filedocumented in this encounter Care Teams Certified Medical Dosimetrist Relationship Specialty Start Date End Date Roxi Forbes MD [address] [place] [address] PCP - General Family Medicine 01/03/21 documented as of this encounter
== END ==
LOC: HO.CARD 07:49
PROVIDERS: PCP General Practice; Visit Provider Nurse Practitioner Family
DX: R07.2 Precordial pain (principal); R00.2 Palpitations
CPT/HCPCS: 78452; 93017; A9500; J0280; J2785

== ENCOUNTER → 2025-08-03 07:52 | Outpatient (BNV) | payer MEDICAID, SELFPAY | PROVIDERS: PCP General Practice | DX: R07.2 Precordial pain (principal) | CPT/HCPCS: 78452; 93016; 93018 ==

== ENCOUNTER 2025-08-12 09:25 | Outpatient (AMB) | payer MEDICAID, SELFPAY ==
--- NOTE | 2025-08-12 09:26 | MHC.OFFVIS ---
Vital Signs 08/12/25 09:27 Height 5 ft 6 in Weight 229 lb 4.492 oz BMI 37.0 BP 120/52 L Blood Pressure Location Lt brachial Position Sitting Pulse 99 Pulse Source Pulse Oximeter Intake Visit Reasons: f/u after testing V Groove Cutter Required: Yes V Groove Cutter Language: Director Of Food And Beverage Services Name: lala isabel [id number] Allergies No Known Allergies (No Known Allergies*) Allergy (Verified 08/12/25 09:29) Medication List - Last Reconciled 08/12/25 by IHSAN Davis albuterol sulfate 90 mcg/actuation (Ventolin HFA) 1 puff PO QID PRN alcohol swabs (Alcohol Pads) 1 pad topical QID 30 days atorvastatin 80 mg PO BID baclofen 5 mg PO TID PRN blood sugar diagnostic (FreeStyle Lite Strips) As directed four times a day blood-glucose meter (FreeStyle Hammond Lite kit) As directed 4 times a day empagliflozin (Jardiance) 10 mg PO QAM empagliflozin (Jardiance) 25 mg PO DAILY ergocalciferol (vitamin D2) 1,250 mcg PO QWEEK ezetimibe 10 mg PO DAILY flash glucose scanning reader (FreeStyle Bernice 2 Phoenix) As directed flash glucose sensor (FreeStyle Bernice 2 Sensor kit) As directed every 2 weeks fluticasone propion-salmeterol 250-50 mcg/dose (Wixela Inhub) 1 inh inhalation BID 30 days folic acid 1 mg PO DAILY icosapent ethyl (Vascepa) 2 grams (2 x 1 gram) PO BID 30 days insulin glargine (Lantus Solostar U-100 Insulin) 52 units (0.52 mL) subcut QPM insulin lispro 20 - 26 units (0.2 - 0.26 mL) subcut TID lancets (TRUEplus Lancets) As directed 4 times a day mluyaq-rxxvqkoy-tyutujb 24,000-76,000 -120,000 unit (Creon) 1 cap PO TID lisinopril 5 mg PO DAILY metformin ER 1,000 mg PO DAILY omeprazole 20 mg PO DAILY pen needle, diabetic (BD Ultra-Fine Jenniefr Pen Needle) Five times a day pravastatin 40 mg PO BEDTIME terazosin 5 mg PO BEDTIME 30 days terbinafine HCl 1% 1 appl topical BID HPI HPI f/u after testing: Details: Levi is a 45-year-old male with past medical history of obesity, hyperlipidemia, diabetes, chronic kidney disease, substance abuse, asthma who presents for follow-up after recent Holter monitor and nuclear stress test. Today he reports he still has random pressure pains in his mid chest. It mostly occurs at rest. His heart palpitations have lessened. He is not getting chest discomfort brought on by walking or stair climbing. No PND, orthopnea or edema. No lightheadedness, presyncope, syncope, falls. Is not aware of his medications by name. He does report compliance with the meds he is supposed to take. He does not drink caffeinated beverages. He tries to remain well hydrated. No routine exercise. [facility] Medical History Necrotizing pancreatitis Obesity due to excess calories Dyslipidemia Iron deficiency anemia Polyarthralgia History of pancreatitis History of alcohol abuse Diabetes mellitus with hyperglycemia Surgical History No history of previous surgery Family History Father Diabetes Mother Diabetes Brother Diabetes Social History Household Members: Other Household Members Other:: mother Alcohol intake: current Patient Tobacco Use Status: Current someday Tobacco user Review of Systems Const All systems reviewed & are unremarkable except as noted in HPI and below ENT Denies dizziness Card Reports chest pain, Reports chest pain at rest, Denies chest pain with activity, Denies rapid heart rate, Denies pedal edema, Denies edema, Denies leg edema, Denies lightheadedness, Denies palpitations, Denies dyspnea, Denies dyspnea on exertion and Denies orthopnea Resp Denies cough, Denies dyspnea and Denies dyspnea on exertion GI Denies hematochezia and Denies change in stool character Musc Denies abnormal gait, Denies limited range of motion, Denies muscle cramps, Denies muscle weakness, Denies numbness, Denies radiating pain into limb, Denies stiffness and Denies tingling Neuro Denies abnormal gait, Denies dizziness, Denies numbness and Denies tingling Endo Denies palpitations Physical Exam Vital Signs: Last Vital Signs Pulse 99 08/12/25 09:27 BP 120/52 L 08/12/25 09:27 BMI result Body Mass Index 37.0 Const Other: obesity General: cooperative, healthy appearing, comfortable and no acute distress Orientation/consciousness: patient oriented x3 HEENT Head: Yes normal to inspection Resp Effort & Inspection: normal respiratory effort Auscultation: clear to auscultation bilaterally, no crackles, no rales, no rhonchi and no wheezes Cardio Rate: regular rate Rhythm: regular rhythm Heart sounds: S1 normal heart sound present, S2 normal heart sound present, no gallops, no murmurs and no rubs Neuro General: patient oriented x3 Extrem General: Yes normal to inspection, No no pedal edema and No calf tenderness Psych Appearance: grossly normal Mental Status: mental status grossly normal Speech and movement: Normal speech and movement present Assessment & Plan Assessment & Plan (1) Precordial chest pain: Code(s): R07.2 - Precordial pain Category: Medical Plan: Newer mid chest pressure, occurring mostly at rest, randomly. Previously with rapid palpitations which have improved. EKG done last visit showing sinus rhythm, rate 95. Echocardiogram done 07/22/2025 showed EF 55-60%, grade 1 diastolic dysfunction. Nuclear stress test done 08/03/2025 with no EKG changes, nuclear imaging showing mostly fixed inferior defect with reversibility, probably from diaphragm attenuation, less likely nontransmural infarct. He does have cardiac risk factors of hypertension, hyperlipidemia, diabetes, smoking. He still has atypical chest discomfort. Will check a CTA of the coronary arteries to ensure there is no significant coronary artery disease. Cardiology follow-up 3 months, sooner if needed. (2) Heart palpitations: Code(s): R00.2 - Palpitations Category: Medical Plan: Prior reports of rapid heart palpitations. Holter monitor done 07/22/2025 shows sinus rhythm with average heart rate 101, 52% of the time heart rate greater than 100, rare ventricular and supraventricular ectopy. He does not drink caffeinated beverages. Instructed to maintain good hydration. Will add low-dose metoprolol. (3) Dyslipidemia: Code(s): E78.5 - Hyperlipidemia, unspecified Category: Medical Plan: [place] LDL goal less than 70. He is currently unsure of his cholesterol-lowering medications. Her current list includes both atorvastatin and pravastatin. Will need to reach out to his pharmacy for clarification. Would recommend continuing statin as tolerated, Zetia, Vascepa. Most recent lipid profile done in May shows levels are not optimally controlled. Once meds clarified and consistently taken will plan recheck of fasting lipids. The importance of good cholesterol control and blood sugar control reviewed with him. (4) Hypertriglyceridemia: Code(s): E78.1 - Pure hyperglyceridemia Category: Medical Plan: [place] triglycerides less than 150. Labs from 06/09/2025 shows triglycerides 722. Meds as above. (5) Diabetes mellitus with hyperglycemia: Code(s): E11.65 - Type 2 diabetes mellitus with hyperglycemia Category: Medical Qualifiers: Diabetes mellitus type: type 2 Plan: Hemoglobin A1c goal less than 7. Labs done 09/17/2024 showed hemoglobin A1c 8.1%. (6) Obesity due to excess calories: Code(s): E66.09 - Other obesity due to excess calories Category: Medical Qualifiers: Obesity classification: adult class 2 (BMI 35 - 39.9) Serious obesity comorbidity presence: with serious comorbidity Body mass index: BMI 35.0-35.9 Qualified Code(s): E66.01 - Morbid (severe) obesity due to excess calories; Z68.35 - Body mass index [BMI] 35.0-35.9, adult Plan: Benefit of weight loss and exercise reviewed Plan Time spent on chart review, documentation, interviewed assessment Coding Level of Care Code Est Pt Level 4 (90873) Complex EM visit Add On G2211 Diagnoses Precordial chest pain R07.2 Heart palpitations R00.2 Dyslipidemia E78.5 Hypertriglyceridemia E78.1 Diabetes mellitus with hyperglycemia E11.65 Diabetes mellitus type: type 2 Class 2 severe obesity due to excess calories with serious comorbidity and body mass index (BMI) of 35.0 to 35.9 in adult E66.01; Z68.35 Obesity classification: adult class 2 (BMI 35 - 39.9) Serious obesity comorbidity presence: with serious comorbidity Body mass index: BMI 35.0-35.9 Time Spent (min) 28
[2025-08-12 09:27] VITALS: BP 120/52; PULSE 99; BMI 37.0
== END 2025-08-12 10:12 | disposition home or self-care (01) ==
LOC: HO.HCS 09:26
PROVIDERS: PCP General Practice; Visit Provider Nurse Practitioner Family
DX: R07.2 Precordial pain (principal); R00.2 Palpitations; E78.5 Hyperlipidemia, unspecified; E78.1 Pure hyperglyceridemia; E11.65 Type 2 diabetes mellitus with hyperglycemia; E66.01 Morbid (severe) obesity due to excess calories; Z68.35 Body mass index [BMI] 35.0-35.9, adult
CPT/HCPCS: 99214

== ENCOUNTER → 2025-08-12 09:25 | Outpatient (BNVA) | payer MEDICAID, SELFPAY | PROVIDERS: PCP General Practice; Visit Provider Nurse Practitioner Family | DX: Z71.2 Person consulting for explanation of examination or test findings (principal); R00.2 Palpitations; R07.2 Precordial pain; E78.5 Hyperlipidemia, unspecified; E78.1 Pure hyperglyceridemia; E11.65 Type 2 diabetes mellitus with hyperglycemia; E66.01 Morbid (severe) obesity due to excess calories; Z68.35 Body mass index [BMI] 35.0-35.9, adult | CPT/HCPCS: 99212 ==